=== PATIENT | male | born 1940 | race Caucasian/White ===

== ENCOUNTER → 2020-10-12 10:34 | Outpatient (CLI) | payer MEDICARE, OTHER, SELFPAY ==
--- NOTE | ~2020-10-12 | XR_ITS ---
EXAMINATION: XR lumbar spine 2-3V EXAM DATE: 10/12/2020 11:04 INDICATION: Dorsalgia. Acute low back pain. TECHNIQUE: Lumber spine frontal, lateral, lateral L5-S1 projections for interpretation. There is no prior study for comparison. FINDINGS: There is mild to moderate disc disease at L3-4 and moderate at L5-S1. Mild disc disease at L2-3. There is mild upper lumbar, moderate lower lumbar facet arthropathy. The vertebral bodies are aligned in the AP dimension. Vertebral body heights are maintained. No spondylolysis. Mild aortic art erial sclerosis. Sacrum, sacroiliac joints, sacral arcuate lines are intact. Paraspinal soft tissue i s unremarkable. It is difficult to appreciate any significant interval change compared to 2014. IMPRESSION: Moderate lower lumbar spondylosis. Reviewed, dictated and finalized at location A.
== END ==
PROVIDERS: PCP Family Medicine; Visit Provider Family Medicine
DX: M54.9 Dorsalgia, unspecified (principal); M47.816 Spondylosis without myelopathy or radiculopathy, lumbar region
CPT/HCPCS: 72100

== ENCOUNTER 2020-11-27 12:20 | Outpatient (CLI) | payer MEDICARE, OTHER, SELFPAY ==
--- NOTE | 2020-11-27 12:46 | ECHO_ITS ---
Patient Info Name: Marquise Reyes Age: 80 years : 1940 Gender: Male Ht: 72 in Wt: 201 lbs BSA: 2.17 m2 HR: 78 bpm BP: 157 / 85 mmHg Heart Rhythm: Sinus Rhythm Exam Date: 11/27/2020 12:58 PM Exam Location: [facility] Patient Status: Outpatient Admit Date: 11/27/2020 Staff Ordering Physician: Amrik Painter DO Counselor At Law: Mikaela Nelson RDCS Attending Provider: Amrik Painter DO Exam Type: CA echo doppler color flow Study Info Indications R06.00 - Dyspnea, unspecified Complete two-dimensional, color flow and Doppler transthoracic echocardiogram is performed. Summary 1. Complete two-dimensional, color flow and Doppler transthoracic echocardiogram is performed. 2. Left ventricular chamber dimension is normal. 3. Left ventricular systolic function is normal, estimated at 55-60%. 4. There is mildly increased left ventricular wall thickness. 5. The left ventricular diastolic function is grade I diastolic dysfunction. 6. E/e' 9 is minimally elevated. 7. Left atrial chamber dimension is mildly enlarged. 8. There is mild mitral valve regurgitation. 9. There is mild tricuspid valve regurgitation. 10. No pulmonary hypertension, estimated pulmonary arterial systolic pressure is 32 mmHg. Left Ventricle E/e' 9 is minimally elevated. Left ventricular chamber dimension is normal. Left ventricular systolic function is normal, estimated at 55-60%. There is mildly increased left ventricular wall thickness. The left ventricular diastolic function is grade I diastolic dysfunction. Right Ventricle Right ventricular chamber dimension is normal. Right ventricular systolic function is normal. Left Atria Left atrial chamber dimension is mildly enlarged. Right Atria Right atrial chamber dimension is normal. Aortic Valve The aortic valve is trileaflet. There is no aortic valve stenosis. There is no aortic valve regurgitation. Pulmonic Valve There is no pulmonic regurgitation. Mitral Valve There is no mitral valve stenosis. There is mild mitral valve regurgitation. Tricuspid Valve There is mild tricuspid valve regurgitation. No pulmonary hypertension, estimated pulmonary arterial systolic pressure is 32 mmHg. Pericardium/Pleural There is no pericardial effusion. Inferior Vena Cava Normal inferior vena cava with >50% collapse upon inspiration consistent with normal right atrial pressure, 5 mmHg. Aorta The aortic root size at the sinus of Valsalva is normal. Left Ventricular Outflow Tract Name Value Normal LVOT 2D LVOT Diameter 2.1 cm LVOT Doppler LVOT Peak Gradient 3 mmHg LVOT Mean Gradient 1 mmHg LVOT VTI 21 cm LVOT VTI/AV VTI Ratio 0.7 LVOT Stroke Volume 73 ml LVOT CO 5.1 l/min LVOT CI 2.3 l/min/m2 Pulmonic Valve Name Value Normal
== END 2020-11-27 12:21 | disposition home or self-care (01) ==
LOC: ANHCARD 12:24
PROVIDERS: PCP Family Medicine; Visit Provider Internal Medicine Cardiovascular Disease
DX: R06.00 Dyspnea, unspecified (principal); I36.1 Nonrheumatic tricuspid (valve) insufficiency; I34.0 Nonrheumatic mitral (valve) insufficiency
CPT/HCPCS: 93306

== ENCOUNTER → 2020-12-09 10:26 | Outpatient (CLI) | payer MEDICARE, OTHER, SELFPAY ==
--- NOTE | ~2020-12-09 | MR_ITS ---
EXAMINATION: MR lumbar spine wo con EXAM DATE: 12/09/2020 11:46 INDICATION: Lumbar radiculopathy lbp down duyen legs x5mos, prev l-sp surg x20yrs, no trauma . TECHNIQUE: Multi-sequential, multiplanar MR images of the lumbar spine were obtained without contrast . Sagittal T1, T2, T2 fat saturation images. Axial T2 weighted images. Correlation is made to lumba r x-ray 10/12/2020. FINDINGS: There are scattered focal signal abnormalities consistent with hemangiomata, otherwise with out focal suspicious marrow signal abnormalities. There is moderate loss of the L3-4 and L5-S1 disc h eight, mild to moderate at L2-3. There is 2 mm retrolisthesis L2 on L3. The vertebral bodies are othe rwise aligned. The conus medullaris terminates at the L1/2 level and has normal signal intensity and morphology. Paraspinal soft tissue is unremarkable. Large incompletely imaged left renal cyst. Level by level evaluation: T12-L1: Disc does not extend beyond the endplate margin. Facet arthropathy: None. Neural foraminal stenosis: No stenosis. Central canal stenosis: No stenosis. L1-L2: There is a mild diffuse disc bulge. Facet arthropathy: Large right synovial cyst filling the neural foramina. Neural foraminal stenosis: Moderate to severe right. Central canal stenosis: Right lateral recess stenosis. L2-L3: There is a mild to moderate diffuse disc bulge. Facet arthropathy: Moderate . Ligamentum flavum enlargement. Neural foraminal stenosis: Moderate left, mild to moderate right. Central canal stenosis: Mild to moderate. L3-L4: There is a moderate diffuse disc bulge. Facet arthropathy: Moderate . Ligamentum flavum enlargement. Neural foraminal stenosis: Moderate right, mild to moderate left. Central canal stenosis: Moderate. L4-L5: There is a moderate diffuse disc bulge. Facet arthropathy: Moderate to severe . Ligamentum flavum enlargement. Neural foraminal stenosis: Moderate bilateral. Central canal stenosis: Severe. L5-S1: There is a mild to moderate diffuse disc bulge. Facet arthropathy: Mild to moderate. Neural foraminal stenosis: Mild bilateral. Central canal stenosis: Mild. IMPRESSION: 1. L4-5 severe central canal stenosis. 2. L1-2 moderate to severe right neural foraminal stenosis. Reviewed, dictated and finalized at location A.
== END ==
PROVIDERS: PCP Family Medicine; Visit Provider Nurse Practitioner Adult Health
DX: M54.16 Radiculopathy, lumbar region (principal); M48.061 Spinal stenosis, lumbar region without neurogenic claudication
CPT/HCPCS: 72148

== ENCOUNTER 2021-03-26 07:39 | Outpatient (CLI) | payer MEDICARE, OTHER, SELFPAY ==
--- NOTE | 2021-04-07 19:35 | WPDHOMESLEEP ---
Sleep Study - Home Unattended Date of Study: 03/26/21 Ordering Provider: Amrik Painter DO Interpreting Provider: Pamela Cortez MD Home Sleep Study Type: Apnea Link Air Height: 1.83 m Weight: 91.172 kg Body Mass Index: 27.2 Neck Circumference (inches): 19 [place]: 6 Reason for Sleep Study Hypersomnia Sleep History Marquise Reyes is an 80 year old man with difficulty falling asleep and he has excessive daytime sleepiness. He does not awaken from sleep feeling short of breath or awaken at night with heartburn, belching or coughing. He occasionally snores and occasionally it is loud enough that others complain about it. He occasionally has trouble sleeping with a cold. He does not gasp for breath at night or have breathing problems at night reported to him by others. He occasionally sweats excessively at night. He does not notice his heart pounding or beating irregularly at night. He does not fall asleep during the day, does not fall asleep involuntarily or while driving. He does not have loss of muscle tone with strong emotion. He does not have daytime difficulties due to excessive sleepiness. He does not feel paralyzed on waking or falling asleep. He does not have vivid dreamlike scenes upon awakening or falling asleep. He does not feel afraid to go to sleep. He occasionally has nightmares. He occasionally remembers his dreams. He does not have racing thoughts, feelings of sadness, depression, or anxiety. He denies having muscular tension or noticing parts of his body jerking. He does not kick at night. He occasionally has crawling and aching feelings in his legs. He occasionally has leg pain at night. He does not have morning jaw pain. He occasionally grinds his teeth during sleep. He occasionally is bothered by pain during the day. He never is awakened by pain at night. Occasionally wakes up feeling stiff in the morning with sore achy muscles. He does not wake up with pain in the neck and spine. He has fatigue, insomnia headaches and nightmares. Normal bedtime is 7:00 p.m. taking 30 minutes to fall asleep waking 3-4 times during the night to go to the bathroom. He stays awake for 30 minutes on average with these awakenings. He wakes in the morning at 5:00 a.m.. He estimates getting 6 hours of sleep at night. His weekend schedule is the same. He takes naps in the afternoon or evening. A short nap is refreshing. Most of the time he feels refreshed in the morning. He feels better in the morning compared to other times of day. Habits: Never smoked tobacco. Caffeine 2-3 cups a day. No alcohol or recreational drugs. [facility] Past Medical History Medical History Chronic low back pain Chronic lymphocytic leukemia in remission Dyslipidemia Environmental allergies Essential (primary) hypertension GERD without esophagitis History of subdural hematoma Lumbar spondylosis Premature atrial complexes Surgical History Surgical History History of basal cell carcinoma excision 2019 - left nose History of lumbosacral spine surgery 1960s History of neck surgery 2000 Lump of breast, left benign-removed in the late s Tumor Right side of neck - removed 2008 Family History Family History Mother Patient's mother is , Onset Age: 92 Family history of lung cancer Father Family history of type 2 diabetes mellitus Diabetes mellitus, Onset Age: 79 Family history of lung cancer Other Family history of lymphoma Social History Social History Smoking status: Never smoker Second hand tobacco smoke exposure: No Alcohol intake: former Alcohol use details: 1 glass of wine occasionally Substance use: never Substance use type: does not use Additional living arrangements comments:
[2021-04-07 21:23] VITALS: BMI 27.2
== END 2021-03-27 13:09 | disposition home or self-care (01) ==
LOC: ANHCSM 07:42
PROVIDERS: PCP Family Medicine; Visit Provider Internal Medicine Cardiovascular Disease
DX: G47.33 Obstructive sleep apnea (adult) (pediatric) (principal)
CPT/HCPCS: 95806

== ENCOUNTER 2021-04-19 07:57 | Outpatient (CLI) | payer MEDICARE, OTHER, SELFPAY ==
--- NOTE | 2021-05-02 15:46 | WPDSLEEPSTUD ---
Sleep Study Date of Study: 04/19/21 <Adele Perdomo DO - Last Filed: 05/02/21 16:30> Ordering Provider: Amrik Painter DO <Adele Perdomo DO - Last Filed: 05/02/21 16:30> Interpreting Physician: Adele Perdomo DO <Adele Perdomo DO - Last Filed: 05/02/21 16:30> Sleep Study Type: CPAP Titration <Adele Perdomo DO - Last Filed: 05/02/21 16:30> Height: 1.83 m <Adele Perdomo DO - Last Filed: 05/02/21 16:30> Weight: 92.986 kg <Adele Perdomo DO - Last Filed: 05/02/21 16:30> Body Mass Index: 27.8 <Adele Perdomo DO - Last Filed: 05/02/21 16:30> Neck Circumference (inches): 17 <Adele Perdomo DO - Last Filed: 05/02/21 16:30> [place]: 3 <Adele Perdomo DO - Last Filed: 05/02/21 16:30> Reason for Sleep Study The patient had a home sleep test on 03/26/21 that showed an AHI of 7 with desaturations down to 52%. He spent 44 minutes with an oxygen saturation less than 88%. It was recommended that he have an in lab study. <Adele Perdomo DO - Last Filed: 05/02/21 16:30> Sleep History Marquise Reyes is an 80 year old man with difficulty falling asleep and he has excessive daytime sleepiness. He does not awaken from sleep feeling short of breath or awaken at night with heartburn, belching or coughing. He occasionally snores and occasionally it is loud enough that others complain about it. He occasionally has trouble sleeping with a cold. He does not gasp for breath at night or have breathing problems at night reported to him by others. He occasionally sweats excessively at night. He does not notice his heart pounding or beating irregularly at night. He does not fall asleep during the day, does not fall asleep involuntarily or while driving. He does not have loss of muscle tone with strong emotion. He does not have daytime difficulties due to excessive sleepiness. He does not feel paralyzed on waking or falling asleep. He does not have vivid dreamlike scenes upon awakening or falling asleep. He does not feel afraid to go to sleep. He occasionally has nightmares. He occasionally remembers his dreams. He does not have racing thoughts, feelings of sadness, depression, or anxiety. He denies having muscular tension or noticing parts of his body jerking. He does not kick at night. He occasionally has crawling and aching feelings in his legs. He occasionally has leg pain at night. He does not have morning jaw pain. He occasionally grinds his teeth during sleep. He occasionally is bothered by pain during the day. He never is awakened by pain at night. Occasionally wakes up feeling stiff in the morning with sore achy muscles. He does not wake up with pain in the neck and spine. He has fatigue, insomnia headaches and nightmares. Normal bedtime is 7:00 p.m. taking 30 minutes to fall asleep waking 3-4 times during the night to go to the bathroom. He stays awake for 30 minutes on average with these awakenings. He wakes in the morning at 5:00 a.m.. He estimates getting 6 hours of sleep at night. His weekend schedule is the same. He takes naps in the afternoon or evening. A short nap is refreshing. Most of the time he feels refreshed in the morning. He feels better in the morning compared to other times of day. Habits: Never smoked tobacco. Caffeine 2-3 cups a day. No alcohol or recreational drugs. <Adele Perdomo DO - Last Filed: 05/02/21 16:30> [facility] Past Medical History Medical History: Medical History Chronic low back pain Chronic lymphocytic leukemia in remission Dyslipidemia Environmental allergies Essential (primary) hypertension GERD without esophagitis History of subdural hematoma Lumbar spondylosis Premature atrial complexes <Adele Perdomo DO - Last Filed: 05/02/21 16:30> Surgical History Surgical History: Surgical H
[2021-05-02 15:48] VITALS: BMI 27.8
== END 2021-04-20 06:06 | disposition home or self-care (01) ==
LOC: ANHCSM 07:58
PROVIDERS: PCP Family Medicine; Visit Provider Internal Medicine Cardiovascular Disease
DX: G47.33 Obstructive sleep apnea (adult) (pediatric) (principal)
CPT/HCPCS: 95811

== ENCOUNTER 2021-04-27 08:47 | Outpatient (CLI) | payer MEDICARE, OTHER, SELFPAY ==
--- NOTE | ~2021-04-27 | NM_ITS ---
EXAMINATION: NM bone scan whole body DATE: 04/27/2021 11:54 INDICATION: Prostate cancer TECHNIQUE: 24.24 mCi Tc-99m HDP was administered intravenously. Delayed whole-body scintigrams were obtained. COMPARISON: Lumbar spine MR dated 12/09/2020 FINDINGS: Typical pattern of likely degenerative joint centered uptake at the medial compartment of the left kn ee at the radial aspect of the bilateral carpi, at the acromioclavicular joints, right greater than l eft at the sternoclavicular joints left greater than right. Additional mild uptake at the left L4-L5 facet joint with severe corresponding facet osteoarthritis on prior MRI. 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 Addition al mild likely degenerative facet or costovertebral arthritis related uptake in the midthoracic spine . No other suspicious foci of abnormal bone uptake to suggest metastatic disease. IMPRESSION: 1. No evident metastatic disease. Reviewed, dictated and finalized at location A.
== END 2021-04-27 08:48 | disposition home or self-care (01) ==
LOC: ANHIMG 08:51
PROVIDERS: PCP Family Medicine; Visit Provider Urology
DX: C61 Malignant neoplasm of prostate (principal); M47.816 Spondylosis without myelopathy or radiculopathy, lumbar region
CPT/HCPCS: 78306; A9561

== ENCOUNTER 2021-05-28 08:10 | Outpatient (CLI) | payer MEDICARE, OTHER, SELFPAY ==
--- NOTE | ~2021-05-28 | MR_ITS ---
EXAMINATION: MR pelvis wo/w con DATE: 05/28/2021 10:27 INDICATION: Malignant neoplasm of the prostate. TECHNIQUE: Magnetic resonance imaging (MRI) of the pelvis was performed without and with 18 mL Multih ance intravenous contrast. [place] sequences of the pelvis included axial and coronal T2-weighted S S FSE, axial, sagittal and coronal 2D FIESTA, axial 2D FIESTA FS, axial SSFSE-IR GABRIELLE, axial dual-echo T1-weighted FSPGR, axial and coronal T1 weighted LAVA, 3D axial T2 Cube, axial diffusion-weighted SE with apparent diffusion coefficient (ADC) maps. Postcontrast sequences included a time course axial T1-weighted LAVA and sagittal and coronal T1-weighted LAVA. COMPARISON: None. FINDINGS: Enlarged heterogeneous prostate measuring 7.5 x 6.6 x 7.2 cm. Small region of increased fluid signal with ill-defined margins measuring approximately 4 cm craniocaudal and left and right and 7 mm in max imal thickness positioned between the posterior margin of the prostate in the anterior wall of the re ctum likely representing injected hydrogel spacer. Bladder is normal. 7.2 cm exophytic cyst arising f rom the lower pole of the left kidney. Small fat-containing left inguinal hernia. Visualized portion of the bowels including the appendix are unremarkable. No pathologically enlarged pelvic or lower abd ominal lymphadenopathy. Moderate lumbar spondylosis. There is marrow edema and enhancement centered a t the left L4-L5 facet joint where there is severe osteoarthritis evident on the prior lumbar spine M RI) with corresponding increased activity on prior bone scan at this location which is likely degener ative in etiology. There is also mild increased fluid signal and enhancement the soft tissues between the fourth and fifth spinous processes likely related to vascular disease which is better appreciate d on the prior lumbar spine MRI. No T1 hypointense marrow replacing processes or other enhancing bone lesions suspicious for metastatic disease. IMPRESSION: 1. Prostatomegaly consistent with given history of malignant neoplasm of the prostate. No evident met astatic disease. Reviewed, dictated and finalized at location A. REPAIR TECHNICIAN IMPRESSION: 1. Prostatomegaly consistent with given history of malignant neoplasm of the pr ostate. No evident metastatic disease.
[2021-05-28 09:33] LABS: Estimated Glomerular Filt Rate > 60
== END 2021-05-28 08:11 | disposition home or self-care (01) ==
LOC: ANHIMG 08:16
PROVIDERS: PCP Family Medicine; Visit Provider Radiology Radiation Oncology
DX: C61 Malignant neoplasm of prostate (principal); N40.0 Benign prostatic hyperplasia without lower urinary tract symptoms
CPT/HCPCS: 72197; A9577

== ENCOUNTER 2021-12-11 00:27 | Day surgery (SDC) | payer MEDICARE, OTHER, SELFPAY ==
[2021-12-05 15:26] VITALS: BMI 29.8
--- NOTE | 2021-12-05 15:49 | PC.NURSE ---
Report to the Outpatient Waiting Room, entrance under the green pavilion located off [facility], at time __9:00AM on date ___12/11/21____. OR Time: ___11:00AM . - You and your visitor will be asked a series of questions to screen for COVID 19 for your protection. - Only one visitor is allowed at this time. - The patient visitor is requested to leave or wait in car when not with patient. - A mask is required within the hospital. Patients may have clear liquids (water, carbonated beverages, clear teas, apple juice) until 3 hours prior to surgery with a maximum of 20 ounces. - No food from midnight until time of surgery - Infants may have breast milk until 4 hours before surgery, formula 6 hours prior to surgery. - Children will be allowed to drink immediately following surgery. If applicable, please bring a bottle or sippy cup to assist with drinking. Juice, water, soda, and popsicles are readily available. For infants on formula, please bring formula the day of surgery. Pacifiers are allowed. Take the following medications with a SIP of water the morning of surgery: ___METOPROLOL Medications to discontinue per physician ___HOLD IBUPROFEN 7 DAYS PRE-OP Date to take last dose___12/04/21 Please no make-up, nail citizen of [place], hairspray, perfume, deodorant, or body powder the day of surgery. No jewelry (including any body piercings) or valuables the day of surgery, leave them at home. Please take a shower or bath the night before, or the morning of, surgery with an antibacterial soap. Wear comfortable, loose fitting clothing. Children are encouraged to wear pajamas. - Jewelry must be removed prior to entering the operating room. Rings and piercings that are not removed may be cut off. - The hospital will not accept responsibility for valuables. - Please leave all valuables, including medications, at home the day of surgery. If you are going home after surgery, a licensed mobile lounge driver or operator must drive you home. - NO public transportation without another adult. - We recommend that an adult stay with you for 24 hours following discharge. - We also recommend that you do not drive, make important decision, drink alcoholic beverages, or take any drugs that were not prescribed by your health care provider for at least 24 hours after your discharge time. For Pediatric surgeries, we recommend two adults accompany the child home (only one inside the building at this time). Follow any additional instructions given to you from your surgeon. If you or anyone in your household have experienced Covid symptoms in the past week, please notify your surgeon or the nurse liaison at the phone number below for possible testing. Telephone instructions given to __PATIENT & WIFE and asked if any additional questions and then verbalized understanding. Patient advised to call surgeon office or pre surgery nurse liaison [phone] if any additional questions.
--- NOTE | 2021-12-10 13:45 | WPDANESEPPF ---
Anes - Initial Pre Proc Eval Procedure: Operation Date: 12/11/21 11:00 Proposed Procedures p Cystoscopy, Retrograde Urethrogram, Urethral Dilation - Cullen Venegas MD Date/Time: 12/10/21 13:45 Surgeon: Cullen Venegas MD Pre Op Diagnosis: urethral stricture, neurogenic bladder Patient Data Age: 81 Gender: M Height: 1.8 m Weight: 97 kg Allergies Allergy/AdvReac Type Severity Reaction Status Date / Time No Known Allergies Allergy Verified 12/05/21 15:19 Home Medications Medication Instructions Recorded Confirmed Type fexofenadine 180 mg tablet 180 mg PO DAILY 05/27/19 12/05/21 History (Corrina Allergy) ibuprofen 200 mg capsule (Advil 200 mg PO Q6H PRN Pain 11/02/20 12/05/21 History Liqui-Gel) fluticasone propionate 50 1 spray intranasal DAILY 11/21/20 12/05/21 History mcg/actuation nasal spray,suspension omeprazole 40 mg capsule,delayed 40 mg PO DAILY #30 caps 06/15/21 12/05/21 Rx release metoprolol succinate 25 mg 25 mg PO QAM 12/05/21 12/05/21 History tablet,extended release 24 hr (Toprol XL) Patient hx anesthesia problems: none Family hx anesthesia problems: none Results Review: All pre-operative results and documents have been reviewed as part of the pre-operative evaluation. [facility] Past Medical History Medical History Chronic low back pain CLL (chronic lymphocytic leukemia) Dyslipidemia Environmental allergies Essential (primary) hypertension GERD without esophagitis History of subdural hematoma Lumbar spondylosis Premature atrial complexes Prostate cancer Vitamin D deficiency Surgical History Surgical History History of basal cell carcinoma excision 2019 - left nose History of lumbosacral spine surgery 1960s History of neck surgery 2000 Lump of breast, left benign-removed in the late s Tumor Right side of neck - removed 2008 Family History Family History Mother Patient's mother is , Onset Age: 92 Family history of lung cancer Father Family history of type 2 diabetes mellitus Diabetes mellitus, Onset Age: 79 Family history of lung cancer Other Family history of lymphoma Social History Social History Smoking status: Never smoker Second hand tobacco smoke exposure: No Alcohol intake: current Drinks per week: 2 Alcohol use details: 1 glass of wine occasionally Substance use: never Substance use type: does not use Living arrangements: with family Additional living arrangements comments: [facility]- Gender identity (if verbalized by the patient): Male Spiritual care concerns: No Anes - Eval Final PreProcedure Day of Procedure 12/10/21 13:45 Patient weight: overweight Heart: regular rate and rhythm Lungs: clear to auscultation and normal air movement Airway: Mallampati scale class II Neurological: alert and oriented Last oral intake: >/= 8 hours ASA classification: III Emergent: no Anesthetic plan: proceed Anesthesia type and monitoring: general LMA Results Review: All pre-operative results and documents have been reviewed as part of the pre-operative evaluation. Informed Consent: The patient's anesthetic plan and its attendant risks and benefits were discussed with the patient/family/POA. Questions were solicited and answers provided to the satisfaction of the patient/family/POA.
[2021-12-11] VITALS (8 sets, daily range): BP systolic 101–179; BP diastolic 52–82; PULSE 58–88; RESP 10–16; TEMP 36.3; O2SAT 99–100
--- NOTE | ~2021-12-11 | XR_ITS ---
XR fluoroscopy no charge 12/11/2021 13:17 Indication: Urethral dilation procedure TECHNIQUE: Fluoroscopy used during ureteral dilation procedure performed by [Cullen wing MD] on 12/11/2021. Fluoroscopy time is 33 seconds. with 2 fluoroscopic images images captured. ] FINDINGS: Correlate with procedure note. IMPRESSION: Fluoroscopy used during ureteral dilation procedure. Reviewed, dictated and finalized at location B.
--- NOTE | 2021-12-11 08:38 | WPDHPUPDATE1 ---
History and Physical Update Update Date/Time: 12/11/21 08:38 History and Physical has been reviewed, including an updated exam of the patient. There are NO changes in the patient's condition. Risks, benefits, and alternatives have been discussed and questions answered. Patient agrees to proceed with procedure. Proceed with cysto, retrograde urethrogram, urethral dilation
[2021-12-11] MEDS: LACTATED RINGERS 1,000 ML 30 ML IV CONT (11:30)
[2021-12-11] MEDS: ceFAZolin 2 GM/D5W 50 ML 2 GM/50 ML BAG IVPB (12:35)
[2021-12-11] MEDS: LIDOCAINE HCL 2% GEL UROJET 10 ML PKG MUCOUS MEM (13:03)
--- NOTE | 2021-12-11 13:12 | P.OP_ITS ---
Procedure Note - Detailed Date of Procedure 12/11/21 Pre-op Diagnosis urethral stricture, neurogenic bladder Post-op Diagnosis Same Procedure Performed Cystoscopy with urethral dilation and complex Shah catheter placement Surgeon Cullen Venegas MD Anesthesia General Findings Bulbar urethral stricture with some lateral lobe hypertrophy and elevated median bar Description of Procedure Patient is taken to the operative suite correctly identified. Once anesthesia was obtained was placed in the dorsal lithotomy position and prepped and draped usual sterile fashion. A Macedonian scope was inserted into the urethra. He has a bulbar stricture which would not allow passage of the scope. A guidewire was passed through this stricture but could not navigate the elevated median bar of the prostate. I thus used a rigid ureteral scope to traverse this area and placed a wire into the bladder. We then used Amplantz dilators and dilated up to 22 Macedonian. Cystoscopy was then performed again. No tumors were noted. Eighteen [place]onian [place] tip catheter was then passed over the wire. 15 cc were placed in the balloon. Patient is taken recovery stable condition. He may have a little prostatic oozing. Will leave the catheter in until next Friday which point he will have a voiding trial. Estimated Blood Loss 0 Drains Yes Packing No Pathology None sent Complications No immediate complications Condition Stable Disposition PACU
== END 2021-12-11 15:23 | disposition home or self-care (01) ==
PROVIDERS: PCP Family Medicine; Visit Provider Urology
PROC: (CPT 52352; principal; 2021-12-11 11:00)
DX: N35.912 Unspecified bulbous urethral stricture, male (principal); N31.9 Neuromuscular dysfunction of bladder, unspecified; E78.5 Hyperlipidemia, unspecified; I10 Essential (primary) hypertension; C91.10 Chronic lymphocytic leukemia of B-cell type not having achieved remission; K21.9 Gastro-esophageal reflux disease without esophagitis; Z85.46 Personal history of malignant neoplasm of prostate
CPT/HCPCS: 52281; A9270; C1726; C1769; J0690; J2704; J3010; J7120

== ENCOUNTER 2022-01-14 08:31 | Outpatient (CLI) | payer MEDICARE, OTHER, SELFPAY ==
--- NOTE | ~2022-01-14 | NM_ITS ---
EXAMINATION: NM ranjith stress w perfusion DATE: 01/14/2022 10:38 INDICATION: Dyspnea TECHNIQUE: Rest images were obtained following intravenous administration of 9 mCi Tc99m tetrofosmin (Myoview). The patient was infused intravenously with Lexiscan (Regadenoson). Then, 29.1 mCi Tc99m te trofosmin (Myoview) was administered intravenously, and stress images were obtained in supine positio n. Repeat post stress imaging was obtained in the prone position. Data was reconstructed into short a xis and horizontal and vertical long axis SPECT images. Gated SPECT images were also obtained. COMPARISON: None. FINDINGS: There is no definite reversible or fixed perfusion abnormality to suggest ischemia or infar ction. There is normal left ventricular chamber size, wall motion and ejection fraction. Left ventr icular ejection fraction measures 70%. IMPRESSION: 1. Normal myocardial perfusion at rest and during stress. 2. Left ventricular ejection fraction measuring 70%. Reviewed, dictated and finalized at location B.
--- NOTE | 2022-01-14 08:41 | EST_ITS ---
Patient Info Name: Marquise Reyes Age: 81 years : 1940 Gender: Male Ht: 72 in Wt: 210 lbs BSA: 2.22 m2 HR: 82 bpm BP: 168 / 89 mmHg Exam Date: 01/14/2022 9:33 AM Exam Location: [facility] Stress Patient Status: Outpatient Admit Date: 01/14/2022 Staff Ordering Physician: Amrik Painter DO Attending Provider: Amrik Painter DO Exercise Technologist: Elena Silvestre CT Exercise Physician: Amrik Painter DO Exam Type: CA stress ranjith w NM Study Info Indications R06.09 - Other forms of dyspnea A regadenoson stress test was performed. Summary 1. 1. Negative lexiscan stress test for ischemic ST changes by ECG criteria. 2. 2. Baseline hypertension. 3. 3. Nuclear scan to follow and will be reported separately. Please correlate with it. 4. 4. Patient informed of the above results. Protocol: Lexiscan Stress ECG Details Stage: REST Duration (min): 1 min : 58 sec HR (bpm): 78 SBP (mmHg): 168 DBP (mmHg): 89 Stage: REST Duration (min): 6 min : 22 sec HR (bpm): 86 SBP (mmHg): 168 DBP (mmHg): 89 Stage: STAGE 1 Duration (min): 1 min : 0 sec HR (bpm): 94 SBP (mmHg): 159 DBP (mmHg): 86 Stage: RECOVERY Duration (min): 1 min : 0 sec HR (bpm): 102 SBP (mmHg): 159 DBP (mmHg): 86 Stage: RECOVERY Duration (min): 2 min : 0 sec HR (bpm): 97 SBP (mmHg): 159 DBP (mmHg): 86 Stage: RECOVERY Duration (min): 3 min : 0 sec HR (bpm): 103 SBP (mmHg): 142 DBP (mmHg): 81 Stage: RECOVERY Duration (min): 3 min : 16 sec HR (bpm): 103 SBP (mmHg): 142 DBP (mmHg): 81 Rest HR: 86 bpm Peak HR: 107 bpm Rest Sys BP: 168 mmHg Peak Sys BP: 159 mmHg Max Pred HR: 137 bpm % Max Pred HR: 78 % Target HR: 116 bpm Max RPP: 17,013 bpm*mmHg Termination Reason: Completed protocol Cardiac Symptoms: Shortness of breath Total Time: 1 min : 0 sec Rest Zapata BP: 89 mmHg Peak Zapata BP: 86 mmHg Total Dose: 0.4 mg Resting ECG Sinus rhythm, RBBB, LAFB, cannot r/o septal infarct, age indeterminate. Stress ECG No ST changes. Arrhythmias None. Report Signatures
== END 2022-01-14 08:32 | disposition home or self-care (01) ==
PROVIDERS: PCP Family Medicine; Visit Provider Internal Medicine Cardiovascular Disease
DX: R06.00 Dyspnea, unspecified (principal)
CPT/HCPCS: 78452; 93017; A9502; J2785

== ENCOUNTER → 2022-02-13 15:31 | Outpatient (CLI) | payer MEDICARE, OTHER, SELFPAY ==
--- NOTE | ~2022-02-13 | XR_ITS ---
XR chest 2V 02/13/2022 16:08 Indication: Shortness of breath Procedure: 2 view chest Comparison: 07/28/2018 Findings: Portacatheter tip near the cavoatrial junction. There is chronic left basilar atelectasis/s carring. No focal air space disease, pulmonary edema, pleural effusion or suspected pneumothorax. Impression: 1: No acute cardiopulmonary disease. Reviewed, dictated and finalized at location A. Impression: 1: No acute cardiopulmonary disease.
== END ==
PROVIDERS: PCP Family Medicine; Visit Provider Internal Medicine Critical Care Medicine
DX: R06.02 Shortness of breath (principal)
CPT/HCPCS: 71046

== ENCOUNTER 2022-02-19 09:32 | Outpatient (CLI) | payer MEDICARE, OTHER, SELFPAY ==
--- NOTE | 2022-02-20 15:19 | WPDPFTINT ---
PFT Procedure Performed PFT Procedure Performed Spirometry with Pre/Post Bronchodilator Plethysmography (Lung Vol) Diffusing Cap (DLCO) Flow Vol Loop PFT Interpretation Lung volumes were measured with the body plethysmography method. Lung volumes are unremarkable. Spirometry showed diminished expiratory flow rates and a diminished FEV1 to FVC ratio of 61%, indicative of obstructive airway disease. Following administration of a bronchodilator there was no significant increase in the expiratory flow rates. Lung diffusion capacity is mildly reduced at 68% predicted. The flow volume loop is consistent with obstructive airway disease. Impression: Mild obstructive airway disease with no response to bronchodilators on this testing. Mild reduction in lung diffusion capacity.
--- NOTE | 2022-02-20 15:21 | WPDSIXMINUTE ---
Six Minute Walk Procedure Procedure Performed Pulmonary Stress Test (6 min walk) Six Minute Walk Six Minute Walk: This 6 minute walk test was carried out with the patient breathing ambient air. The pre walk oxyhemoglobin saturation was 97%. The patient walked over 304 m with no stops during testing. During the walk the oxyhemoglobin saturation remained greater than 95%. Impression: No evidence of oxyhemoglobin desaturation on this testing.
== END 2022-02-19 09:33 | disposition home or self-care (01) ==
LOC: ANHPFT 09:35
PROVIDERS: PCP Family Medicine; Visit Provider Internal Medicine Critical Care Medicine
DX: R06.02 Shortness of breath (principal); R94.2 Abnormal results of pulmonary function studies
CPT/HCPCS: 94060; 94618; 94726; 94729

== ENCOUNTER → 2022-05-03 15:44 | Outpatient (CLI) | payer MEDICARE, OTHER, SELFPAY ==
--- NOTE | ~2022-05-03 | DEXA_ITS ---
Bone Density Report Name: JOSS JORGE Age: 81 Sex: Male Ethnicity: White Date of : 1940 Indication: screening for osteoporosis; height loss; cancer; Referring Provider: ARCELIA CASTELAN Study: Bone densitometry was performed. Exam Date: May 03, 2022 Accession number: [id number] Bone Density: Region BMD T-score Z-score Classification AP Spine (L1, L2, L4) 0.936 -1.4 -0.1 Osteopenia Femoral Neck (Left) 0.777 -1.1 0.5 Osteopenia Total Hip (Left) 0.919 -0.8 0.4 Normal Femoral Neck (Right) 0.803 -0.9 0.7 Normal Total Hip (Right) 0.868 -1.1 0.1 Osteopenia Total Hip Mean 0.894 -1.0 0.3 Normal World Health Organization criteria for BMD impression classify patients as: Normal (T-score at or above -1.0), Osteopenia (T-score between -1.0 and -2.5), or Osteoporosis (T-score at or below -2.5). 10-year Fracture Risk(1): Major Osteoporotic Fracture 6.3% Hip Fracture 2.1% Reported Risk Factors: [place] (), Neck BMD=0.777, BMI=30.8 (1) FRAX(R) Version 3.08. Fracture probability calculated for an untreated patient. Fracture probability may be lower if the patient has received treatment. Clinical Information Provided by Patient: Has the following medical conditions: Cancer, PROSTATE CA WITH RADIATION - 2020, CHRONIC LYMPHOCYTIC LEUKEMIA -2007 Patient maximum height was 73.0 No regular weight bearing exercise Impression: The patient has low bone mass, based on the Total Spine T-score. The patient has an estimated ten-year risk of hip fracture of 2.1% and an estimated ten-year risk of major fracture of 6.3%, based on the WHO FRAX algorithm. Discussion: BONE DENSITY IS LOW AT ONE OR MORE SKELETAL SITES. This patient's lowest T-score is low at one or more skeletal sites. It meets the World Health Organization's (WHO) criteria for ?low bone mass? (T-score between -1.0 and -2.5). The patient's 10-year risk of fracture as calculated by FRAX is less than the threshold where pharmacological therapy is recommended by the National Osteoporosis Foundation (NOF). However, all treatment decisions require clinical judgment and consideration of individual patient factors, including patient preferences, comorbidities, previous drug use, risk factors not captured in the FRAX model (e.g., frailty, falls, vitamin D deficiency, increased bone turnover, interval significant decline in bone density) and possible under or overestimation of fracture risk by FRAX. The patient should follow a healthful lifestyle (good nutrition with adequate calcium and vitamin D, and appropriate weight-bearing exercise). Follow-Up: Consider repeating this study in 2 to 3 years to reassess this patient's status, or sooner if there is some new clinical indication. Reported by: ARCELIA on 05/03/2022 4:37:00 PM.
== END ==
PROVIDERS: PCP Family Medicine; Visit Provider Nurse Practitioner Adult Health
DX: M85.88 Other specified disorders of bone density and structure, other site (principal)
CPT/HCPCS: 77080

== ENCOUNTER → 2022-10-01 10:22 | Outpatient (CLI) | payer MEDICARE, OTHER, SELFPAY ==
--- NOTE | ~2022-10-01 | XR_ITS ---
XR chest 2V DATE: 10/01/2022 10:34 INDICATION: Shortness of breath. History of prostate cancer, leukemia TECHNIQUE: 2 views COMPARISON: 02/13/2022 2 view chest FINDINGS: Left subclavian Port-A-Cath catheter tip overlying right atrium. Heart size is within eitan l range. Aortic arch calcification. There is mild infiltrate, atelectasis and/or fibrotic change at the lung bases and left lower lobe re trocardiac area, stable since 02/13/2022. The lungs otherwise appear clear. No pleural effusion or pulmonary vascular congestion or pneumothora x. Diffuse osteopenia. IMPRESSION: Left lower lobe and bibasilar infiltrate, atelectasis and/or fibrotic change, stable sinc e 02/13/2022 Reviewed, dictated and finalized at location L. IMPRESSION: Left lower lobe and bibasilar infiltrate, atelectasis and/or fibrot ic change, stable since 02/13/2022
== END ==
PROVIDERS: PCP Family Medicine; Visit Provider Internal Medicine Critical Care Medicine
DX: R06.02 Shortness of breath (principal); C61 Malignant neoplasm of prostate; C95.90 Leukemia, unspecified not having achieved remission; R91.8 Other nonspecific abnormal finding of lung field
CPT/HCPCS: 71046

== ENCOUNTER 2022-10-10 11:12 | Outpatient (CLI) | payer MEDICARE, OTHER, SELFPAY ==
[2022-10-10 18:39] LABS: Basophils Percent Auto 0.4 % (0.2-1.2); Eosinophils Absolute Auto 0.1 K/mm3 (0-0.3); Eosinophils Percent Auto 2.2 % (0-4.4); Hematocrit 42.7 % (42.0-52.0); Hemoglobin 13.5 g/dL (14.0-18.0); Immature Granulocyte Absolute 0.01 K/mm3 (0.00-0.031); Immature Granulocyte Percent A 0.2 % (0-0.5); Lymphocytes Absolute Auto 0.71 K/mm3 (0.9-3.2); Mean Corpuscular HGB Conc 31.6 g/dl (32-36); Mean Corpuscular Hemoglobin 27.7 pg (26-34); Mean Corpuscular Volume 87.5 fl (80-100); Mean Platelet Volume 9.5 fl (7.4-10.4); Monocytes Absolute Auto 0.4 K/mm3 (0.1-0.6); Monocytes Percent Auto 7.8 % (2.6-8.5); Neutrophils Absolute Auto 4.2 K/mm3 (1.3-6.7); Neutrophils Percent Auto 76.4 % (45.5-73.1); Platelet Count Result 180 k/mm3 (150-375); Red Blood Count 4.88 M/mm3 (4.6-6.20); Red Cell Distribution Width 15.6 % (11.5-14.5); White Blood Count 5.5 K/mm3 (4.5-10.0)
[2022-10-10 18:59] LABS: Alanine Aminotransferase 22 U/L (6-50); Albumin Level 4.4 g/dL (3.5-5.1); Alkaline Phosphatase 78 U/L (38-126); Anion Gap 6 mmol/L (8-16); Aspartate Amino Transferase 28 U/L (17-59); Bilirubin,Total 0.8 mg/dL (0.2-1.3); Blood Urea Nitrogen 21 mg/dL (9-20); Carbon Dioxide 31 mmol/L (22-30); Chloride 102 mmol/L (98-107); Cholesterol 205 mg/dL (0-200); Estimated Glomerular Filt Rate > 60; Glucose 133 mg/dL (65-110); HDL Direct 37 mg/dL; Potassium 5.1 mmol/L (3.4-5.0); Sodium 139 mmol/L (137-145); Triglycerides 148 mg/dL (<150)
[2022-10-10 19:12] LABS: LDL Cholesterol Direct 118 mg/dL
[2022-10-10 20:48] LABS: Hemoglobin A1C 5.6 % (<5.7)
== END 2022-10-10 11:13 | disposition home or self-care (01) ==
LOC: ANHGOSHLAB 11:14
PROVIDERS: PCP Family Medicine; Visit Provider Nurse Practitioner Family
DX: I10 Essential (primary) hypertension (principal); E78.5 Hyperlipidemia, unspecified; E03.9 Hypothyroidism, unspecified; E11.9 Type 2 diabetes mellitus without complications
CPT/HCPCS: 36415; 80053; 80061; 83036; 84443; 85025

== ENCOUNTER → 2022-11-04 11:33 | Outpatient (CLI) | payer MEDICARE, OTHER, SELFPAY ==
--- NOTE | ~2022-11-04 | XR_ITS ---
EXAM: XR sinus min 3V DATE: 11/04/2022 11:51 HISTORY: DIZZINESS . COMPARISON: CT brain 07/28/2018. FINDINGS: Mild osteopenia. No fracture or dislocation. No lytic or blastic lesion. Symmetric orbits. Aerated spaces are clear. Dental restorations. Degenerative changes in the cervical spine. No abnorm al intracranial calcifications No erosion or periosteal change. Soft tissues within normal limits. IMPRESSION: Unremarkable sinus radiograph findings. Aerated spaces are clear. Reviewed, dictated and finalized at location K.
== END ==
PROVIDERS: PCP Family Medicine; Visit Provider Family Medicine
DX: R42 Dizziness and giddiness (principal)
CPT/HCPCS: 70220

== ENCOUNTER 2022-11-05 08:22 | Outpatient (RCR) | payer MEDICARE, OTHER, SELFPAY ==
--- NOTE | 2022-11-05 11:57 | PTOPEVAL1 ---
Assessment and note entered by Rivka Meyer, PT Evaluation Information Assessment Status Evaluation Diagnosis dizziness Onset October 2022 Subjective Information returned from trip to [place], had a virus, head congestion, nasal congestion--feel better if lie down; having more headaches, take tylenol and lie down; is getting a little better with breathing; have script for meclazine, have only taken one time; take meds for allergies--flonase, aranza, nasal spray; hearing is OK, but have some issues in his L ear when doing his nasal flush have a history of falls--decrease R leg with walking- problems picking up R foot since radiation for prostate; fell once about 2 weeks ago in back yard; S/S: heavy in the head, congestion in forehead, equilibrium off, walking off balance; dizziness is coming and going--less than it was; increase s/s: walking unsteady; decrease s/s: lie down flat on back or sides- goes away; dr told him he has vertigo and crystals in ear, saw something in L ear- sinus and vertigo; had xrays of head- not received results yet; pt reported he is frustrated and wants to be more active--since radiation, has not gotten his strength back, not walking and moving as much; not doing exercises like he used to do; Reported Pain Level Pain Score 6: Self Report Additional Pain Score Comments head congestion- full of mucous; Assessment PT Clinical Summary Cheng has the diagnosis of dizziness. He reports dizziness is less, commented more on unsteady, wobbly when walk, fear of falling. He has multiple risk factors for dizziness: neck issues with poor neck position and limited ROM, s/ p neck surgery- cancer removal and skin flap, headaches, sinus and allergy issues, recent viral infection after returning from [place], sleep apnea, HTN with meds- follow with drier feeder, monthly cancer infusion for lymphoma. With the testing: HR is low in sitting and standing positions: 42 and 46; did not have any increase in issues
--- NOTE | 2022-11-08 16:08 | PCPTNOTE ---
pt called and canceled appointments, stated he feels like it his sinus' causing the dizziness. will keep chart open, in case he would call for any further concerns.
--- NOTE | 2022-11-14 16:01 | PTOPDC ---
Assessment and note entered by Rivka Meyer, PT Evaluation Information Assessment PT Clinical Summary Cheng had the PT evaluation, then called and stated he wanted to be discharged from therapy. He left a message that he feels like the dizziness is due to his sinus issues. With the evaluation, his HR was 42 and 46; He said he was going to see his rough rice grader at the end of the month. The goals were not achieved. Discharge PT per pt request. Plan of Care PT Services Indicated No
== END 2022-11-15 08:59 | disposition home or self-care (01) ==
LOC: ANHPT 08:22
PROVIDERS: PCP Family Medicine; Visit Provider Family Medicine
DX: R42 Dizziness and giddiness (principal)
CPT/HCPCS: 97162; 97530

== ENCOUNTER 2023-05-14 12:32 | Outpatient (CLI) | payer MEDICARE, OTHER, SELFPAY ==
--- NOTE | 2023-05-17 06:17 | WPDSIXMINUTE ---
Six Minute Walk Procedure Procedure Performed Pulmonary Stress Test (6 min walk) Six Minute Walk Six Minute Walk: This is a 6 minute walk test. The test was performed and interpreted in accordance with the 2014 ERS/ATS task force guidelines. Findings: The patient's resting room air oxygen saturation measured by pulse oximetry was 96% and heart rate was 74 bpm. Patient ambulated for 305 meters and oxygen saturation remained 94 to 95%. Heart rate at the end of the study was 104 bpm. The patient did not qualify for supplemental oxygen at rest or with ambulation. There are no prior studies for comparison.
--- NOTE | 2023-05-17 06:18 | WPDPFTINT ---
PFT Procedure Performed PFT Procedure Performed Spirometry with Pre/Post Bronchodilator Plethysmography (Lung Vol) Diffusing Cap (DLCO) Flow Vol Loop PFT Interpretation This is a pulmonary function test with pre and post-bronchodilator spirometry, plethysmography and diffusing capacity. The test was performed and results interpreted in accordance with the 2019 and 2005 ATS/ERS Task Force guidelines respectively using the Global Lung Function Initiative-2012 reference equations. Patient demonstrated good effort and cooperation. Reproducibility criteria were met. The quality of the pre bronchodilator spirometry maneuver was Grade A and post bronchodilator spirometry maneuver was Grade A. Findings: Spirometry: The contour the inspiratory and expiratory flow tracing are normal. The pre bronchodilator FVC is 3.39 L, 84% predicted. The pre bronchodilator FEV1 is 2.31 L, 78% predicted. The pre bronchodilator FEV1: FVC ratio is 68%. The post bronchodilator FVC is 3.52 L, representing a 4% increase. The post bronchodilator FEV1 is 2.59 L, representing a 12% increase. The post bronchodilator FEV1: FVC ratio 73%. Plethysmography: The total lung capacity is 6.88 L, 92% predicted. The functional residual capacity is 4.08 L, 99% predicted. The residual volume is 3.41 L, 119% predicted. Diffusing capacity: The diffusing capacity unadjusted for hemoglobin and carboxyhemoglobin is 17.1, 72% predicted. The diffusing capacity adjusted for alveolar volume is 2.97, 88% predicted. In comparison to previous pulmonary function testing on 02/19/2022 the post bronchodilator FVC is unchanged from 3.53 L to 3.52 L. The post bronchodilator FEV1 is unchanged from 2.49 L to 2.59 L. The total lung capacity is unchanged from 7.53 L to 6.88 L. The functional residual capacity is decreased from 4.90 L to 4.08 L. The residual volume is unchanged from 3.79 L to 3.41 L. The diffusing capacity unadjusted for hemoglobin and carboxyhemoglobin is unchanged from 16.4 to 17.1. The diffusing capacity adjusted for alveolar volume is unchanged from 3.12to 2.97. Impression: The spirometry is normal without evidence of an obstructive abnormality. There is significant improvement after inhaling a single dose of albuterol. The lung volumes are normal. The diffusing capacity is normal. In comparison to previous pulmonary function testing on 02/19/2022 there was a greater than anticipated time dependent decrease in the functional residual capacity with no significant change in the FVC, FEV1, total lung capacity, residual volume or diffusing capacity. Clinical correlation is recommended.
== END 2023-05-14 12:33 | disposition home or self-care (01) ==
LOC: ANHPFT 12:33
PROVIDERS: PCP Family Medicine; Visit Provider Internal Medicine Critical Care Medicine
DX: R06.00 Dyspnea, unspecified (principal); R06.02 Shortness of breath
CPT/HCPCS: 94060; 94618; 94726; 94729

== ENCOUNTER → 2024-02-10 09:07 | Outpatient (REF) | payer MEDICARE, OTHER, SELFPAY | LOC: ANHLAB 09:07 | PROVIDERS: PCP Family Medicine; Visit Provider Plastic Surgery | DX: C44.92 Squamous cell carcinoma of skin, unspecified (principal); L90.5 Scar conditions and fibrosis of skin | CPT/HCPCS: 88305 ==

== ENCOUNTER 2024-03-26 11:25 | Outpatient (CLI) | payer MEDICARE, OTHER, SELFPAY ==
[2024-03-26 12:32] LABS: Influenza A QL RT-PCR Negative (Negative); Influenza B QL RT-PCR Negative (Negative); SARS-CoV-2 RNA PCR Negative (Negative)
== END 2024-03-26 11:26 | disposition home or self-care (01) ==
LOC: ANHLAB 11:28
PROVIDERS: PCP Family Medicine; Visit Provider Internal Medicine Cardiovascular Disease
DX: R53.1 Weakness (principal); I51.9 Heart disease, unspecified; Z20.822 Contact with and (suspected) exposure to COVID-19
CPT/HCPCS: 87636

== ENCOUNTER 2024-04-05 11:16 | Inpatient (IN) | payer MEDICARE, OTHER, SELFPAY ==
[2024-04-05] VITALS (30 sets, daily range): BP systolic 154–208; BP diastolic 48–119; PULSE 39–58; RESP 17–27; TEMP 36.3–36.7; O2SAT 94–100; BMI 31.7
--- NOTE | 2024-04-05 | ECHO_ITS ---
Patient Info Name: Marquise Reyes Age: 83 years : 1940 Gender: Male Ht: 72 in Wt: 210 lbs BSA: 2.22 m2 HR: 43 bpm BP: 178 / 58 mmHg Heart Rhythm: Sinus Rhythm Technical Quality: Fair Exam Date: 04/05/2024 3:43 PM Exam Location: Echo Lab Patient Status: Inpatient Admit Date: 04/05/2024 Staff Ordering Physician: Amrik Painter DO Take Away Man: Jacquie Martínez RDCS Attending Provider: Artem Moreno MD Referring Physician: Inocencio ANGEL; Exam Type: CA echo dop color flow w con Study Info Indications - sob Complete two-dimensional, color flow and Doppler transthoracic echocardiogram is performed with contrast to opacify the left ventricle and to improve the deliniation of the left ventricle endocardial borders. Summary 1. Definity contrast administered improved wall motion interpretation. 2. Left ventricular chamber dimension is normal. 3. Left ventricular systolic function is normal, estimated at 60-65%. 4. The left ventricular diastolic function is grade I diastolic dysfunction. 5. E/e' 12 is mildly elevated. 6. There is mild tricuspid valve regurgitation. 7. Mild pulmonary hypertension, estimated pulmonary arterial systolic pressure is 49 mmHg. Left Ventricle E/e' 12 is mildly elevated. Definity contrast administered improved wall motion interpretation. Left ventricular chamber dimension is normal. Left ventricular systolic function is normal, estimated at 60-65%. The left ventricular diastolic function is grade I diastolic dysfunction. Right Ventricle Right ventricular systolic function is normal and with normal TAPSE 3.1 cm. Right ventricular chamber dimension is normal. Left Atria Left atrial chamber dimension is normal. Right Atria Right atrial chamber dimension is normal. Aortic Valve The aortic valve is trileaflet. There is no aortic valve stenosis. There is no aortic valve regurgitation. Pulmonic Valve There is no pulmonic regurgitation. Mitral Valve There is no mitral valve stenosis. There is no mitral valve regurgitation. Tricuspid Valve There is mild tricuspid valve regurgitation. Mild pulmonary hypertension, estimated pulmonary arterial systolic pressure is 49 mmHg. Pericardium/Pleural There is no pericardial effusion. Inferior Vena Cava Normal inferior vena cava with >50% collapse upon inspiration consistent with normal right atrial pressure, 5 mmHg. Aorta The aortic root size at the sinus of Valsalva is normal. Left Ventricular Outflow Tract Name Value Normal LVOT 2D LVOT Diameter 2.24 cm LVOT Doppler LVOT Peak Gradient 4 mmHg LVOT Mean Gradient 2 mmHg LVOT VTI 21.32 cm LVOT VTI/AV VTI Ratio 0.51 LVOT Stroke Volume 84.34 ml LVOT CO 3.38 l/min LVOT CI 1.52 L/min/m2 Mitral Valve Name Value Normal MV Doppler MV Decel [place] 486.72 cm/s2 MV PHT 0 s MV Area (PHT) 4.05 cm2 4.00-5.00 MV Diastolic Function MV E Peak Velocity 91.27 cm/s MV A Peak Velocity 105.49 cm/s MV E/A 0.87 MV Decel Time 0 s MV Annular TDI MV E/e' (Septal) 12.39 <=8.00 MV E/e' (Lateral) 11.63 <=8.00 MV E/e' (Average) 12.01 Tricuspid Valve Name Value Normal TV Regurgitation Doppler TR Peak Velocity 332.58 cm/s TR Peak Gradient 44 mmHg Estimated PAP/RSVP RA Pressure 5 mmHg <=5 PA Systolic Pressure 49 mmHg <36 RV Systolic Pressure 49 mmHg <36 Aortic Valve Name Value Normal AV Doppler AV Peak Velocity 161.34 cm/s AV Peak Gradient 10 mmHg AV Mean Gradient 6 mmHg AV VTI 41.84 cm AV Area (Cont Eq VTI) 2.02 cm2 >=3.00 AV Area (Cont Eq Walker) 2.42 cm2 AV Regurgitation 2D LVOT Area 3.96 cm2 Ventricles Name Value Normal LV Dimensions 2D/MM IVS Diastolic Thickness (2D) 0.86 cm 0.60-1.00 LVID Diastole (2D) 5.61 cm 4.20-5.80 LVIW Diastolic Thickness (2D) 0.93 cm 0.60-1.00 LVID Systole (2D) 3.54 cm 2.50-4.00 LVOT Diameter 2.24 cm LV Mass (2D Cubed) 190.91 g 88.00-224.00 LV Mass Index (2D Cubed) 0.01 g/cm2 0.00-0.01 Relative Wall Thickness (2D) 0.33 LV Fractional Shortening/Ejection Fraction 2D/MM LV Fractional Shortening (2D) 37 % 25-43 LV EF (2D Teicholz) 66 % 52-72 LV Diastolic Volume (4C MOD) 123.90 ml LV EF (4C MOD) 42 % LV Diastolic Volume (2C MOD) 103.85 ml LV EF (2C MOD) 65 % LV Diastolic Volume (BP MOD) 117.49 ml 62.00-150.00 LV Diastolic Volume Index (BP MOD) 0.05 l/m2 0.03-0.07 LV Systolic Volume (BP MOD) 56.02 ml 21.00-61.00 LV Systolic Volume Index (BP MOD) 0.03 l/m2 0.01-0.03 LV EF (BP MOD) 52 % 52-72 LV Diastolic Length (4C) 9.15 cm LV Systolic Length (4C) 7.44 cm LV Stroke Volume (4C MOD) 51.89 ml Atria Name Value Normal LA Dimensions LA Volume (4C A-L) 54.58 ml LA Volume (BP A-L) 51.48 ml RA Dimensions RA Area (4C) 13.97 cm2 <=18.00 Report Signatures
--- NOTE | ~2024-04-05 | XR_ITS ---
Clinical Indication: Status post pacemaker placement PA and lateral views of the chest: Comparison: 04/07/2024 Findings: Stable left-sided Mediport. There is mild bibasilar haziness, compatible developing bibasil ar pulmonary edema. No pneumothorax.. Cardiomediastinal silhouette is stable, with pacemaker in plac e. Leads are unchanged. Bones and soft tissues are unremarkable. Impression: Probable developing bibasilar pulmonary edema. Correlate clinically for infection. Stable pacemaker device. No pneumothorax. Reviewed, dictated and finalized at location . Impression: Probable developing bibasilar pulmonary edema. Correlate clinically for infecti on. Stable pacemaker device. No pneumothorax.
--- NOTE | ~2024-04-05 | XR_ITS ---
XR chest 1V portable Ordering provider: Carmelo Dudley MD History: 83 years Male with . pacemaker insertion . Comparison: April 05, 2024 FINDINGS: MEDIASTINUM: The cardiac silhouette is not enlarged. Left Port-A-Cath with the tip overlying superior vena cava. Right bipolar pacemaker. LUNGS: No effusions or pneumothorax. Opacification in both lower lobes more on the right side which m ay indicate atelectasis versus pneumonia. Underlying fibrotic changes are not excluded. OTHER: No free air under the diaphragm. IMPRESSION: Bibasilar pneumonia. Reviewed, dictated and finalized at location A. IMPRESSION: Bibasilar pneumonia.
--- NOTE | ~2024-04-05 | XR_ITS ---
EXAMINATION: XR chest 1V portable DATE: 04/05/2024 12:15 INDICATION: Shortness of breath. TECHNIQUE: A single frontal view of the chest was obtained. COMPARISON: Chest 2 views 10/01/2022 FINDINGS: There are airspace opacities in the mid and lower lung zones. There is a small left pleural effusion. No pneumothorax. The heart is normal. There is a left subclavian port with tip at superior cavoatrial junction. IMPRESSION: 1. Airspace opacities in the mid and lower lung zones, consistent with atelectasis versus pneumonia. 2. Small left pleural effusion. Reviewed, dictated and finalized at location A. IMPRESSION: 1. Airspace opacities in the mid and lower lung zones, consistent with atelecta sis versus pneumonia. 2. Small left pleural effusion.
--- NOTE | 2024-04-05 11:27 | ECG_ITS ---
Test Date: 2024-04-05 11:52:34 Measurements Intervals [place] Rate: 41 P: 0 DE: 0 QRS: -65 QRSD: 150 T: -71 QT: 567 QTc: 470 Interpretive Statements SINUS RHYTHM WITH HIGH GRADE HEART BLOCK JUNCTIONAL ESCAPE RHYTHM RIGHT BUNDLE BRANCH BLOCK LEFT ANTERIOR FASCICULAR BLOCK T WAVE ABNORMALITY IN ATEROLATERAL/INF LEADS- CONSIDER ISCHEMIA BASELINE ARTIFACT- II, III, AVF, V3 ABNORMAL ECG No previous ECG available for comparison Electronically Signed On 04-05-2024 13:39:35 CDT by Amrik Painter D.O.
[2024-04-05 11:50] LABS: Basophils Percent Auto 0.2 % (0.2-1.2); Eosinophils Absolute Auto 0.1 K/mm3 (0-0.3); Eosinophils Percent Auto 1.3 % (0-4.4); Hemoglobin 11.1 g/dL (14.0-18.0); Immature Granulocyte Absolute 0.04 K/mm3 (0.00-0.031); Immature Granulocyte Percent A 0.8 % (0-0.5); Lymphocytes Absolute Auto 0.45 K/mm3 (0.9-3.2); Lymphocytes Percent Auto 8.5 % (18.3-44.2); Mean Corpuscular HGB Conc 31.7 g/dl (32-36); Mean Corpuscular Hemoglobin 27.9 pg (26-34); Mean Corpuscular Volume 87.9 fl (80-100); Mean Platelet Volume 10.4 fl (7.4-10.4); Monocytes Absolute Auto 0.3 K/mm3 (0.1-0.6); Monocytes Percent Auto 6.1 % (2.6-8.5); Neutrophils Absolute Auto 4.4 K/mm3 (1.3-6.7); Neutrophils Percent Auto 83.1 % (45.5-73.1); Platelet Count Result 134 k/mm3 (150-375); Red Blood Count 3.98 M/mm3 (4.6-6.20); Red Cell Distribution Width 16.8 % (11.5-14.5); White Blood Count 5.3 K/mm3 (4.5-10.0)
[2024-04-05 12:01] LABS: Alanine Aminotransferase 26 U/L (6-50); Albumin Level 3.8 g/dL (3.5-5.1); Alkaline Phosphatase 59 U/L (38-126); Anion Gap 7 mmol/L (4-12); Aspartate Amino Transferase 25 U/L (17-59); Bilirubin,Total 0.8 mg/dL (0.2-1.3); Blood Urea Nitrogen 29 mg/dL (9-20); Calcium 8.4 mg/dL (8.4-10.2); Carbon Dioxide 21 mmol/L (22-30); Chloride 114 mmol/L (98-107); Estimated CRCL calculation 48 ml/min; Estimated Glomerular Filt Rate > 60; Glucose 143 mg/dL (65-110); INR 1.1; Potassium 3.7 mmol/L (3.4-5.0); Prothrombin Time 14.7 Seconds (11.1-14.7); Sodium 142 mmol/L (137-145)
[2024-04-05 12:14] LABS: NT Pro B Type Natriuretic Pept 14500 pg/mL (19.9-100); Troponin I 0.035 ng/mL (0.000-0.034)
--- NOTE | 2024-04-05 12:25 | ED_ITS ---
HPI - General Adult General Chief complaint: Shortness of Breath/Dyspnea Stated complaint: sob Time Seen by Provider: 04/05/24 11:59 History of Present Illness HPI narrative: 83-year-old male presenting to the emergency department for evaluation for worsening shortness of breath. Patient states he has had increased shortness of breath over the course of the last month but states that is worsened acutely over the last 3-4 days. Patient is currently following up with cardiology ([facility] ) for a known heart block. Patient states over the last few days he has had increased wheeze and lower extremity edema. Patient describes exertional shortness of breath but does appear dyspneic even at rest in the bed. Patient denies any associated chest pain with this. Related Data Home Medications Medication Instructions Recorded Confirmed fexofenadine 180 mg tablet 180 mg PO DAILY 05/27/19 04/05/24 (Corrina Allergy) alendronate 70 mg tablet 70 mg PO WEEKLY 05/22/23 04/05/24 tamsulosin 0.4 mg capsule 0.4 mg PO QHS 05/22/23 04/05/24 leuprolide acetate (6 month) 45 mg 45 mg subcut [id number] 12/29/23 04/05/24 (6 month) subcutaneous syringe ([employer]) fluticasone propionate 50 2 spray intranasal DAILY 04/05/24 04/05/24 mcg/actuation nasal spray,suspension sacubitril 24 mg-valsartan 26 mg 1 tablet PO BID 04/05/24 04/05/24 tablet (Entresto) Allergies Allergy/AdvReac Type Severity Reaction Status Date / Time No Known Allergies Allergy Verified 04/05/24 11:40 Review of Systems Review of Systems: All systems reviewed & are unremarkable except as noted in HPI and below [facility] Past Medical History Medical History (Updated 04/05/24 @ 22:43 by Mike Echols MD) Central stenosis of spinal canal Chronic low back pain Chronic lymphocytic leukemia In remission. Cognitive impairment Dyslipidemia Environmental allergies Essential (primary) hypertension GERD without esophagitis Heart failure with reduced ejection fraction EF 40 to 45% in May 2023. History of subdural hematoma (2018) Insomnia Lumbar spondylosis Obstructive sleep apnea Prostate cancer Vitamin D deficiency Surgical History Surgical History (Updated 04/05/24 @ 16:08 by Leah Solo PA-C) History of basal cell carcinoma excision (2019) left nose History of benign breast biopsy left History of lumbosacral spine surgery 1960s History of neck surgery (2000) Tumor Right side of neck - removed 2009 Family History Family History Mother Patient's mother is , Onset Age: 92 Family history of lung cancer Father Family history of type 2 diabetes mellitus Diabetes mellitus, Onset Age: 79 Family history of lung cancer Other Family history of lymphoma Social History Social History Social History: Surrogate medical decision maker: Ted Reyes, spouse. Code status: Full code. Smoking status: Never smoker Second hand tobacco smoke exposure: No Alcohol intake: never Substance use: never Substance use type: does not use Do You Feel Safe in your Home?: Yes Lack of Transportation: No Lack of Food: Never True Current Housing: I Have Housing Concerned About Future Housing: No Difficulty Paying Gas/Electric Bills: No Difficulty Paying for Meds: No Currently Unemployed: No Education: High School Diploma/GED Difficulty w/ Childcare or Family Care: No Living arrangements: with family Additional living arrangements comments: Lives with spouse in [place]. Spiritual care concerns: No (pt is mandaen) Exam Narrative: APPEARANCE: Uncomfortable appearing HEAD: normocephalic, atraumatic. EYES: PERRLA/EOMI, conjunctivae clear. NOSE: Normal no drainage EARS:TMS clear with good light reflex. THROAT: Pharynx clear, no exudate. NECK: Supple. No adenopathy, no masses. RESPIRATORY: Wheeze bilaterally. CARDIOVASCULAR: Regular rate and rhythm without murmurs rubs or gallops. ABDOMINAL: Soft, nontender, nondistended, normal bowel sounds MUSCULOSKELETAL: Moves all extremities. Pitting edema bilaterally NEURO: Alert. Cranial nerves II through XII intact. Grossly intact SKIN: Warm, dry. Normal Color Course Course Emergency Course: Patient was admitted to the hospitalist with cardiology consult Vital Signs Vital signs: Vital Signs Temperature 97.4 F L 04/05/24 11:18 Pulse Rate 42 L 04/05/24 11:18 Respiratory Rate 22 H 04/05/24 11:18 Blood Pressure 154/59 H 04/05/24 11:18 Pulse Oximetry 95 04/05/24 11:18 Oxygen Delivery Room Air 04/05/24 11:18 Temperature 98.1 F 04/05/24 20:58 Pulse Rate 43 L 04/05/24 22:09 Respiratory Rate 27 H 04/05/24 22:09 Blood Pressure 208/62 H 04/05/24 20:58 Pulse Oximetry 94 04/05/24 22:09 Oxygen Delivery Autopap 04/05/24 22:09 Fraction of Inspired Oxygen 21 04/05/24 21:55 Medical Decision Making MDM Narrative Medical decision making narrative: 83-year-old male present to the emergency department for evaluation for shortn ess of breath. EKG does show a heart block with heart rate in the 40s. Patient's blood pressure is stable and patient is alert and orientated. On exam patient does have lower extremity edema but also has significant wheeze all quadrants. Patient is afebrile with no leukocytosis and a stable hemoglobin 11.1. Patient's INR is 1.1. This patient has no acute abnormalities on his CMP and does have a creatinine of 1.1, patient's BNP is elevated to 14,500 and does have an elevated troponin at 0.035. Chest x-ray does show pneumonia verses atelectasis. Patient was treated with a single dose of Lasix, blood cultures were ordered and patient was started on IV antibiotics antibiotics for concern for pneumonia in the emergency department. Cardiology was consulted and Dr. Painter well see the patient in the hospital. Inocencio anticipates that there may be pacemaker placement in the patients future. Patient and family are comfortable plan for admission. Patient was stable at time of admission. Differential Diagnosis Differential Diagnosis: Pneumonia, CHF, COVID, pneumothorax, pulmonary edema, ACS, heart block Vital Signs Vital Signs: Vital Signs Temperature 97.4 F L 04/05/24 11:18 Pulse Rate 42 L 04/05/24 11:18 Respiratory Rate 22 H 04/05/24 11:18 Blood Pressure 154/59 H 04/05/24 11:18 Pulse Oximetry 95 04/05/24 11:18 Oxygen Delivery Room Air 04/05/24 11:18 Temperature 98.1 F 04/05/24 20:58 Pulse Rate 43 L 04/05/24 22:09 Respiratory Rate 27 H 04/05/24 22:09 Blood Pressure 208/62 H 04/05/24 20:58 Pulse Oximetry 94 04/05/24 22:09 Oxygen Delivery Autopap 04/05/24 22:09 Fraction of Inspired Oxygen 21 04/05/24 21:55 Lab Data Lab results reviewed: Yes I reviewed the patient's lab results. 04/05/24 11:41 04/05/24 11:41 Labs: Lab Results 04/05/24 Range/Units 11:41 WBC 5.3 (4.5-10.0) K/mm3 RBC 3.98 L (4.6-6.20) M/mm3 Hgb 11.1 L (14.0-18.0) g/dL Hct 35.0 L (42.0-52.0) % MCV 87.9 (80-100) fl MCH 27.9 (26-34) pg MCHC 31.7 L (32-36) g/dl RDW 16.8 H (11.5-14.5) % Plt Count 134 L (150-375) k/mm3 MPV 10.4 (7.4-10.4) fl Immature Gran % (Auto) 0.8 H (0-0.5) % Neut % (Auto) 83.1 H (45.5-73.1) % Lymph % (Auto) 8.5 L (18.3-44.2) % Mccracken % (Auto) 6.1 (2.6-8.5) % Eos % (Auto) 1.3 (0-4.4) % Baso % (Auto) 0.2 (0.2-1.2) % Lymph # (Auto) 0.45 L (0.9-3.2) K/mm3 Mccracken # (Auto) 0.3 (0.1-0.6) K/mm3 Eos # (Auto) 0.1 (0-0.3) K/mm3 Baso # (Auto) 0.0 (0.0-0.1) K/mm3 Abs Immat Gran (auto) 0.04 H (0.00-0.031) K/mm3 Absolute Neuts (auto) 4.4 (1.3-6.7) K/mm3 Absolute Nucleated RBC 0.000 (0.0-0.012) K/mm3 Nucleated RBC % 0.0 (0.0-0.2) % PT 14.7 (11.1-14.7) Seconds INR 1.1 APTT 28.0 (22.3-36.8) Seconds Sodium 142 (137-145) mmol/L Potassium 3.7 (3.4-5.0) mmol/L Chloride 114 H (98-107) mmol/L Carbon Dioxide 21 L (22-30) mmol/L Anion Gap 7 (4-12) mmol/L BUN 29 H (9-20) mg/dL Creatinine 1.10 (0.7-1.3) mg/dL Estim Creat Clear Calc 48 ml/min Estimated GFR > 60 (59 - ) Glucose 143 H (65-110) mg/dL Calcium 8.4 (8.4-10.2) mg/dL Total Bilirubin 0.8 (0.2-1.3) mg/dL AST 25 (17-59) U/L ALT 26 (6-50) U/L Alkaline Phosphatase 59 (38-126) U/L Troponin I 0.035 H* (0.000-0.034) ng/mL NT-Pro-B Natriuret Pep 90999 H (19.9-100) pg/mL Total Protein 7.0 (6.3-8.2) g/dL Albumin 3.8 (3.5-5.1) g/dL Imaging Data Radiologist's impression: Impressions Chest X-Ray 04/05/24 12:16 IMPRESSION: 1. Airspace opacities in the mid and lower lung zones, consistent with atelectasis versus pneumonia. 2. Small left pleural effusion. Critical Care Time Critical Care Time Critical Care Time: Yes Total Critical Care Time: 35 Discharge Plan Discharge Clinical Impression: Pneumonia, Elevated troponin, Heart block, CHF (congestive heart failure) Patient Disposition: Still a Patient Condition: Serious
[2024-04-05] MEDS: ALBUTEROL SULFATE NEB 2.5 MG/3 ML INH INHALATION ×2 (12:34→21:50)
[2024-04-05] MEDS: FUROSEMIDE INJ 40 MG/4 ML VIAL IV PUSH ×2 (12:50→17:28)
[2024-04-05] MEDS: AZITHROMYCIN 500 MG/NS 250 ML 500 MG/250 ML BAG 250 MG IVPB (13:43)
--- NOTE | 2024-04-05 14:00 | P.HP_ITS ---
H&P: HPI History of Present Illness Date/Time: 04/05/24 14:00 Chief Complaint: Shortness of breath. Narrative: This is an 83-year-old male with history of subdural hematoma following a fall in 2019, cognitive impairment, chronic lymphocytic leukemia receiving monthly infusions, prostate cancer, obstructive sleep apnea on CPAP, hypertension, dyslipidemia, paroxysmal supraventricular tachycardia, heart failure with reduced ejection fraction, and heart block for which he is currently on an event monitor which is being monitored very closely by Dr. Painter who presented to the emergency department via private vehicle for evaluation of shortness of breath. He has been short of breath for over a month but it has gotten worse over the past 3 days. He has been wheezing and reports increasing lower extremity edema. Overall he is just feeling and tired. He denies syncope, near syncope, fever, chills, sweats, sore throat, chest pain, pleuritic pain, palpitations, productive cough, nausea, vomiting, and calf pain. In the ED: Pulse has been in the low 40s to mid 50s since arrival. Blood pressures have been stable in fact elevated into the 170s and 180s systolic. Respiratory rate has been in the low 20s with an SpO2 in the mid to upper 90s. Labs were significant for a hemoglobin of 11.1, platelet 134, BUN 29, troponin 0.035, proBNP 59731, glucose 143. EKG read per metallurgical laboratory assistant shows a sinus rhythm with high-grade heart block with junctional escape rhythm T-wave abnormalities in the anterolateral/inferior leads. Dr. Painter was consulted by the ED physician and he recommends admitting the patient to IMU for close monitoring. The patient was given furosemide 40 mg IV x1 and a dose of azithromycin and ceftriaxone for possible pneumonia. Review of Systems Review of Systems: 12 systems were reviewed and are negativ e except for as per HPI. [facility] Past Medical History Medical History (Updated 04/05/24 @ 16:13 by Leah Solo PA-C) Central stenosis of spinal canal Chronic low back pain Chronic lymphocytic leukemia In remission. Cognitive impairment Dyslipidemia Environmental allergies Essential (primary) hypertension GERD without esophagitis Heart failure with reduced ejection fraction EF 40 to 45% in May 2023. History of subdural hematoma (2018) Insomnia Lumbar spondylosis Obstructive sleep apnea Prostate cancer Vitamin D deficiency Surgical History Surgical History (Updated 04/05/24 @ 16:08 by Leah Solo PA-C) History of basal cell carcinoma excision (2019) left nose History of benign breast biopsy left History of lumbosacral spine surgery 1960s History of neck surgery (2000) Tumor Right side of neck - removed 2009 Family History Family History Mother Patient's mother is , Onset Age: 92 Family history of lung cancer Father Family history of type 2 diabetes mellitus Diabetes mellitus, Onset Age: 79 Family history of lung cancer Other Family history of lymphoma Social History Social History Social History: Surrogate medical decision maker: Ted Reyes, spouse. Code status: Full code. Smoking status: Never smoker Second hand tobacco smoke exposure: No Alcohol intake: never Substance use: never Substance use type: does not use Do You Feel Safe in your Home?: Yes Lack of Transportation: No Lack of Food: Never True Current Housing: I Have Housing Concerned About Future Housing: No Difficulty Paying Gas/Electric Bills: No Difficulty Paying for Meds: No Currently Unemployed: No Education: High School Diploma/GED Difficulty w/ Childcare or Family Care: No Living arrangements: with family Additional living arrangements comments: Lives with spouse in [place]. Spiritual care concerns: No (pt is adventism) Meds Home Medications and Allergies Home Medications Medication Instructions Recorded Confirmed Type fexofenadine 180 mg tablet 180 mg PO DAILY 05/27/19 04/05/24 History (Corrina Allergy) alendronate 70 mg tablet 70 mg PO WEEKLY 05/22/23 04/05/24 History tamsulosin 0.4 mg capsule 0.4 mg PO QHS 05/22/23 04/05/24 History omeprazole 40 mg capsule,delayed 40 mg PO DAILY #90 caps 11/03/23 04/05/24 Rx release azelastine 137 mcg (0.1 %) nasal 1 spray intranasal Q12H #90 mL 11/26/23 04/05/24 Rx spray dicyclomine 20 mg tablet 20 mg PO BID #60 tabs 12/29/23 04/05/24 Rx leuprolide acetate (6 month) 45 mg 45 mg subcut [id number] 12/29/23 04/05/24 History (6 month) subcutaneous syringe (Eligard) hydralazine 25 mg tablet 25 mg PO BID #60 tabs 03/31/24 04/05/24 Rx fluticasone propionate 50 2 spray intranasal DAILY 04/05/24 04/05/24 History mcg/actuation nasal spray,suspension sacubitril 24 mg-valsartan 26 mg 1 tablet PO BID 04/05/24 04/05/24 History tablet (Entresto) Allergies Allergy/AdvReac Type Severity Reaction Status Date / Time No Known Allergies Allergy Verified 04/05/24 11:40 Vital Signs Vital Signs - 24 hr 04/05/24 11:18 04/05/24 11:38 04/05/24 12:34 Temperature 97.4 F L Pulse Rate 42 L 41 L Respiratory Rate 22 H 22 H Blood Pressure 154/59 H Pulse Oximetry 95 95 Oxygen Delivery Room Air Room Air 04/05/24 12:41 04/05/24 12:53 04/05/24 11:46 Temperature Pulse Rate 56 L 41 L 41 L Respiratory Rate 20 21 H 24 H Blood Pressure 168/60 H Pulse Oximetry 96 Oxygen Delivery 04/05/24 13:16 04/05/24 13:17 04/05/24 13:31 Temperature Pulse Rate 42 L 42 L 42 L Respiratory Rate 25 H 24 H 18 Blood Pressure 187/65 H 182/58 H Pulse Oximetry 98 98 94 Oxygen Delivery 04/05/24 13:32 04/05/24 13:45 04/05/24 13:46 Temperature Pulse Rate 41 L 58 L 41 L Respiratory Rate 24 H 23 H 21 H Blood Pressure 178/58 H Pulse Oximetry 95 95 96 Oxygen Delivery Exam Narrative: General: Well-developed elderly gentleman sitting up in bed in no acute distress. Weight: 106.2 kg. BMI: 31.8. HEENT: PERRL, EOMI. Sclera anicteric. Oral mucosa moist. Neck: Supple. Mild jugular venous distension. Respiratory: Mild conversational dyspnea, speaking in 5 to 6 word sentences. Lung sounds are diminished with crackles at the bases. Cardiovascular: Bradycardic. Gastrointestinal: Abdomen is soft, nontender, and nondistended with positive bowel sounds. Skin: Warm and dry. Extremities: No cyanosis or clubbing. 1+ lower extremity edema. No palpable knots or cords. Neurological: Alert. Cranial nerves 2-12 are grossly intact. No gross focal deficits to casual conversation. Psychiatric: Pleasant and cooperative with normal mood and affect. H&P: Results Labs Labs: Short CBC 04/05/24 Range/Units 11:41 WBC 5.3 (4.5-10.0) K/mm3 Hgb 11.1 L (14.0-18.0) g/dL Hct 35.0 L (42.0-52.0) % Plt Count 134 L (150-375) k/mm3 BMP 04/05/24 11:41 Sodium 142 Potassium 3.7 Chloride 114 H Carbon Dioxide 21 L BUN 29 H Creatinine 1.10 Glucose 143 H Calcium 8.4 Cardiac Enzymes 04/05/24 Range/Units 11:41 Troponin I 0.035 H* (0.000-0.034) ng/mL Liver Function 04/05/24 Range/Units 11:41 Total Bilirubin 0.8 (0.2-1.3) mg/dL AST 25 (17-59) U/L ALT 26 (6-50) U/L Alkaline Phosphatase 59 (38-126) U/L Albumin 3.8 (3.5-5.1) g/dL Imaging Chest X-Ray 04/05/24 12:16 IMPRESSION: 1. Airspace opacities in the mid and lower lung zones, consistent with atelectasis versus pneumonia. 2. Small left pleural effusion. Assessment and Plan Assessment and plan (1) Heart block: Code(s): I45.9 - Conduction disorder, unspecified Status: Acute (2) Acute on chronic systolic heart failure: Code(s): I50.23 - Acute on chronic systolic (congestive) heart failure Status: Acute (3) Elevated troponin: Code(s): R79.89 - Other specified abnormal findings of blood chemistry Status: Acute (4) Essential (primary) hypertension: Code(s): I10 - Essential (primary) hypertension Status: Acute Plan The patient presented to the emergency department for evaluation of shortness of breath as detailed in HPI. Labs, imaging, EKG, and all reports were personally reviewed. He looks a bit volume overloaded on chest x-ray with an elevated proBNP and increasing lower extremity edema. Decompensation may very well be related to heart block. Continue IV diuresis with furosemide 40 mg IV b.i.d. with close monitoring of volume status, renal function, and electrolytes. Troponins are slightly elevated and though he is not having any chest pain we will continue to trend those to peak. Dr. Painter consulted. Blood pressures have been running high but should improve with diuresis. Pneumonia seems less likely thus will hold on antibiotics. His home medications will be reviewed and resumed as appropriate. Findings and treatment plan were discussed with the patient. Questions were solicited and answered to satisfaction. The patient's medical m anagement will be taken over by the hospitalist team in a.m. Quality VTE Prophylaxis VTE prophylaxis: mechanical ordered If No VTE Prophylaxis Answer both mechanical and pharmacologic: Reason no pharmacologic proph: medical contraindication (may need procedure) The patient has been admitted under observation status. Hospitalist MIPS Advance Care Plan I have confirmed that the patient's Advanced Care Plan is present, code status is documented, or surrogate decision maker is listed in patient medical record.: Yes Medication Reconciliation I have utilized all available resources to obtain, update and review the patients current medications (includes all prescriptions, OTC, herbals, cannabis, and nutritional supplements).: Yes
[2024-04-05] MEDS: PERFLUTREN LIPID MICROSPHERES 1.5 ML VIAL DILUTED TO 10 ML TOTAL VOLUME IV PUSH (15:55)
--- NOTE | 2024-04-05 15:57 | PM.CNCAR ---
Assessment and Plan Assessment and plan (1) Complete heart block: Code(s): I44.2 - Atrioventricular block, complete Status: Acute Assessment and Plan: Will need PPM placement. Will consult HCG for it. (2) Systolic dysfunction: Code(s): I51.9 - Heart disease, unspecified Status: Acute Assessment and Plan: Probably cause of acute on chronic heart failure. On Entresto. Off Metoprolol due to CHB. Diurese with Lasix 40 mg IV BID. (3) Essential (primary) hypertension: Code(s): I10 - Essential (primary) hypertension Status: Acute Assessment and Plan: Stable. History of Present Illness History of Present Illness Consult date/time: 04/05/24 15:57 Reason For Visit: Pneumonia/Dyspnea/Heart Block/CHF Narrative: 83 yr old man who is my regular cardiology patient and a patient of Dr. Sheriff presents to ER for sob. He has a history of complete heart block, subdural hematoma after a fall in 2019, CLL in remission, dyslipidemia, LIAM on CPAP (followed by Dr. Cortez), PSVT. and daughter at bedside. States that for last 3 days he got more sob and wheezing so he decided to come in to ER. It was noted he was in complete heart block with junctional escape rhythm at 40's bpm range a week ago when he came to the office. Reports fatigue and intermittent dizziness. No passing out. He was doing OK and wanted to see if by stopping Metoprolol the heart block would resolve. He is wearing event monitor and HR is the same, still in heart block. He started having some edema of legs and bloated sensation in abdomen. Denies chest pain. Cardiovascular Procedures Echo/MUGA:: 06/05/23 [place] Echo: EF 40-45%, trace AI, mild TR. 11/27/20 Echo: EF 55-60%, mild LVH, grade I diastolic dysfunction (E/e' 9), mild LAE, mild MR/TR. Electrophysiology:: 03/26/24 EKG: Sinus rhythm with complete heart block, HR at 39 bpm, RBBB, LAFB. 05/27/22 EKG: Sinus rhythm with supraventricular trigeminy at 91 bpm, RBBB, LAFB. 11/16/21 EKG: Sinus rhythm, RBBB. 10/16/21 EKG: Sinus rhythm with frequent supraventricular couplets. 11/02/20 29 days event monitor: Sinus rhythm, HR range 50-182 bpm; average HR 75 bpm; 2% PAC, 1 SVT at 182 bpm lasting 7 beats on 12/05/20 at 11:14; 1% PVC. 10/16/20 EKG: Sinus rhythm, frequent PAC's, RBBB. 10/04/20 EKG: Sinus rhythm, RBBB. Stress Tests:: 01/14/22 Lexiscan myoview: Normal. 02/20/22 PFT: Mild obstruction. 03/26/21 Sleep study: Mild LIAM with desaturation to 52%. Start BiPAP. 12/09/20 MRI lumbars: L4-5 severe central canal stenosis; L1-2 mod-severe right neural foraminal stenosis. Review of Systems Review of Systems: All systems reviewed & are unremarkable except as noted in HPI and below Constitutional: Constitutional: Reports as per HPI, Denies chills, Reports fatigue and Denies fever(s) Cardiovascular: Cardiovascular: Reports as per HPI, Denies chest pain and Denies irregular heart rhythm Respiratory: Respiratory: Reports as per HPI, Reports dyspnea and Reports wheezing Gastrointestinal: Gastrointestinal: Reports as per HPI and Denies abdominal pain Genitourinary: Genitourinary: Reports as per HPI and Denies dysuria Musculoskeletal: Musculoskeletal: Reports as per HPI Neurologic: Reports as per HPI, Reports dizziness and Denies syncope [facility] Past Medical History Medical History Chronic low back pain CLL (chronic lymphocytic leukemia) Dyslipidemia Environmental allergies Essential (primary) hypertension GERD without esophagitis History of subdural hematoma Insomnia Lumbar spondylosis Premature atrial complexes Prostate cancer Vitamin D deficiency Surgical History Surgical History History of basal cell carcinoma excision 2019 - left nose History of lumbosacral spine surgery 1960s History of neck surgery 2000 Lump of breast, left benign-removed in the late s Tumor Right side of neck - removed 2008 Family History Family History Mother Patient's mother is , Onset Age: 92 Family history of lung cancer Father Family history of type 2 diabetes mellitus Diabetes mellitus, Onset Age: 79 Family history of lung cancer Other Family history of lymphoma Social History Social History (Updated 04/05/24 @ 14:01 by Leah Solo PA-C) Social History: Surrogate medical decision maker: Ted Reyes, spouse. Code status: Full code. Smoking status: Never smoker Second hand tobacco smoke exposure: No Alcohol intake: former Substance use: never Substance use type: does not use Do You Feel Safe in your Home?: Yes Lack of Transportation: No Lack of Food: Never True Current Housing: I Have Housing Concerned About Future Housing: No Difficulty Paying Gas/Electric Bills: No Difficulty Paying for Meds: No Currently Unemployed: No Education: Bachelor's Degree Difficulty w/ Childcare or Family Care: No Living arrangements: with family Additional living arrangements comments: Lives with spouse in [place]. Spiritual care concerns: No Meds Home Medications and Allergies Home Medications Medication Instructions Recorded Confirmed Type fexofenadine 180 mg tablet 180 mg PO DAILY 05/27/19 03/26/24 History ([facility]rina Allergy) alendronate 70 mg tablet 70 mg PO WEEKLY 05/22/23 03/26/24 History tamsulosin 0.4 mg capsule 0.4 mg PO QHS 05/22/23 03/26/24 History fluticasone propionate 50 See Rx Instructions .Route 08/05/23 03/26/24 Rx mcg/actuation nasal .COMPLEX #16 mL spray,suspension omeprazole 40 mg capsule,delayed 40 mg PO DAILY #90 caps 11/03/23 03/26/24 Rx release azelastine 137 mcg (0.1 %) nasal 1 spray intranasal Q12H #90 mL 11/26/23 03/26/24 Rx spray dicyclomine 20 mg tablet 20 mg PO BID #60 tabs 12/29/23 03/26/24 Rx leuprolide acetate (6 month) 45 mg 45 mg subcut [id number] 12/29/23 03/26/24 History (6 month) subcutaneous syringe (Eligard) sacubitril 24 mg-valsartan 26 mg See Rx Instructions .Route 01/12/24 03/26/24 Rx tablet (Entresto) .COMPLEX #60 tabs hydralazine 25 mg tablet 25 mg PO BID #60 tabs 03/31/24 Rx Allergies Allergy/AdvReac Type Severity Reaction Status Date / Time No Known Allergies Allergy Verified 04/05/24 11:40 Vital Signs Vital Signs - 24 hr 04/05/24 11:18 04/05/24 11:38 04/05/24 12:34 Temperature 97.4 F L Pulse Rate 42 L 41 L Respiratory Rate 22 H 22 H Blood Pressure 154/59 H Pulse Oximetry 95 95 Oxygen Delivery Room Air Room Air 04/05/24 12:41 04/05/24 12:53 04/05/24 11:46 Temperature Pulse Rate 56 L 41 L 41 L Respiratory Rate 20 21 H 24 H Blood Pressure 168/60 H Pulse Oximetry 96 Oxygen Delivery 04/05/24 13:16 04/05/24 13:17 04/05/24 13:31 Temperature Pulse Rate 42 L 42 L 42 L Respiratory Rate 25 H 24 H 18 Blood Pressure 187/65 H 182/58 H Pulse Oximetry 98 98 94 Oxygen Delivery 04/05/24 13:32 04/05/24 13:45 04/05/24 13:46 Temperature Pulse Rate 41 L 58 L 41 L Respiratory Rate 24 H 23 H 21 H Blood Pressure 178/58 H Pulse Oximetry 95 95 96 Oxygen Delivery Exam Const: General: cooperative, healthy appearing and comfortable Resp: Auscultation: crackles, no rales, no rhonchi and wheezes Cardio: Rate: bradycardic Rhythm: regular rhythm Heart sounds: no murmurs Peripheral pulses: dorsalis pedis present GI: GI Palp: No abdominal tenderness and Yes Soft to palpation Neuro: General: oriented to person, oriented to place and oriented to time Extrem: Right lower extremity: edema Left lower extremity: edema Other: Mild edema of both legs Results Labs and Meds 04/05/24 11:41 04/05/24 11:41 Lab results: Cardiac Enzymes 04/05/24 Range/Units 11:41 AST 25 (17-59) U/L Troponin I 0.035 H* (0.000-0.034) ng/mL Coagulation 04/05/24 Range/Units 11:41 PT 14.7 (11.1-14.7) Seconds APTT 28.0 (22.3-36.8) Seconds CBC 04/05/24 Range/Units 11:41 WBC 5.3 (4.5-10.0) K/mm3 RBC 3.98 L (4.6-6.20) M/mm3 Hgb 11.1 L (14.0-18.0) g/dL Hct 35.0 L (42.0-52.0) % Plt Count 134 L (150-375) k/mm3 Lymph # (Auto) 0.45 L (0.9-3.2) K/mm3 [place] # (Auto) 0.3 (0.1-0.6) K/mm3 Eos # (Auto) 0.1 (0-0.3) K/mm3 Baso # (Auto) 0.0 (0.0-0.1) K/mm3 Comprehensive Metabolic Panel 04/05/24 Range/Units 11:41 Sodium 142 (137-145) mmol/L Potassium 3.7 (3.4-5.0) mmol/L Chloride 114 H (98-107) mmol/L Carbon Dioxide 21 L (22-30) mmol/L BUN 29 H (9-20) mg/dL Creatinine 1.10 (0.7-1.3) mg/dL Glucose 143 H (65-110) mg/dL Calcium 8.4 (8.4-10.2) mg/dL AST 25 (17-59) U/L ALT 26 (6-50) U/L Alkaline Phosphatase 59 (38-126) U/L Total Protein 7.0 (6.3-8.2) g/dL Albumin 3.8 (3.5-5.1) g/dL Intake and Output 04/04/24 04/05/24 04/05/24 23:59 07:59 15:59 Intake Total 300 Balance 300 Intake: IV 300 Azithromycin 500 mg/Ns 250 ml 250 500 mg In 250 ml @ 250 mls/hr IVPB ONCE STA Rx#:[id number] cefTRIAXone 1 GM/NS 50 ML 1 gm 50 In 50 ml @ 100 mls/hr IVPB ONCE STA Rx#:[id number] Patient Weight 04/05/24 23:59 Weight 94.5 kg
--- NOTE | 2024-04-05 16:16 | ECG_ITS ---
Test Date: 2024-04-05 16:52:57 Measurements Intervals [place] Rate: 41 P: 0 LA: 0 QRS: -68 QRSD: 155 T: -61 QT: 588 QTc: 486 Interpretive Statements SINUS RHYTHM WITH HIGH GRADE AV BLOCK JUNCTIONAL ESCAPE RHYTHM RIGHT BUNDLE BRANCH BLOCK LEFT ANTERIOR FASCICULAR BLOCK BASELINE ARTIFACT- I, II, III, AVR, AVL, AVF, V1-V4 T WAVE ABNORMALITY IN INF/LAT LEADS- CONSIDER ISCHEMIA ABNORMAL ECG Compared to ECG 04/05/2024 11:52:34 NO SIGNIFICANT CHANGE Electronically Signed On 04-05-2024 17:44:46 CDT by Amrik Painter D.O.
--- NOTE | 2024-04-05 16:56 | ECG_ITS ---
Test Date: 2024-04-05 19:22:07 Measurements Intervals [place] Rate: 45 P: 52 TX: 178 QRS: -60 QRSD: 146 T: -57 QT: 553 QTc: 482 Interpretive Statements SINUS RHYTHM WITH SECOND DEGREE AV BLOCK TYPE I OR II (2:1 AV BLOCK) RIGHT BUNDLE BRANCH BLOCK LEFT ANTERIOR FASCICULAR BLOCK MODERATE T-WAVE ABNORMALITY, CONSIDER ANTEROLAT/INF ISCHEMIA BASELINE ARTIFACT- I, II, III, AVR, AVL, AVF, V4 ABNORMAL ECG Compared to ECG 04/05/2024 16:52:57 COMPLETE HEART BLOCK NO LONGER PRESENT Junctional rhythm no longer present Electronically Signed On 04-05-2024 20:10:40 CDT by Amrik Painter D.O.
[2024-04-05 17:07] LABS: Troponin I 0.036 ng/mL (0.000-0.034)
[2024-04-05 17:19] LABS: SARS-CoV-2 RNA PCR Negative (Negative)
--- NOTE | 2024-04-05 18:57 | PC.NURSE ---
attempted to call report at this time with no answer
[2024-04-05 19:59] LABS: Troponin I 0.039 ng/mL (0.000-0.034)
[2024-04-05] MEDS: SACUBITRIL/VALSARTAN 49-51 MG TABLET 1 TABLET PO (21:18)
[2024-04-05] MEDS: hydrALAZINE HCL 25 MG TABLET 50 MG PO (21:18)
[2024-04-05] MEDS: TAMSULOSIN HCL 0.4 MG CAPSULE PO (23:31)
[2024-04-06] VITALS (26 sets, daily range): BP systolic 142–178; BP diastolic 41–70; PULSE 42–75; RESP 20–24; TEMP 36.5–36.9; O2SAT 95–100
[2024-04-06] MEDS: ALBUTEROL SULFATE NEB 2.5 MG/3 ML INH INHALATION ×4 (02:06→20:08)
[2024-04-06 05:13] LABS: Eosinophils Absolute Auto 0.1 K/mm3 (0-0.3); Eosinophils Percent Auto 2.8 % (0-4.4); Hematocrit 34.3 % (42.0-52.0); Hemoglobin 10.7 g/dL (14.0-18.0); Immature Granulocyte Absolute 0.02 K/mm3 (0.00-0.031); Immature Granulocyte Percent A 0.4 % (0-0.5); Lymphocytes Absolute Auto 0.53 K/mm3 (0.9-3.2); Lymphocytes Percent Auto 11.6 % (18.3-44.2); Mean Corpuscular HGB Conc 31.2 g/dl (32-36); Mean Corpuscular Hemoglobin 27.7 pg (26-34); Mean Corpuscular Volume 88.9 fl (80-100); Mean Platelet Volume 9.8 fl (7.4-10.4); Monocytes Absolute Auto 0.3 K/mm3 (0.1-0.6); Monocytes Percent Auto 7.4 % (2.6-8.5); Neutrophils Absolute Auto 3.6 K/mm3 (1.3-6.7); Neutrophils Percent Auto 77.8 % (45.5-73.1); Platelet Count Result 115 k/mm3 (150-375); Red Blood Count 3.86 M/mm3 (4.6-6.20); Red Cell Distribution Width 16.9 % (11.5-14.5); White Blood Count 4.6 K/mm3 (4.5-10.0)
[2024-04-06 05:27] LABS: Anion Gap 7 mmol/L (4-12); Blood Urea Nitrogen 27 mg/dL (9-20); Carbon Dioxide 25 mmol/L (22-30); Chloride 111 mmol/L (98-107); Estimated CRCL calculation 51 ml/min; Estimated Glomerular Filt Rate 58; Glucose 116 mg/dL (65-110); Magnesium 2.4 mg/dL (1.6-2.3); Potassium 3.3 mmol/L (3.4-5.0); Sodium 143 mmol/L (137-145)
[2024-04-06 05:41] LABS: Troponin I 0.056 ng/mL (0.000-0.034)
[2024-04-06] MEDS: hydrALAZINE HCL 25 MG TABLET 50 MG PO ×3 (06:13→21:50)
--- NOTE | 2024-04-06 08:06 | IVDEFINITY ---
Prior to administration of IV Definity the patient was educated on the risks and benefits of the imaging enhancing agent including potential adverse side effects. The patient verbalized understanding. Allergies were verified. No exclusion criteria were identified and at least one of the following inclusion criteria were met: 1) physician request, 2) patient technically difficult to image (per the [place] [employer] guidelines of two or more segments not discernable within the apical view), or 3) questionable left ventricular function. ?
--- NOTE | 2024-04-06 08:07 | PM.PNCARD ---
Progress Note: A&P Assessment and Plan (1) Complete heart block: Code(s): I44.2 - Atrioventricular block, complete Status: Acute Assessment and Plan: Will need PPM placement. Continue monitor on telemetry. Consulted [facility] for it. Plan for tomorrow as per [facility]. (2) Systolic dysfunction: Code(s): I51.9 - Heart disease, unspecified Status: Acute Assessment and Plan: Probably cause of acute on chronic heart failure. On Entresto. Off Metoprolol due to CHB. Diurese with Lasix 40 mg IV BID. Start Spironolactone 25 mg daily. (3) Essential (primary) hypertension: Code(s): I10 - Essential (primary) hypertension Status: Acute Assessment and Plan: Improving. Subjective Date/time seen: 04/06/24 08:07 Interval history: Breathing is improving. Denies chest pain or sob or dizziness. Exam Const: General: cooperative, healthy appearing and comfortable Orientation/consciousness: oriented to person, oriented to place and oriented to time Resp: Auscultation: crackles, no rales, no rhonchi and wheezes Cardio: Rate: bradycardic Rhythm: regular rhythm Heart sounds: no murmurs Peripheral pulses: dorsalis pedis present Neuro: General: oriented to person, oriented to place and oriented to time Extrem: Right lower extremity: edema Left lower extremity: edema Other: Trace edema of both legs Objective Data Vital Signs Vital Signs: Vital Signs - 24 hr 04/05/24 11:18 04/05/24 11:38 04/05/24 12:34 Temperature 97.4 F L Pulse Rate 42 L 41 L Respiratory Rate 22 H 22 H Blood Pressure 154/59 H Pulse Oximetry 95 95 Oxygen Delivery Room Air Room Air Fraction of Inspired Oxygen 04/05/24 12:41 04/05/24 12:53 04/05/24 11:46 Temperature Pulse Rate 56 L 41 L 41 L Respiratory Rate 20 21 H 24 H Blood Pressure 168/60 H Pulse Oximetry 96 Oxygen Delivery Fraction of Inspired Oxygen 04/05/24 13:16 04/05/24 13:17 04/05/24 13:31 Temperature Pulse Rate 42 L 42 L 42 L Respiratory Rate 25 H 24 H 18 Blood Pressure 187/65 H 182/58 H Pulse Oximetry 98 98 94 Oxygen Delivery Fraction of Inspired Oxygen 04/05/24 13:32 04/05/24 13:45 04/05/24 13:46 Temperature Pulse Rate 41 L 58 L 41 L Respiratory Rate 24 H 23 H 21 H Blood Pressure 178/58 H Pulse Oximetry 95 95 96 Oxygen Delivery Fraction of Inspired Oxygen 04/05/24 14:01 04/05/24 14:16 04/05/24 15:16 Temperature Pulse Rate 41 L 41 L 39 L Respiratory Rate 25 H 24 H 19 Blood Pressure 172/57 H 177/58 H 185/53 H Pulse Oximetry 99 97 100 Oxygen Delivery Fraction of Inspired Oxygen 04/05/24 15:31 04/05/24 16:01 04/05/24 16:16 Temperature Pulse Rate 39 L 41 L 41 L Respiratory Rate 18 20 17 Blood Pressure 184/52 H 184/48 H 188/64 H Pulse Oximetry 99 97 94 Oxygen Delivery Fraction of Inspired Oxygen 04/05/24 16:47 04/05/24 17:01 04/05/24 17:31 Temperature Pulse Rate 51 L 45 L 41 L Respiratory Rate 23 H 20 18 Blood Pressure 181/65 H 184/119 H 180/61 H Pulse Oximetry 97 95 98 Oxygen Delivery Fraction of Inspired Oxygen 04/05/24 17:46 04/05/24 18:01 04/05/24 20:58 Temperature 98.1 F Pulse Rate 44 L 44 L 43 L Respiratory Rate 21 H 21 H 21 H Blood Pressure 181/56 H 191/53 H 208/62 H Pulse Oximetry 97 96 95 Oxygen Delivery Fraction of Inspired Oxygen 04/05/24 21:50 04/05/24 21:55 04/05/24 21:59 Temperature Pulse Rate 45 L 45 L 42 L Respiratory Rate 20 20 Blood Pressure Pulse Oximetry 94 Oxygen Delivery Room Air Fraction of Inspired Oxygen 21 04/05/24 22:09 04/05/24 20:00 04/05/24 20:00 Temperature Pulse Rate 43 L 43 L 43 L Respiratory Rate 27 H 20 Blood Pressure Pulse Oximetry 94 94 Oxygen Delivery Autopap Room Air Fraction of Inspired Oxygen 04/05/24 22:00 04/06/24 00:31 04/06/24 00:00 Temperature 97.8 F Pulse Rate 42 L 48 L 42 L Respiratory Rate 21 H Blood Pressure 178/70 H Pulse Oximetry 96 Oxygen Delivery Fraction of Inspired Oxygen 04/06/24 00:00 04/06/24 02:06 04/06/24 02:12 Temperature Pulse Rate 42 L 43 L 42 L Respiratory Rate 21 H 20 20 Blood Pressure Pulse Oximetry 96 Oxygen Delivery Autopap Fraction of Inspired Oxygen 21 04/06/24 02:00 04/06/24 03:19 04/06/24 03:19 Temperature Pulse Rate 44 L 42 L 42 L Respiratory Rate 20 Blood Pressure Pulse Oximetry 96 Oxygen Delivery Room Air Fraction of Inspired Oxygen 21 04/06/24 03:27 04/06/24 05:55 04/06/24 07:55 Temperature 97.8 F 98.1 F Pulse Rate 48 L 42 L 45 L Respiratory Rate 21 H 20 Blood Pressure 145/65 H 148/41 H Pulse Oximetry 95 100 Oxygen Delivery Fraction of Inspired Oxygen Intake/Output Intake/Output: Intake & Output 04/03/24 04/04/24 04/05/24 04/06/24 23:59 23:59 23:59 23:59 Intake Total 300 550 Output Total 1000 1300 Balance -700 -750 Meds/Results Medications: Active Medications Generic Name Dose Route Start Last Admin Trade Name Freq PRN Reason Stop Dose Admin Acetaminophen 650 mg 04/05/24 16:16 Acetaminophen 325 Mg Tablet PO Q6H PRN Mild Pain (1-3) or Fever Albuterol 2.5 mg 04/05/24 14:00 04/06/24 07:22 Albuterol Sulfate Neb 2.5 Mg/3 Ml Inh INHALATION 2.5 mg Q6HRT [facility] Administration Azelastine HCl 1 spray 04/06/24 09:00 Azelastine Hcl Nasal 0.1% 137 Mcg/Spr 30 Ml Btl NASAL Q12HR [facility] Fluticasone Propionate 2 spray 04/06/24 09:00 Fluticasone Propionate 0.05% Na Spr 16 Gm Btl (*Bkc) NASAL DAILY [facility] Furosemide 40 mg 04/05/24 17:00 04/05/24 17:28 Furosemide Inj 40 Mg/4 Ml Vial IV PUSH 40 mg BID [facility] Administration Hydralazine HCl 50 mg 04/05/24 20:25 04/06/24 06:13 Hydralazine Hcl 25 Mg Tablet PO 50 mg Q8HR [facility] Administration Loratadine 10 mg 04/06/24 09:00 Loratadine 10 Mg Tablet PO QAM [facility] Sacubitril/Valsartan 1 tablet 04/05/24 21:00 04/05/24 21:18 Sacubitril/Valsartan 49-51 Mg Tablet PO 1 tablet Q12HR [facility] Administration Spironolactone 25 mg 04/06/24 09:00 Spironolactone 25 Mg Tablet PO QAM [facility] Tamsulosin HCl 0.4 mg 04/05/24 22:30 04/05/24 23:31 Tamsulosin Hcl 0.4 Mg Capsule PO 0.4 mg QHS [facility] Administration Radiology Results: ITS Impressions Chest X-Ray 04/05/24 12:16 IMPRESSION: 1. Airspace opacities in the mid and lower lung zones, consistent with atelectasis versus pneumonia. 2. Small left pleural effusion. Labs Labs: Laboratory Results - last 24 hr 04/05/24 04/05/24 04/05/24 11:41 16:24 19:24 WBC 5.3 RBC 3.98 L Hgb 11.1 L Hct 35.0 L MCV 87.9 MCH 27.9 MCHC 31.7 L RDW 16.8 H Plt Count 134 L MPV 10.4 Immature Gran % (Auto) 0.8 H Neut % (Auto) 83.1 H Lymph % (Auto) 8.5 L [place] % (Auto) 6.1 Eos % (Auto) 1.3 Baso % (Auto) 0.2 Lymph # (Auto) 0.45 L [place] # (Auto) 0.3 Eos # (Auto) 0.1 Baso # (Auto) 0.0 Abs Immat Gran (auto) 0.04 H Absolute Neuts (auto) 4.4 Absolute Nucleated RBC 0.000 Nucleated RBC % 0.0 PT 14.7 INR 1.1 APTT 28.0 Sodium 142 Potassium 3.7 Chloride 114 H Carbon Dioxide 21 L Anion Gap 7 BUN 29 H Creatinine 1.10 Estim Creat Clear Calc 48 Estimated GFR > 60 Glucose 143 H Calcium 8.4 Magnesium Total Bilirubin 0.8 AST 25 ALT 26 Alkaline Phosphatase 59 Troponin I 0.035 H* 0.036 H* 0.039 H* NT-Pro-B Natriuret Pep 47698 H Total Protein 7.0 Albumin 3.8 SARS-CoV-2 RNA (RT-PCR) Negative 04/06/24 04:50 WBC 4.6 RBC 3.86 L Hgb 10.7 L Hct 34.3 L MCV 88.9 MCH 27.7 MCHC 31.2 L RDW 16.9 H Plt Count 115 L MPV 9.8 Immature Gran % (Auto) 0.4 Neut % (Auto) 77.8 H Lymph % (Auto) 11.6 L [place] % (Auto) 7.4 Eos % (Auto) 2.8 Baso % (Auto) 0.0 L Lymph # (Auto) 0.53 L [place] # (Auto) 0.3 Eos # (Auto) 0.1 Baso # (Auto) 0.0 Abs Immat Gran (auto) 0.02 Absolute Neuts (auto) 3.6 Absolute Nucleated RBC 0.000 Nucleated RBC % 0.0 PT INR APTT Sodium 143 Potassium 3.3 L Chloride 111 H Carbon Dioxide 25 Anion Gap 7 BUN 27 H Creatinine 1.20 Estim Creat Clear Calc 51 Estimated GFR 58 L Glucose 116 H Calcium 8.0 L Magnesium 2.4 H Total Bilirubin AST ALT Alkaline Phosphatase Troponin I 0.056 H* NT-Pro-B Natriuret Pep Total Protein Albumin SARS-CoV-2 RNA (RT-PCR)
[2024-04-06] MEDS: AZELASTINE HCL NASAL 0.1% 137 MCG/SPR 30 ML BTL 1 SPRAY NASAL ×2 (08:13→21:50)
[2024-04-06] MEDS: SACUBITRIL/VALSARTAN 49-51 MG TABLET 1 TABLET PO ×2 (08:13→21:50)
[2024-04-06] MEDS: FUROSEMIDE INJ 40 MG/4 ML VIAL IV PUSH ×2 (08:13→16:32)
[2024-04-06] MEDS: SPIRONOLACTONE 25 MG TABLET PO (08:13)
[2024-04-06] MEDS: FLUTICASONE PROPIONATE 0.05% NA SPR 16 GM BTL (*BKC) 2 SPRAY NASAL (08:14)
[2024-04-06] MEDS: LORATADINE 10 MG TABLET PO (08:14)
--- NOTE | 2024-04-06 10:47 | P.PNIM_ITS ---
Progress Note: A&P Assessment and Plan (1) Heart block: Code(s): I45.9 - Conduction disorder, unspecified Status: Acute Assessment and Plan: - card consulted - tele monitoring - pacemaker insertion tomorrow scheduled (2) Acute on chronic systolic heart failure: Code(s): I50.23 - Acute on chronic systolic (congestive) heart failure Status: Acute Assessment and Plan: The patient presented to the emergency department for evaluation of shortness of breath as detailed in HPI. He looks a bit volume overloaded on chest x-ray with an elevated proBNP and increasing lower extremity edema. Decompensation may very well be related to heart block. Continue IV diuresis with furosemide 40 mg IV b.i.d. with close monitoring of volume status, renal function, and electrolytes. Troponins are slightly elevated and though he is not having any chest pain we will continue to trend those to peak. Dr. Painter consulted. Blood pressures have been running high but should improve with diuresis (3) Elevated troponin: Code(s): R79.89 - Other specified abnormal findings of blood chemistry Status: Acute Assessment and Plan: see above (4) Essential (primary) hypertension: Code(s): I10 - Essential (primary) hypertension Status: Acute Assessment and Plan: see above Time Spent With Patient Time with patient: Greater than 35 minutes Subjective Date/time seen: 04/06/24 10:47 Interval history: Shortness of breath. Narrative retrieved from H/P: This is an 83-year-old male with history of subdural hematoma following a fall in 2019, cognitive impairment, chronic lymphocytic leukemia receiving monthly infusions, prostate cancer, obstructive sleep apnea on CPAP, hypertension, dyslipidemia, paroxysmal supraventricular tachycardia, heart failure with reduced ejection fraction, and heart block for which he is currently on an event monitor which is being monitored very closely by Dr. Painter who presented to the emergency department via private vehicle for evaluation of shortness of breath. He has been short of breath for over a month but it has gotten worse over the past 3 days. He has been wheezing and reports increasing lower extremity edema. Overall he is just feeling and tired. He denies syncope, near syncope, fever, chills, sweats, sore throat, chest pain, pleuritic pain, palpitations, productive cough, nausea, vomiting, and calf pain. In the ED: Pulse has been in the low 40s to mid 50s since arrival. Blood pressures have been stable in fact elevated into the 170s and 180s systolic. Respiratory rate has been in the low 20s with an SpO2 in the mid to upper 90s. Labs were significant for a hemoglobin of 11.1, platelet 134, BUN 29, troponin 0.035, proBNP 02051, glucose 143. EKG read per blasting worker shows a sinus rhythm with high-grade heart block with junctional escape rhythm T-wave abnormalities in the anterolateral/inferior leads. Dr. Painter was consulted by the ED physician and he recommends admitting the patient to IMU for close monitoring. The patient was given furosemide 40 mg IV x1 and a dose of azithromycin and ceftriaxone for possible pneumonia. 04/06- pt is seen and examined. He is very pleasant, reports leg swelling improved. He is doing better today. c/o leg pain0 chronic for which he takes occasional ibuprofen with relief. Pacemaker tomorrow- npo at midnight Review of Systems Review of Systems: 12 systems were reviewed and are negativ e except for as per HPI. Exam Narrative: General: Well-developed elderly gentleman sitting up in bed in no acute distress. Weight: 106.2 kg. BMI: 31.8. HEENT: PERRL, EOMI. Sclera anicteric. Oral mucosa moist. Neck: Supple. Mild jugular venous distension. Respiratory: Mild conversational dyspnea, speaking in 5 to 6 word sentences. Lung sounds are diminished with crackles at the bases. Cardiovascular: Bradycardic. Gastrointestinal: Abdomen is soft, nontender, and nondistended with positive bowel sounds. Skin: Warm and dry. Extremities: No cyanosis or clubbing. 1+ lower extremity edema. No palpable knots or cords. Neurological: Alert. Cranial nerves 2-12 are grossly intact. No gross focal deficits to casual conversation. Psychiatric: Pleasant and cooperative with normal mood and affect. Objective Data Vital Signs Vital Signs: Vital Signs - 24 hr 04/05/24 11:18 04/05/24 11:38 04/05/24 12:34 Temperature 97.4 F L Pulse Rate 42 L 41 L Respiratory Rate 22 H 22 H Blood Pressure 154/59 H Pulse Oximetry 95 95 Oxygen Delivery Room Air Room Air Fraction of Inspired Oxygen 04/05/24 12:41 04/05/24 12:53 04/05/24 11:46 Temperature Pulse Rate 56 L 41 L 41 L Respiratory Rate 20 21 H 24 H Blood Pressure 168/60 H Pulse Oximetry 96 Oxygen Delivery Fraction of Inspired Oxygen 04/05/24 13:16 04/05/24 13:17 04/05/24 13:31 Temperature Pulse Rate 42 L 42 L 42 L Respiratory Rate 25 H 24 H 18 Blood Pressure 187/65 H 182/58 H Pulse Oximetry 98 98 94 Oxygen Delivery Fraction of Inspired Oxygen 04/05/24 13:32 04/05/24 13:45 04/05/24 13:46 Temperature Pulse Rate 41 L 58 L 41 L Respiratory Rate 24 H 23 H 21 H Blood Pressure 178/58 H Pulse Oximetry 95 95 96 Oxygen Delivery Fraction of Inspired Oxygen 04/05/24 14:01 04/05/24 14:16 04/05/24 15:16 Temperature Pulse Rate 41 L 41 L 39 L Respiratory Rate 25 H 24 H 19 Blood Pressure 172/57 H 177/58 H 185/53 H Pulse Oximetry 99 97 100 Oxygen Delivery Fraction of Inspired Oxygen 04/05/24 15:31 04/05/24 16:01 04/05/24 16:16 Temperature Pulse Rate 39 L 41 L 41 L Respiratory Rate 18 20 17 Blood Pressure 184/52 H 184/48 H 188/64 H Pulse Oximetry 99 97 94 Oxygen Delivery Fraction of Inspired Oxygen 04/05/24 16:47 04/05/24 17:01 04/05/24 17:31 Temperature Pulse Rate 51 L 45 L 41 L Respiratory Rate 23 H 20 18 Blood Pressure 181/65 H 184/119 H 180/61 H Pulse Oximetry 97 95 98 Oxygen Delivery Fraction of Inspired Oxygen 04/05/24 17:46 04/05/24 18:01 04/05/24 20:58 Temperature 98.1 F Pulse Rate 44 L 44 L 43 L Respiratory Rate 21 H 21 H 21 H Blood Pressure 181/56 H 191/53 H 208/62 H Pulse Oximetry 97 96 95 Oxygen Delivery Fraction of Inspired Oxygen 04/05/24 21:50 04/05/24 21:55 04/05/24 21:59 Temperature Pulse Rate 45 L 45 L 42 L Respiratory Rate 20 20 Blood Pressure Pulse Oximetry 94 Oxygen Delivery Room Air Fraction of Inspired Oxygen 21 04/05/24 22:09 04/05/24 20:00 04/05/24 20:00 Temperature Pulse Rate 43 L 43 L 43 L Respiratory Rate 27 H 20 Blood Pressure Pulse Oximetry 94 94 Oxygen Delivery Autopap Room Air Fraction of Inspired Oxygen 21 04/05/24 22:00 04/06/24 00:31 04/06/24 00:00 Temperature 97.8 F Pulse Rate 42 L 48 L 42 L Respiratory Rate 21 H Blood Pressure 178/70 H Pulse Oximetry 96 Oxygen Delivery Fraction of Inspired Oxygen 04/06/24 00:00 04/06/24 02:06 04/06/24 02:12 Temperature Pulse Rate 42 L 43 L 42 L Respiratory Rate 21 H 20 20 Blood Pressure Pulse Oximetry 96 Oxygen Delivery Autopap Fraction of Inspired Oxygen 21 04/06/24 02:00 04/06/24 03:19 04/06/24 03:19 Temperature Pulse Rate 44 L 42 L 42 L Respiratory Rate 20 Blood Pressure Pulse Oximetry 96 Oxygen Delivery Room Air Fraction of Inspired Oxygen 21 04/06/24 03:27 04/06/24 05:55 04/06/24 07:55 Temperature 97.8 F 98.1 F Pulse Rate 48 L 42 L 45 L Respiratory Rate 21 H 20 Blood Pressure 145/65 H 148/41 H Pulse Oximetry 95 100 Oxygen Delivery Fraction of Inspired Oxygen 04/06/24 07:22 04/06/24 07:22 04/06/24 07:31 Temperature Pulse Rate 47 L 48 L Respiratory Rate 20 20 Blood Pressure Pulse Oximetry 96 Oxygen Delivery Room Air Fraction of Inspired Oxygen 21 04/06/24 08:00 04/06/24 08:00 Temperature Pulse Rate 47 L 47 L Respiratory Rate 20 Blood Pressure Pulse Oximetry 100 Oxygen Delivery Room Air Fraction of Inspired Oxygen 21 Intake/Output Intake/Output: Intake & Output 04/03/24 04/04/24 04/05/24 04/06/24 23:59 23:59 23:59 23:59 Intake Total 300 550 Output Total 1000 1300 Balance -700 -750 Meds/Results Medications: Active Medications Generic Name Dose Route Start Last Admin Trade Name Freq PRN Reason Stop Dose Admin Acetaminophen 650 mg 04/05/24 16:16 Acetaminophen 325 Mg Tablet PO Q6H PRN Fever Albuterol 2.5 mg 04/05/24 14:00 04/06/24 07:22 Albuterol Sulfate Neb 2.5 Mg/3 Ml Inh INHALATION 2.5 mg Q6HRT [facility] Administration Azelastine HCl 1 spray 04/06/24 09:00 04/06/24 08:13 Azelastine Hcl Nasal 0.1% 137 Mcg/Spr 30 Ml Btl NASAL 1 spray Q12HR [facility] Administration Fluticasone Propionate 2 spray 04/06/24 09:00 04/06/24 08:14 Fluticasone Propionate 0.05% Na Spr 16 Gm Btl (*Bkc) NASAL 2 spray DAILY [facility] Administration Furosemide 40 mg 04/05/24 17:00 04/06/24 08:13 Furosemide Inj 40 Mg/4 Ml Vial IV PUSH 40 mg BID [facility] Administration Hydralazine HCl 50 mg 04/05/24 20:25 04/06/24 06:13 Hydralazine Hcl 25 Mg Tablet PO 50 mg Q8HR [facility] Administration Ibuprofen 400 mg 04/06/24 10:44 Ibuprofen 400 Mg Tablet PO Q6H PRN Pain Rated 1-3 Loratadine 10 mg 04/06/24 09:00 04/06/24 08:14 Loratadine 10 Mg Tablet PO 10 mg QAM [facility] Administration Sacubitril/Valsartan 1 tablet 04/05/24 21:00 04/06/24 08:13 Sacubitril/Valsartan 49-51 Mg Tablet PO 1 tablet Q12HR [facility] Administration Spironolactone 25 mg 04/06/24 09:00 04/06/24 08:13 Spironolactone 25 Mg Tablet PO 25 mg QAM [facility] Administration Tamsulosin HCl 0.4 mg 04/05/24 22:30 04/05/24 23:31 Tamsulosin Hcl 0.4 Mg Capsule PO 0.4 mg QHS [facility] Administration Radiology Results: ITS Impressions Chest X-Ray 04/05/24 12:16 IMPRESSION: 1. Airspace opacities in the mid and lower lung zones, consistent with atelectasis versus pneumonia. 2. Small left pleural effusion. Labs Labs: Laboratory Results - last 24 hr 04/05/24 04/05/24 04/05/24 11:41 16:24 19:24 WBC 5.3 RBC 3.98 L Hgb 11.1 L Hct 35.0 L MCV 87.9 MCH 27.9 MCHC 31.7 L RDW 16.8 H Plt Count 134 L MPV 10.4 Immature Gran % (Auto) 0.8 H Neut % (Auto) 83.1 H Lymph % (Auto) 8.5 L [place] % (Auto) 6.1 Eos % (Auto) 1.3 Baso % (Auto) 0.2 Lymph # (Auto) 0.45 L [place] # (Auto) 0.3 Eos # (Auto) 0.1 Baso # (Auto) 0.0 Abs Immat Gran (auto) 0.04 H Absolute Neuts (auto) 4.4 Absolute Nucleated RBC 0.000 Nucleated RBC % 0.0 PT 14.7 INR 1.1 APTT 28.0 Sodium 142 Potassium 3.7 Chloride 114 H Carbon Dioxide 21 L Anion Gap 7 BUN 29 H Creatinine 1.10 Estim Creat Clear Calc 48 Estimated GFR > 60 Glucose 143 H Calcium 8.4 Magnesium Total Bilirubin 0.8 AST 25 ALT 26 Alkaline Phosphatase 59 Troponin I 0.035 H* 0.036 H* 0.039 H* NT-Pro-B Natriuret Pep 12987 H Total Protein 7.0 Albumin 3.8 SARS-CoV-2 RNA (RT-PCR) Negative 04/06/24 04:50 WBC 4.6 RBC 3.86 L Hgb 10.7 L Hct 34.3 L MCV 88.9 MCH 27.7 MCHC 31.2 L RDW 16.9 H Plt Count 115 L MPV 9.8 Immature Gran % (Auto) 0.4 Neut % (Auto) 77.8 H Lymph % (Auto) 11.6 L [place] % (Auto) 7.4 Eos % (Auto) 2.8 Baso % (Auto) 0.0 L Lymph # (Auto) 0.53 L [place] # (Auto) 0.3 Eos # (Auto) 0.1 Baso # (Auto) 0.0 Abs Immat Gran (auto) 0.02 Absolute Neuts (auto) 3.6 Absolute Nucleated RBC 0.000 Nucleated RBC % 0.0 PT INR APTT Sodium 143 Potassium 3.3 L Chloride 111 H Carbon Dioxide 25 Anion Gap 7 BUN 27 H Creatinine 1.20 Estim Creat Clear Calc 51 Estimated GFR 58 L Glucose 116 H Calcium 8.0 L Magnesium 2.4 H Total Bilirubin AST ALT Alkaline Phosphatase Troponin I 0.056 H* NT-Pro-B Natriuret Pep Total Protein Albumin SARS-CoV-2 RNA (RT-PCR) Quality VTE Prophylaxis VTE prophylaxis: mechanical ordered
[2024-04-06] MEDS: IBUPROFEN 400 MG TABLET PO (11:22)
--- NOTE | 2024-04-06 12:28 | P.SEDATION_ITS ---
Moderate Sedation Note-Pt Data Patient Data Diagnosis: Symptomatic bradycardia with high-grade AV block including complete heart block Present Complaint: no complaints this morning, principal complaint is exertional dyspnea Procedure to be performed/Plan: implantation of permanent pacemaker Allergies Allergy/AdvReac Type Severity Reaction Status Date / Time No Known Allergies Allergy Verified 04/05/24 11:40 Home Medications Medication Instructions Recorded Confirmed Type fexofenadine 180 mg tablet 180 mg PO DAILY 05/27/19 04/05/24 History (Corrina Allergy) alendronate 70 mg tablet 70 mg PO WEEKLY 05/22/23 04/05/24 History tamsulosin 0.4 mg capsule 0.4 mg PO QHS 05/22/23 04/05/24 History omeprazole 40 mg capsule,delayed 40 mg PO DAILY #90 caps 11/03/23 04/05/24 Rx release azelastine 137 mcg (0.1 %) nasal 1 spray intranasal Q12H #90 mL 11/26/23 04/05/24 Rx spray dicyclomine 20 mg tablet 20 mg PO BID #60 tabs 12/29/23 04/05/24 Rx leuprolide acetate (6 month) 45 mg 45 mg subcut [id number] 12/29/23 04/05/24 History (6 month) subcutaneous syringe (Eligard) hydralazine 25 mg tablet 25 mg PO BID #60 tabs 03/31/24 04/05/24 Rx fluticasone propionate 50 2 spray intranasal DAILY 04/05/24 04/05/24 History mcg/actuation nasal spray,suspension sacubitril 24 mg-valsartan 26 mg 1 tablet PO BID 04/05/24 04/05/24 History tablet (Entresto) Current Medications: Active Medications Acetaminophen (Acetaminophen 325 Mg Tablet) 650 mg PO Q6H PRN PRN Reason: Fever Albuterol (Albuterol Sulfate Neb 2.5 Mg/3 Ml Inh) 2.5 mg INHALATION Q6HRT [facility] Last Admin: 04/06/24 07:22 Dose: 2.5 mg Azelastine HCl (Azelastine Hcl Nasal 0.1% 137 Mcg/Spr 30 Ml Btl) 1 spray NASAL Q12HR [facility] Last Admin: 04/06/24 08:13 Dose: 1 spray Fluticasone Propionate (Fluticasone Propionate 0.05% Na Spr 16 Gm Btl (*Bkc)) 2 spray NASAL DAILY [facility] Last Admin: 04/06/24 08:14 Dose: 2 spray Furosemide (Furosemide Inj 40 Mg/4 Ml Vial) 40 mg IV PUSH BID [facility] Last Admin: 04/06/24 08:13 Dose: 40 mg Hydralazine HCl (Hydralazine Hcl 25 Mg Tablet) 50 mg PO Q8HR [facility] Last Admin: 04/06/24 06:13 Dose: 50 mg Ibuprofen (Ibuprofen 400 Mg Tablet) 400 mg PO Q6H PRN PRN Reason: Pain Rated 1-3 Last Admin: 04/06/24 11:22 Dose: 400 mg Loratadine (Loratadine 10 Mg Tablet) 10 mg PO QAM [facility] Last Admin: 04/06/24 08:14 Dose: 10 mg Sacubitril/Valsartan (Sacubitril/Valsartan 49-51 Mg Tablet) 1 tablet PO Q12HR [facility] Last Admin: 04/06/24 08:13 Dose: 1 tablet Spironolactone (Spironolactone 25 Mg Tablet) 25 mg PO QAM [facility] Last Admin: 04/06/24 08:13 Dose: 25 mg Tamsulosin HCl (Tamsulosin Hcl 0.4 Mg Capsule) 0.4 mg PO QHS [facility] Last Admin: 04/05/24 23:31 Dose: 0.4 mg Sedation/Anesthesia: No previous sedation/anesthesia problems (including family history). [facility] Past Medical History Medical History (Updated 04/05/24 @ 22:43 by Mike Echols MD) Central stenosis of spinal canal Chronic low back pain Chronic lymphocytic leukemia In remission. Cognitive impairment Dyslipidemia Environmental allergies Essential (primary) hypertension GERD without esophagitis Heart failure with reduced ejection fraction EF 40 to 45% in May 2023. History of subdural hematoma (2018) Insomnia Lumbar spondylosis Obstructive sleep apnea Prostate cancer Vitamin D deficiency Surgical History Surgical History (Updated 04/05/24 @ 16:08 by Leah Solo PA-C) History of basal cell carcinoma excision (2019) left nose History of benign breast biopsy left History of lumbosacral spine surgery 1960s History of neck surgery (2000) Tumor Right side of neck - removed 2008 Family History Family History Mother Patient's mother is , Onset Age: 92 Family history of lung cancer Father Family history of type 2 diabetes mellitus Diabetes mellitus, Onset Age: 79 Family history of lung cancer Other Family history of lymphoma Social History Social History Social History: Surrogate medical decision maker: Ted Reyes, spouse. Code status: Full code. Smoking status: Never smoker Second hand tobacco smoke exposure: No Alcohol intake: never Substance use: never Substance use type: does not use Do You Feel Safe in your Home?: Yes Lack of Transportation: No Lack of Food: Never True Current Housing: I Have Housing Concerned About Future Housing: No Difficulty Paying Gas/Electric Bills: No Difficulty Paying for Meds: No Currently Unemployed: No Education: High School Diploma/GED Difficulty w/ Childcare or Family Care: No Living arrangements: with family Additional living arrangements comments: Lives with spouse in [place]. Spiritual care concerns: No (pt is mosque) Mod Sed Physical Exam Physical Exam Pre Procedural Exam: Normal: Appearance, Neck, Throat, Airway, Lungs, Heart Size, Neuro Exam and Extremities and Variation: Heart Rate ( bradycardic, heart rate 50) and Heart Rhythm Hours since solid foods: 12 Hours since liquid intake: 12 Mallampati Classification: class II Internal Medicine - PN: Obj Da Vital Signs Vital Signs: Vital Signs - 24 hr 04/05/24 12:34 04/05/24 12:41 04/05/24 12:53 Temperature Pulse Rate 41 L 56 L 41 L Respiratory Rate 22 H 20 21 H Blood Pressure 168/60 H Pulse Oximetry 96 Oxygen Delivery Fraction of Inspired Oxygen 04/05/24 13:16 04/05/24 13:17 04/05/24 13:31 Temperature Pulse Rate 42 L 42 L 42 L Respiratory Rate 25 H 24 H 18 Blood Pressure 187/65 H 182/58 H Pulse Oximetry 98 98 94 Oxygen Delivery Fraction of Inspired Oxygen 04/05/24 13:32 04/05/24 13:45 04/05/24 13:46 Temperature Pulse Rate 41 L 58 L 41 L Respiratory Rate 24 H 23 H 21 H Blood Pressure 178/58 H Pulse Oximetry 95 95 96 Oxygen Delivery Fraction of Inspired Oxygen 04/05/24 14:01 04/05/24 14:16 04/05/24 15:16 Temperature Pulse Rate 41 L 41 L 39 L Respiratory Rate 25 H 24 H 19 Blood Pressure 172/57 H 177/58 H 185/53 H Pulse Oximetry 99 97 100 Oxygen Delivery Fraction of Inspired Oxygen 04/05/24 15:31 04/05/24 16:01 04/05/24 16:16 Temperature Pulse Rate 39 L 41 L 41 L Respiratory Rate 18 20 17 Blood Pressure 184/52 H 184/48 H 188/64 H Pulse Oximetry 99 97 94 Oxygen Delivery Fraction of Inspired Oxygen 04/05/24 16:47 04/05/24 17:01 04/05/24 17:31 Temperature Pulse Rate 51 L 45 L 41 L Respiratory Rate 23 H 20 18 Blood Pressure 181/65 H 184/119 H 180/61 H Pulse Oximetry 97 95 98 Oxygen Delivery Fraction of Inspired Oxygen 04/05/24 17:46 04/05/24 18:01 04/05/24 20:58 Temperature 36.7 C Pulse Rate 44 L 44 L 43 L Respiratory Rate 21 H 21 H 21 H Blood Pressure 181/56 H 191/53 H 208/62 H Pulse Oximetry 97 96 95 Oxygen Delivery Fraction of Inspired Oxygen 04/05/24 21:50 04/05/24 21:55 04/05/24 21:59 Temperature Pulse Rate 45 L 45 L 42 L Respiratory Rate 20 20 Blood Pressure Pulse Oximetry 94 Oxygen Delivery Room Air Fraction of Inspired Oxygen 21 04/05/24 22:09 04/05/24 20:00 04/05/24 20:00 Temperature Pulse Rate 43 L 43 L 43 L Respiratory Rate 27 H 20 Blood Pressure Pulse Oximetry 94 94 Oxygen Delivery Autopap Room Air Fraction of Inspired Oxygen 21 04/05/24 22:00 04/06/24 00:31 04/06/24 00:00 Temperature 36.6 C Pulse Rate 42 L 48 L 42 L Respiratory Rate 21 H Blood Pressure 178/70 H Pulse Oximetry 96 Oxygen Delivery Fraction of Inspired Oxygen 04/06/24 00:00 04/06/24 02:06 04/06/24 02:12 Temperature Pulse Rate 42 L 43 L 42 L Respiratory Rate 21 H 20 20 Blood Pressure Pulse Oximetry 96 Oxygen Delivery Autopap Fraction of Inspired Oxygen 21 04/06/24 02:00 04/06/24 03:19 04/06/24 03:19 Temperature Pulse Rate 44 L 42 L 42 L Respiratory Rate 20 Blood Pressure Pulse Oximetry 96 Oxygen Delivery Room Air Fraction of Inspired Oxygen 21 04/06/24 03:27 04/06/24 05:55 04/06/24 07:55 Temperature 36.6 C 36.7 C Pulse Rate 48 L 42 L 45 L Respiratory Rate 21 H 20 Blood Pressure 145/65 H 148/41 H Pulse Oximetry 95 100 Oxygen Delivery Fraction of Inspired Oxygen 04/06/24 07:22 04/06/24 07:22 04/06/24 07:31 Temperature Pulse Rate 47 L 48 L Respiratory Rate 20 20 Blood Pressure Pulse Oximetry 96 Oxygen Delivery Room Air Fraction of Inspired Oxygen 21 04/06/24 08:00 04/06/24 08:00 04/06/24 11:38 Temperature 36.5 C Pulse Rate 47 L 47 L 50 L Respiratory Rate 20 20 Blood Pressure 143/46 H Pulse Oximetry 100 97 Oxygen Delivery Room Air Fraction of Inspired Oxygen 21 Intake/Output Intake/Output: Intake & Output 04/03/24 04/04/24 04/05/24 04/06/24 23:59 23:59 23:59 23:59 Intake Total 300 550 Output Total 1000 1300 Balance -700 -750 Meds/Results Medications: Active Medications Generic Name Dose Route Start Last Admin Trade Name Freq PRN Reason Stop Dose Admin Acetaminophen 650 mg 04/05/24 16:16 Acetaminophen 325 Mg Tablet PO Q6H PRN Fever Albuterol 2.5 mg 04/05/24 14:00 04/06/24 07:22 Albuterol Sulfate Neb 2.5 Mg/3 Ml Inh INHALATION 2.5 mg Q6HRT [facility] Administration Azelastine HCl 1 spray 04/06/24 09:00 04/06/24 08:13 Azelastine Hcl Nasal 0.1% 137 Mcg/Spr 30 Ml Btl NASAL 1 spray Q12HR [facility] Administration Fluticasone Propionate 2 spray 04/06/24 09:00 04/06/24 08:14 Fluticasone Propionate 0.05% Na Spr 16 Gm Btl (*Bkc) NASAL 2 spray DAILY [facility] Administration Furosemide 40 mg 04/05/24 17:00 04/06/24 08:13 Furosemide Inj 40 Mg/4 Ml Vial IV PUSH 40 mg BID [facility] Administration Hydralazine HCl 50 mg 04/05/24 20:25 04/06/24 06:13 Hydralazine Hcl 25 Mg Tablet PO 50 mg Q8HR [facility] Administration Ibuprofen 400 mg 04/06/24 10:44 04/06/24 11:22 Ibuprofen 400 Mg Tablet PO 400 mg Q6H PRN Administration Pain Rated 1-3 Loratadine 10 mg 04/06/24 09:00 04/06/24 08:14 Loratadine 10 Mg Tablet PO 10 mg QAM [facility] Administration Sacubitril/Valsartan 1 tablet 04/05/24 21:00 04/06/24 08:13 Sacubitril/Valsartan 49-51 Mg Tablet PO 1 tablet Q12HR [facility] Administration Spironolactone 25 mg 04/06/24 09:00 04/06/24 08:13 Spironolactone 25 Mg Tablet PO 25 mg QAM [facility] Administration Tamsulosin HCl 0.4 mg 04/05/24 22:30 04/05/24 23:31 Tamsulosin Hcl 0.4 Mg Capsule PO 0.4 mg QHS [facility] Administration Radiology Results: ITS Impressions Chest X-Ray 04/05/24 12:16 IMPRESSION: 1. Airspace opacities in the mid and lower lung zones, consistent with atelectasis versus pneumonia. 2. Small left pleural effusion. Labs 04/06/24 04:50 04/06/24 04:50 Labs: Laboratory Results - last 24 hr 04/05/24 04/05/24 04/06/24 16:24 19:24 04:50 WBC 4.6 RBC 3.86 L Hgb 10.7 L Hct 34.3 L MCV 88.9 MCH 27.7 MCHC 31.2 L RDW 16.9 H Plt Count 115 L MPV 9.8 Immature Gran % (Auto) 0.4 Neut % (Auto) 77.8 H Lymph % (Auto) 11.6 L [place] % (Auto) 7.4 Eos % (Auto) 2.8 Baso % (Auto) 0.0 L Lymph # (Auto) 0.53 L [place] # (Auto) 0.3 Eos # (Auto) 0.1 Baso # (Auto) 0.0 Abs Immat Gran (auto) 0.02 Absolute Neuts (auto) 3.6 Absolute Nucleated RBC 0.000 Nucleated RBC % 0.0 Sodium 143 Potassium 3.3 L Chloride 111 H Carbon Dioxide 25 Anion Gap 7 BUN 27 H Creatinine 1.20 Estim Creat Clear Calc 51 Estimated GFR 58 L Glucose 116 H Calcium 8.0 L Magnesium 2.4 H Troponin I 0.036 H* 0.039 H* 0.056 H* SARS-CoV-2 RNA (RT-PCR) Negative ASA Classification/Sedation ASA Classification/Sedation ASA Class: III Emergent: No Risks: Risks, benefits and alternatives explained and patient/family accepted plan for sedation. Patient re-evaluated immediately prior to sedation.
[2024-04-06] MEDS: TAMSULOSIN HCL 0.4 MG CAPSULE PO (21:50)
[2024-04-07] VITALS (30 sets, daily range): BP systolic 115–163; BP diastolic 38–68; PULSE 44–91; RESP 13–24; TEMP 36.4–36.7; O2SAT 93–98
[2024-04-07] MEDS: ALBUTEROL SULFATE NEB 2.5 MG/3 ML INH INHALATION ×4 (01:53→21:09)
[2024-04-07] MEDS: hydrALAZINE HCL 25 MG TABLET 50 MG PO (06:29)
--- NOTE | 2024-04-07 06:59 | PM.IMPN ---
Progress Note: A&P Assessment and Plan (1) Heart block: Code(s): I45.9 - Conduction disorder, unspecified Status: Acute Assessment and Plan: EKG on 04/05: sinus rhythm with high grade AV block HR remains stable 40-50s, now 60-80 s/p pacemaker - tele monitoring - cardiology consulted pacemaker inserted on 04/[address] Dudley (2) Acute on chronic systolic heart failure: Code(s): I50.23 - Acute on chronic systolic (congestive) heart failure Status: Acute Assessment and Plan: The patient presented to the emergency department for evaluation of shortness of breath and appears a bit volume overloaded on chest x-ray with an elevated proBNP and increasing lower extremity edema. Decompensation may very well be related to heart block. - Echo on 04/05: 60-65% with grade I diastolic dysfunction - Chest XR 04/05: 1. Airspace opacities in the mid and lower lung zones, consistent with atelectasis versus pneumonia. 2. Small left pleural effusion. - Entresto q12 - Hydralazine 50 mg q8 - Spironolactone 25 mg daily - Not on metoprolol given complete heart block - IV diuresis with furosemide 40 mg IV b.i.d. - monitor volume status, renal function, and electrolytes. (3) Elevated troponin: Code(s): R79.89 - Other specified abnormal findings of blood chemistry Status: Acute Assessment and Plan: Troponins are slightly elevated though he is not having any chest pain. Likely etiology being heart failure exacerbation and complete heart block - Trop 0.035 > 0.036 > 0.039 > 0.056 > 0.043 - Continue to trend those to peak. - Cardiology following (4) Essential (primary) hypertension: Code(s): I10 - Essential (primary) hypertension Status: Acute Assessment and Plan: Elevated blood pressures on admission. Volume overload likely contributing factor. - IV lasix 40 mg BID - Entresto q12 - Hydralazine 50 mg q8 - Spironolactone 25 mg daily - improving Time Spent With Patient Time with patient: 25 - 35 minutes Subjective Date/time seen: 04/07/24 06:59 Interval history: 83-year-old male with history of subdural hematoma following a fall in 2019, cognitive impairment, chronic lymphocytic leukemia receiving monthly infusions, prostate cancer, obstructive sleep apnea on CPAP, hypertension, dyslipidemia, paroxysmal supraventricular tachycardia, heart failure with reduced ejection fraction, and heart block for which he is currently on an event monitor which is being monitored very closely by Dr. Painter who presented to the emergency department via private vehicle for evaluation of shortness of breath. Patient is pleasant lying in bed with at bedside. He had just returned from his procedure and states he feels a bit groggy. He does note that he is not as short of breath and is able to speak in full sentences at time of assessment. He denies chest pain, palpitations, abdominal pain. Review of Systems Review of Systems: All systems reviewed & are unremarkable except as noted in HPI and below Exam Narrative: AF HR 88 RR 20 Spo2 96 BP 116/64 General: male in no acute respiratory distress who is nontoxic appearing, lying semi recumbent in bed. HEENT: Normocephalic. Atraumatic. Extraocular movement intact. Sclera clear and anicteric. No facial asymmetry. Chest: Lungs are diminished to auscultation bilaterally. No wheezes. Speaking full sentences. CV: Heart was regular rate and rhythm. S1/S2. No murmurs, gallops, or rubs. Abd: Abdomen was soft. Nontender. Nondistended. Positive bowel sounds. No organomegaly or masses. Ext: No clubbing, cyanosis, or edema. 2+ DP pulses bilaterally. Neuro: Patient is alert. Cranial nerves 2-12 are intact. Speech is clear. Skin: pacemaker in place with clean, dry and intact dressing. Objective Data Vital Signs Vital Signs: Vital Signs - 24 hr 04/06/24 07:55 04/06/24 07:22 04/06/24 07:22 Temperature 98.1 F Pulse Rate 45 L 47 L Respiratory Rate 20 20 Blood Pressure 148/41 H Pulse Oximetry 100 96 Oxygen Delivery Room Air Fraction of Inspired Oxygen 21 04/06/24 07:31 04/06/24 08:00 04/06/24 08:00 Temperature Pulse Rate 48 L 47 L 47 L Respiratory Rate 20 20 Blood Pressure Pulse Oximetry 100 Oxygen Delivery Room Air Fraction of Inspired Oxygen 21 04/06/24 11:38 04/06/24 12:00 04/06/24 12:00 Temperature 97.7 F Pulse Rate 50 L 53 L 53 L Respiratory Rate 20 20 Blood Pressure 143/46 H Pulse Oximetry 97 97 Oxygen Delivery Room Air Fraction of Inspired Oxygen 21 04/06/24 13:49 04/06/24 14:01 04/06/24 16:00 Temperature 97.8 F Pulse Rate 49 L 50 L 64 Respiratory Rate 20 20 24 H Blood Pressure 142/41 H Pulse Oximetry 96 Oxygen Delivery Fraction of Inspired Oxygen 04/06/24 14:00 04/06/24 16:00 04/06/24 16:00 Temperature Pulse Rate 46 L 57 L 57 L Respiratory Rate 24 H Blood Pressure Pulse Oximetry 96 Oxygen Delivery Room Air Fraction of Inspired Oxygen 21 04/06/24 18:00 04/06/24 18:35 04/06/24 20:10 Temperature Pulse Rate 75 50 L 50 L Respiratory Rate 20 Blood Pressure Pulse Oximetry Oxygen Delivery Fraction of Inspired Oxygen 04/06/24 20:11 04/06/24 20:11 04/06/24 20:16 Temperature 98.4 F Pulse Rate 50 L 51 L 49 L Respiratory Rate 24 H 20 Blood Pressure 154/50 H Pulse Oximetry 96 96 Oxygen Delivery Room Air Fraction of Inspired Oxygen 21 04/06/24 20:00 04/06/24 20:00 04/06/24 22:00 Temperature Pulse Rate 51 L 51 L 44 L Respiratory Rate 20 Blood Pressure Pulse Oximetry 96 Oxygen Delivery Room Air Fraction of Inspired Oxygen 21 04/06/24 23:27 04/07/24 00:00 04/07/24 00:00 Temperature 98.5 F Pulse Rate 49 L 49 L 49 L Respiratory Rate 24 H 24 H Blood Pressure 145/54 H Pulse Oximetry 98 98 Oxygen Delivery CPAP Fraction of Inspired Oxygen 21 04/07/24 01:54 04/07/24 02:01 04/07/24 02:00 Temperature Pulse Rate 54 L 48 L Respiratory Rate 19 19 Blood Pressure Pulse Oximetry Oxygen Delivery Fraction of Inspired Oxygen 04/07/24 03:33 04/07/24 04:00 04/07/24 04:00 Temperature 97.6 F Pulse Rate 60 44 L 44 L Respiratory Rate 24 H 24 H Blood Pressure 126/38 L Pulse Oximetry 97 97 Oxygen Delivery Room Air Fraction of Inspired Oxygen 21 04/07/24 06:00 Temperature Pulse Rate 54 L Respiratory Rate Blood Pressure Pulse Oximetry Oxygen Delivery Fraction of Inspired Oxygen Intake/Output Intake/Output: Intake & Output 04/04/24 04/05/24 04/06/2424 23:59 23:59 23:59 23:59 Intake Total 300 1380 Output Total 1000 1948 401 Balance 700 -8771 -348 Meds/Results Medications: Active Medications Generic Name Dose Route Start Last Admin Trade Name Freq PRN Reason Stop Dose Admin Acetaminophen 650 mg 04/05/24 16:16 Acetaminophen 325 Mg Tablet PO Q6H PRN Fever Albuterol 2.5 mg 04/05/24 14:00 04/07/24 01:53 Albuterol Sulfate Neb 2.5 Mg/3 Ml Inh INHALATION 2.5 mg Q6HRT FREDERICK Administration Azelastine HCl 1 spray 04/06/24 09:00 04/06/24 21:50 Azelastine Hcl Nasal 0.1% 137 Mcg/Spr 30 Ml Btl NASAL 1 spray Q12HR FREDERICK Administration Fluticasone Propionate 2 spray 04/06/24 09:00 04/06/24 08:14 Fluticasone Propionate 0.05% Na Spr 16 Gm Btl (*Bkc) NASAL 2 spray DAILY FREDERICK Administration Furosemide 40 mg 04/05/24 17:00 04/06/24 16:32 Furosemide Inj 40 Mg/4 Ml Vial IV PUSH 40 mg BID FREDERICK Administration Hydralazine HCl 50 mg 04/05/24 20:25 04/07/24 06:29 Hydralazine Hcl 25 Mg Tablet PO 50 mg Q8HR FREDERICK Administration Ibuprofen 400 mg 04/06/24 10:44 04/06/24 11:22 Ibuprofen 400 Mg Tablet PO 400 mg Q6H PRN Administration Pain Rated 1-3 Loratadine 10 mg 04/06/24 09:00 04/06/24 08:14 Loratadine 10 Mg Tablet PO 10 mg QAM FREDERICK Administration Sacubitril/Valsartan 1 tablet 04/05/24 21:00 04/06/24 21:50 Sacubitril/Valsartan 49-51 Mg Tablet PO 1 tablet Q12HR FREDERICK Administration Spironolactone 25 mg 04/06/24 09:00 04/06/24 08:13 Spironolactone 25 Mg Tablet PO 25 mg QAM FREDERICK Administration Tamsulosin HCl 0.4 mg 04/05/24 22:30 04/06/24 21:50 Tamsulosin Hcl 0.4 Mg Capsule PO 0.4 mg QHS FREDERICK Administration Radiology Results: ITS Impressions Chest X-Ray 04/05/24 12:16 IMPRESSION: 1. Airspace opacities in the mid and lower lung zones, consistent with atelectasis versus pneumonia. 2. Small left pleural effusion. Quality VTE Prophylaxis VTE prophylaxis: mechanical ordered
--- NOTE | 2024-04-07 07:42 | ECG_ITS ---
Test Date: 2024-04-07 08:14:15 Measurements Intervals [place] Rate: 49 P: 0 [place]: 0 QRS: -66 QRSD: 145 T: -71 QT: 615 QTc: 557 Interpretive Statements PROBABLE SINUS RHYTHM WITH COMPLETE HEART BLOCK JUNCTIONAL BRADYCARDIA RIGHT BUNDLE BRANCH BLOCK [120+ ms QRS DURATION, UPRIGHT V1, 40+ ms S IN I/aVL/V4/V5/V6] LEFT ANTERIOR FASCICULAR BLOCK [QRS AXIS <= -45, QR IN I, RS IN II] MODERATE T-WAVE ABNORMALITY, CONSIDER LATERAL ISCHEMIA [-0.1+ mV T WAVE IN I/aVL/V5/V6] MODERATE T-WAVE ABNORMALITY, CONSIDER INFERIOR ISCHEMIA [-0.1+ mV T WAVE IN II/aVF] ABNORMAL ECG Electronically Signed On 04-07-2024 13:59:47 CDT by Mateusz Braswell M.D.
[2024-04-07 07:46] LABS: Hematocrit 36.5 % (42.0-52.0); Hemoglobin 11.9 g/dL (14.0-18.0); Immature Platelet Fraction Pct 2.5 % (0.9-11.2); Mean Corpuscular HGB Conc 32.6 g/dl (32-36); Mean Corpuscular Hemoglobin 28.5 pg (26-34); Mean Corpuscular Volume 87.5 fl (80-100); Platelet Count Result 128 k/mm3 (150-375); Red Blood Count 4.17 M/mm3 (4.6-6.20); Red Cell Distribution Width 16.8 % (11.5-14.5); White Blood Count 5.2 K/mm3 (4.5-10.0)
[2024-04-07 07:47] LABS: Basophils Percent Auto 0.2 % (0.2-1.2); Eosinophils Absolute Auto 0.2 K/mm3 (0-0.3); Eosinophils Percent Auto 3.9 % (0-4.4); Immature Granulocyte Absolute 0.01 K/mm3 (0.00-0.031); Immature Granulocyte Percent A 0.2 % (0-0.5); Lymphocytes Absolute Auto 0.46 K/mm3 (0.9-3.2); Lymphocytes Percent Auto 8.9 % (18.3-44.2); Mean Platelet Volume 9.5 fl (7.4-10.4); Monocytes Absolute Auto 0.4 K/mm3 (0.1-0.6); Monocytes Percent Auto 8.1 % (2.6-8.5); Neutrophils Absolute Auto 4.1 K/mm3 (1.3-6.7); Neutrophils Percent Auto 78.7 % (45.5-73.1)
[2024-04-07 07:57] LABS: Alanine Aminotransferase 24 U/L (6-50); Albumin Level 3.6 g/dL (3.5-5.1); Alkaline Phosphatase 57 U/L (38-126); Anion Gap 9 mmol/L (4-12); Aspartate Amino Transferase 23 U/L (17-59); Blood Urea Nitrogen 31 mg/dL (9-20); Calcium 7.9 mg/dL (8.4-10.2); Carbon Dioxide 25 mmol/L (22-30); Chloride 108 mmol/L (98-107); Estimated CRCL calculation 44 ml/min; Estimated Glomerular Filt Rate 48; Glucose 122 mg/dL (65-110); Potassium 3.4 mmol/L (3.4-5.0); Sodium 142 mmol/L (137-145)
--- NOTE | 2024-04-07 08:09 | P.PNCA_ITS ---
Progress Note: A&P Assessment and Plan (1) Complete heart block: Code(s): I44.2 - Atrioventricular block, complete Status: Acute Assessment and Plan: Will need PPM placement. Continue monitor on telemetry. Going for PPM with Dr. Dudley today. He will f/u with Dr. Dudley in 1 week after discharge for a wound check then f/u with me in 1 month afterwards. (2) Systolic dysfunction: Code(s): I51.9 - Heart disease, unspecified Status: Acute Assessment and Plan: Probably cause of acute on chronic heart failure. On Entresto. Off Metoprolol due to CHB. Diurese with Lasix 40 mg IV BID. Start Spironolactone 25 mg daily. Monitor fluid status after PPM placement. (3) Essential (primary) hypertension: Code(s): I10 - Essential (primary) hypertension Status: Acute Assessment and Plan: Stable. Subjective Date/time seen: 04/07/24 08:09 Interval history: Denies chest pain or sob or dizziness. Exam Const: General: cooperative, healthy appearing and comfortable Orientation/consciousness: oriented to person, oriented to place and oriented to time Resp: Auscultation: crackles, no rales, no rhonchi and wheezes Cardio: Rate: bradycardic Rhythm: regular rhythm Heart sounds: no murmurs Peripheral pulses: dorsalis pedis present Neuro: General: oriented to person, oriented to place and oriented to time Extrem: Right lower extremity: edema Left lower extremity: edema Other: Trace edema of both legs Objective Data Vital Signs Vital Signs: Vital Signs - 24 hr 04/06/24 11:38 04/06/24 12:00 04/06/24 12:00 Temperature 97.7 F Pulse Rate 50 L 53 L 53 L Respiratory Rate 20 20 Blood Pressure 143/46 H Pulse Oximetry 97 97 Oxygen Delivery Room Air Fraction of Inspired Oxygen 21 04/06/24 13:49 04/06/24 14:01 04/06/24 16:00 Temperature 97.8 F Pulse Rate 49 L 50 L 64 Respiratory Rate 20 20 24 H Blood Pressure 142/41 H Pulse Oximetry 96 Oxygen Delivery Fraction of Inspired Oxygen 04/06/24 14:00 04/06/24 16:00 04/06/24 16:00 Temperature Pulse Rate 46 L 57 L 57 L Respiratory Rate 24 H Blood Pressure Pulse Oximetry 96 Oxygen Delivery Room Air Fraction of Inspired Oxygen 21 04/06/24 18:00 04/06/24 18:35 04/06/24 20:10 Temperature Pulse Rate 75 50 L 50 L Respiratory Rate 20 Blood Pressure Pulse Oximetry Oxygen Delivery Fraction of Inspired Oxygen 04/06/24 20:11 04/06/24 20:11 04/06/24 20:16 Temperature 98.4 F Pulse Rate 50 L 51 L 49 L Respiratory Rate 24 H 20 Blood Pressure 154/50 H Pulse Oximetry 96 96 Oxygen Delivery Room Air Fraction of Inspired Oxygen 21 04/06/24 20:00 04/06/24 20:00 04/06/24 22:00 Temperature Pulse Rate 51 L 51 L 44 L Respiratory Rate 20 Blood Pressure Pulse Oximetry 96 Oxygen Delivery Room Air Fraction of Inspired Oxygen 21 04/06/24 23:27 04/07/24 00:00 04/07/24 00:00 Temperature 98.5 F Pulse Rate 49 L 49 L 49 L Respiratory Rate 24 H 24 H Blood Pressure 145/54 H Pulse Oximetry 98 98 Oxygen Delivery CPAP Fraction of Inspired Oxygen 21 04/07/24 01:54 04/07/24 02:01 04/07/24 02:00 Temperature Pulse Rate 54 L 48 L Respiratory Rate 19 19 Blood Pressure Pulse Oximetry Oxygen Delivery Fraction of Inspired Oxygen 04/07/24 03:33 04/07/24 04:00 04/07/24 04:00 Temperature 97.6 F Pulse Rate 60 44 L 44 L Respiratory Rate 24 H 24 H Blood Pressure 126/38 L Pulse Oximetry 97 97 Oxygen Delivery Room Air Fraction of Inspired Oxygen 21 04/07/24 06:00 04/07/24 07:26 04/07/24 07:26 Temperature Pulse Rate 54 L 49 L Respiratory Rate 20 Blood Pressure Pulse Oximetry 94 Oxygen Delivery Room Air Fraction of Inspired Oxygen 04/07/24 07:37 Temperature Pulse Rate 56 L Respiratory Rate 20 Blood Pressure Pulse Oximetry Oxygen Delivery Fraction of Inspired Oxygen Intake/Output Intake/Output: Intake & Output 04/04/24 04/05/24 04/06/24 04/07/24 23:59 23:59 23:59 23:59 Intake Total 300 1380 Output Total 1000 2700 609 Qoubkhg -322 -1320 -401 Meds/Results Medications: Active Medications Generic Name Dose Route Start Last Admin Trade Name Freq PRN Reason Stop Dose Admin Acetaminophen 650 mg 04/05/24 16:16 Acetaminophen 325 Mg Tablet PO Q6H PRN Fever Albuterol 2.5 mg 04/05/24 14:00 04/07/24 07:26 Albuterol Sulfate Neb 2.5 Mg/3 Ml Inh INHALATION 2.5 mg Q6HRT FREDERICK Administration Azelastine HCl 1 spray 04/06/24 09:00 04/06/24 21:50 Azelastine Hcl Nasal 0.1% 137 Mcg/Spr 30 Ml Btl NASAL 1 spray Q12HR FREDERICK Administration Fluticasone Propionate 2 spray 04/06/24 09:00 04/06/24 08:14 Fluticasone Propionate 0.05% Na Spr 16 Gm Btl (*Bkc) NASAL 2 spray DAILY FREDERICK Administration Furosemide 40 mg 04/05/24 17:00 04/06/24 16:32 Furosemide Inj 40 Mg/4 Ml Vial IV PUSH 40 mg BID FREDERICK Administration Hydralazine HCl 50 mg 04/05/24 20:25 04/07/24 06:29 Hydralazine Hcl 25 Mg Tablet PO 50 mg Q8HR FREDERICK Administration Ibuprofen 400 mg 04/06/24 10:44 04/06/24 11:22 Ibuprofen 400 Mg Tablet PO 400 mg Q6H PRN Administration Pain Rated 1-3 Loratadine 10 mg 04/06/24 09:00 04/06/24 08:14 Loratadine 10 Mg Tablet PO 10 mg QAM FREDERICK Administration Sacubitril/Valsartan 1 tablet 04/05/24 21:00 04/06/24 21:50 Sacubitril/Valsartan 49-51 Mg Tablet PO 1 tablet Q12HR FREDERICK Administration Spironolactone 25 mg 04/06/24 09:00 04/06/24 08:13 Spironolactone 25 Mg Tablet PO 25 mg QAM FREDERICK Administration Tamsulosin HCl 0.4 mg 04/05/24 22:30 04/06/24 21:50 Tamsulosin Hcl 0.4 Mg Capsule PO 0.4 mg QHS FREDERICK Administration Radiology Results: ITS Impressions Chest X-Ray 04/05/24 12:16 IMPRESSION: 1. Airspace opacities in the mid and lower lung zones, consistent with atelectasis versus pneumonia. 2. Small left pleural effusion. Labs Labs: Laboratory Results - last 24 hr 04/07/24 07:37 WBC 5.2 RBC 4.17 L Hgb 11.9 L Hct 36.5 L MCV 87.5 MCH 28.5 MCHC 32.6 RDW 16.8 H Plt Count 128 L MPV 9.5 Immature Gran % (Auto) 0.2 Neut % (Auto) 78.7 H Lymph % (Auto) 8.9 L [place] % (Auto) 8.1 Eos % (Auto) 3.9 Baso % (Auto) 0.2 Lymph # (Auto) 0.46 L [place] # (Auto) 0.4 Eos # (Auto) 0.2 Baso # (Auto) 0.0 Abs Immat Gran (auto) 0.01 Absolute Neuts (auto) 4.1 Absolute Nucleated RBC 0.000 Nucleated RBC % 0.0 % Immature Plt Fraction 2.5 Sodium 142 Potassium 3.4 Chloride 108 H Carbon Dioxide 25 Anion Gap 9 BUN 31 H Creatinine 1.40 H Estim Creat Clear Calc 44 Estimated GFR 48 L Glucose 122 H Calcium 7.9 L Total Bilirubin 1.0 AST 23 ALT 24 Alkaline Phosphatase 57 Total Protein 6.0 L Albumin 3.6
[2024-04-07 08:11] LABS: Troponin I 0.043 ng/mL (0.000-0.034)
[2024-04-07 08:15] LABS: Basophils Percent Auto 0.2 % (0.2-1.2); Eosinophils Absolute Auto 0.2 K/mm3 (0-0.3); Eosinophils Percent Auto 3.2 % (0-4.4); Hematocrit 35.2 % (42.0-52.0); Hemoglobin 11.6 g/dL (14.0-18.0); Immature Granulocyte Absolute 0.01 K/mm3 (0.00-0.031); Immature Granulocyte Percent A 0.2 % (0-0.5); Lymphocytes Absolute Auto 0.59 K/mm3 (0.9-3.2); Lymphocytes Percent Auto 11.7 % (18.3-44.2); Mean Corpuscular Hemoglobin 28.8 pg (26-34); Mean Corpuscular Volume 87.3 fl (80-100); Mean Platelet Volume 10.3 fl (7.4-10.4); Monocytes Absolute Auto 0.4 K/mm3 (0.1-0.6); Monocytes Percent Auto 8.7 % (2.6-8.5); Neutrophils Absolute Auto 3.8 K/mm3 (1.3-6.7); Platelet Count Result 121 k/mm3 (150-375); Red Blood Count 4.03 M/mm3 (4.6-6.20); Red Cell Distribution Width 16.8 % (11.5-14.5)
[2024-04-07 08:23] LABS: INR 1.2
[2024-04-07 08:26] LABS: Anion Gap 7 mmol/L (4-12); Blood Urea Nitrogen 31 mg/dL (9-20); Calcium 7.8 mg/dL (8.4-10.2); Carbon Dioxide 24 mmol/L (22-30); Chloride 109 mmol/L (98-107); Estimated CRCL calculation 47 ml/min; Estimated Glomerular Filt Rate 52; Glucose 125 mg/dL (65-110); Potassium 3.3 mmol/L (3.4-5.0); Sodium 140 mmol/L (137-145)
--- NOTE | 2024-04-07 10:07 | ECG_ITS ---
Test Date: 2024-04-07 10:26:04 Measurements Intervals [place] Rate: 66 P: 104 [place]: 235 QRS: -72 QRSD: 178 T: -28 QT: 567 QTc: 595 Interpretive Statements ELECTRONIC VENTRICULAR PACEMAKER ATYPICAL ECG Electronically Signed On 04-07-2024 14:05:50 CDT by Mateusz Braswell M.D.
--- NOTE | 2024-04-07 10:08 | P.PCNCC_ITS ---
Cardiac Cath Procedure Note Date of procedure:: 04/07/24 Performing physician:: Carmelo Dudley MD Indication:: symptomatic bradycardia with acquired complete heart block Brief clinical history:: this is an 83-year-old man admitted to the hospital with shortness of breath and evidence of CHF. He was found to have bradycardia with acquired complete heart block. He has right bundle branch block and left axis deviation. Because of the third-degree heart block pacemaker implantation was recommended Procedure Procedure performed:: implantation of permanent dual-chamber pacemaker Sedation/Medication given:: Versed 2 mg Access site:: right subclavian Estimated blood loss:: minimal Procedure note:: patient was brought to the cardiac catheterization lab in the postabsorptive state replaced in the dentures lab technician table in the supine position with the right anterior chest wall was prepped and draped in the usual fashion. Following this 20 cc of anesthesia was infiltrated beneath the clavicle for local anesthesia. Incision was then made about an inch below the clavicle from the midclavicular line to the deltopectoral groove. Following this sharp and blunt dissection was used to separate the subcutaneous tissue down to the level of the prepectoral fascia. Electrocautery was used to provide cutaneous hemostasis. After this a blunt dissection was used to create a pacemaker pocket inferior to the incision. The attention was then turned to venous access. Using the pacemaker SafeSheath introducers 2 separate punctures were made of the right subclavian vein and the J wires were advanced under fluoroscopic visualization to the level of the right atrium. The pacemaker leads detailed below were then used through the Safe Sheath introducers 2 at advanced into the venous circulation and placed into the right atrium. The sheaths were then peeled away. Attention was then turned to position the ventricular lead. A 3 cc syringe was used to formulate a J-tip curve on the stylet and this was used to steer the lead to the right ventricle out to the pulmonary artery position. A straight set was placed the lesion was withdrawn and placed in the right ventricular apex. The fixation screw was deployed and adequate pacing and sensing performed this was then demonstrated. A 10 volt stimulation showed no evidence of extracardiac stimulation failed after this attention was turned to positioning the atrial lead. The stylet was removed and a preformed atrial J stylet was placed into the lead was maneuvered into the right atrial appendage position. The fixation screw was then deployed and the lead was tested again using the analyzer with good pacing and sensing performance being demonstrated. Following this the leads were secured to the base of the pocket using the suture sleeves and 2-0 silk ties. Retained sponge was removed from the pocket and the a pacemaker device was connected to the leads using the torque wrench. The entire assembly was then placed into the newly created pocket which was then closed in layers using 3-0 Vicryl in interrupted fashion for the subcutaneous tissue and 4-0 Vicryl in a running subcuticular fashion for the skin. The wound was dressed with an Aquacel dressing the patient was taken to the holding area in good condition with the right arm being placed in an immobilizer. Postop antibiotics chest x-ray and ECG were ordered. The procedure was well tolerated and there were no apparent complications. Findings:: Patient received a Medtronic dual-chamber pacemaker model W1DRO1 serial number [id number]. device is programmed in DDDR mode lower rate limit 60 upper rate limit 130 av delay 180/1 milliseconds. The atrial lead is a Medtronic screw-in bipolar lead model 5076-45 serial number [id number]. P waves are sensed at 0.5 mV threshold is 1.375 volts at 0.4 milliseconds impedance 766 Ohms. The ventricular lead is a Medtronic screw-in bipolar lead model 5076-52 serial number [id number]. R-waves are sensed at 5.6 mV threshold is 1.0 volts at 0.4 milliseconds impedance 788. Conclusion:: Successful uncomplicated implantation permanent Medtronic dual-chamber pacing system for treatment of acquired complete heart block with symptomatic bradycardia in this 83-year-old gentleman. Carmelo Dudley MD [facility]
[2024-04-07] MEDS: IBUPROFEN 400 MG TABLET PO ×2 (11:36→20:33)
[2024-04-07] MEDS: FLUTICASONE PROPIONATE 0.05% NA SPR 16 GM BTL (*BKC) 2 SPRAY NASAL (11:47)
[2024-04-07] MEDS: AZELASTINE HCL NASAL 0.1% 137 MCG/SPR 30 ML BTL 1 SPRAY NASAL ×2 (11:47→20:37)
[2024-04-07] MEDS: SACUBITRIL/VALSARTAN 49-51 MG TABLET 1 TABLET PO ×2 (11:48→20:34)
[2024-04-07] MEDS: SPIRONOLACTONE 25 MG TABLET PO (11:48)
[2024-04-07] MEDS: LORATADINE 10 MG TABLET PO (11:48)
[2024-04-07] MEDS: POTASSIUM CHLORIDE 20 MEQ ER TABLET 40 MEQ PO (11:50)
[2024-04-07] MEDS: SODIUM CHLORIDE 0.9% IV 1,000 ML 50 ML IV CONT (11:50)
[2024-04-07] MEDS: hydrALAZINE HCL 25 MG TABLET PO ×2 (14:00→20:33)
[2024-04-07] MEDS: FUROSEMIDE 40 MG TABLET PO (16:53)
[2024-04-07] MEDS: ceFAZolin 1 GM/NS 50 ML 1 GM/50 ML BAG IVPB ×2 (16:53→23:30)
[2024-04-07] MEDS: TAMSULOSIN HCL 0.4 MG CAPSULE PO (20:33)
[2024-04-07] MEDS: METOPROLOL TARTRATE 25 MG TABLET PO (20:34)
[2024-04-08] VITALS (17 sets, daily range): BP systolic 94–107; BP diastolic 47–63; PULSE 75–101; RESP 18–24; TEMP 36.1–37.4; O2SAT 93–95
[2024-04-08] MEDS: ALBUTEROL SULFATE NEB 2.5 MG/3 ML INH INHALATION ×3 (02:23→13:35)
[2024-04-08] MEDS: IBUPROFEN 400 MG TABLET PO ×2 (03:02→09:51)
[2024-04-08 05:41] LABS: Basophils Percent Auto 0.1 % (0.2-1.2); Eosinophils Percent Auto 0.3 % (0-4.4); Hematocrit 35.4 % (42.0-52.0); Hemoglobin 11.3 g/dL (14.0-18.0); Immature Granulocyte Absolute 0.03 K/mm3 (0.00-0.031); Immature Granulocyte Percent A 0.4 % (0-0.5); Lymphocytes Absolute Auto 0.29 K/mm3 (0.9-3.2); Lymphocytes Percent Auto 3.6 % (18.3-44.2); Mean Corpuscular HGB Conc 31.9 g/dl (32-36); Mean Corpuscular Volume 87.8 fl (80-100); Mean Platelet Volume 10.4 fl (7.4-10.4); Monocytes Absolute Auto 0.6 K/mm3 (0.1-0.6); Monocytes Percent Auto 7.4 % (2.6-8.5); Neutrophils Percent Auto 88.2 % (45.5-73.1); Platelet Count Result 111 k/mm3 (150-375); Red Blood Count 4.03 M/mm3 (4.6-6.20); Red Cell Distribution Width 16.8 % (11.5-14.5)
[2024-04-08 05:47] LABS: Alanine Aminotransferase 26 U/L (6-50); Albumin Level 3.1 g/dL (3.5-5.1); Alkaline Phosphatase 56 U/L (38-126); Anion Gap 7 mmol/L (4-12); Aspartate Amino Transferase 28 U/L (17-59); Bilirubin,Total 1.2 mg/dL (0.2-1.3); Blood Urea Nitrogen 31 mg/dL (9-20); Calcium 7.7 mg/dL (8.4-10.2); Carbon Dioxide 25 mmol/L (22-30); Chloride 106 mmol/L (98-107); Estimated CRCL calculation 42 ml/min; Estimated Glomerular Filt Rate 44; Glucose 141 mg/dL (65-110); Potassium 3.7 mmol/L (3.4-5.0); Sodium 138 mmol/L (137-145)
--- NOTE | 2024-04-08 07:47 | PM.PNCARD ---
Progress Note: A&P Assessment and Plan (1) Complete heart block: Code(s): I44.2 - Atrioventricular block, complete Status: Acute Assessment and Plan: S/P [employer] dual chamber pacemaker implant by Dr. Dudley 04/07/24. He will f/u with Dr. Dudley in 1 week for a wound check then f/u with me in 1 month afterwards. (2) Essential (primary) hypertension: Code(s): I10 - Essential (primary) hypertension Status: Acute Assessment and Plan: Stable. (3) CHF (congestive heart failure): Code(s): I50.9 - Heart failure, unspecified Status: Acute Assessment and Plan: Probably from acute on chronic diastolic heart failure exacerbated by heart block. On Entresto. Appears euvolemic now. Stop Lasix and Spironolactone. Resumed Metoprolol last night but has some expiratory wheezes this morning. Decrease dose 12.5 mg BID. Subjective Date/time seen: 04/08/24 07:47 Interval history: Denies chest pain or sob or dizziness. Has wheezing. Exam Const: General: cooperative, healthy appearing and comfortable Orientation/consciousness: oriented to person, oriented to place and oriented to time Resp: Auscultation: no crackles, no rales, no rhonchi and wheezes expiratory wheezes Cardio: Rate: regular rate Rhythm: regular rhythm Heart sounds: no murmurs Peripheral pulses: dorsalis pedis present Neuro: General: oriented to person, oriented to place and oriented to time Extrem: Right lower extremity: edema Left lower extremity: edema Other: Trace edema of both legs Objective Data Vital Signs Vital Signs: Vital Signs - 24 hr 04/07/24 10:30 04/07/24 10:45 04/07/24 11:00 Temperature Pulse Rate 64 70 65 Respiratory Rate 13 13 14 Blood Pressure 138/56 L 134/52 L 134/56 L Pulse Oximetry 96 97 97 Oxygen Delivery Room Air Room Air Room Air Fraction of Inspired Oxygen 04/07/24 11:15 04/07/24 11:52 04/07/24 08:00 Temperature 97.7 F Pulse Rate 65 88 88 Respiratory Rate 19 20 20 Blood Pressure 140/63 116/64 Pulse Oximetry 97 96 96 Oxygen Delivery Room Air Room Air Fraction of Inspired Oxygen 21 04/07/24 12:00 04/07/24 12:00 04/07/24 14:28 Temperature Pulse Rate 66 88 84 Respiratory Rate 20 16 Blood Pressure Pulse Oximetry 96 Oxygen Delivery Room Air Fraction of Inspired Oxygen 21 04/07/24 14:38 04/07/24 16:08 04/07/24 14:00 Temperature Pulse Rate 90 76 80 Respiratory Rate 16 20 Blood Pressure 115/51 L Pulse Oximetry 93 Oxygen Delivery Fraction of Inspired Oxygen 04/07/24 16:00 04/07/24 16:00 04/07/24 18:00 Temperature Pulse Rate 82 91 Respiratory Rate Blood Pressure Pulse Oximetry Oxygen Delivery Room Air Fraction of Inspired Oxygen 04/07/24 20:20 04/07/24 20:34 04/07/24 21:09 Temperature 98.0 F Pulse Rate 88 74 90 Respiratory Rate 20 20 Blood Pressure 163/68 H Pulse Oximetry 98 Oxygen Delivery Fraction of Inspired Oxygen 04/07/24 21:10 04/07/24 21:18 04/07/24 20:00 Temperature Pulse Rate 84 80 Respiratory Rate 20 Blood Pressure Pulse Oximetry 94 Oxygen Delivery Room Air Fraction of Inspired Oxygen 04/07/24 20:00 04/07/24 21:54 04/07/24 23:48 Temperature Pulse Rate 80 86 76 Respiratory Rate 20 Blood Pressure Pulse Oximetry 94 Oxygen Delivery Room Air Fraction of Inspired Oxygen 21 04/07/24 23:48 04/08/24 00:10 04/08/24 02:24 Temperature 98.4 F Pulse Rate 78 75 84 Respiratory Rate 20 20 20 Blood Pressure 107/49 L Pulse Oximetry 94 93 Oxygen Delivery Room Air Fraction of Inspired Oxygen 21 04/08/24 02:30 04/08/24 02:00 04/08/24 03:47 Temperature Pulse Rate 84 82 86 Respiratory Rate 20 Blood Pressure Pulse Oximetry Oxygen Delivery Fraction of Inspired Oxygen 04/08/24 03:47 04/08/24 05:43 04/08/24 06:00 Temperature 99.3 F Pulse Rate 86 83 86 Respiratory Rate 20 20 Blood Pressure 94/47 L Pulse Oximetry 93 93 Oxygen Delivery Room Air Fraction of Inspired Oxygen 21 04/08/24 07:05 04/08/24 07:05 04/08/24 07:15 Temperature Pulse Rate 87 87 88 Respiratory Rate 18 18 18 Blood Pressure Pulse Oximetry 95 Oxygen Delivery Room Air Fraction of Inspired Oxygen Intake/Output Intake/Output: Intake & Output 04/05/24 04/06/24 04/07/24 04/08/24 23:59 23:59 23:59 23:59 Intake Total 300 1380 170 300 Output Total 1000 8590 401 1100 Balance -113 -6293 -382 -800 Meds/Results Medications: Active Medications Generic Name Dose Route Start Last Admin Trade Name Freq PRN Reason Stop Dose Admin Acetaminophen 650 mg 04/05/24 16:16 Acetaminophen 325 Mg Tablet PO Q6H PRN Fever Albuterol 2.5 mg 04/05/24 14:00 04/08/24 07:05 Albuterol Sulfate Neb 2.5 Mg/3 Ml Inh INHALATION 2.5 mg Q6HRT FREDERICK Administration Azelastine HCl 1 spray 04/06/24 09:00 04/07/24 20:37 Azelastine Hcl Nasal 0.1% 137 Mcg/Spr 30 Ml Btl NASAL 1 spray Q12HR FREDERICK Administration Fluticasone Propionate 2 spray 04/06/24 09:00 04/07/24 11:47 Fluticasone Propionate 0.05% Na Spr 16 Gm Btl (*Bkc) NASAL 2 spray DAILY FREDERICK Administration Ibuprofen 400 mg 04/06/24 10:44 04/08/24 03:02 Ibuprofen 400 Mg Tablet PO 400 mg Q6H PRN Administration Pain Rated 1-3 Loratadine 10 mg 04/06/24 09:00 04/07/24 11:48 Loratadine 10 Mg Tablet PO 10 mg QAM FREDERICK Administration Metoprolol Tartrate 12.5 mg 04/08/24 09:00 Metoprolol Tartrate 12.5 Mg Tablet PO Q12HR FREDERICK Sacubitril/Valsartan 1 tablet 04/05/24 21:00 04/07/24 20:34 Sacubitril/Valsartan 49-51 Mg Tablet PO 1 tablet Q12HR FREDERICK Administration Tamsulosin HCl 0.4 mg 04/05/24 22:30 04/07/24 20:33 Tamsulosin Hcl 0.4 Mg Capsule PO 0.4 mg QHS FREDERICK Administration Radiology Results: ITS Impressions Chest X-Ray 04/07/24 10:39 IMPRESSION: Bibasilar pneumonia. Labs Labs: Laboratory Results - last 24 hr 04/07/24 04/07/24 04/08/24 07:37 08:05 04:33 WBC 5.2 5.0 8.0 RBC 4.17 L 4.03 L 4.03 L Hgb 11.9 L 11.6 L 11.3 L Hct 36.5 L 35.2 L 35.4 L MCV 87.5 87.3 87.8 MCH 28.5 28.8 28.0 MCHC 32.6 33.0 31.9 L RDW 16.8 H 16.8 H 16.8 H Plt Count 128 L 121 L 111 L MPV 9.5 10.3 10.4 Immature Gran % (Auto) 0.2 0.2 0.4 Neut % (Auto) 78.7 H 76.0 H 88.2 H Lymph % (Auto) 8.9 L 11.7 L 3.6 L [place] % (Auto) 8.1 8.7 H 7.4 Eos % (Auto) 3.9 3.2 0.3 Baso % (Auto) 0.2 0.2 0.1 L Lymph # (Auto) 0.46 L 0.59 L 0.29 L [place] # (Auto) 0.4 0.4 0.6 Eos # (Auto) 0.2 0.2 0.0 Baso # (Auto) 0.0 0.0 0.0 Abs Immat Gran (auto) 0.01 0.01 0.03 Absolute Neuts (auto) 4.1 3.8 7.0 H Absolute Nucleated RBC 0.000 0.000 0.000 Nucleated RBC % 0.0 0.0 0.0 % Immature Plt Fraction 2.5 PT 15.0 H INR 1.2 Sodium 142 140 138 Potassium 3.4 3.3 L 3.7 Chloride 108 H 109 H 106 Carbon Dioxide 25 24 25 Anion Gap 9 7 7 BUN 31 H 31 H 31 H Creatinine 1.40 H 1.30 1.50 H Estim Creat Clear Calc 44 47 42 Estimated GFR 48 L 52 L 44 L Glucose 122 H 125 H 141 H Calcium 7.9 L 7.8 L 7.7 L Total Bilirubin 1.0 1.2 AST 23 28 ALT 24 26 Alkaline Phosphatase 57 56 Troponin I 0.043 H* Total Protein 6.0 L 6.0 L Albumin 3.6 3.1 L
[2024-04-08] MEDS: SACUBITRIL/VALSARTAN 49-51 MG TABLET 1 TABLET PO (08:38)
[2024-04-08] MEDS: LORATADINE 10 MG TABLET PO (08:38)
[2024-04-08] MEDS: METOPROLOL TARTRATE 12.5 MG TABLET PO (08:39)
[2024-04-08] MEDS: AZELASTINE HCL NASAL 0.1% 137 MCG/SPR 30 ML BTL 1 SPRAY NASAL (08:45)
[2024-04-08] MEDS: FLUTICASONE PROPIONATE 0.05% NA SPR 16 GM BTL (*BKC) 2 SPRAY NASAL (08:45)
--- NOTE | 2024-04-08 08:55 | P.PNIM_ITS ---
Progress Note: A&P Assessment and Plan (1) Heart block: Code(s): I45.9 - Conduction disorder, unspecified Status: Acute Assessment and Plan: EKG on 04/05: sinus rhythm with high grade AV block HR remains stable 40-50s, now 60-80 s/p pacemaker - tele monitoring - cardiology consulted pacemaker inserted on 04/[address] Dudley (2) Acute on chronic systolic heart failure: Code(s): I50.23 - Acute on chronic systolic (congestive) heart failure Status: Acute Assessment and Plan: The patient presented to the emergency department for evaluation of shortness of breath and appears a bit volume overloaded on chest x-ray with an elevated proBNP and increasing lower extremity edema. Decompensation may very well be related to heart block. - Echo on 04/05: 60-65% with grade I diastolic dysfunction - Chest XR 04/05: 1. Airspace opacities in the mid and lower lung zones, consistent with atelectasis versus pneumonia. 2. Small left pleural effusion. - Entresto q12 - Hydralazine 50 mg q8 - Spironolactone 25 mg daily - Restarted metoprolol on 04/07, dose decreased to 12.5 mg BID - IV diuresis with furosemide 40 mg IV b.i.d. - monitor volume status, renal function, and electrolytes. (3) Elevated troponin: Code(s): R79.89 - Other specified abnormal findings of blood chemistry Status: Acute Assessment and Plan: Troponins are slightly elevated though he is not having any chest pain. Likely etiology being heart failure exacerbation and complete heart block - Trop 0.035 > 0.036 > 0.039 > 0.056 > 0.043 - Continue to trend those to peak. - Cardiology following (4) Essential (primary) hypertension: Code(s): I10 - Essential (primary) hypertension Status: Acute Assessment and Plan: Elevated blood pressures on admission. Volume overload likely contributing factor. - IV lasix 40 mg BID - Entresto q12 - Hydralazine 50 mg q8 - Spironolactone 25 mg daily - improving Subjective Date/time seen: 04/08/24 08:55 Interval history: 83-year-old male with history of subdural hematoma following a fall in 2019, cognitive impairment, chronic lymphocytic leukemia receiving monthly infusions, prostate cancer, obstructive sleep apnea on CPAP, hypertension, dyslipidemia, paroxysmal supraventricular tachycardia, heart failure with reduced ejection fraction, and heart block for which he is currently on an event monitor which is being monitored very closely by Dr. Painter [facility] of shortness of breath. Review of Systems Review of Systems: All systems reviewed & are unremarkable except as noted in HPI and below Exam Narrative: AF HR 88 RR 22 BP 93 BP 98/50 General: male in no acute respiratory distress who is nontoxic appearing, lying semi recumbent in bed. HEENT: Normocephalic. Atraumatic. Extraocular movement intact. Sclera clear and anicteric. No facial asymmetry. Chest: Lungs are clear to auscultation bilaterally. No wheezes. Speaking full sentences. CV: Heart was regular rate and rhythm. S1/S2. No murmurs, gallops, or rubs. Abd: Abdomen was soft. Nontender. Nondistended. Positive bowel sounds. Ext: No clubbing, cyanosis, or edema. 2+ DP pulses bilaterally. Neuro: Patient is alert. Cranial nerves 2-12 are intact. Speech is clear. Skin: pacemaker in place with clean, dry and intact dressing. Objective Data Vital Signs Vital Signs: Vital Signs - 24 hr 04/07/24 10:30 04/07/24 10:45 04/07/24 11:00 Temperature Pulse Rate 64 70 65 Respiratory Rate 13 13 14 Blood Pressure 138/56 L 134/52 L 134/56 L Pulse Oximetry 96 97 97 Oxygen Delivery Room Air Room Air Room Air Fraction of Inspired Oxygen 04/07/24 11:15 04/07/24 11:52 04/07/24 12:00 Temperature 97.7 F Pulse Rate 65 88 66 Respiratory Rate 19 20 Blood Pressure 140/63 116/64 Pulse Oximetry 97 96 Oxygen Delivery Room Air Fraction of Inspired Oxygen 04/07/24 12:00 04/07/24 14:28 04/07/24 14:38 Temperature Pulse Rate 88 84 90 Respiratory Rate 20 16 16 Blood Pressure Pulse Oximetry 96 Oxygen Delivery Room Air Fraction of Inspired Oxygen 21 04/07/24 16:08 04/07/24 14:00 04/07/24 16:00 Temperature Pulse Rate 76 80 82 Respiratory Rate 20 Blood Pressure 115/51 L Pulse Oximetry 93 Oxygen Delivery Fraction of Inspired Oxygen 04/07/24 16:00 04/07/24 18:00 04/07/24 20:20 Temperature 98.0 F Pulse Rate 91 88 Respiratory Rate 20 Blood Pressure 163/68 H Pulse Oximetry 98 Oxygen Delivery Room Air Fraction of Inspired Oxygen 04/07/24 20:34 04/07/24 21:09 04/07/24 21:10 Temperature Pulse Rate 74 90 Respiratory Rate 20 Blood Pressure Pulse Oximetry 94 Oxygen Delivery Room Air Fraction of Inspired Oxygen 04/07/24 21:18 04/07/24 20:00 04/07/24 20:00 Temperature Pulse Rate 84 80 80 Respiratory Rate 20 20 Blood Pressure Pulse Oximetry 94 Oxygen Delivery Room Air Fraction of Inspired Oxygen 21 04/07/24 21:54 04/07/24 23:48 04/07/24 23:48 Temperature Pulse Rate 86 76 78 Respiratory Rate 20 Blood Pressure Pulse Oximetry 94 Oxygen Delivery Room Air Fraction of Inspired Oxygen 21 04/08/24 00:10 04/08/24 02:24 04/08/24 02:30 Temperature 98.4 F Pulse Rate 75 84 84 Respiratory Rate 20 20 20 Blood Pressure 107/49 L Pulse Oximetry 93 Oxygen Delivery Fraction of Inspired Oxygen 04/08/24 02:00 04/08/24 03:47 04/08/24 03:47 Temperature Pulse Rate 82 86 86 Respiratory Rate 20 Blood Pressure Pulse Oximetry 93 Oxygen Delivery Room Air Fraction of Inspired Oxygen 21 04/08/24 05:43 04/08/24 06:00 04/08/24 07:05 Temperature 99.3 F Pulse Rate 83 86 87 Respiratory Rate 20 18 Blood Pressure 94/47 L Pulse Oximetry 93 95 Oxygen Delivery Room Air Fraction of Inspired Oxygen 04/08/24 07:05 04/08/24 07:15 04/08/24 08:39 Temperature Pulse Rate 87 88 91 Respiratory Rate 18 18 Blood Pressure Pulse Oximetry Oxygen Delivery Fraction of Inspired Oxygen Intake/Output Intake/Output: Intake & Output 04/05/24 04/06/24 04/07/24 04/08/24 23:59 23:59 23:59 23:59 Intake Total 300 1380 170 300 Output Total 1000 2700 401 1100 Balance -700 -1320 -231 -800 Meds/Results Medications: Active Medications Generic Name Dose Route Start Last Admin Trade Name Freq PRN Reason Stop Dose Admin Acetaminophen 650 mg 04/05/24 16:16 Acetaminophen 325 Mg Tablet PO Q6H PRN Fever Albuterol 2.5 mg 04/05/24 14:00 04/08/24 07:05 Albuterol Sulfate Neb 2.5 Mg/3 Ml Inh INHALATION 2.5 mg Q6HRT FREDERICK Administration Azelastine HCl 1 spray 04/06/24 09:00 04/08/24 08:45 Azelastine Hcl Nasal 0.1% 137 Mcg/Spr 30 Ml Btl NASAL 1 spray Q12HR FREDERICK Administration Fluticasone Propionate 2 spray 04/06/24 09:00 04/08/24 08:45 Fluticasone Propionate 0.05% Na Spr 16 Gm Btl (*Bkc) NASAL 2 spray DAILY FREDERICK Administration Ibuprofen 400 mg 04/06/24 10:44 04/08/24 03:02 Ibuprofen 400 Mg Tablet PO 400 mg Q6H PRN Administration Pain Rated 1-3 Loratadine 10 mg 04/06/24 09:00 04/08/24 08:38 Loratadine 10 Mg Tablet PO 10 mg QAM FREDERICK Administration Metoprolol Tartrate 12.5 mg 04/08/24 09:00 04/08/24 08:39 Metoprolol Tartrate 12.5 Mg Tablet PO 12.5 mg Q12HR FREDERICK Administration Sacubitril/Valsartan 1 tablet 04/05/24 21:00 04/08/24 08:38 Sacubitril/Valsartan 49-51 Mg Tablet PO 1 tablet Q12HR FREDERICK Administration Tamsulosin HCl 0.4 mg 04/05/24 22:30 04/07/24 20:33 Tamsulosin Hcl 0.4 Mg Capsule PO 0.4 mg QHS FREDERICK Administration Radiology Results: ITS Impressions Chest X-Ray 04/07/24 10:39 IMPRESSION: Bibasilar pneumonia. Labs Labs: Laboratory Results - last 24 hr 04/08/24 04:33 WBC 8.0 RBC 4.03 L Hgb 11.3 L Hct 35.4 L MCV 87.8 MCH 28.0 MCHC 31.9 L RDW 16.8 H Plt Count 111 L MPV 10.4 Immature Gran % (Auto) 0.4 Neut % (Auto) 88.2 H Lymph % (Auto) 3.6 L [place] % (Auto) 7.4 Eos % (Auto) 0.3 Baso % (Auto) 0.1 L Lymph # (Auto) 0.29 L [place] # (Auto) 0.6 Eos # (Auto) 0.0 Baso # (Auto) 0.0 Abs Immat Gran (auto) 0.03 Absolute Neuts (auto) 7.0 H Absolute Nucleated RBC 0.000 Nucleated RBC % 0.0 Sodium 138 Potassium 3.7 Chloride 106 Carbon Dioxide 25 Anion Gap 7 BUN 31 H Creatinine 1.50 H Estim Creat Clear Calc 42 Estimated GFR 44 L Glucose 141 H Calcium 7.7 L Total Bilirubin 1.2 AST 28 ALT 26 Alkaline Phosphatase 56 Total Protein 6.0 L Albumin 3.1 L Quality VTE Prophylaxis VTE prophylaxis: mechanical ordered
--- NOTE | 2024-04-08 09:12 | WPDCDIQUERY2 ---
CDI Query Clarification Request Pneumonia has been documented by ER provider but is not an active treatment/assessment and plan for this admission. Please clarify if pneumonia has been ruled in or ruled out. Clinical findings: CXR impression on 04/07: bibasilar pneumonia Treatment: IV antibiotics in ED. <Maribeth Huff RN - Last Filed: 04/08/24 09:21> Clarified Diagnosis Clarified Diagnosis: Patient has volume overload from CHF exacerbation secondary to complete heart block. On Chest XR 04/08 it shows bibasilar pulmonary edema. Patients symptoms improved with diuresis. <Paula Ibrahim PA-C - Last Filed: 04/08/24 12:13>
[2024-04-08] MEDS: ACETAMINOPHEN 325 MG TABLET 650 MG PO (14:57)
--- NOTE | 2024-04-08 16:27 | P.DS_ITS ---
DS: Admitting Diagnosis Discharge Date 04/08/2024 Admitting Diagnosis heart block acute on chronic systolic heart failure elevated troponin essential hypertension DS: Discharge Diagnosis Discharge Diagnosis (1) Heart block: Code(s): I45.9 - Conduction disorder, unspecified Status: Acute (2) Acute on chronic systolic heart failure: Code(s): I50.23 - Acute on chronic systolic (congestive) heart failure Status: Acute (3) Elevated troponin: Code(s): R79.89 - Other specified abnormal findings of blood chemistry Status: Acute (4) Essential (primary) hypertension: Code(s): I10 - Essential (primary) hypertension Status: Acute DS: Summary Hospital Course Reason for hospitalization: heart block acute on chronic systolic heart failure elevated troponin essential hypertension Hospital Course: 83-year-old male with history of subdural hematoma following a fall in 2019, cognitive impairment, chronic lymphocytic leukemia receiving monthly infusions, prostate cancer, obstructive sleep apnea on CPAP, hypertension, dyslipidemia, paroxysmal supraventricular tachycardia, heart failure with reduced ejection fraction, and heart block for which he is currently on an event monitor which is being monitored very closely by Dr. Painter who presented to the emergency department via private vehicle for evaluation of shortness of breath. On admission patient remained severely bradycardic. A chest XR was obtained in the ED which showed airspace opacities in the mid and lower lungs consistent with atelectasis vs pneumonia with a small left pleural effusion. He was started on IV antibiotics for concern of pneumonia however this was likely volume overload from his heart failure worsening due to the heart block. An EKG was obtained and showed a high grade heart block. Patient also had an elevated BNP. Antibiotics were discontinued and patient was started on IV diuresis. Patients shortness of breath resolved with diuresis. Troponins were slightly elevated though he was not having any chest pain, likely etiology being heart failure exacerbation and complete heart block. These trended down during admission. Cardiology was consulted. Dr. Painter with cardiology evaluated patient, due to his heart block patients metoprolol was put on hold. Patient needed a PPM so Dr. Dudley was consulted. Patient had a PPM placed on 04/[address] Dudley. Following the procedure patient had his metoprolol resumed at a lower dose of 12.5 BID and was to stop the lasix and spironolactone per cardiology. Patient was evaluated by PT/OT who recommended home health. Home health set up by care coordination. Prior to discharge patient denied chest pain, shortness of breath, palpitations, dizziness/lightheadedness, nausea/vomiting and abdominal pain. Patient discharged home with home health in stable condition. He is to follow up with his PCP in 1 week, Dr. Dudley as scheduled, and Dr. Painter in 3 weeks. Status at Discharge Functional status at discharge: uses cane/walker Time Spent with Patient Time attestation: Total time spent providing and/or coordinating discharge services: Time spent: Greater than 30 minutes Exam Narrative: AF HR 88 RR 22 BP 93 BP 98/50 General: male in no acute respiratory distress who is nontoxic appearing, lying semi recumbent in bed. HEENT: Normocephalic. Atraumatic. Extraocular movement intact. Sclera clear and anicteric. No facial asymmetry. Chest: Lungs are clear to auscultation bilaterally. No wheezes. Speaking full sentences. CV: Heart was regular rate and rhythm. S1/S2. No murmurs, gallops, or rubs. Abd: Abdomen was soft. Nontender. Nondistended. Positive bowel sounds. Ext: No clubbing, cyanosis, or edema. 2+ DP pulses bilaterally. Neuro: Patient is alert. Cranial nerves 2-12 are intact. Speech is clear. Skin: pacemaker in place with clean, dry and intact dressing. DS: Data Data Completed and Pending Completed studies during hospitalization: Chest XR Chest XR Chest XR Labs on day of discharge: Labs from last 24 hours 04/08/24 04:33 WBC 8.0 RBC 4.03 L Hgb 11.3 L Hct 35.4 L MCV 87.8 MCH 28.0 MCHC 31.9 L RDW 16.8 H Plt Count 111 L MPV 10.4 Immature Gran % (Auto) 0.4 Neut % (Auto) 88.2 H Lymph % (Auto) 3.6 L [place] % (Auto) 7.4 Eos % (Auto) 0.3 Baso % (Auto) 0.1 L Lymph # (Auto) 0.29 L [place] # (Auto) 0.6 Eos # (Auto) 0.0 Baso # (Auto) 0.0 Abs Immat Gran (auto) 0.03 Absolute Neuts (auto) 7.0 H Absolute Nucleated RBC 0.000 Nucleated RBC % 0.0 Sodium 138 Potassium 3.7 Chloride 106 Carbon Dioxide 25 Anion Gap 7 BUN 31 H Creatinine 1.50 H Estim Creat Clear Calc 42 Estimated GFR 44 L Glucose 141 H Calcium 7.7 L Total Bilirubin 1.2 AST 28 ALT 26 Alkaline Phosphatase 56 Total Protein 6.0 L Albumin 3.1 L Preliminary micro results at discharge 04/05/24 13:00 Blood Culture - Preliminary Blood 04/05/24 13:00 Blood Culture - Preliminary Blood Discharge Plan Discharge Attending physician on discharge: Gerry Payton Consulting providers: Amrik Painter Discharging Clinician: Paula Ibrahim Anticipated Discharge Date/Time: 04/08/24 14:40 Patient Disposition: Home Health Service Activity: other - see discharge instructions Diet: as tolerated and heart healthy Wound Care Instructions: other - see discharge instructions Discharge Instructions: Per Care Coordination. Patient to have [facility] for RN/PT/OT eval and treat [phone]. RN please fax discharge instructions to [phone] You have a wound check appointment in Dr. Dudley's office at [facility]. on 04/14/2024 at 1 pm. [facility] [address] [place], [place] [id number] DISCHARGE INSTRUCTIONS - POST PACEMAKER Activity 1. No driving until you are seen in the office for your incision check. 2. No lifting, pushing or pulling more than 5 pounds with affected arm for 1 MONTH 3. No lifting affected arm above shoulder height for 1 MONTH 4. Wear immobilizer/sling only if you are unable to remember the above activity restrictions. Recommend that it be worn at night. 5. You may shower AFTER you are seen for incision check on 04/14/24 but no tub baths, swimming pool or hot tub for 1MONTH Wound Care 1. Do not attempt to remove the Aquacel dressing. Leave dressing undisturbed until incision check at the office visit. Keep dressing dry. 2. When you are able to shower AFTER you are seen for your incision check in the office do not rub or scrub the incision. Pat dry after shower. NO lotions, powders, creams or ointments are to be applied to the incision 3. A small amount of tenderness, puffiness and bruising around the site is normal. Call if any significant pain, drainage, swelling, or redness around the site *For any other questions please call the office at [phone]. Office hours are 8AM 4:30PM Friday through Friday. CHF Discharge disposition: Patient admitted to the hospital for complete heart block requiring pacemaker insertion. See instructions above in regards to pacemaker and follow up with Dr. Dudley. Take medications as prescribed, even if feeling better Resume metoprolol, dose lowered to 12.5 twice a day Stop lasix, spironolactone, and hydralazine Follow up with Dr. Painter in 3-4 weeks Monitor blood pressures Take caution while standing, rising, or moving Change positions slowly taking a break between each position change If you standing feel dizzy sat back down and take a break Continue to work with home health therapy Patient had a slight increase in his creatinine likely secondary to mild dehydration following his procedure Obtain a CMP in 3 days to reassess kidney function Monitor urine output and stay adequately hydrated Follow up with primary care provider Encouraged to continue with yearly vaccinations Return to the emergency department if he developed sudden shortness of breath, chest pain, nausea, vomiting, upset stomach or intractable diarrhea Return to the emergency department if you develop fever greater than 101.5 Follow-up with the primary care physician within 1 weeks Thank you for [facility] for your healthcare needs Patient Instructions: Heart Failure (GEN), High Troponin Levels (GEN) Patient Language: New Zealander Stand Alone Forms: General Discharge Information Follow-up/Referrals: Carmelo Dudley MD [Physician] - Keep Reg. Scheduled Appt. Amrik Painter DO [Physician] - 3 Weeks Edda Sheriff MD [Primary Care Provider] - 1 Week Discharge Medications: New metoprolol succinate 25 mg tablet extended release 24 hr 12.5 mg PO Q12H Qty: 60 0RF Continued fexofenadine [Corrina Allergy] 180 mg tablet 180 mg PO DAILY alendronate 70 mg tablet 70 mg PO WEEKLY Rx Instructions: friday tamsulosin 0.4 mg capsule 0.4 mg PO QHS Eligard (6 month) 45 mg syringe 45 mg subcut [id number] dicyclomine 20 mg tablet 20 mg PO BID Qty: 60 1RF fluticasone propionate 50 mcg/actuation spray,suspension 2 spray intranasal DAILY Rx Instructions: ADMINISTER 2 SPRAYS INTO EACH NOSTRIL DAILY. Entresto 24-26 mg tablet 1 tablet PO BID Rx Instructions: TAKE 1 TABLET BY MOUTH TWICE A DAY omeprazole 40 mg capsule,delayed release(DR/EC) 40 mg PO DAILY Qty: 90 1RF azelastine 137 mcg (0.1 %) aerosol,spray 1 spray intranasal Q12H Qty: 90 0RF Rx Instructions: administer into each nostril Discontinued hydralazine 25 mg tablet 25 mg PO BID Qty: 60 5RF Other Ambulatory Orders: Comprehensive Metabolic Panel (Routine) Timeframe: 3 Days Location: Determined by Patient Ordered By: Paula Ibrahim Date of admission: 04/06/24 09:21 Primary Care Provider: Edda hSeriff Admitting Provider: Artem Moreno Attending physician on admission: Paula Ibrahim Condition: Stable Hospitalist MIPS Heart Failure (Exclusion) Patient has history of Heart Transplant or Left Ventricular Assistive Device?: No IF YES, STOP HERE Heart Failure (Qualifier) Patient has current or prior documentation of LVEF less than or equal to 40%, or mod/servere depressed LVSF?: No IF NO, STOP HERE
== END 2024-04-08 17:08 | disposition home or self-care (01) | DRG 242 ==
LOC: ANHED 12:16 → ANHIMU 14:20
PROVIDERS: Emergency Medicine; Internal Medicine Cardiovascular Disease; Physician Assistant; Specialist; Admitting Provider General Practice; Emergency Provider Emergency Medicine; PCP Family Medicine; Visit Provider Student in an Organized Health Care Education/Training Program
PROC: 0JH606Z Insertion of Pacemaker, Dual Chamber into Chest Subcutaneous Tissue and Fascia, Open Approach (ICD-10-PCS; CPT 33208; principal; 2024-04-07 08:30)
DX: I44.2 Atrioventricular block, complete (principal); I50.23 Acute on chronic systolic (congestive) heart failure; J18.9 Pneumonia, unspecified organism; C91.91 Lymphoid leukemia, unspecified, in remission; R00.1 Bradycardia, unspecified; I11.0 Hypertensive heart disease with heart failure; K21.9 Gastro-esophageal reflux disease without esophagitis; G47.33 Obstructive sleep apnea (adult) (pediatric); M47.816 Spondylosis without myelopathy or radiculopathy, lumbar region; E78.5 Hyperlipidemia, unspecified; M48.00 Spinal stenosis, site unspecified; Z20.822 Contact with and (suspected) exposure to COVID-19; Z85.46 Personal history of malignant neoplasm of prostate; Z85.828 Personal history of other malignant neoplasm of skin
CPT/HCPCS: 33208; 36415; 71045; 71046; 80048; 80053; 83735; 83880; 84484; 85025; 85055; 85610; 85730; 87040; 87635; 93005; 94640; 96365; 96367; 96375; 97161; 97165; 99285; A9270; C1779; C1785; C8929; G0378; J0456; J0690; J0696; J1940; J2003; J2250; J3010; J7030; J7040; Q9957

== ENCOUNTER 2024-04-13 12:42 | Outpatient (CLI) | payer MEDICARE, OTHER, SELFPAY ==
[2024-04-13 13:04] LABS: Basophils Percent Auto 0.4 % (0.2-1.2); Eosinophils Absolute Auto 0.1 K/mm3 (0-0.3); Hematocrit 35.8 % (42.0-52.0); Hemoglobin 11.5 g/dL (14.0-18.0); Lymphocytes Absolute Auto 0.25 K/mm3 (0.9-3.2); Lymphocytes Percent Auto 10.5 % (18.3-44.2); Mean Corpuscular HGB Conc 32.1 g/dl (32-36); Mean Corpuscular Hemoglobin 28.6 pg (26-34); Mean Corpuscular Volume 89.1 fl (80-100); Mean Platelet Volume 9.9 fl (7.4-10.4); Monocytes Absolute Auto 0.3 K/mm3 (0.1-0.6); Monocytes Percent Auto 11.7 % (2.6-8.5); Neutrophils Absolute Auto 1.7 K/mm3 (1.3-6.7); Neutrophils Percent Auto 72.4 % (45.5-73.1); Platelet Count Result 115 k/mm3 (150-375); Red Blood Count 4.02 M/mm3 (4.6-6.20); White Blood Count 2.4 K/mm3 (4.5-10.0)
[2024-04-13 13:16] LABS: Alanine Aminotransferase 26 U/L (6-50); Albumin Level 3.4 g/dL (3.5-5.1); Alkaline Phosphatase 61 U/L (38-126); Anion Gap 6 mmol/L (4-12); Aspartate Amino Transferase 29 U/L (17-59); Bilirubin,Total 0.4 mg/dL (0.2-1.3); Blood Urea Nitrogen 29 mg/dL (9-20); Calcium 7.9 mg/dL (8.4-10.2); Carbon Dioxide 26 mmol/L (22-30); Chloride 106 mmol/L (98-107); Estimated Glomerular Filt Rate > 60; Glucose 125 mg/dL (65-110); Sodium 138 mmol/L (137-145)
== END 2024-04-13 12:43 | disposition home or self-care (01) ==
PROVIDERS: PCP Family Medicine; Referring Provider Student in an Organized Health Care Education/Training Program; Visit Provider Internal Medicine Critical Care Medicine
DX: N17.9 Acute kidney failure, unspecified (principal); R06.02 Shortness of breath
CPT/HCPCS: 36415; 80053; 85025

== ENCOUNTER 2024-05-03 10:52 | Outpatient (CLI) | payer MEDICARE, OTHER, SELFPAY ==
[2024-05-03 11:48] LABS: Anion Gap 6 mmol/L (4-12); Blood Urea Nitrogen 28 mg/dL (9-20); Calcium 8.3 mg/dL (8.4-10.2); Carbon Dioxide 29 mmol/L (22-30); Chloride 105 mmol/L (98-107); Estimated Glomerular Filt Rate > 60; Glucose 119 mg/dL (65-110); Magnesium 2.5 mg/dL (1.6-2.3); Potassium 4.7 mmol/L (3.4-5.0); Sodium 140 mmol/L (137-145)
== END 2024-05-03 10:53 | disposition home or self-care (01) ==
LOC: ANHLAB 10:55
PROVIDERS: PCP Family Medicine; Visit Provider Internal Medicine Cardiovascular Disease
DX: I50.9 Heart failure, unspecified (principal)
CPT/HCPCS: 36415; 80048; 83735

== ENCOUNTER 2024-09-02 07:47 | Emergency (ER) | payer MEDICARE, OTHER, SELFPAY ==
[2024-09-02 07:52] VITALS: BP 149/80; PULSE 108; RESP 16; TEMP 36.3; O2SAT 98
[2024-09-02 09:02] LABS: Basophils Percent Auto 0.2 % (0.2-1.2); Eosinophils Absolute Auto 0.1 K/mm3 (0-0.3); Eosinophils Percent Auto 1.1 % (0-4.4); Hematocrit 36.6 % (42.0-52.0); Immature Granulocyte Absolute 0.01 K/mm3 (0.00-0.031); Immature Granulocyte Percent A 0.2 % (0-0.5); Lymphocytes Percent Auto 9.3 % (18.3-44.2); Mean Corpuscular HGB Conc 32.8 g/dl (32-36); Mean Corpuscular Hemoglobin 27.9 pg (26-34); Mean Corpuscular Volume 85.1 fl (80-100); Mean Platelet Volume 9.4 fl (7.4-10.4); Monocytes Absolute Auto 0.5 K/mm3 (0.1-0.6); Monocytes Percent Auto 8.8 % (2.6-8.5); Neutrophils Absolute Auto 4.3 K/mm3 (1.3-6.7); Neutrophils Percent Auto 80.4 % (45.5-73.1); Platelet Count Result 130 k/mm3 (150-375); White Blood Count 5.4 K/mm3 (4.5-10.0)
[2024-09-02 09:12] LABS: Lactic Acid Reflex 0.8 mmol/L (0.7-2.0)
[2024-09-02 09:13] LABS: Alanine Aminotransferase 17 U/L (6-50); Albumin Level 3.9 g/dL (3.5-5.1); Alkaline Phosphatase 69 U/L (38-126); Anion Gap 14 mmol/L (4-12); Aspartate Amino Transferase 21 U/L (17-59); Bilirubin,Total 0.7 mg/dL (0.2-1.3); Blood Urea Nitrogen 34 mg/dL (9-20); Carbon Dioxide 21 mmol/L (22-30); Chloride 106 mmol/L (98-107); Estimated CRCL calculation 42 ml/min; Estimated Glomerular Filt Rate 47; Glucose 121 mg/dL (65-110); Potassium 4.5 mmol/L (3.4-5.0); Sodium 141 mmol/L (137-145)
--- NOTE | 2024-09-02 09:21 | ED.GENADULT ---
HPI - General Adult General Chief complaint: Urogenital-Male Stated complaint: I think I have a urinary tract infection Time Seen by Provider: 09/02/24 08:06 History of Present Illness HPI narrative: This is a 83-year-old male with a history of prostate cancer treated with radiation presenting for pain on urination patient developed dysuria yesterday. No fevers chills flank pain or suprapubic pain. However overnight he stopped being able to pass urine is now developing some suprapubic fullness. No other symptoms. Related Data Home Medications ?Medication ?Instructions ?Recorded ?Confirmed ?Last Taken ?Type fexofenadine 180 mg tablet 180 mg PO DAILY 05/27/19 06/01/24 Unknown History (Corrina Allergy) alendronate 70 mg tablet 70 mg PO WEEKLY 05/22/23 06/01/24 03/31/24 History tamsulosin 0.4 mg capsule 0.4 mg PO QHS 05/22/23 06/01/24 Unknown History sacubitril 24 mg-valsartan 26 mg 1 tablet PO BID 04/05/24 06/01/24 Unknown History tablet (Entresto) Allergies Allergy/AdvReac Type Severity Reaction Status Date / Time No Known Allergies Allergy Verified 09/02/24 07:48 PMF Past Medical History Medical History Heart failure with reduced ejection fraction EF 40 to 45% in May 2023. Chronic lymphocytic leukemia In remission. Central stenosis of spinal canal Insomnia Cognitive impairment Vitamin D deficiency Prostate cancer Obstructive sleep apnea Essential (primary) hypertension Chronic low back pain Lumbar spondylosis Dyslipidemia Environmental allergies GERD without esophagitis History of subdural hematoma (2018) Surgical History Surgical History History of benign breast biopsy left History of lumbosacral spine surgery 1960s History of basal cell carcinoma excision (2019) left nose History of neck surgery (2000) Tumor Right side of neck - removed 2008 Family History Family History Mother Patient's mother is , Onset Age: 92 Family history of lung cancer Father Family history of type 2 diabetes mellitus Diabetes mellitus, Onset Age: 79 Family history of lung cancer Other Family history of lymphoma Social History Social History Social History: Surrogate medical decision maker: Ted Reyes, spouse. Code status: Full code. Smoking status: Never smoker Second hand tobacco smoke exposure: No Alcohol intake: never Substance use: never Substance use type: does not use Do You Feel Safe in your Home?: Yes Lack of Transportation: No Lack of Food: Never True Current Housing: I Have Housing Concerned About Future Housing: No Difficulty Paying Gas/Electric Bills: No Difficulty Paying for Meds: No Currently Unemployed: No Education: High School Diploma/GED Difficulty w/ Childcare or Family Care: No Living arrangements: with family Additional living arrangements comments: Lives with spouse in [place]. 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 Head: atraumatic. EYES: EOMI, NOSE: Atraumatic NECK: Trachea midline RESPIRATORY: No increased rate of breathing CARDIOVASCULAR: RRR, ABDOMINAL: Suprapubic fullness without significant tenderness. No CVA tenderness MUSCULOSKELETAl: No obvious deformities NEURO: Alert. Moving 4/4 extremities SKIN:: Warm, dry. Normal color PSYCHIATRIC: Normal affect Course Vital Signs Vital signs: Vital Signs Temperature 97.3 F L 09/02/24 07:52 Pulse Rate 108 H 09/02/24 07:52 Respiratory Rate 16 09/02/24 07:52 Blood Pressure 149/80 H 09/02/24 07:52 Pulse Oximetry 98 09/02/24 07:52 Oxygen Delivery Room Air 09/02/24 07:52 Temperature 97.3 F L 09/02/24 07:52 Pulse Rate 108 H 09/02/24 07:52 Respiratory Rate 16 09/02/24 07:52 Blood Pressure 149/80 H 09/02/24 07:52 Pulse Oximetry 98 09/02/24 07:52 Oxygen Delivery Room Air 09/02/24 07:52 Medical Decision Making MDM Narrative Medical decision making narrative: -Course: 83-year-old male presenting with dysuria/urinary retention. Bladder scan showed >[address] showed an enlarged prostate w/ mild hydro. Multiple attempts by nursing staff to place Shah which were unsuccessful. Urology was consulted. Urology was able to thread a wire and dilate the patient's urethra place a Shah. UA indicative of infection. cultures sent. Patient given a dose of ceftriaxone and started on cefdinir. Patient will follow-up with urology. -DDX includes but is not limited to:UTI, Urinary retention, Prostatitis Vital Signs Vital Signs: Vital Signs Temperature 97.3 F L 09/02/24 07:52 Pulse Rate 108 H 09/02/24 07:52 Respiratory Rate 16 09/02/24 07:52 Blood Pressure 149/80 H 09/02/24 07:52 Pulse Oximetry 98 09/02/24 07:52 Oxygen Delivery Room Air 09/02/24 07:52 Temperature 97.3 F L 09/02/24 07:52 Pulse Rate 108 H 09/02/24 07:52 Respiratory Rate 16 09/02/24 07:52 Blood Pressure 149/80 H 09/02/24 07:52 Pulse Oximetry 98 09/02/24 07:52 Oxygen Delivery Room Air 09/02/24 07:52 Lab Data 09/02/24 08:55 09/02/24 08:55 Labs: Lab Results 09/02/24 09/02/24 Range/Units 08:55 10:02 WBC 5.4 (4.5-10.0) K/mm3 RBC 4.30 L (4.6-6.20) M/mm3 Hgb 12.0 L (14.0-18.0) g/dL Hct 36.6 L (42.0-52.0) % MCV 85.1 (80-100) fl MCH 27.9 (26-34) pg MCHC 32.8 (32-36) g/dl RDW 16.0 H (11.5-14.5) % Plt Count 130 L (150-375) k/mm3 MPV 9.4 (7.4-10.4) fl Immature Gran % (Auto) 0.2 (0-0.5) % Neut % (Auto) 80.4 H (45.5-73.1) % Lymph % (Auto) 9.3 L (18.3-44.2) % [place] % (Auto) 8.8 H (2.6-8.5) % Eos % (Auto) 1.1 (0-4.4) % Baso % (Auto) 0.2 (0.2-1.2) % Lymph # (Auto) 0.50 L (0.9-3.2) K/mm3 [place] # (Auto) 0.5 (0.1-0.6) K/mm3 Eos # (Auto) 0.1 (0-0.3) K/mm3 Baso # (Auto) 0.0 (0.0-0.1) K/mm3 Abs Immat Gran (auto) 0.01 (0.00-0.031) K/mm3 Absolute Neuts (auto) 4.3 (1.3-6.7) K/mm3 Absolute Nucleated RBC 0.000 (0.0-0.012) K/mm3 Nucleated RBC % 0.0 (0.0-0.2) % Sodium 141 (137-145) mmol/L Potassium 4.5 (3.4-5.0) mmol/L Chloride 106 (98-107) mmol/L Carbon Dioxide 21 L (22-30) mmol/L Anion Gap 14 H (4-12) mmol/L BUN 34 H (9-20) mg/dL Creatinine 1.42 H (0.7-1.3) mg/dL Estim Creat Clear Calc 42 ml/min Estimated GFR 47 L (59 - ) Glucose 121 H (65-110) mg/dL Lactic Acid 0.8 (0.7-2.0) mmol/L Calcium 9.0 (8.4-10.2) mg/dL Total Bilirubin 0.7 (0.2-1.3) mg/dL AST 21 (17-59) U/L ALT 17 (6-50) U/L Alkaline Phosphatase 69 (38-126) U/L Total Protein 8.0 (6.3-8.2) g/dL Albumin 3.9 (3.5-5.1) g/dL Urine Color Yellow (Yellow) Urine Appearance Turbid H (Clear) Urine pH 8.0 (5.0-9.0) Ur Specific [place] 1.015 (1.001-1.035) Urine Protein 1+ H (Negative) mg/dL Urine Glucose (UA) Negative (Negative) mg/dL Urine Ketones Negative (Negative) mg/dL Ur Blood (Man) 3+ H (Negative) Urine Nitrate Negative (Negative) Urine Bilirubin Negative (Negative) Urine Urobilinogen 1.0 (<2.0) mg/dL Add Ur Microanalysis Reviewed Leukocyte Esterase Rfl 3+ H (Negative) RADHA/UL Urine RBC >100 H (0-2) /hpf Urine WBC >100 H (0-3) /hpf Ur Squamous Epith Cells None seen (Few) /hpf Urine Bacteria 4+ H /hpf Urine Casts >20 Discharge Plan Discharge Clinical Impression: Acute urinary retention, Dysuria Patient Disposition: Home, Self-Care Condition: Stable Instructions: Antibiotic Form, Urinary Retention in Men (ED), Dysuria (ED) Additional Instructions: Please complete the antibiotics as instructed. Please follow-up with Dr. Leach for further management. Return if you develop fevers, or if your condition is getting worse. Patient Language: Setswana Prescriptions: New cefdinir 300 mg capsule 300 mg PO Q12H Qty: 20 0RF No Action fexofenadine [Corrina Allergy] 180 mg tablet 180 mg PO DAILY alendronate 70 mg tablet 70 mg PO WEEKLY Rx Instructions: friday tamsulosin 0.4 mg capsule 0.4 mg PO QHS Entresto 24-26 mg tablet 1 tablet PO BID Rx Instructions: TAKE 1 TABLET BY MOUTH TWICE A DAY azelastine 137 mcg (0.1 %) aerosol,spray 1 spray intranasal Q12H Qty: 90 0RF Rx Instructions: administer into each nostril furosemide 40 mg tablet 40 mg PO QAM Qty: 30 5RF fluticasone propionate 50 mcg/actuation spray,suspension See Rx Instructions .ROUTE .COMPLEX Qty: 48 1RF Dose Instruction: SPRAY 2 SPRAYS INTO EACH NOSTRIL EVERY DAY Rx Instructions: SPRAY 2 SPRAYS INTO EACH NOSTRIL EVERY DAY dicyclomine 20 mg tablet 20 mg PO BID Qty: 180 1RF omeprazole 40 mg capsule,delayed release(DR/EC) 40 mg PO DAILY Qty: 90 0RF Rx Instructions: last refill until seen. metoprolol succinate 25 mg tablet extended release 24 hr 12.5 mg PO Q12H Qty: 45 2RF Follow-up/Referrals: Edda Sheriff MD [Primary Care Provider] -
[2024-09-02 10:29] LABS: Add Urine Microscopic? YES; Appearance Urine Turbid (Clear); Bacteria Urine 4+ /hpf; Bilirubin Urine Negative (Negative); Blood Urine 3+ (Negative); Color Urine Yellow (Yellow); Glucose Urine UA Negative (Negative); Ketones Urine Negative (Negative); Leukocyte Esterase Ur 3+ LEU/UL (Negative); Need Manual Microscopic Reviewed; Nitrate Urine Negative (Negative); Non Pathogenic Casts >20; Protein Urine 1+ mg/dL (Negative); RBC Urine >100 /hpf (0-2); Specific Grav Ur 1.015 (1.001-1.035); Squamous Epithelial Cell Urine None Seen /hpf (Few); WBC Urine >100 /hpf (0-3)
--- NOTE | 2024-09-02 11:35 | WPDURCON ---
Assessment and Plan Assessment and plan (1) Bulbous urethral stricture: Code(s): N35.912 - Unspecified bulbous urethral stricture, male Status: Acute Assessment and Plan: At the bedside I dilated a bulbous urethral stricture from 12 F to 20 F and placed a 18 F Shah catheter to drainage. He can be discharged on empiric antibiotics pending urine culture result. He should follow-up next week for catheter removal Urology Consult Note HPI Date Seen: 09/02/24 Primary Care Provider: Zachariah Sheriff MD Consult Narrative Narrative: Marquise Reyes is a 83 year old male well known to Dr. GEMMA CLINE is. He has a history of hormone sensitive prostate cancer on long-term androgen deprivation. He has had pelvic radiation in the past and has a history of recurrent stricture disease. He presented the emergency department with dysuria. A CT scan showed bladder distention and mild bilateral hydronephrosis. The ER staff was unable to place a urethral catheter. Review of Systems Review of Systems: All systems reviewed & are unremarkable except as noted in HPI and below PMFSH Past Medical History Medical History Heart failure with reduced ejection fraction EF 40 to 45% in May 2023. Chronic lymphocytic leukemia In remission. Central stenosis of spinal canal Insomnia Cognitive impairment Vitamin D deficiency Prostate cancer Obstructive sleep apnea Essential (primary) hypertension Chronic low back pain Lumbar spondylosis Dyslipidemia Environmental allergies GERD without esophagitis History of subdural hematoma (2018) Surgical History Surgical History History of benign breast biopsy left History of lumbosacral spine surgery 1960s History of basal cell carcinoma excision (2019) left nose History of neck surgery (2000) Tumor Right side of neck - removed 2008 Family History Family History Mother Patient's mother is , Onset Age: 92 Family history of lung cancer Father Family history of type 2 diabetes mellitus Diabetes mellitus, Onset Age: 79 Family history of lung cancer Other Family history of lymphoma Social History Social History Social History: Surrogate medical decision maker: Ted Reyes, spouse. Code status: Full code. Smoking status: Never smoker Second hand tobacco smoke exposure: No Alcohol intake: never Substance use: never Substance use type: does not use Do You Feel Safe in your Home?: Yes Lack of Transportation: No Lack of Food: Never True Current Housing: I Have Housing Concerned About Future Housing: No Difficulty Paying Gas/Electric Bills: No Difficulty Paying for Meds: No Currently Unemployed: No Education: High School Diploma/GED Difficulty w/ Childcare or Family Care: No Living arrangements: with family Additional living arrangements comments: Lives with spouse in [place]. 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 Home Medications and Allergies Home Medications ?Medication ?Instructions ?Recorded ?Confirmed ?Type fexofenadine 180 mg tablet 180 mg PO DAILY 05/27/19 06/01/24 History (Corrina Allergy) alendronate 70 mg tablet 70 mg PO WEEKLY 05/22/23 06/01/24 History tamsulosin 0.4 mg capsule 0.4 mg PO QHS 05/22/23 06/01/24 History azelastine 137 mcg (0.1 %) nasal 1 spray intranasal Q12H #90 mL 11/26/23 06/01/24 Rx spray sacubitril 24 mg-valsartan 26 mg 1 tablet PO BID 04/05/24 06/01/24 History tablet (Entresto) furosemide 40 mg tablet 40 mg PO QAM #30 tabs 04/21/24 06/01/24 Rx fluticasone propionate 50 See Rx Instructions .Route 04/22/24 06/01/24 Rx mcg/actuation nasal .COMPLEX #48 mL spray,suspension dicyclomine 20 mg tablet 20 mg PO BID #180 tabs 07/06/24 Rx omeprazole 40 mg capsule,delayed 40 mg PO DAILY #90 caps 07/28/24 Rx release metoprolol succinate 25 mg 12.5 mg (1/2 x 25 mg) PO Q12H #45 08/30/24 Rx tablet,extended release 24 hr tabs cefdinir 300 mg capsule 300 mg PO Q12H #20 caps 09/02/24 Rx Allergies Allergy/AdvReac Type Severity Reaction Status Date / Time No Known Allergies Allergy Verified 09/02/24 07:48 Vital Signs Vital Signs - 24 hr 09/02/24 07:52 Temperature 97.3 F L Pulse Rate 108 H Respiratory Rate 16 Blood Pressure 149/80 H Pulse Oximetry 98 Oxygen Delivery Room Air Exam Const: General: no acute distress Resp: Effort & Inspection: normal respiratory effort GI: Inspection: non-distended GI Palp: No abdominal tenderness and No Guarding due to palpation present (GI) Auscultation: normal bowel sounds Results Labs 09/02/24 08:55 09/02/24 08:55 Labs: Short CBC 09/02/24 Range/Units 08:55 WBC 5.4 (4.5-10.0) K/mm3 Hgb 12.0 L (14.0-18.0) g/dL Hct 36.6 L (42.0-52.0) % Plt Count 130 L (150-375) k/mm3 BMP 09/02/24 08:55 Sodium 141 Potassium 4.5 Chloride 106 Carbon Dioxide 21 L BUN 34 H Creatinine 1.42 H Glucose 121 H Calcium 9.0 Liver Function 09/02/24 Range/Units 08:55 Total Bilirubin 0.7 (0.2-1.3) mg/dL AST 21 (17-59) U/L ALT 17 (6-50) U/L Alkaline Phosphatase 69 (38-126) U/L Albumin 3.9 (3.5-5.1) g/dL Urine 09/02/24 Range/Units 10:02 Urine Color Yellow (Yellow) Urine Appearance Turbid H (Clear) Urine pH 8.0 (5.0-9.0) Ur Specific [place] 1.015 (1.001-1.035) Urine Protein 1+ H (Negative) mg/dL Urine Glucose (UA) Negative (Negative) mg/dL
[2024-09-02 11:37] VITALS: BP 120/74; PULSE 82; RESP 20; O2SAT 100
== END 2024-09-02 11:46 | disposition home or self-care (01) ==
PROVIDERS: Emergency Provider Emergency Medicine; PCP Family Medicine
DX: N35.912 Unspecified bulbous urethral stricture, male (principal); R30.0 Dysuria; R33.9 Retention of urine, unspecified; I50.9 Heart failure, unspecified; I11.0 Hypertensive heart disease with heart failure; C91.11 Chronic lymphocytic leukemia of B-cell type in remission; E55.9 Vitamin D deficiency, unspecified; E78.5 Hyperlipidemia, unspecified; G47.33 Obstructive sleep apnea (adult) (pediatric); G31.84 Mild cognitive impairment of uncertain or unknown etiology; K21.9 Gastro-esophageal reflux disease without esophagitis; Z85.46 Personal history of malignant neoplasm of prostate; Z85.828 Personal history of other malignant neoplasm of skin; Z92.3 Personal history of irradiation; I45.2 Bifascicular block; I49.3 Ventricular premature depolarization; N40.1 Benign prostatic hyperplasia with lower urinary tract symptoms; N13.8 Other obstructive and reflux uropathy; N13.30 Unspecified hydronephrosis; K80.20 Calculus of gallbladder without cholecystitis without obstruction; K44.9 Diaphragmatic hernia without obstruction or gangrene; S32.021A Stable burst fracture of second lumbar vertebra, initial encounter for closed fracture; X58.XXXA Exposure to other specified factors, initial encounter
CPT/HCPCS: 36415; 51702; 51703; 74176; 80053; 81001; 83605; 85025; 87086; 87186; 93005; 96365; 99284; J0696

== ENCOUNTER 2024-10-11 12:15 | Emergency (ER) | payer MEDICARE, OTHER, SELFPAY ==
--- NOTE | ~2024-10-11 | XR_ITS ---
2 VIEWS SOFT TISSUES NECK Ordering provider: Justa Natarajan PA-C History: . SWALLOWED PLASTIC TOOTHPICK . Comparison: None. FINDINGS: SOFT TISSUES: No prevertebral soft tissue swelling. The epiglottis is normal. The pharynx and trach ea appear patent. VERTEBRAL BODIES: Normal height and alignment. No acute osseous findings. Degenerative changes of the spine. DISK SPACES: Bilateral carotid calcification.. No definite radiopaque foreign bodies seen. IMPRESSION: No definite radiopaque foreign bodies seen. Reviewed, dictated and finalized at location A.
[2024-10-11 12:23] VITALS: BP 166/76; PULSE 99; RESP 14; TEMP 36.6; O2SAT 99
--- OUTSIDE RECORDS SUMMARY | 2024-10-11 13:56 | XMS_ITS | Encounter Summary ---
Author Organization [facility] Address [address] [place] [address] Care Team Providers Care Agricultural Equipment Salesperson Name Role Phone Pramod Gomez MD Primary Care Provider [phone] Encounter Details Date Type Department Care Team (Late st Contact Info) Description 02/18/2020 Lab Requisition [facility] Derm[facility] Lab [address] [place] [address] Chito Gore MD [address] [place] [address] Social History Tobacco Use Types Packs/Day Years Used Date Smoking Tobacco: Never Smokeless Tobacco: Never Alcohol Use Standard Drinks/Week Comments Yes 0.8 (1 standard drink = 0.6 oz p ure alcohol) Sex and Gender Information Value Date Recorded Sex Assigned at Not on file Gender Identity Not on file Sexual Orientation Not on file documented as of this encounter Plan of Treatment Not on file documented as of this encounter Procedures Procedure Name Priority Date/Time Associated Diagnosis Comments DERMATOPATHOLOGY Routine 02/16/2020 12:0 0 AM CDT documented in this encounter Results * DERMATOPATHOLOGY (02/16/2020 12:00 AM CDT) Case Report Dermatopathology Report Case: [id number] Authorizing Provider: Chito Gore MD Collected: 02/16/2020 12:00 AM Ordering Location: [facility] Derm[facility] Lab Received: 02/18/2020 02:29 PM Pathologist: Wanda Landeros MD Specimens: A) - Skin, left ala B) - Skin, left post neck 0 3:42 PM T DERMATOPATHOLOGY LABORATORY Final Diagnosis Specimen A. SKIN, left ala: BASAL CELL CARCINOMA, INFILTRATIVE PATTERN (C44.311) Specimen B. SKIN, left post neck: ACTINIC KERATOSIS, ACANTHOLYTIC TYPE (L57.0) 0 3:42 PM T DERMATOPATHOLOGY LABORATORY Clinical History A-B: R/O BCC 0 3:42 PM CDT DERMATOPATHOLOGY LABORATORY Gross Description Specimen A: Received is one formalin filled container labeled with the patient's name and designated left ala. The specimen consists of a shave biopsy measuring 9x7x1 mm. Jar 0. Specimen B: Received is one formalin filled container labeled with the patient's name and designated left post neck. The specimen consists of a shave biopsy measuring 12x9x2 mm. Jar 0. 0 3:42 PM CDT DERMATOPATHOLOGY LABORATORY Microscopic Description Specimen A. SKIN, left ala: Within the dermis there are nodular aggregates of basaloid cells associated with fibromyxoid stroma and epithelial-stromal clefts. At the advancing margin of the neoplasm, there are smaller angulated nests that infiltrate the dermis. Specimen B. SKIN, left post neck: There is focal parakeratosis. The lower half of the epidermis shows disorderly maturation of keratinocytes with nuclear pleomorphism. Focally there is a suprabasilar cleft with acantholytic cells. 0 3:42 PM CDT DERMATOPATHOLOGY LABORATORY Disclaimer An external and internal positive and negative controls are appropriate for the histochemical, immunohistochemical and immunofluorescence stain(s) in this case (if any), except where stated explicitly. The performance characteristics of the stain(s) cited in this report were developed and its performance characteristic determined by the Dermatopathology Laboratory at [facility], directed by Dr. Diego Davison. These tests need not be, and therefore are not, approved by the [place] Food and Drug Administration. The tests are used for clinical purposes. Billing Codes Specimen Charges Stain Charges [id number] 1 1 0 3:42 PM CDT DERMATOPATHOLOGY LABORATORY Embedded Images 0 3:42 PM CDT DERMATOPATHOLOGY LABORATORY Pathology/Cytology TISSUE SPECIMEN FROM SKIN / Unknown 02/16/2020 02/18/2020 2:29 PM CDT Miscellaneous samples (specimen) TISSUE SPECIMEN FROM SKIN / Unknown 02/16/2020 02/18/2020 2:29 PM CDT Chito Gore MD LAB - PATHOLOGY/CYTO LOGY ORDERABLES DERMATOPATHOLOGY LABORATORY [facility] - Department of D[facility]/[address] [phone] documented in this encounter Visit Diagnoses Not on filedocumented in this encounter Care Teams Agricultural Equipment Salesperson Relationship Specialty Start Date End Date Pramod Gomez MD [address] [place] [address] PCP - General 10/16/10 documented as of this encounter
--- OUTSIDE RECORDS SUMMARY | 2024-10-11 13:56 | XMS_ITS | Clinical Summary ---
Author Organization [facility] Address [address] [place] [address] Care Team Providers Care Blueprint Machine Operator Name Role Phone Zachariah Sheriff MD Primary Care Provider Cullen Venegas MD Unavailable [phone] Milan Reed MD Unavailable [phone] Amrik Painter DO Unavailable [phone] Allergies No known active allergies Medications fexofenadine (ELAINE) 180 mg tablet Take 1 tablet (180 mg total) by mouth daily Active fluticasone propionate (FLONASE) 50 mcg/actuation nasal spray Administer 1 spray into each nostril daily Active omeprazole (PriLOSEC) 10 mg capsule Take 1 capsule (10 mg total) by mouth daily Active metoprolol XL (TOPROL-XL) 25 mg extended release tablet Take 1 tablet (25 mg total) by mouth daily 1 Active HYDROcodone-acet aminophen (NORCO) 5-325 mg per tablet 1 Active cyanocobalamin (Vitamin B-12) 1,000 mcg tabletIndication s:Prevention of Vitamin B12 Deficiency Take 1 tablet (1,000 mcg total) by mouth daily 30 tablet 11 3 Active alendronate (FOSAMAX) 70 mg tablet 3 Active Entresto 24-26 mg tabletIndication s:Chronic lymphocytic leukemia (HCC),Hypogammag lobulinemia Take 1 tablet by mouth 2 (two) times a day 4 Active furosemide (LASIX) 20 mg tablet Take 1 tablet (20 mg total) by mouth 2 (two) times a day Active Active Problems Problem Noted Date Diagnosed Date Need for immunization against influenza 05/20/20 24 Cardiac pacemaker in situ 04/07/2024 Overview (04/14/2024): Medtronic Marielos Dual Pacemaker. Dx: CHB DOI 04/07/2024 - Luis Enrique. [facility]. Card-Dr Painter. 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 04/20/2015 Weight loss 06/06/2014 Encounters Date Type Department Care Team Description 09/22/2024 9:00 AM CDT Infusion [facility] at [address] [address] Chronic lymphoid leukemia, without mention of having achieved remission(204.10) (HCC) (Primary Dx); Chronic lymphocytic leukemia (HCC); Hypogammaglobulinemia; Common variable agammaglobulinemia 09/22/2024 8:45 AM CDT Ancillary Procedure [facility] Cardiology [address] [place] [id number] Cardiac pacemaker in situ (Primary Dx); Right bundle branch block; CHB (complete heart block) (HCC) 09/22/2024 8:15 AM CDT Clinical Support [facility] at [address] [address] Chronic lymphocytic leukemia (HCC); Hypogammaglobulinemia 08/19/2024 8:45 AM POWDER MIXER Infusion [facility] at [address] [address] Chronic lymphoid leukemia, without mention of having achieved remission(204.10) (HCC) (Primary Dx); Chronic lymphocytic leukemia (HCC); Hypogammaglobulinemia; Common variable agammaglobulinemia 08/19/2024 7:30 AM POWDER MIXER Clinical Support [facility] at [address] [address] Chronic lymphocytic leukemia (HCC); Hypogammaglobulinemia 07/22/2024 8:45 AM POWDER MIXER Infusion [facility] at [address] [place] [id number] Chronic lymphoid leukemia, without mention of having achieved remission(204.10) (HCC) (Primary Dx); Chronic lymphocytic leukemia (HCC); Hypogammaglobulinemia; Common variable agammaglobulinemia 07/22/2024 8:15 AM POWDER MIXER Clinical Support [facility] at [address] [address] Chronic lymphocytic leukemia (HCC); Hypogammaglobulinemia from Last 3 Months Immunizations Immunization Administration Dates Next Due Influenza, Quadrivalent, Jeannette l Culture-based MDCK, Preservative Free, Antibiotic Free, Intramuscular 04/17/2022 Influenza, Quadrivalent, Hig h Dose, Preservative Free, Intrr 02/19/2020 Influenza, Trivalent, High D ose, Split, Preservative Free, Intramuscular 05/20/2024,03/16/2019,04/07/2018 Influenza, Unspecified 04/18/2021,2017,04/24/2017,04/29,03/02/2015,06/06/2014,06/07/2013 Moderna SARS-CoV-2 Monovalen t Vaccination (12+ YRS) 05/02/2021,09/25/2020,08/17/2020 Pneumococcal Conjugate PCV 13 05/05/2019 Pneumococcal Conjugate, Unspecified 04/29/2016 Surgical History Surgery Date Site/Laterality Comments COLONOSCOPY NECK SURGERY Medical History Medical History Date Comments Leukemia (HCC) Cancer, leukemia Hx Other Medical Lump removed fr om neck Chronic lymphocytic leukemia (HCC) Sleep apnea Family History Medical History Relation Name Comments Diabetes Father Lung cancer Father Lung cancer Mother Heart disease Mother's Sister Relation Name Status Comments Father (Age 79) 77 when di agnosed Mother (Age 92) 91 when di agnosed Mother's Sister Social History Tobacco Use Types Packs/Day Years Used Date Smoking Tobacco: Never Smokeless Tobacco: Never Alcohol Use Standard Drinks/Week Comments Not Currently 0 (1 standard drink = 0.6 oz pur e alcohol) AUDIT-C Answer Date Recorded Q1: How often do you have a drink containing alc ohol? Never 05/20/2024 Average Number of Drinks Not on file 024 Frequency of Binge Drinking Not on file 05/07 Sex and Gender Information Value Date Recorded Sex Assigned at Not on file Legal Sex Male 7:53 PM POWDER MIXER Gender Identity Not on file Sexual Orientation Not on file Obstetrics History Last Filed Vital Signs Vital Sign Reading Time Taken Comments Blood Pressure 130/73 09/22/2024 11:08 AM CDT Pulse 70 09/22/2024 11:08 AM CDT Temperature 36.7 C (98 F) 09/22/2024 11:08 AM CDT Respiratory Rate 18 09/22/2024 11:0 8 AM CDT Oxygen Saturation 96% 09/22/2024 11: 08 AM CDT Inhaled Oxygen Concentration - - Weight 102.4 kg (225 lb 12.8 oz) 09/22/2024 8:38 AM CDT w/shoes Height 179.2 cm (5' 10.55 ) 09/22/2024 8:38 AM C DT Body Mass Index 31.89 09/22/2024 8:38 AM CDT Plan of Treatment Health Maintenance Due Date Last Done Comments Depression Screening 1938 Fall Risk Assessment 1938 DTaP/Tdap/Td Vaccine (1 - Tdap) 1949 Hepatitis B Screening 1956 Zoster Vaccine (1 of 2) 1957 Well Visit 65+ 10/08/2003 Pneumococcal vaccine 65+ (2 of 2 - PPSV23) 06/30/2019 05/05/2019, 04/29/2016 Covid-19 Vaccine (4 - 2023-2 5 season) 2024 05/02/2021, 09/25/2020, 08/17/2020 Influenza Vaccine Completed 05/20/2024, , 04/18/2021, Additional history exists Medical Devices Implanted Type Area Medical Records Custodian Device Identifier Shelf Expiration Date Model / Serial / Lot Pac Chest Procedures Procedure Name Priority Date/Time Associated Diagnosis Comments DEVICE CHECK - REMOTE Routine 09/22/2024 1:07 PM CDT Right bundle branch block DIFFERENTIAL AUTO Routine 09/22/2024 8:2 7 AM CDT Chronic lymphocytic leukemia (HCC) Hypogammaglobulinem ia CBC WITH AUTO DIFFERENTIAL Routine 09/22/2024 8:27 AM CDT Chronic lymphocytic leukemia (HCC) Hypogammaglobulinem ia DIFFERENTIAL AUTO Routine 08/19/2024 7:4 9 AM POWDER MIXER Chronic lymphocytic leukemia (HCC) Hypogammaglobulinem ia CBC WITH AUTO DIFFERENTIAL Routine 08/19/2024 7:49 AM POWDER MIXER Chronic lymphocytic leukemia (HCC) Hypogammaglobulinem ia DIFFERENTIAL AUTO Routine 07/22/2024 8: 05 AM POWDER MIXER Chronic lymphocytic leukemia (HCC) Hypogammaglobulinem ia CBC WITH AUTO DIFFERENTIAL Routine 07/22/2024 8:05 AM POWDER MIXER Chronic lymphocytic leukemia (HCC) Hypogammaglobulinem ia from Last 3 Months Results * DEVICE CHECK - REMOTE (09/22/2024 1:07 PM CDT) Anatomical Region Laterality Modality Other Narrative 09/28/2024 11:12 AM CDT Medtronic Marielos dual pacemaker. Dx: CHB [facility] <> DDD Pacemaker Remote. Transmission attached. Battery status: 3.20 V, 13.8 years remaining battery life to DARIUSZ. Stable lead impedances, pacing and sensing thresholds. Presenting rhythm: /VS AP-10.0%, SALON LEADER-2.1% 15 AT/AF episodes noted, longest episode was 6 minutes and 21 seconds in duration, available IEGM demonstrates atrial tachycardia. AF [place] < 0.1%. 62 Ventricular high rate episodes detected, IEGM demonstrates SVT. The longest episode was 5 minutes and 18 seconds Medications: Toprol-XL 25 mg, Entresto 24-26 mg See scanned report. Office pacemaker follow up: 9 months [facility] remote f/u 12/29/24. Chito Ruiz RN us Carmelo Dudley MD CV CARDIAC SERVICES PROC EDURES Final Result * (ABNORMAL) Differential, auto (09/22/2024 8:27 AM CDT) Neutrophil abs 3.5 1.5 - 6.5 K/cumm Comment:Testing performed by : [address] [address] Imm gran abs 0.0 0.0 - 0.1 K/cumm [facility] Comment:Testing performed by : [address] [address] Lymphocyte abs 0.7(L) 0.8 - 3.3 K/cumm [facility] Comment:Testing performed by : [address] [address] Monocyte abs 0.3 0.2 - 0.8 K/cumm [facility] Comment:Testing performed by : [address] [address] Eosinophil abs 0.1 0.0 - 0.5 K/cumm [facility] Comment:Testing performed by : [address] [address] Basophil abs 0.0 0.0 - 0.1 K/cumm [facility] Comment:Testing performed by : [address] [address] Neutrophil pct 75.2 % [facility] Comment: Interpretive Data Percent cell count reference ranges are not reported, since discordance with absolute values may lead to misinterpretation of CBC data. Current Interpretive Data was last revised on 2017. Testing performed by: [address] [address] Imm gran pct 0.2 % [facility] Comment: Interpretive Data Percent cell count reference ranges are not reported, since discordance with absolute values may lead to misinterpretation of CBC data. Current Interpretive Data was last revised on 2017. Testing performed by: [address] [address] Lymphocyte pct 14.9 % [facility] Comment: Interpretive Data Percent cell count reference ranges are not reported, since discordance with absolute values may lead to misinterpretation of CBC data. Current Interpretive Data was last revised on 2017. Testing performed by: [address] [address] Monocyte pct 7.2 % [facility] Comment: Interpretive Data Percent cell count reference ranges are not reported, since discordance with absolute values may lead to misinterpretation of CBC data. Current Interpretive Data was last revised on 2017. Testing performed by: [address] [address] Eosinophil pct 2.3 % [facility] Comment: Interpretive Data Percent cell count reference ranges are not reported, since discordance with absolute values may lead to misinterpretation of CBC data. Current Interpretive Data was last revised on 2017. Testing performed by: [address] [address] Basophil pct 0.2 % [facility] Comment: Interpretive Data Percent cell count reference ranges are not reported, since discordance with absolute values may lead to misinterpretation of CBC data. Current Interpretive Data was last revised on 2017. Testing performed by: [address] [address] Blood 09/22/2024 8:27 AM CDT 09/22/2024 8:33 AM CDT us Milan Reed MD LAB BLOOD ORDERABLES Final R esult [facility] [address] [facility] Department [place] [address] * (ABNORMAL) CBC with auto differential (09/22/2024 8:27 AM CDT) WBC 4.7 3.8 - 9.9 K/cumm Comment:Testing performed by : [address] [address] Hgb 12.0(L) 13.0 - 17.5 g/dL [facility] Comment:Testing performed by : [address] [address] Hct 37.3(L) 38.9 - 50.3 % [facility] Comment:Testing performed by : [address] [address] Plt 134(L) 150 - 400 K/cumm [facility] Comment:Testing performed by : [address] [address] MPV 8.8(L) 9.1 - 12.3 fL [facility] Comment:Testing performed by : [address], [address] RBC 4.41 4.30 - 5.80 M/cumm [facility] Comment:Testing performed by : [address], [address] MCV 84.6 81.3 - 96.4 fL [facility] Comment:Testing performed by : [address] [address] MCH 27.2 27.1 - 33.3 pg [facility] Comment:Testing performed by : [address] [address] MCHC 32.2(L) 32.3 - 35.7 g/dL [facility] Comment:Testing performed by : [address] [address] RDW CV 15.6(H) 11.1 - 14.9 % [facility] Comment:Testing performed by : [address], [address] RDW SD 47.4 35.7 - 48.1 fL [facility] Comment:Testing performed by : [address], [address] NRBC abs 0.00 0.00 - 0.01 K/cumm [facility] Comment:Testing performed by : [address] [address] Blood 09/22/2024 8:27 AM CDT 09/22/2024 8:33 AM CDT us Milan Reed MD LAB BLOOD ORDERABLES Final R esult [facility] [address] [facility] Department [place] [address] * Differential, auto (08/19/2024 7:49 AM POWDER MIXER) Neutrophil abs 2.8 1.5 - 6.5 K/cumm Comment:Testing performed by : [address] [address] Imm gran abs 0.0 0.0 - 0.1 K/cumm [facility] Comment:Testing performed by : [address] [address] Lymphocyte abs 0.8 0.8 - 3.3 K/cumm [facility] Comment:Testing performed by : [address] [address] Monocyte abs 0.3 0.2 - 0.8 K/cumm [facility] Comment:Testing performed by : [address] [address] Eosinophil abs 0.1 0.0 - 0.5 K/cumm [facility] Comment:Testing performed by : [address] [address] Basophil abs 0.0 0.0 - 0.1 K/cumm [facility] Comment:Testing performed by : [address] [address] Neutrophil pct 70.1 % [facility] Comment: Interpretive Data Percent cell count reference ranges are not reported, since discordance with absolute values may lead to misinterpretation of CBC data. Current Interpretive Data was last revised on 2017. Testing performed by: [address] [address] Imm gran pct 0.3 % [facility] Comment: Interpretive Data Percent cell count reference ranges are not reported, since discordance with absolute values may lead to misinterpretation of CBC data. Current Interpretive Data was last revised on 2017. Testing performed by: [address] [place]., [address] Lymphocyte pct 19.0 % [facility] Comment: Interpretive Data Percent cell count reference ranges are not reported, since discordance with absolute values may lead to misinterpretation of CBC data. Current Interpretive Data was last revised on 2017. Testing performed by: [address] [address] Monocyte pct 7.3 % [facility] Comment: Interpretive Data Percent cell count reference ranges are not reported, since discordance with absolute values may lead to misinterpretation of CBC data. Current Interpretive Data was last revised on 2017. Testing performed by: [address] [address] Eosinophil pct 3.0 % [facility] Comment: Interpretive Data Percent cell count reference ranges are not reported, since discordance with absolute values may lead to misinterpretation of CBC data. Current Interpretive Data was last revised on 2017. Testing performed by: [address] [address] Basophil pct 0.3 % [facility] Comment: Interpretive Data Percent cell count reference ranges are not reported, since discordance with absolute values may lead to misinterpretation of CBC data. Current Interpretive Data was last revised on 2017. Testing performed by: [address] [address] Blood 08/19/2024 7:49 AM POWDER MIXER 08/19/2024 7:51 AM POWDER MIXER us Milan Reed MD LAB BLOOD ORDERABLES Final R esult [facility] [address] [facility] Department [place] [address] * (ABNORMAL) CBC with auto differential (08/19/2024 7:49 AM POWDER MIXER) WBC 4.0 3.8 - 9.9 K/cumm Comment:Testing performed by : [address] [address] Hgb 12.0(L) 13.0 - 17.5 g/dL [facility] Comment:Testing performed by : [address], [address] Hct 37.0(L) 38.9 - 50.3 % [facility] Comment:Testing performed by : [address] [address] Plt 137(L) 150 - 400 K/cumm [facility] Comment:Testing performed by : [address] [address] MPV 9.2 9.1 - 12.3 fL [facility] Comment:Testing performed by : [address], [address] RBC 4.43 4.30 - 5.80 M/cumm [facility] Comment:Testing performed by : [address], [address] MCV 83.5 81.3 - 96.4 fL [facility] Comment:Testing performed by : [address] [address] MCH 27.1 27.1 - 33.3 pg [facility] Comment:Testing performed by : [address] [address] MCHC 32.4 32.3 - 35.7 g/dL [facility] Comment:Testing performed by : [address] [address] RDW CV 16.4(H) 11.1 - 14.9 % [facility] Comment:Testing performed by : [address], [address] RDW SD 49.7(H) 35.7 - 48.1 fL [facility] Comment:Testing performed by : [address], [address] NRBC abs 0.00 0.00 - 0.01 K/cumm [facility] Comment:Testing performed by : [address], [address] Blood 08/19/2024 7:49 AM POWDER MIXER 08/19/2024 7:51 AM POWDER MIXER us Milan Javed Reed MD LAB BLOOD ORDERABLES Final R esult [facility] [address] [facility] Department [place] [address] * Differential, auto (07/22/2024 8:05 AM POWDER MIXER) Neutrophil abs 3.6 1.5 - 6.5 K/cumm Comment:Testing performed by : [address] [address] Imm gran abs 0.0 0.0 - 0.1 K/cumm [facility] Comment:Testing performed by : [address] [address] Lymphocyte abs 0.8 0.8 - 3.3 K/cumm [facility] Comment:Testing performed by : [address] [address] Monocyte abs 0.3 0.2 - 0.8 K/cumm [facility] Comment:Testing performed by : [address] [address] Eosinophil abs 0.1 0.0 - 0.5 K/cumm [facility] Comment:Testing performed by : [address] [address] Basophil abs 0.0 0.0 - 0.1 K/cumm [facility] Comment:Testing performed by : [address] [address] Neutrophil pct 74.0 % [facility] Comment: Interpretive Data Percent cell count reference ranges are not reported, since discordance with absolute values may lead to misinterpretation of CBC data. Current Interpretive Data was last revised on 2017. Testing performed by: [address] [address] Imm gran pct 0.2 % [facility] Comment: Interpretive Data Percent cell count reference ranges are not reported, since discordance with absolute values may lead to misinterpretation of CBC data. Current Interpretive Data was last revised on 2017. Testing performed by: [address] [address] Lymphocyte pct 16.0 % [facility] Comment: Interpretive Data Percent cell count reference ranges are not reported, since discordance with absolute values may lead to misinterpretation of CBC data. Current Interpretive Data was last revised on 2017. Testing performed by: [address] [address] Monocyte pct 6.7 % [facility] Comment: Interpretive Data Percent cell count reference ranges are not reported, since discordance with absolute values may lead to misinterpretation of CBC data. Current Interpretive Data was last revised on 2017. Testing performed by: [address] [address] Eosinophil pct 2.7 % [facility] Comment: Interpretive Data Percent cell count reference ranges are not reported, since discordance with absolute values may lead to misinterpretation of CBC data. Current Interpretive Data was last revised on 2017. Testing performed by: [address] [address] Basophil pct 0.4 % [facility] Comment: Interpretive Data Percent cell count reference ranges are not reported, since discordance with absolute values may lead to misinterpretation of CBC data. Current Interpretive Data was last revised on 2017. Testing performed by: [address] [address] Blood 07/22/2024 8:05 AM POWDER MIXER 07/22/2024 8:08 AM POWDER MIXER us Milan Reed MD LAB BLOOD ORDERABLES Final R esult [facility] [address] [facility] Department [place] [address] * (ABNORMAL) CBC with auto differential (07/22/2024 8:05 AM POWDER MIXER) WBC 4.8 3.8 - 9.9 K/cumm Comment:Testing performed by : [address] [address] Hgb 12.1(L) 13.0 - 17.5 g/dL [facility] Comment:Testing performed by : [address] [place]., [address] Hct 37.1(L) 38.9 - 50.3 % [facility] Comment:Testing performed by : [address] [address] Plt 155 150 - 400 K/cumm [facility] Comment:Testing performed by : [address] [address] MPV 8.9(L) 9.1 - 12.3 fL [facility] Comment:Testing performed by : [address], [address] RBC 4.53 4.30 - 5.80 M/cumm [facility] Comment:Testing performed by : [address], [address] MCV 81.9 81.3 - 96.4 fL [facility] Comment:Testing performed by : [address] [address] MCH 26.7(L) 27.1 - 33.3 pg [facility] Comment:Testing performed by : [address] [address] MCHC 32.6 32.3 - 35.7 g/dL [facility] Comment:Testing performed by : [address], [address] RDW CV 17.0(H) 11.1 - 14.9 % [facility] Comment:Testing performed by : [address], [address] RDW SD 49.8(H) 35.7 - 48.1 fL [facility] Comment:Testing performed by : [address] [address] NRBC abs 0.00 0.00 - 0.01 K/cumm [facility] Comment:Testing performed by : [address], [address] Blood 07/22/2024 8:05 AM POWDER MIXER 07/22/2024 8:08 AM POWDER MIXER us Milan Reed MD LAB BLOOD ORDERABLES Final R esult [facility] [address] [facility] Department [place] [address] from Last 3 Months Insurance MEDICARE [employer] [place] MEDICARE MEDICARE [facility] Advance Directives For more information, please contact: [phone] * Full Code (Latest Code Status on File) Date Activated Date Inactivated Comments 07/29/2018 1:43 PM 07/30/2018 8:05 PM Care Teams Blueprint Machine Operator Relationship Specialty Start Date End Date Zachariah Sheriff MD PCP - General Family Practice 11/03/18 Cullen Venegas MD [address] [place] [address] Consulting Physician Urology 05/09/21 Milan Reed MD [address] [place] [address] Consulting Physician Internal Medicine 03/20/23 Amrik Painter DO [address] [facility] [facility] [address] BEDS AT [facility] [address] [facility] [address] [place] [address] Referring Physician Cardiology 06/12/23
--- OUTSIDE RECORDS SUMMARY | 2024-10-11 13:56 | XMS_ITS | Encounter Summary ---
Author Organization [facility] Address [address] [place] [address] Care Team Providers Care Continuous Improvement Consultant Name Role Phone Pramod Gomez MD Primary Care Provider [phone] Encounter Details Date Type Department Care Team (Late st Contact Info) Description 10/22/2023 Lab Requisition [facility] - DermPath Lab [address] [facility] [place] [id number] Chito Gore MD [address] [place] [address] Social History Tobacco Use Types [...] Priority Date/Time Associated Diagnosis Comments DERMATOPATHOLOGY Routine 10/21/2023 12:0 0 AM CDT documented in this encounter Results * DERMATOPATHOLOGY (10/21/2023 12:00 AM CDT) Case Report Dermatopathology Report Case: [id number] Authorizing Provider: Chito Gore MD Collected: 10/21/2023 12:00 AM Ordering Location: [facility] - Received: 10/23/2023 06:47 AM DermPath Lab Pathologist: Justa Whatley MD Specimens: A) - Skin, dorsal left radial hand B) - Skin, dorsal left hand proximal to thumb 1:41 PM [facility] DERMATOPATHOLOGY LABORATORY Final Diagnosis Specimen A. 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 SKIN, dorsal left hand proximal to thumb: SOLAR LENTIGO (L81.4) ACTINIC KERATOSIS, FOCAL (L57.0) 1:41 PM T DERMATOPATHOLOGY LABORATORY Clinical History A: R/O SCC B: R/O SCC 1:41 PM CDT DERMATOPATHOLOGY LABORATORY Gross Description Specimen A: Received is one formalin filled container labeled with the patient's name and designated dorsal left radial hand. The specimen consists of a shave biopsy measuring 30e97y6 mm. Jar 0. Specimen B: Received is one formalin filled container labeled with the patient's name and designated dorsal left hand proximal to thumb. The specimen consists of a shave biopsy measuring 9x8x1 mm. Jar 0. 1:41 PM [facility] DERMATOPATHOLOGY LABORATORY Microscopic Description Specimen A. SKIN, dorsal left radial hand: Sections show an endo exophytic crateriform lesion with a keratotic plug, formed by confluent follicle-like structures with relatively large keratinocytes and neutrophilic abscesses. Specimen B. SKIN, dorsal left hand proximal to thumb: There is orthokeratosis. There is a slight increase in epidermal thickness with lentiginous buds of hyperpigmented keratinocytes. The number of melanocytes is only mildly increased. In the dermis, there is basophilic degeneration of elastic fibers. Focally, there is parakeratosis. The lower half of the epidermis shows disorderly maturation of keratinocytes with nuclear pleomorphism. 1:41 PM [facility] DERMATOPATHOLOGY LABORATORY Disclaimer An external and internal positive and negative controls are appropriate for the histochemical, immunohistochemical and immunofluorescence stain(s) in this case (if any), except where stated explicitly. The performance characteristics of the stain(s) cited in this report were developed and its performance characteristic determined by the Dermatopathology Laboratory at [facility], directed by Dr. Diego Davison. These tests need not be, and therefore are not, approved by the [place] Food and Drug Administration. The tests are used for clinical purposes. Billing Codes Specimen Charges Stain Charges 59560 49195 1 1 4 1:41 PM CDT DERMATOPATHOLOGY LABORATORY Embedded Images 4 1:41 PM CDT DERMATOPATHOLOGY LABORATORY Pathology/Cytology TISSUE SPECIMEN FROM SKIN / Unknown 10/21/2023 10/23/2023 6:47 AM CDT Miscellaneous samples (specimen) TISSUE SPECIMEN FROM SKIN / Unknown 10/21/2023 10/23/2023 6:47 AM CDT Chito Gore MD LAB - PATHOLOGY/CYTO LOGY ORDERABLES DERMATOPATHOLOGY LABORATORY [facility] - Department of Dermatology [facility] Medicine [address] [place] [address], [address] [phone] documented in this encounter Visit Diagnoses Not on filedocumented in this encounter Care Teams Continuous Improvement Consultant Relationship Specialty Start Date End Date Pramod Gomez MD [address] [place] [address] PCP - General 10/16/10 documented as of this encounter
--- OUTSIDE RECORDS SUMMARY | 2024-10-11 13:56 | XMS_ITS | Clinical Summary ---
Author Organization [facility] Address [address] [place] [address] Care Team Providers Care Calender Let Off Operator Name Role Phone Pramod Gomez MD Primary Care Provider [phone] Source Comments [facility],non-owned Affiliates and Associated Physician Practices is amultiple site organization consisting of ambulatory clinics and hospital sitesin [place], [place], [place] and [place]. This disclosure is being madepursuant to the Care Everywhere program and may not contain all information available regarding this patient. 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 04/20/2015 Family History Medical History Relation Name Comments Cancer - Skin, Non Melanoma Brother Relation Name Status Comments Brother Social History Tobacco Use Types Packs/Day Years Used Date Smoking Tobacco: Never Smokeless Tobacco: Never Alcohol Use Standard Drinks/Week Comments Yes 0.8 (1 standard drink = 0.6 oz p ure alcohol) Sex and Gender Information Value Date Recorded Sex Assigned at Not on file Gender Identity Not on file Sexual Orientation Not on file Plan of Treatment Health Maintenance Due Date Last Done Comments MEDICARE AWV 12 MONTHS 1938 DTAP/TDAP/TD VACCINES (1 - Tdap) 1957 PNEUMOCOCCAL VACCINE 50+ (1 of 1 - PCV) 1988 ZOSTER VACCINE (1 of 2) 1988 Respiratory Syncytial Virus (RSV) Vaccine Pt: or over 60 yrs (1 - 1-dose 75+ series) 2013 COVID-19 VACCINE ( - 2023-2 5 season) 2024 DEPRESSION SCREENING 07/07/2024 INFLUENZA VACCINE (Season Ended) 2025 HEPATITIS B VACCINE Aged Out No longe r eligible based on patient's age to complete this topic HIB VACCINE Aged Out No longer eligi ble based on patient's age to complete this topic HPV VACCINE Aged Out No longer eligi ble based on patient's age to complete this topic MENINGOCOCCAL (Group B) VACC INE SHARED DECISION-MAKING Aged Out No longer eligibl e based on patient's age to complete this topic MENINGOCOCCAL GROUPS A/C/Y/W VACCINE Aged Out No longer eligible b ased on patient's age to complete this topic Care Teams Calender Let Off Operator Relationship Specialty Start Date End Date Pramod Gomez MD [address] [place] [address] PCP - General 10/16/10
--- OUTSIDE RECORDS SUMMARY | 2024-10-11 13:56 | XMS_ITS ---
Author Organization [facility] Address [address] [place] [address] Care Team Providers Care Industrial Locomotive Operator Name Role Phone Zachariah Sheriff MD Primary Care Provider Cullen Venegas MD Unavailable [phone] Milan Reed MD Unavailable [phone] Amrik Painter DO Unavailable Active Problems Problem Noted Date Diagnosed Date Need for immunization against influenza 05/20/20 24 Cardiac pacemaker in situ 04/07/2024 Overview (04/14/2024): [employer] Marielos Dual Pacemaker. Dx: CHB DOI 04/07/2024 - [facility]. Card-Dr Painter. 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 Other Current Plans 2024 - 2025 Influenza Vaccine ([facility])* Plan Start Date: 05/20/2024 Plan Provider:Milan Reed MD Linked Problems Need for immunization agains t influenza Treatment Medications No medications scheduled. IMMUNE GLOBULIN (GAMUNEX-C/GAMMAKED)( 3 CYCLES BEFORE EPIC)* Plan Start Date: 01/08/2018 Plan Provider:Milan Reed MD Linked Problems Common variable agammaglobul inemia Treatment Medications No medications scheduled. Past Treatment and Therapy Plans No past plan information found. Lifetime Dose Tracking * Chemical Lifetime Dose Automatic Entry Manual Entr y DLP 1,593 mGycm 1,593 mGycm 0 mGycm
--- OUTSIDE RECORDS SUMMARY | 2024-10-11 13:56 | XMS_ITS | Encounter Summary ---
Author Organization [facility] Address [address] [place] [address] Care Team Providers Care Professor Of Voice Name Role Phone Pramod Gomez MD Primary Care Provider [phone] Encounter Details Date Type Department Care Team (Late st Contact Info) Description 01/21/2019 Lab Requisition [facility] Care DermPath Lab [address] [facility] [place] [phone] Chito Gore MD [address] [place] [address] Social History Tobacco Use Types [...] Priority Date/Time Associated Diagnosis Comments DERMATOPATHOLOGY Routine 01/20/2019 12:0 0 AM CDT documented in this encounter Results * DERMATOPATHOLOGY (01/20/2019 12:00 AM CDT) Case Report Dermatopathology Report Case: [id number] Authorizing Provider: Chito Gore MD Collected: 01/20/2019 12:00 AM Pathologist: John Davison MD Received: 01/21/2019 11:39 AM Specimen: Skin, left forearm 3:46 PM T DERMATOPATHOLOGY LABORATORY Final Diagnosis Specimen A. SKIN, left forearm: HYPERPLASTIC (HYPERTROPHIC) ACTINIC KERATOSIS; NOT PRESENT AT MARGIN (L57.0) BENIGN VERRUCOUS KERATOSIS, INFLAMED; NOT PRESENT AT MARGIN (L82.1) DERMAL FIBROSIS (L90.5) 3:46 PM T DERMATOPATHOLOGY LABORATORY Clinical History R/O SCC, HAK, ISK. Check margins. 3:46 PM CDT DERMATOPATHOLOGY LABORATORY Gross Description Specimen A: Received is one formalin filled container labeled with the patients name and designated left forearm. The specimen consists of a shave removal measuring [id number]. The margin is inked green. Jar 0. 3:46 PM T DERMATOPATHOLOGY LABORATORY Microscopic Description Specimen A. SKIN, left forearm: There is hyperkeratosis alternating with parakeratosis. There is epidermal hyperplasia with disorderly maturation of keratinocytes with nuclear pleomorphism confined to the lower half of the epidermis. This lesion is not present at the sampled margin of the specimen. Sections also show and adjecent lesion with hyperkeratosis, papillomatosis, hypergranulosis, and acanthosis. Inflammatory cells are present within the dermis. These histological findings can be seen in a verruca vulgaris or a seborrheic keratosis. This lesion is not present at the sampled margin of the specimen. There is focal dermal fibrosis at the base of the specimen. 3:46 PM T DERMATOPATHOLOGY LABORATORY Disclaimer An external and internal positive and negative controls are appropriate for the histochemical, immunohistochemical and immunofluorescence stain(s) in this case (if any), except where stated explicitly. The performance characteristics of the stain(s) cited in this report were developed and its performance characteristic determined by the Dermatopathology Laboratory at [facility], directed by Dr. Diego Davison. These tests need not be, and therefore are not, approved by the [place] Food and Drug Administration. The tests are used for clinical purposes. Billing Codes Specimen Charges Stain Charges 99767 1 07/19/201 9 3:46 PM CDT DERMATOPATHOLOGY LABORATORY Embedded Images 9 3:46 PM CDT DERMATOPATHOLOGY LABORATORY Pathology/Cytolog y TISSUE SPECIMEN FROM SKIN / Unknown 01/20/2019 01/21/2019 11:39 AM CDT Chito Gore MD LAB - PATHOLOGY/CYTO LOGY ORDERABLES DERMATOPATHOLOGY LABORATORY [facility] - Department of Dermatology [address] [place] [address] 5th Floor Lab [address] [phone] documented in this encounter Visit Diagnoses Not on filedocumented in this encounter Care Teams Professor Of Voice Relationship Specialty Start Date End Date Pramod Gomez MD [address] [place] [phone] PCP - General 10/16/10 documented as of this encounter
--- OUTSIDE RECORDS SUMMARY | 2024-10-11 13:56 | XMS_ITS | Referral Summary ---
Author Organization [facility] Address [address] [place] [address] Care Team Providers Care Data Communications Software Consultant Name Role Phone Zachariah Sheriff MD Primary Care Provider Cullen Venegas MD Unavailable [phone] Milan Reed MD Unavailable Amrik Painter DO Unavailable [phone] Encounters Date Type Department Care Team Description 09/22/2024 8:45 AM CDT Ancillary Procedure [facility] Cardiology [address] [phone] Cardiac pacemaker in situ (Primary Dx); Right bundle branch block; CHB (complete heart block) (HCC) 09/22/2024 8:15 AM CDT Clinical Support [address] [id number] Chronic lymphocytic leukemia (HCC); Hypogammaglobulinemia 09/22/2024 9:00 AM CDT Infusion [facility] at [address] [place] [address] Chronic lymphoid leukemia, without mention of having achieved remission(204.10) (HCC) (Primary Dx); Chronic lymphocytic leukemia (HCC); Hypogammaglobulinemia; Common variable agammaglobulinemia 08/19/2024 7:30 AM CLINICAL FIELD SPECIALIST Clinical Support [facility] at [address] [address] Chronic lymphocytic leukemia (HCC); Hypogammaglobulinemia 08/19/2024 8:45 AM CLINICAL FIELD SPECIALIST Infusion [facility] at [address] [address] Chronic lymphoid leukemia, without mention of having achieved remission(204.10) (HCC) (Primary Dx); Chronic lymphocytic leukemia (HCC); Hypogammaglobulinemia; Common variable agammaglobulinemia 07/22/2024 8:15 AM CLINICAL FIELD SPECIALIST Clinical Support [facility] at [address] [address] Chronic lymphocytic leukemia (HCC); Hypogammaglobulinemia 07/22/2024 8:45 AM CLINICAL FIELD SPECIALIST Infusion [facility] at [address] [phone] Chronic lymphoid leukemia, without mention of having achieved remission(204.10) (HCC) (Primary Dx); Chronic lymphocytic leukemia (HCC); Hypogammaglobulinemia; Common variable agammaglobulinemia from Last 3 Months Allergies No known active allergies Medications fexofenadine [...] Date Need for immunization against influenza 05/20/20 Cardiac pacemaker in situ 04/07/2024 Overview (04/14/2024): Medtronic Marielos Dual Pacemaker. Dx: CHB DOI 04/07/2024 - Luis Enrique. [facility] remote. Card-Dr Painter. 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 Rash 06/17/2016 Other diseases of nasal cavity and sinuses 06/11 Postnasal drip 06/11/2016 Headache 01/29/2016 Unspecified malignant neopla sm of skin of other parts of face 04/20/2015 Weight loss 06/06/2014 Immunizations Immunization Administration Dates Next Due Influenza, Quadrivalent, Jeannette l Culture-based MDCK, Preservative Free, Antibiotic Free, Intramuscular 04/17/2022 Influenza, Quadrivalent, Hig h Dose, Preservative Free, Intrr 02/19/2020 Influenza, Trivalent, High D ose, Split, Preservative Free, Intramuscular 05/20/2024,03/16/2019,04/07/2018 Influenza, Unspecified 04/18/2021,2017,04/24/2017,04/29,03/02/2015,06/06/2014,06/07/2013 Moderna SARS-CoV-2 Monovalen t Vaccination (12+ YRS) 05/02/2021,09/25/2020,08/17/2020 Pneumococcal Conjugate PCV 13 05/05/2019 Pneumococcal Conjugate, Unspecified 04/29/2016 Social History Tobacco Use Types Packs/Day Years [...] on file Legal Sex Male 7:53 PM CLINICAL FIELD SPECIALIST Gender Identity Not on file Sexual Orientation Not on file Last Filed Vital Signs Vital Sign Reading [...] 09/22/2024 8:38 AM CDT Plan of Treatment Not on file Medical Devices Implanted Type Area Employee Placement Specialist Device Identifier Shelf Expiration Date Model / [...] DIFFERENTIAL AUTO Routine 08/19/2024 7:4 9 AM CLINICAL FIELD SPECIALIST Chronic lymphocytic leukemia (HCC) Hypogammaglobulinem ia CBC WITH AUTO DIFFERENTIAL Routine 08/19/2024 7:49 AM CLINICAL FIELD SPECIALIST Chronic lymphocytic leukemia (HCC) Hypogammaglobulinem ia DIFFERENTIAL AUTO Routine 07/22/2024 8:0 5 AM CLINICAL FIELD SPECIALIST Chronic lymphocytic leukemia (HCC) Hypogammaglobulinem ia CBC WITH AUTO DIFFERENTIAL Routine 07/22/2024 8:05 AM CLINICAL FIELD SPECIALIST Chronic lymphocytic leukemia (HCC) Hypogammaglobulinem ia from Last 3 Months Results * DEVICE CHECK - REMOTE (09/22/2024 1:07 PM CDT) Anatomical Region Laterality Modality Other Narrative 09/28/2024 11:12 AM CDT Medtronic Colerain dual pacemaker. Dx: CHB DOI 04/07/2024 - Luis Enrique Routine AAI <> DDD Pacemaker Remote. Transmission attached. Battery status: 3.20 V, 13.8 years remaining battery life to DARIUSZ. Stable lead impedances, pacing and sensing thresholds. Presenting rhythm: /VS AP-10.0%, COIL TIER-2.1% 15 AT/AF episodes noted, longest episode was 6 minutes and 21 seconds in duration, available IEGM demonstrates atrial tachycardia. AF [place] < 0.1%. 62 Ventricular high rate episodes detected, IEGM demonstrates SVT. The longest episode was 5 minutes and 18 seconds Medications: Toprol-XL 25 mg, Entresto 24-26 mg See scanned report. Office pacemaker follow up: 9 months [employer] remote f/u 12/29/24. Chito Ruiz, RN Carmelo Dudley MD CV CARDIAC SERVICES PROC EDURES Final Result * (ABNORMAL) Differential, auto (09/22/2024 8:27 AM CDT) Neutrophil abs 3.5 1.5 - 6.5 K/cumm Comment:Testing performed by : [address] [address] Imm gran abs 0.0 0.0 - 0.1 K/cumm [facility] Comment:Testing performed by : [address] [address] Lymphocyte abs 0.7(L) 0.8 - 3.3 K/cumm [facility] Comment:Testing performed by : [address] [address] Monocyte abs 0.3 0.2 - 0.8 K/cumm [facility] Comment:Testing performed by : [address] [address] Eosinophil abs 0.1 0.0 - 0.5 K/cumm [facility] Comment:Testing performed by : [address] [address] Basophil abs 0.0 0.0 - 0.1 K/cumm [facility] Comment:Testing performed by : [address] [address] Neutrophil pct 75.2 % [facility] Comment: Interpretive Data Percent cell count reference ranges are not reported, since discordance with absolute values may lead to misinterpretation of CBC data. Current Interpretive Data was last revised on 2017. Testing performed by: [address] [address] Imm gran pct 0.2 % [facility] Comment: Interpretive Data Percent cell count reference ranges are not reported, since discordance with absolute values may lead to misinterpretation of CBC data. Current Interpretive Data was last revised on 2017. Testing performed by: [address] [address] Lymphocyte pct 14.9 % [facility] Comment: Interpretive Data Percent cell count reference ranges are not reported, since discordance with absolute values may lead to misinterpretation of CBC data. Current Interpretive Data was last revised on 2017. Testing performed by: [address] [address] Monocyte pct 7.2 % [facility] Comment: Interpretive Data Percent cell count reference ranges are not reported, since discordance with absolute values may lead to misinterpretation of CBC data. Current Interpretive Data was last revised on 2017. Testing performed by: [address] [address] Eosinophil pct 2.3 % [facility] Comment: Interpretive Data Percent cell count reference ranges are not reported, since discordance with absolute values may lead to misinterpretation of CBC data. Current Interpretive Data was last revised on 2017. Testing performed by: [address] [address] Basophil pct 0.2 % [facility] Comment: Interpretive Data Percent cell count reference ranges are not reported, since discordance with absolute values may lead to misinterpretation of CBC data. Current Interpretive Data was last revised on 2017. Testing performed by: [address] [address] Blood 09/22/2024 8:27 AM CDT 09/22/2024 8:33 AM CDT us Milan Reed MD LAB BLOOD ORDERABLES Final R esult [facility] [address] [facility] Department [place] [address] * (ABNORMAL) CBC with auto differential (09/22/2024 8:27 AM CDT) WBC 4.7 3.8 - 9.9 K/cumm Comment:Testing performed by : [address] [address] Hgb 12.0(L) 13.0 - 17.5 g/dL [facility] Comment:Testing performed by : [address] [address] Hct 37.3(L) 38.9 - 50.3 % [facility] Comment:Testing performed by : [address] [address] Plt 134(L) 150 - 400 K/cumm [facility] Comment:Testing performed by : [address] [address] MPV 8.8(L) 9.1 - 12.3 fL [facility] Comment:Testing performed by : [address] [address] RBC 4.41 4.30 - 5.80 M/cumm [facility] Comment:Testing performed by : [address] [address] MCV 84.6 81.3 - 96.4 fL [facility] Comment:Testing performed by : [address] [address] MCH 27.2 27.1 - 33.3 pg [facility] SADLER Comment:Testing performed by : [address] [address] MCHC 32.2(L) 32.3 - 35.7 g/dL [facility] SADLER Comment:Testing performed by : [address] [address] RDW CV 15.6(H) 11.1 - 14.9 % [facility] SADLER Comment:Testing performed by : [address] [address] RDW SD 47.4 35.7 - 48.1 fL [facility] SADLER Comment:Testing performed by : [address] [address] NRBC abs 0.00 0.00 - 0.01 K/cumm [facility] SADLER Comment:Testing performed by : [address] [address] Blood 09/22/2024 8:27 AM CDT 09/22/2024 8:33 AM CDT us Milan Reed MD LAB BLOOD ORDERABLES Final R esult [facility] [address] [facility] Department [place] [address] * Differential, auto (08/19/2024 7:49 AM CLINICAL FIELD SPECIALIST) Pathologist [facility] Neutrophil abs 2.8 1.5 - 6.5 K/cumm Comment:Testing performed by : [address] [address] Imm gran abs 0.0 0.0 - 0.1 K/cumm [facility] Comment:Testing performed by : [address] [address] Lymphocyte abs 0.8 0.8 - 3.3 K/cumm [facility] SADLER Comment:Testing performed by : [address] [address] Monocyte abs 0.3 0.2 - 0.8 K/cumm [facility] SADLER Comment:Testing performed by : [address] [place] [address] Eosinophil abs 0.1 0.0 - 0.5 K/cumm [facility] Comment:Testing performed by : [address] [address] Basophil abs 0.0 0.0 - 0.1 K/cumm [facility] Comment:Testing performed by : [address] [address] Neutrophil pct 70.1 % [facility] Comment: Interpretive Data Percent cell count reference ranges are not reported, since discordance with absolute values may lead to misinterpretation of CBC data. Current Interpretive Data was last revised on 2017. Testing performed by: [address] [address] Imm gran pct 0.3 % [facility] Comment: Interpretive Data Percent cell count reference ranges are not reported, since discordance with absolute values may lead to misinterpretation of CBC data. Current Interpretive Data was last revised on 2017. Testing performed by: [address] [address] Lymphocyte pct 19.0 % [facility] Comment: Interpretive Data Percent cell count reference ranges are not reported, since discordance with absolute values may lead to misinterpretation of CBC data. Current Interpretive Data was last revised on 2017. Testing performed by: [address] [address] Monocyte pct 7.3 % [facility] Comment: Interpretive Data Percent cell count reference ranges are not reported, since discordance with absolute values may lead to misinterpretation of CBC data. Current Interpretive Data was last revised on 2017. Testing performed by: [address] [address] Eosinophil pct 3.0 % [facility] Comment: Interpretive Data Percent cell count reference ranges are not reported, since discordance with absolute values may lead to misinterpretation of CBC data. Current Interpretive Data was last revised on 2017. Testing performed by: [address] [address] Basophil pct 0.3 % [facility] Comment: Interpretive Data Percent cell count reference ranges are not reported, since discordance with absolute values may lead to misinterpretation of CBC data. Current Interpretive Data was last revised on 2017. Testing performed by: [address] [address] Blood 08/19/2024 7:49 AM CLINICAL FIELD SPECIALIST 08/19/2024 7:51 AM CLINICAL FIELD SPECIALIST us Milan Reed MD LAB BLOOD ORDERABLES Final R esult [facility] [address] [facility] Department [place] [address] * (ABNORMAL) CBC with auto differential (08/19/2024 7:49 AM CLINICAL FIELD SPECIALIST) WBC 4.0 3.8 - 9.9 K/cumm Comment:Testing performed by : [address] [address] Hgb 12.0(L) 13.0 - 17.5 g/dL [facility] Comment:Testing performed by : [address] [address] Hct 37.0(L) 38.9 - 50.3 % [facility] Comment:Testing performed by : [address] [address] Plt 137(L) 150 - 400 K/cumm [facility] Comment:Testing performed by : [address] [address] MPV 9.2 9.1 - 12.3 fL [facility] Comment:Testing performed by : [address] [address] RBC 4.43 4.30 - 5.80 M/cumm [facility] Comment:Testing performed by : [address] [address] MCV 83.5 81.3 - 96.4 fL [facility] Comment:Testing performed by : [address] [address] MCH 27.1 27.1 - 33.3 pg [facility] Comment:Testing performed by : [address] [address] MCHC 32.4 32.3 - 35.7 g/dL [facility] Comment:Testing performed by : [address] [address] RDW CV 16.4(H) 11.1 - 14.9 % [facility] SADLER Comment:Testing performed by : [address] [address] RDW SD 49.7(H) 35.7 - 48.1 fL [facility] Comment:Testing performed by : [address] [address] NRBC abs 0.00 0.00 - 0.01 K/cumm [facility] Comment:Testing performed by : [address] [address] Blood 08/19/2024 7:49 AM CLINICAL FIELD SPECIALIST 08/19/2024 7:51 AM CLINICAL FIELD SPECIALIST us Milan Reed MD LAB BLOOD ORDERABLES Final R esult [facility] [address] [facility] Department of Laboratories [place], [place] [id number] * Differential, auto (07/22/2024 8:05 AM CLINICAL FIELD SPECIALIST) Pathologist [facility] Neutrophil abs 3.6 1.5 - 6.5 K/cumm Comment:Testing performed by : [address] [address] Imm gran abs 0.0 0.0 - 0.1 K/cumm [facility] Comment:Testing performed by : [address] [address] Lymphocyte abs 0.8 0.8 - 3.3 K/cumm [facility] Comment:Testing performed by : [address] [address] Monocyte abs 0.3 0.2 - 0.8 K/cumm [facility] Comment:Testing performed by : [address] [address] Eosinophil abs 0.1 0.0 - 0.5 K/cumm [facility] Comment:Testing performed by : [address] [address] Basophil abs 0.0 0.0 - 0.1 K/cumm [facility] Comment:Testing performed by : [address] [address] Neutrophil pct 74.0 % [facility] Comment: Interpretive Data Percent cell count reference ranges are not reported, since discordance with absolute values may lead to misinterpretation of CBC data. Current Interpretive Data was last revised on 2017. Testing performed by: [address] [address] Imm gran pct 0.2 % [facility] Comment: Interpretive Data Percent cell count reference ranges are not reported, since discordance with absolute values may lead to misinterpretation of CBC data. Current Interpretive Data was last revised on 2017. Testing performed by: [address] [address] Lymphocyte pct 16.0 % [facility] Comment: Interpretive Data Percent cell count reference ranges are not reported, since discordance with absolute values may lead to misinterpretation of CBC data. Current Interpretive Data was last revised on 2017. Testing performed by: [address] [address] Monocyte pct 6.7 % [facility] Comment: Interpretive Data Percent cell count reference ranges are not reported, since discordance with absolute values may lead to misinterpretation of CBC data. Current Interpretive Data was last revised on 2017. Testing performed by: [address] [address] Eosinophil pct 2.7 % [facility] Comment: Interpretive Data Percent cell count reference ranges are not reported, since discordance with absolute values may lead to misinterpretation of CBC data. Current Interpretive Data was last revised on 2017. Testing performed by: [address] [address] Basophil pct 0.4 % [facility] Comment: Interpretive Data Percent cell count reference ranges are not reported, since discordance with absolute values may lead to misinterpretation of CBC data. Current Interpretive Data was last revised on 2017. Testing performed by: [address] [address] Blood 07/22/2024 8:05 AM CLINICAL FIELD SPECIALIST 07/22/2024 8:08 AM CLINICAL FIELD SPECIALIST us Milan Reed MD LAB BLOOD ORDERABLES Final R esult [facility] [address] [facility] Department [place] [address] * (ABNORMAL) CBC with auto differential (07/22/2024 8:05 AM CLINICAL FIELD SPECIALIST) WBC 4.8 3.8 - 9.9 K/cumm Comment:Testing performed by : [address] [address] Hgb 12.1(L) 13.0 - 17.5 g/dL [facility] Comment:Testing performed by : [address] [address] Hct 37.1(L) 38.9 - 50.3 % [facility] Comment:Testing performed by : [address] [address] Plt 155 150 - 400 K/cumm [facility] Comment:Testing performed by : [address] [address] MPV 8.9(L) 9.1 - 12.3 fL [facility] Comment:Testing performed by : [address] [address] RBC 4.53 4.30 - 5.80 M/cumm [facility] Comment:Testing performed by : [address] [address] MCV 81.9 81.3 - 96.4 fL [facility] Comment:Testing performed by : [address] [address] MCH 26.7(L) 27.1 - 33.3 pg [facility] SADLER Comment:Testing performed by : [address] [address] MCHC 32.6 32.3 - 35.7 g/dL [facility] SADLER Comment:Testing performed by : [address] [address] RDW CV 17.0(H) 11.1 - 14.9 % [facility] SADLER Comment:Testing performed by : [address] [address] RDW SD 49.8(H) 35.7 - 48.1 fL [facility] SADLER Comment:Testing performed by : [facility], [address] [place] [address]., [address] NRBC abs 0.00 0.00 - 0.01 K/cumm [facility] SADLER Comment:Testing performed by : [address] [address] Blood 07/22/2024 8:05 AM CLINICAL FIELD SPECIALIST 07/22/2024 8:08 AM CLINICAL FIELD SPECIALIST Milan Reed MD LAB BLOOD ORDERABLES Final R esult [facility] [address] [facility] Department [place] [address] from Last 3 Months Insurance MEDICARE [facility] MEDICARE MEDICARE [facility] Advance Directives For more information, please contact: [phone] * Full Code (Latest Code Status on File) Date Activated Date Inactivated Comments 07/29/2018 1:43 PM 07/30/2018 8:05 PM Care Teams Data Communications Software Consultant Relationship Specialty Start Date End Date Zachariah Sheriff MD PCP - General Family Practice 11/03/18 Cullen Venegas MD [address] [place] [address] Consulting Physician Urology 05/09/21 Milan Reed MD [address] [place] [address] Consulting Physician Internal Medicine 03/20/23 Amrik Painter DO [address] [place], [place] [id number] Referring Physician Cardiology 06/12/23
--- OUTSIDE RECORDS SUMMARY | 2024-10-11 13:56 | XMS_ITS | Encounter Summary ---
Author Organization [facility] Address [address] [place] [address] Care Team Providers Care Sheet Rock Sander Name Role Phone Pramod Gomez MD Primary Care Provider [phone] Encounter Details Date Type Department Care Team (Late st Contact Info) Description 10/23/2022 Lab Requisition [facility] D[facility] [address] [facility] [place] [address] Chito Gore MD [address] [place] [address] Social History Tobacco Use Types [...] Priority Date/Time Associated Diagnosis Comments DERMATOPATHOLOGY Routine 10/22/2022 12:0 0 AM CDT documented in this encounter Results * DERMATOPATHOLOGY (10/22/2022 12:00 AM CDT) Case Report Dermatopathology Report Case: [id number] Authorizing Provider: Chito Gore MD Collected: 10/22/2022 12:00 AM Ordering Location: [facility] Lab Received: 10/23/2022 02:07 PM Pathologist: John Davison MD Specimen: Skin, right lower lateral back 3 6:29 PM CDT DERMATOPATHOLOGY LABORATORY Final Diagnosis Specimen A. SKIN, right lower lateral back: SEBORRHEIC KERATOSIS, IRRITATED (L82.0) 3 6:29 PM CDT DERMATOPATHOLOGY LABORATORY Clinical History R/O SK, ISK, Other 3 6:29 PM CDT DERMATOPATHOLOGY LABORATORY Gross Description Specimen A: Received is one formalin filled container labeled with the patient's name and designated right lower lateral back. The specimen consists of a shave biopsy measuring [id number] mm. Jar 0. 3 6:29 PM CDT DERMATOPATHOLOGY LABORATORY Microscopic Description Specimen A. SKIN, right lower lateral back: There is acanthosis consisting of fairly uniform squamous cells with eosinophilic cytoplasm and squamous eddies. 3 6:29 PM CDT DERMATOPATHOLOGY LABORATORY Disclaimer An external and internal positive and negative controls are appropriate for the histochemical, immunohistochemical and immunofluorescence stain(s) in this case (if any), except where stated explicitly. The performance characteristics of the stain(s) cited in this report were developed and its performance characteristic determined by the Dermatopathology Laboratory at [facility], directed by Dr. Diego Davison. These tests need not be, and therefore are not, approved by the [place] Food and Drug Administration. The tests are used for clinical purposes. Billing Codes Specimen Charges Stain Charges 18396 1 3 6:29 PM CDT DERMATOPATHOLOGY LABORATORY Embedded Images 3 6:29 PM CDT DERMATOPATHOLOGY LABORATORY Pathology/Cytolog y TISSUE SPECIMEN FROM SKIN / Unknown 10/22/2022 10/23/2022 2:07 PM CDT Chito Gore MD LAB - PATHOLOGY/CYTO LOGY ORDERABLES DERMATOPATHOLOGY LABORATORY [facility] - Department of Dermatology [address] [phone] documented in this encounter Visit Diagnoses Not on filedocumented in this encounter Care Teams Sheet Rock Sander Relationship Specialty Start Date End Date Pramod Gomez MD [address] [place] [phone] PCP - General 10/16/10 documented as of this encounter
--- OUTSIDE RECORDS SUMMARY | 2024-10-11 13:56 | XMS_ITS | Encounter Summary ---
Author Organization [facility] Address [address] [address] Care Team Providers Care Electrical Power Station Technician Name Role Phone Pramod Gomez MD Primary Care Provider [phone] Encounter Details Date Type Department Care Team (Late st Contact Info) Description 12/18/2023 Lab Requisition [facility] - DermPath Lab [address], [place] [phone] Chito Gore MD [address] [place] [address] Social History Tobacco Use Types [...] Priority Date/Time Associated Diagnosis Comments DERMATOPATHOLOGY Routine 12/16/2023 12:0 0 AM CDT documented in this encounter Results * DERMATOPATHOLOGY (12/16/2023 12:00 AM CDT) Case Report Dermatopathology Report Case: [id number] Authorizing Provider: Chito Gore MD Collected: 12/16/2023 12:00 AM Ordering Location: [facility] - Received: 12/18/2023 08:19 AM DermPath Lab Pathologist: Justa Whatley MD Specimen: Skin, left side of neck below earlobe 12:09 PM CDT DERMATOPATHOLOGY LABORATORY Final Diagnosis Specimen A. 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 The specimen consists of a shave biopsy measuring 8x7x1 mm. Jar 0. 12:09 PM CDT DERMATOPATHOLOGY LABORATORY Microscopic Description Specimen A. SKIN, left side of neck below earlobe: Sections show skin with irregularly shaped nests of keratinocytes with evidence of cornification. In some nests, there is loss of cohesion between the neoplastic cells, as well as individual dyskeratotic cells that lack intercellular bridges. 12:09 PM CDT DERMATOPATHOLOGY LABORATORY Disclaimer An external and internal positive and negative controls are appropriate for the histochemical, immunohistochemical and immunofluorescence stain(s) in this case (if any), except where stated explicitly. The performance characteristics of the stain(s) cited in this report were developed and its performance characteristic determined by the Dermatopathology Laboratory at [facility], directed by Dr. Diego Davison. These tests need not be, and therefore are not, approved by the [place] Food and Drug Administration. The tests are used for clinical purposes. Billing Codes Specimen Charges Stain Charges 00505 1 12:09 PM CDT DERMATOPATHOLOGY LABORATORY Embedded Images 12:09 PM CDT DERMATOPATHOLOGY LABORATORY Pathology/Cytolog y TISSUE SPECIMEN FROM SKIN / Unknown 12/16/2023 12/18/2023 8:19 AM CDT Chito Gore MD LAB - PATHOLOGY/CYTO LOGY ORDERABLES DERMATOPATHOLOGY LABORATORY [facility] - Department of Dermatology [facility] [address] [place] [address], [address] [phone] documented in this encounter Visit Diagnoses Not on filedocumented in this encounter Care Teams Electrical Power Station Technician Relationship Specialty Start Date End Date Pramod Gomez MD [address] [place] [address] PCP - General 10/16/10 documented as of this encounter
--- OUTSIDE RECORDS SUMMARY | 2024-10-11 13:56 | XMS_ITS | Clinical Summary ---
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 Gender Identity Not on file Sexual Orientation Not on file Plan of Treatment Health Maintenance Due Date Last Done Comments DTaP, Tdap and Td Vaccines ( 1 - Tdap) 1957 Zoster Vaccines (1 of 2) 1988 Annual Medicare Wellness Visit 10/08/2003 RSV Immunization or 60+ Years (1 - 1-dose 75+ series) 2013 Pneumococcal Vaccine: 65+ Ye ars (2 of 2 - PPSV23 or PCV20) 05/05/2020 05/05/2019 COVID-19 Vaccine (2 - 2023-2 5 season) 2024 08/17/2020 Meningococcal B Vaccine Aged Out No l onger eligible based on patient's age to complete this topic Meningococcal Vaccine Aged Out No silvestre alexandra eligible based on patient's age to complete this topic RSV Immunizations Under 20 Months Aged Out No longer eligible based on patient's age to complete this topic Insurance MEDICARE [facility] Care Teams Vessel Crew Member Relationship Specialty Start Date End Date Zachariah Sheriff MD [address] [place] [address] PCP - General FAMILY PRACTICE 09/15/20
--- OUTSIDE RECORDS SUMMARY | 2024-10-11 13:56 | XMS_ITS | Encounter Summary ---
Author Organization [facility] Address [address] [place] [address] Care Team Providers Care Bone Density Technician Name Role Phone Pramod Gomez MD Primary Care Provider [phone] Encounter Details Date Type Department Care Team (Late st Contact Info) Description 10/11/2021 Lab Requisition [facility] DermPath Lab [address] [place] [address] Chito Gore MD [address] [place] [address] Social History Tobacco Use Types [...] Priority Date/Time Associated Diagnosis Comments DERMATOPATHOLOGY Routine 10/10/2021 12:0 0 AM CDT documented in this encounter Results * DERMATOPATHOLOGY (10/10/2021 12:00 AM CDT) Case Report Dermatopathology Report Case: [id number] Authorizing Provider: Chito Gore MD Collected: 10/10/2021 12:00 AM Ordering Location: [facility] DermPath Lab Received: 10/11/2021 01:43 PM Pathologist: India Whatley MD Specimen: Skin, left ear lobe 1:14 PM CDT DERMATOPATHOLOGY LABORATORY Final Diagnosis Specimen A. SKIN, left ear lobe: SQUAMOUS CELL CARCINOMA, ACANTHOLYTIC TYPE, WITH FOCALLY INFILTRATIVE FEATURES (C44.229) (see microscopic description) 1:14 PM CDT DERMATOPATHOLOGY LABORATORY Clinical History R/O BCC 1:14 PM CDT DERMATOPATHOLOGY LABORATORY Gross Description Specimen A: Received is one formalin filled container labeled with the patient's name and designated left ear lobe. The specimen consists of a shave biopsy measuring [id number]. Jar 0. 1:14 PM CDT DERMATOPATHOLOGY LABORATORY Microscopic Description Specimen A. SKIN, left ear lobe: Sections show skin with irregularly shaped nests of keratinocytes with evidence of cornification. In some nests, there is loss of cohesion between the neoplastic cells, as well as individual dyskeratotic cells that lack intercellular bridges. Focal infiltrative features are present. 1:14 PM CDT DERMATOPATHOLOGY LABORATORY Disclaimer An external and internal positive and negative controls are appropriate for the histochemical, immunohistochemical and immunofluorescence stain(s) in this case (if any), except where stated explicitly. The performance characteristics of the stain(s) cited in this report were developed and its performance characteristic determined by the Dermatopathology Laboratory at [facility], directed by Dr. Diego Davison. These tests need not be, and therefore are not, approved by the [place] Food and Drug Administration. The tests are used for clinical purposes. Billing Codes Specimen Charges Stain Charges 41788 1 1:14 PM CDT DERMATOPATHOLOGY LABORATORY Embedded Images 1:14 PM CDT DERMATOPATHOLOGY LABORATORY Pathology/Cytolog y TISSUE SPECIMEN FROM SKIN / Unknown 10/10/2021 10/11/2021 1:43 PM CDT Chito Gore MD LAB - PATHOLOGY/CYTO LOGY ORDERABLES DERMATOPATHOLOGY LABORATORY [facility] - Department of Dermatology [facility] Specialized Medicine [address] [facility]rd Floor [address] [phone] documented in this encounter Visit Diagnoses Not on filedocumented in this encounter Care Teams Bone Density Technician Relationship Specialty Start Date End Date Pramod Gomez MD [address] [place] [address] PCP - General 10/16/10 documented as of this encounter
--- OUTSIDE RECORDS SUMMARY | 2024-10-11 13:56 | XMS_ITS | Continuity of Care Document ---
Author Organization [facility] Address [address] [place] [address] Phone Care Team Providers Care Equipment Maintenance Superintendent Name Role Phone Dung Paulino MD Unavailable Unavailable Advance Directives Directive Yes / No Effective Date File Name No Information Encounters Encounter Description Practice Location Reason(s) For Visit Diagnoses Date Provider Providers Copied on Encounter formerly [facility], [address], [place], [place], [id number], [place] tel:[phone] [facility] No Information Sep-2 7-200 6 Lora Razo. [address] [facility] [address], [place], [place], [id number], [place]. tel:[phone] Family History Family Member Type Diagnosis Age At Onset No Information Payers Payer name Insurance type Covered green party ID Authoriza tion(s) No Information Social [...]
--- NOTE | 2024-10-11 14:00 | ED.SKABFB ---
HPI - Skin/Abscess/Foreign Bdy General Chief complaint: Skin/Abscess/Foreign Body <Justa Natarajan PA-C - Last Filed: 10/11/24 18:58> Stated complaint: Inhaled a toothpick <Justa Natarajan PA-C - Last Filed: 10/11/24 18:58> Time Seen by Provider: 10/11/24 14:00 <Justa Natarajan PA-C - Last Filed: 10/11/24 18:58> Focused HPI: This is a 84 year old male that presents to the ER for possible foreign body. Reports it is a plastic pick to clean your teeth. This happened yesterday. Reports he inhaled and felt like it has been caught in his throat since. He has been able to eat and drink. Reports he feels like it is caught in his throat. GENERAL: Well-appearing, well-nourished, and in no acute distress. HEAD: Normocephalic, atraumatic. CHEST: Clear to auscultation. ?No respiratory distress. HEART: Regular rate and rhythm.? NEURO: ?Alert and oriented x3. Patient screened in triage and initial orders placed.? ?Additional care and disposition to be based upon?diagnostic testing and treatment. <Justa Natarajan PA-C - Last Filed: 10/11/24 18:58> History of Present Illness HPI narrative: Agree with HPI <Anders Subramanian MD - Last Filed: 10/11/24 16:00> Related Data Home medications: Home Medications ?Medication ?Instructions ?Recorded ?Confirmed ?Last Taken ?Type fexofenadine 180 mg tablet 180 mg PO DAILY 05/27/19 06/01/24 Unknown History (Corrina Allergy) alendronate 70 mg tablet 70 mg PO WEEKLY 05/22/23 06/01/24 03/31/24 History tamsulosin 0.4 mg capsule 0.4 mg PO QHS 05/22/23 06/01/24 Unknown History <Justa Natarajan PA-C - Last Filed: 10/11/24 18:58> Allergies/Adverse reactions: Allergies Allergy/AdvReac Type Severity Reaction Status Date / Time No Known Allergies Allergy Verified 10/11/24 12:16 <Justa Natarajan PA-C - Last Filed: 10/11/24 18:58> Review of Systems Constitutional: Constitutional: Reports no additional constitutional complaints <Anders Subramanian MD - Last Filed: 10/11/24 16:00> ENT: Reports system reviewed and no additional complaints, except as documented <Anders Subramanian MD - Last Filed: 10/11/24 16:00> Cardiovascular: Cardiovascular: Reports no additional cardiovascular complaints <Anders Subramanian MD - Last Filed: 10/11/24 16:00> Respiratory: Respiratory: Reports no additional respiratory complaints <Anders Subramanian MD - Last Filed: 10/11/24 16:00> Gastrointestinal: Gastrointestinal: Reports no additional gastrointestinal complaints <Anders Subramanian MD - Last Filed: 10/11/24 16:00> [facility] Past Medical History Medical History: Medical History Heart failure with reduced ejection fraction EF 40 to 45% in May 2023. Chronic lymphocytic leukemia In remission. Central stenosis of spinal canal Insomnia Cognitive impairment Vitamin D deficiency Prostate cancer Obstructive sleep apnea Essential (primary) hypertension Chronic low back pain Lumbar spondylosis Dyslipidemia Environmental allergies GERD without esophagitis History of subdural hematoma (2018) <Justa Natarajan PA-C - Last Filed: 10/11/24 18:58> Surgical History Surgical History: Surgical History History of benign breast biopsy left History of lumbosacral spine surgery 1960s History of basal cell carcinoma excision (2019) left nose History of neck surgery (2000) Tumor Right side of neck - removed 2008 <Justa Natarajan PA-C - Last Filed: 10/11/24 18:58> Family History Family History: Family History Mother Patient's mother is , Onset Age: 92 Family history of lung cancer Father Family history of type 2 diabetes mellitus Diabetes mellitus, Onset Age: 79 Family history of lung cancer Other Family history of lymphoma <SHIRLENE Waite Last Filed: 10/11/24 18:58> Social History Social History: Social History Social History: Surrogate medical decision maker: Ted Reyes, spouse. Code status: Full code. Smoking status: Never smoker Second hand tobacco smoke exposure: No Alcohol intake: never Substance use: never Substance use type: does not use Do You Feel Safe in your Home?: Yes Lack of Transportation: No Lack of Food: Never True Current Housing: I Have Housing Concerned About Future Housing: No Difficulty Paying Gas/Electric Bills: No Difficulty Paying for Meds: No Currently Unemployed: No Education: High School Diploma/GED Difficulty w/ Childcare or Family Care: No Living arrangements: with family Additional living arrangements comments: Lives with spouse in [place]. Spiritual care concerns: No (pt is amish) <Justa Natarajan PA-C - Last Filed: 10/11/24 18:58> Exam Narrative: GENERAL: Well-appearing, well-nourished, and in no acute distress. HEAD: Normocephalic, atraumatic. ENT: Mucous membranes moist. Normal. Posterior oropharynx. NECK: Supple. CHEST: Clear to auscultation. No respiratory distress. HEART: Regular rate and rhythm. Normal peripheral pulses. ABDOMEN: Soft, nontender, nondistended, normal active bowel sounds. EXTREMITIES: Normal range of motion. No edema. NEURO: Alert and oriented x3. PSYCH: Normal mood and affect. <Anders Subramanian MD - Last Filed: 10/11/24 16:00> Course Course Emergency Course: Patient resting comfortably. Tolerating oral secretions. No difficulty breathing. No abdominal pain. No chest pain. It is felt the patient scratch the back his throat when he swallowed the toothpick. Patient given return precautions. <Anders Subramanian MD - Last Filed: 10/11/24 16:00> Vital Signs Vital signs: Vital Signs Temperature 97.9 F 10/11/24 12:23 Pulse Rate 99 10/11/24 12:23 Respiratory Rate 14 10/11/24 12:23 Blood Pressure 166/76 H 10/11/24 12:23 Pulse Oximetry 99 10/11/24 12:23 Oxygen Delivery Room Air 10/11/24 12:23 Temperature 97.9 F 10/11/24 12:23 Pulse Rate 74 10/11/24 15:45 Respiratory Rate 18 10/11/24 15:45 Blood Pressure 153/84 H 10/11/24 15:45 Pulse Oximetry 97 10/11/24 15:45 Oxygen Delivery Room Air 10/11/24 15:45 <Justa Natarajan PA-C - Last Filed: 10/11/24 18:58> Vital Signs Temperature 97.9 F 10/11/24 12:23 Pulse Rate 99 10/11/24 12:23 Respiratory Rate 14 10/11/24 12:23 Blood Pressure 166/76 H 10/11/24 12:23 Pulse Oximetry 99 10/11/24 12:23 Oxygen Delivery Room Air 10/11/24 12:23 Temperature 97.9 F 10/11/24 12:23 Pulse Rate 74 10/11/24 15:45 Respiratory Rate 18 10/11/24 15:45 Blood Pressure 153/84 H 10/11/24 15:45 Pulse Oximetry 97 10/11/24 15:45 Oxygen Delivery Room Air 10/11/24 15:45 <Anders Subramanian MD - Last Filed: 10/11/24 16:00> MDM - Skin/Abscess/Foreign Bdy Imaging Data Radiologist's impression: ITS Impressions Soft Tissue Neck X-Ray 10/11/24 14:25 IMPRESSION: No definite radiopaque foreign bodies seen. <Anders Subramanian MD - Last Filed: 10/11/24 16:00> Critical Care Time Critical Care Time Critical Care Time: No <Justa Natarajan PA-C - Last Filed: 10/11/24 18:58> Discharge Plan Discharge Clinical Impression: Sore throat <Justa Natarajan PA-C - Last Filed: 10/11/24 18:58> Patient Disposition: Home <Justa Natarajan PA-C - Last Filed: 10/11/24 18:58> Condition: Stable <Justa Natarajan PA-C - Last Filed: 10/11/24 18:58> Instructions: Foreign Body Ingestion (ED) <Justa Natarajan PA-C - Last Filed: 10/11/24 18:58> Additional Instructions: Return to the ER if you have fever over 101F, you cannot keep down food/water, you develop chest pain, you develop abdominal pain, or you have additional concerns. <Justa Natarajan PA-C - Last Filed: 10/11/24 18:58> Patient Language: Guyanese <Justa Natarajan PA-C - Last Filed: 10/11/24 18:58> Prescriptions: No Action fexofenadine [Corrina Allergy] 180 mg tablet 180 mg PO DAILY alendronate 70 mg tablet 70 mg PO WEEKLY Rx Instructions: friday tamsulosin 0.4 mg capsule 0.4 mg PO QHS cefdinir 300 mg capsule 300 mg PO Q12H Qty: 20 0RF azelastine 137 mcg (0.1 %) aerosol,spray 1 spray intranasal Q12H Qty: 90 0RF Rx Instructions: administer into each nostril fluticasone propionate 50 mcg/actuation spray,suspension See Rx Instructions .ROUTE .COMPLEX Qty: 48 1RF Dose Instruction: SPRAY 2 SPRAYS INTO EACH NOSTRIL EVERY DAY Rx Instructions: SPRAY 2 SPRAYS INTO EACH NOSTRIL EVERY DAY dicyclomine 20 mg tablet 20 mg PO BID Qty: 180 1RF omeprazole 40 mg capsule,delayed release(DR/EC) 40 mg PO DAILY Qty: 90 0RF Rx Instructions: last refill until seen. metoprolol succinate 25 mg tablet extended release 24 hr 12.5 mg PO Q12H Qty: 45 2RF Entresto 24-26 mg tablet See Rx Instructions .ROUTE .COMPLEX Qty: 60 5RF Dose Instruction: TAKE 1 TABLET BY MOUTH TWICE A DAY Rx Instructions: TAKE 1 TABLET BY MOUTH TWICE A DAY furosemide 40 mg tablet See Rx Instructions .ROUTE .COMPLEX Qty: 90 2RF Dose Instruction: TAKE 1 TABLET BY MOUTH EVERY MORNING Rx Instructions: TAKE 1 TABLET BY MOUTH EVERY MORNING <Justa Natarajan PA-C - Last Filed: 10/11/24 18:58> Follow-up/Referrals: Edda Sheriff MD [Primary Care Provider] - 1 Week <Justa Natarajan PA-C - Last Filed: 10/11/24 18:58>
[2024-10-11 15:45] VITALS: BP 153/84; PULSE 74; RESP 18; O2SAT 97
--- OUTSIDE RECORDS SUMMARY | 2024-10-11 17:27 | XMS_ITS | Clinical Summary ---
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
--- OUTSIDE RECORDS SUMMARY | 2024-10-11 17:27 | XMS_ITS | Continuity of Care Document ---
Author Organization [facility] Address [address] [place] [address] Phone Care Team Providers Care Databases Software Consultant Name Role Phone Dung Paulino MD Unavailable Unavailable Advance Directives Directive Yes / No Effective Date File Name No Information Encounters Encounter Description Practice Location Reason(s) For Visit Diagnoses Date Provider Providers Copied on Encounter [facility], [address], [place], [place], [id number], [place] tel:[phone] [facility] No Information Sep-2 7-200 6 [address]azo. [address] [facility] [address], [place], [place], [id number], [place]. tel:[phone] Family History Family Member Type Diagnosis Age [...]
--- OUTSIDE RECORDS SUMMARY | 2024-10-11 17:27 | XMS_ITS | Encounter Summary ---
Author Organization [facility] Address [address] [facility] [place] [address] Care Team Providers Care Manager Business Systems Name Role Phone Pramod Gomez MD Primary Care Provider [phone] Encounter Details Date Type Department Care Team (Late st Contact Info) Description 02/18/2020 Lab Requisition [facility] DermPath Lab [address] [facility] [place] [address] Chito Gore MD [address] [place] [address] Social History Tobacco Use Types [...] AM CDT) Case Report Dermatopathology Report Case: [id number] Authorizing Provider: Chito Gore MD Collected: 02/16/2020 12:00 AM Ordering Location: [facility] DermPath Lab Received: 02/18/2020 02:29 PM Pathologist: [...] characteristic determined by the Dermatopathology Laboratory at [facility], directed by Dr. Diego Davison. These tests need not be, and therefore are not, approved by the [place] Food and Drug Administration. The tests are used for clinical purposes. Billing Codes Specimen Charges Stain Charges 50162 07100 1 1 0 3:42 PM CDT DERMATOPATHOLOGY LABORATORY Embedded Images 0 3:42 PM CDT DERMATOPATHOLOGY LABORATORY Pathology/Cytology TISSUE SPECIMEN FROM SKIN / Unknown 02/16/2020 02/18/2020 2:29 PM CDT Miscellaneous samples (specimen) TISSUE SPECIMEN FROM SKIN / Unknown 02/16/2020 02/18/2020 2:29 PM CDT Chito Gore MD LAB - PATHOLOGY/CYTO LOGY ORDERABLES DERMATOPATHOLOGY LABORATORY [facility] - Department of Dermatology [facility]/[address] [phone] documented in this encounter Visit Diagnoses Not on filedocumented in this encounter Care Teams Manager Business Systems Relationship Specialty Start Date End Date Pramod Gomez MD [address] [place] [address] PCP - General 10/16/10 documented as of this encounter
--- OUTSIDE RECORDS SUMMARY | 2024-10-11 17:27 | XMS_ITS | Clinical Summary ---
Author Organization [facility] Address [address] [place] [address] Care Team Providers Care Sales Office Coordinator Name Role Phone Zachariah Sheriff MD Primary Care Provider Cullen Venegas MD Unavailable [phone] Milan Reed MD Unavailable [phone] Amrik Painter DO Unavailable [phone] Allergies No known active allergies Medications fexofenadine [...] CHB DOI 04/07/2024 - Luis Enrique. [facility]. Card-Dr Painter. 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 04/20/2015 Weight loss 06/06/2014 Encounters Date Type Department Care Team Description 09/22/2024 9:00 AM CDT Infusion [facility] at [address] [address] Chronic lymphoid leukemia, without mention of having achieved remission(204.10) (HCC) (Primary Dx); Chronic lymphocytic leukemia (HCC); Hypogammaglobulinemia; Common variable agammaglobulinemia 09/22/2024 8:45 AM CDT Ancillary Procedure [facility] Cardiology [address] [place] [phone] Cardiac pacemaker in situ (Primary Dx); Right bundle branch block; CHB (complete heart block) (HCC) 09/22/2024 8:15 AM CDT Clinical Support [facility] at [address] [address] Chronic lymphocytic leukemia (HCC); Hypogammaglobulinemia 08/19/2024 8:45 AM 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[employer] Infusion [facility] at [address] [address] Chronic lymphoid leukemia, without mention of having achieved remission(204.10) (HCC) (Primary Dx); Chronic lymphocytic leukemia (HCC); Hypogammaglobulinemia; Common variable agammaglobulinemia 08/19/2024 7:30 AM 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 Clinical Support [facility] at [address] [address] Chronic lymphocytic leukemia (HCC); Hypogammaglobulinemia 07/22/2024 8:45 AM 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[employer] Infusion [facility] at [address] [place] [phone] Chronic lymphoid leukemia, without mention of having achieved remission(204.10) (HCC) (Primary Dx); Chronic lymphocytic leukemia (HCC); Hypogammaglobulinemia; Common variable agammaglobulinemia 07/22/2024 8:15 AM 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 Clinical Support [facility] at [address] [address] Chronic lymphocytic leukemia (HCC); Hypogammaglobulinemia from Last [...] on file Legal Sex Male 7:53 PM 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 Gender Identity Not on file Sexual Orientation [...] history exists Medical Devices Implanted Type Area Product Safety Test Engineer Device Identifier Shelf Expiration Date Model / [...] DIFFERENTIAL AUTO Routine 08/19/2024 7:4 9 AM 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 Chronic lymphocytic leukemia (HCC) Hypogammaglobulinem ia CBC WITH AUTO DIFFERENTIAL Routine 08/19/2024 7:49 AM 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 Chronic lymphocytic leukemia (HCC) Hypogammaglobulinem ia DIFFERENTIAL AUTO Routine 07/22/2024 8: 05 AM 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 Chronic lymphocytic leukemia (HCC) Hypogammaglobulinem ia CBC WITH AUTO DIFFERENTIAL Routine 07/22/2024 8:05 AM 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 Chronic lymphocytic leukemia (HCC) Hypogammaglobulinem ia from Last 3 Months Results * DEVICE CHECK - REMOTE (09/22/2024 1:07 PM CDT) Anatomical Region Laterality Modality Other Narrative 09/28/2024 11:12 AM CDT Medtronic Marielos dual pacemaker. Dx: CHB [facility] AAI <> DDD Pacemaker Remote. Transmission attached. Battery status: 3.20 V, 13.8 years remaining battery life to DARIUSZ. Stable lead impedances, pacing and sensing thresholds. Presenting rhythm: /VS AP-10.0%, CAR PICK UP DRIVER-2.1% 15 AT/AF episodes noted, longest episode was 6 minutes and 21 seconds in duration, available IEGM demonstrates atrial tachycardia. AF River < 0.1%. 62 Ventricular high rate episodes [...] - 6.5 K/cumm Comment:Testing performed by : [address] [address] Imm gran abs 0.0 0.0 - 0.1 K/cumm [facility] Comment:Testing performed by : [address] [address] Lymphocyte abs 0.7(L) 0.8 - 3.3 K/cumm [facility]IS Comment:Testing performed by : [address] [address] Monocyte abs 0.3 0.2 - 0.8 K/cumm ARGENIS Comment:Testing performed by : [address] [address] Eosinophil abs 0.1 0.0 - 0.5 K/cumm ARGENIS Comment:Testing performed by : [address] [address] Basophil abs 0.0 0.0 - 0.1 K/cumm AR[facility]IS Comment:Testing performed by : [address] [address] Neutrophil pct 75.2 % [facility] Comment: Interpretive Data Percent cell count reference ranges are not reported, since discordance with absolute values may lead to misinterpretation of CBC data. Current Interpretive Data was last revised on 2017. Testing performed by: [address] [address] Imm gran pct 0.2 % [facility] Comment: Interpretive Data Percent cell count reference ranges are not reported, since discordance with absolute values may lead to misinterpretation of CBC data. Current Interpretive Data was last revised on 2017. Testing performed by: [address] [address] Lymphocyte pct 14.9 % [facility] Comment: Interpretive Data Percent cell count reference ranges are not reported, since discordance with absolute values may lead to misinterpretation of CBC data. Current Interpretive Data was last revised on 2017. Testing performed by: [address] [address] Monocyte pct 7.2 % [facility] Comment: Interpretive Data Percent cell count reference ranges are not reported, since discordance with absolute values may lead to misinterpretation of CBC data. Current Interpretive Data was last revised on 2017. Testing performed by: [address] [address] Eosinophil pct 2.3 % [facility] Comment: Interpretive Data Percent cell count reference ranges are not reported, since discordance with absolute values may lead to misinterpretation of CBC data. Current Interpretive Data was last revised on 2017. Testing performed by: [address] [address] Basophil pct 0.2 % [facility] Comment: Interpretive Data Percent cell count reference ranges are not reported, since discordance with absolute values may lead to misinterpretation of CBC data. Current Interpretive Data was last revised on 2017. Testing performed by: [address] [address] Blood 09/22/2024 8:27 AM CDT 09/22/2024 8:33 AM CDT us Milan Reed MD LAB BLOOD ORDERABLES Final R esult [facility] [address] [facility] [place] [address] * (ABNORMAL) CBC with auto differential (09/22/2024 8:27 AM CDT) WBC 4.7 3.8 - 9.9 K/cumm Comment:Testing performed by : [address] [address] Hgb 12.0(L) 13.0 - 17.5 g/dL [facility]IS Comment:Testing performed by : [address] [address] Hct 37.3(L) 38.9 - 50.3 % [facility] Comment:Testing performed by : [address] [address] Plt 134(L) 150 - 400 K/cumm [facility]IS Comment:Testing performed by : [address] [address] MPV 8.8(L) 9.1 - 12.3 fL [facility]IS Comment:Testing performed by : [address], [address] RBC 4.41 4.30 - 5.80 M/cumm [facility]IS Comment:Testing performed by : [address], [address] MCV 84.6 81.3 - 96.4 fL [facility] Comment:Testing performed by : [address] [address] MCH 27.2 27.1 - 33.3 pg [facility]IS Comment:Testing performed by : [address] [address] MCHC 32.2(L) 32.3 - 35.7 g/dL [facility]IS Comment:Testing performed by : [address] [address] RDW CV 15.6(H) 11.1 - 14.9 % [facility] Comment:Testing performed by : [address], [address] RDW SD 47.4 35.7 - 48.1 fL [facility] Comment:Testing performed by : [address], [address] NRBC abs 0.00 0.00 - 0.01 K/cumm [facility]IS Comment:Testing performed by : [address] [address] Blood 09/22/2024 8:27 AM CDT 09/22/2024 8:33 AM CDT us Milan Reed MD LAB BLOOD ORDERABLES Final R esult [facility] [address] [facility] [place] [address] * Differential, auto (08/19/2024 7:49 AM 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) Neutrophil abs 2.8 1.5 - 6.5 K/cumm Comment:Testing performed by : [address] [address] Imm gran abs 0.0 0.0 - 0.1 K/cumm [facility]IS Comment:Testing performed by : [address] [address] Lymphocyte abs 0.8 0.8 - 3.3 K/cumm [facility] Comment:Testing performed by : [address] [address] Monocyte abs 0.3 0.2 - 0.8 K/cumm [facility] Comment:Testing performed by : [address] [address] Eosinophil abs 0.1 0.0 - 0.5 K/cumm [facility]IS Comment:Testing performed by : [address] [address] Basophil abs 0.0 0.0 - 0.1 K/cumm [facility]IS Comment:Testing performed by : [address] [address] Neutrophil pct 70.1 % [facility] Comment: Interpretive Data Percent cell count reference ranges are not reported, since discordance with absolute values may lead to misinterpretation of CBC data. Current Interpretive Data was last revised on 2017. Testing performed by: [address] [address] Imm gran pct 0.3 % [facility] Comment: Interpretive Data Percent cell count reference ranges are not reported, since discordance with absolute values may lead to misinterpretation of CBC data. Current Interpretive Data was last revised on 2017. Testing performed by: [address] [place]., [address] Lymphocyte pct 19.0 % [facility] Comment: Interpretive Data Percent cell count reference ranges are not reported, since discordance with absolute values may lead to misinterpretation of CBC data. Current Interpretive Data was last revised on 2017. Testing performed by: [address] [address] Monocyte pct 7.3 % [facility] Comment: Interpretive Data Percent cell count reference ranges are not reported, since discordance with absolute values may lead to misinterpretation of CBC data. Current Interpretive Data was last revised on 2017. Testing performed by: [address] [address] Eosinophil pct 3.0 % [facility] Comment: Interpretive Data Percent cell count reference ranges are not reported, since discordance with absolute values may lead to misinterpretation of CBC data. Current Interpretive Data was last revised on 2017. Testing performed by: [address] [address] Basophil pct 0.3 % [facility] Comment: Interpretive Data Percent cell count reference ranges are not reported, since discordance with absolute values may lead to misinterpretation of CBC data. Current Interpretive Data was last revised on 2017. 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 us Milan Reed MD LAB BLOOD ORDERABLES Final R esult [facility] [address] [facility] [place] [address] * (ABNORMAL) CBC with auto differential (08/19/2024 7:49 AM 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) WBC 4.0 3.8 - 9.9 K/cumm Comment:Testing performed by : [address] [address] Hgb 12.0(L) 13.0 - 17.5 g/dL [facility]IS Comment:Testing performed by : [address], [address] Hct 37.0(L) 38.9 - 50.3 % [facility]IS Comment:Testing performed by : [address] [address] Plt 137(L) 150 - 400 K/cumm [facility]IS Comment:Testing performed by : [address] [address] MPV 9.2 9.1 - 12.3 fL [facility] Comment:Testing performed by : [address], [address] RBC 4.43 4.30 - 5.80 M/cumm [facility] Comment:Testing performed by : [address], [address] MCV 83.5 81.3 - 96.4 fL [facility] Comment:Testing performed by : [address] [address] MCH 27.1 27.1 - 33.3 pg [facility] Comment:Testing performed by : [address] [address] MCHC 32.4 32.3 - 35.7 g/dL [facility] Comment:Testing performed by : [address] [address] RDW CV 16.4(H) 11.1 - 14.9 % [facility] Comment:Testing performed by : [address], [address] RDW SD 49.7(H) 35.7 - 48.1 fL [facility] Comment:Testing performed by : [address], [address] NRBC abs 0.00 0.00 - 0.01 K/cumm [facility]IS Comment:Testing performed by : [address], [address] Blood 08/19/2024 7:49 AM 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 08/19/2024 7:51 AM 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 us Milan Javed Reed MD LAB BLOOD ORDERABLES Final R esult [facility] [address] [facility] [place] [address] * Differential, auto (07/22/2024 8:05 AM 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) Neutrophil abs 3.6 1.5 - 6.5 K/cumm Comment:Testing performed by : [address] [address] Imm gran abs 0.0 0.0 - 0.1 K/cumm [facility] Comment:Testing performed by : [address] [address] Lymphocyte abs 0.8 0.8 - 3.3 K/cumm [facility] Comment:Testing performed by : [address] [address] Monocyte abs 0.3 0.2 - 0.8 K/cumm [facility] Comment:Testing performed by : [address] [address] Eosinophil abs 0.1 0.0 - 0.5 K/cumm [facility] Comment:Testing performed by : [address] [address] Basophil abs 0.0 0.0 - 0.1 K/cumm [facility] Comment:Testing performed by : [address] [address] Neutrophil pct 74.0 % [facility] Comment: Interpretive Data Percent cell count reference ranges are not reported, since discordance with absolute values may lead to misinterpretation of CBC data. Current Interpretive Data was last revised on 2017. Testing performed by: [address] [address] Imm gran pct 0.2 % [facility] Comment: Interpretive Data Percent cell count reference ranges are not reported, since discordance with absolute values may lead to misinterpretation of CBC data. Current Interpretive Data was last revised on 2017. Testing performed by: [address] [address] Lymphocyte pct 16.0 % [facility] Comment: Interpretive Data Percent cell count reference ranges are not reported, since discordance with absolute values may lead to misinterpretation of CBC data. Current Interpretive Data was last revised on 2017. Testing performed by: [address] [address] Monocyte pct 6.7 % [facility] Comment: Interpretive Data Percent cell count reference ranges are not reported, since discordance with absolute values may lead to misinterpretation of CBC data. Current Interpretive Data was last revised on 2017. Testing performed by: [address] [address] Eosinophil pct 2.7 % [facility] Comment: Interpretive Data Percent cell count reference ranges are not reported, since discordance with absolute values may lead to misinterpretation of CBC data. Current Interpretive Data was last revised on 2017. Testing performed by: [address] [address] Basophil pct 0.4 % [facility] Comment: Interpretive Data Percent cell count reference ranges are not reported, since discordance with absolute values may lead to misinterpretation of CBC data. Current Interpretive Data was last revised on 2017. Testing performed by: [address] [address] Blood 07/22/2024 8:05 AM 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 07/22/2024 8:08 AM 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 us Milan Reed MD LAB BLOOD ORDERABLES Final R esult [facility] [address] [facility] [place] [address] * (ABNORMAL) CBC with auto differential (07/22/2024 8:05 AM 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) WBC 4.8 3.8 - 9.9 K/cumm Comment:Testing performed by : [address] [address] Hgb 12.1(L) 13.0 - 17.5 g/dL [facility] Comment:Testing performed by : [address] [place]., [address] Hct 37.1(L) 38.9 - 50.3 % [facility] Comment:Testing performed by : [address] [address] Plt 155 150 - 400 K/cumm [facility] Comment:Testing performed by : [address] [address] MPV 8.9(L) 9.1 - 12.3 fL [facility] Comment:Testing performed by : [address], [address] RBC 4.53 4.30 - 5.80 M/cumm [facility] Comment:Testing performed by : [address], [address] MCV 81.9 81.3 - 96.4 fL [facility] Comment:Testing performed by : [address] [address] MCH 26.7(L) 27.1 - 33.3 pg [facility] Comment:Testing performed by : [address] [address] MCHC 32.6 32.3 - 35.7 g/dL [facility] Comment:Testing performed by : [address], [address] RDW CV 17.0(H) 11.1 - 14.9 % [facility] Comment:Testing performed by : [address], [address] RDW SD 49.8(H) 35.7 - 48.1 fL [facility] Comment:Testing performed by : [address] [address] NRBC abs 0.00 0.00 - 0.01 K/cumm [facility] Comment:Testing performed by : [address], [address] Blood 07/22/2024 8:05 AM 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 07/22/2024 8:08 AM 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 us Milan Reed MD LAB BLOOD ORDERABLES Final R esult [facility] [address] [facility] [place] [address] from Last 3 Months Insurance MEDICARE [employer] [place] [employer] [place] MEDICARE MEDICARE [facility] Advance Directives For more information, please contact: [phone] * Full Code (Latest Code Status on File) Date Activated Date Inactivated Comments 07/29/2018 1:43 PM 07/30/2018 8:05 PM Care Teams Sales Office Coordinator Relationship Specialty Start Date End Date Zachariah Sheriff MD PCP - General Family Practice 11/03/18 Cullen Venegas MD [address] [place] [address] Consulting Physician Urology 05/09/21 Milan Reed MD [address] [place] [address] Consulting Physician Internal Medicine 03/20/23 Amrik Painter DO [address] [facility] [address] [place] [address] Referring Physician Cardiology 06/12/23
--- OUTSIDE RECORDS SUMMARY | 2024-10-11 17:27 | XMS_ITS | Encounter Summary ---
Author Organization [facility] Address [address] [facility] [place] [address] Care Team Providers Care Floor Grinder Name Role Phone Pramod Gomez MD Primary Care Provider [phone] Encounter Details Date Type Department Care Team (Late st Contact Info) Description 01/21/2019 Lab Requisition [facility] Care DermPath Lab [address] [facility], [place] [phone] Chito Gore MD [address] [place] [address] Social History Tobacco Use Types [...] AM CDT) Case Report Dermatopathology Report Case: [id number] Authorizing Provider: Chito Gore MD Collected: 01/20/2019 [...] specimen consists of a shave removal measuring [id number]. The margin is inked green. Jar 0. [...] characteristic determined by the Dermatopathology Laboratory at [facility], directed by Dr. Diego Davison. These tests need not be, and therefore are not, approved by the [place] Food and Drug Administration. The tests are used for clinical purposes. Billing Codes Specimen Charges Stain Charges 49510 1 07/19/201 9 3:46 PM CDT DERMATOPATHOLOGY LABORATORY Embedded Images 9 3:46 PM CDT DERMATOPATHOLOGY LABORATORY Pathology/Cytolog y TISSUE SPECIMEN FROM SKIN / Unknown 01/20/2019 01/21/2019 11:39 AM CDT Chito Gore MD LAB - PATHOLOGY/CYTO LOGY ORDERABLES DERMATOPATHOLOGY LABORATORY [facility] - Department of Dermatology [address] [place] [address] 5th Floor Lab [address] [phone] documented in this encounter Visit Diagnoses Not on filedocumented in this encounter Care Teams Floor Grinder Relationship Specialty Start Date End Date Pramod Gomez MD [address] [place] [phone] PCP - General 10/16/10 documented as of this encounter
--- OUTSIDE RECORDS SUMMARY | 2024-10-11 17:27 | XMS_ITS | Encounter Summary ---
Author Organization [facility] Address [address] [facility] [place] [address] Care Team Providers Care Epoxy Fabrication Supervisor Name Role Phone Pramod Gomez MD Primary Care Provider [phone] Encounter Details Date Type Department Care Team (Late st Contact Info) Description 12/18/2023 Lab Requisition [facility] - DermPath Lab [address] [facility], [place] [id number] Chito Gore MD [address] [place] [address] Social History Tobacco Use Types [...] AM CDT) Case Report Dermatopathology Report Case: [id number] Authorizing Provider: Chito Gore MD Collected: 12/16/2023 12:00 AM Ordering Location: [facility] - Received: 12/18/2023 08:19 [...] characteristic determined by the Dermatopathology Laboratory at [facility], directed by Dr. Diego Davison. These tests need not be, and therefore are not, approved by the [place] Food and Drug Administration. The tests are used for clinical purposes. Billing Codes Specimen Charges Stain Charges 01502 1 12:09 PM CDT DERMATOPATHOLOGY LABORATORY Embedded Images 12:09 PM CDT DERMATOPATHOLOGY LABORATORY Pathology/Cytolog y TISSUE SPECIMEN FROM SKIN / Unknown 12/16/2023 12/18/2023 8:19 AM CDT Chito Gore MD LAB - PATHOLOGY/CYTO LOGY ORDERABLES DERMATOPATHOLOGY LABORATORY [facility] - Department of Dermatology [facility] Specialized Medicine [address] [place] [address], [address] Floor [address] [phone] documented in this encounter Visit Diagnoses Not on filedocumented in this encounter Care Teams Epoxy Fabrication Supervisor Relationship Specialty Start Date End Date Pramod Gomez MD [address] [place] [address] PCP - General 10/16/10 documented as of this encounter
--- OUTSIDE RECORDS SUMMARY | 2024-10-11 17:27 | XMS_ITS | Referral Summary ---
Author Organization [facility], formerly [facility] Address [address] [place] [address] Care Team Providers Care Chucking And Sawing Machine Operator Name Role Phone Zachariah Sheriff MD Primary Care Provider Cullen Venegas MD Unavailable [phone] Milan Reed MD Unavailable Amrik Painter DO Unavailable Encounters Date Type Department Care Team Description 09/22/2024 8:45 AM CDT Ancillary Procedure [facility] Cardiology [address] [address] Cardiac pacemaker in situ (Primary Dx); Right bundle branch block; CHB (complete heart block) (HCC) 09/22/2024 8:15 AM CDT Clinical Support [address] [id number] Chronic lymphocytic leukemia (HCC); Hypogammaglobulinemia 09/22/2024 9:[address] [facility] at [address] [place] [address] Chronic lymphoid leukemia, without mention of having achieved remission(204.10) (HCC) (Primary Dx); Chronic lymphocytic leukemia (HCC); Hypogammaglobulinemia; Common variable agammaglobulinemia 08/19/2024 7:30 AM VEGETABLE COOK Clinical Support [facility] at [address] [address] Chronic lymphocytic leukemia (HCC); Hypogammaglobulinemia 08/19/2024 8:45 AM VEGETABLE COOK Infusion [facility] at [address] [address] Chronic lymphoid leukemia, without mention of having achieved remission(204.10) (HCC) (Primary Dx); Chronic lymphocytic leukemia (HCC); Hypogammaglobulinemia; Common variable agammaglobulinemia 07/22/2024 8:15 AM VEGETABLE COOK Clinical Support [facility] at [address] [address] Chronic lymphocytic leukemia (HCC); Hypogammaglobulinemia 07/22/2024 8:45 AM VEGETABLE COOK Infusion [facility] at [address] [phone] Chronic lymphoid leukemia, without mention of having [...] on file Legal Sex Male 7:53 PM VEGETABLE COOK Gender Identity Not on file Sexual Orientation [...] on file Medical Devices Implanted Type Area Middle Card Tender Device Identifier Shelf Expiration Date Model / [...] DIFFERENTIAL AUTO Routine 08/19/2024 7:4 9 AM VEGETABLE COOK Chronic lymphocytic leukemia (HCC) Hypogammaglobulinem ia CBC WITH AUTO DIFFERENTIAL Routine 08/19/2024 7:49 AM VEGETABLE COOK Chronic lymphocytic leukemia (HCC) Hypogammaglobulinem ia DIFFERENTIAL AUTO Routine 07/22/2024 8:0 5 AM VEGETABLE COOK Chronic lymphocytic leukemia (HCC) Hypogammaglobulinem ia CBC WITH AUTO DIFFERENTIAL Routine 07/22/2024 8:05 AM VEGETABLE COOK Chronic lymphocytic leukemia (HCC) Hypogammaglobulinem ia from Last 3 Months Results * DEVICE CHECK - REMOTE (09/22/2024 1:07 PM CDT) Anatomical Region Laterality Modality Other Narrative 09/28/2024 11:12 AM CDT Medtronic [place] dual pacemaker. Dx: CHB DOI 04/07/2024 - Luis Enrique Routine AAI <> DDD Pacemaker Remote. Transmission attached. Battery status: 3.20 V, 13.8 years remaining battery life to DARIUSZ. Stable lead impedances, pacing and sensing thresholds. 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 AF [place] < 0.1%. 62 Ventricular high rate episodes detected, IEGM demonstrates SVT. The longest episode was 5 minutes and 18 seconds Medications: Toprol-XL 25 mg, Entresto 24-26 mg See scanned report. Office pacemaker follow up: 9 months [employer] remote f/u 12/29/24. Chtio Ruiz, RN Carmelo Dudley MD CV CARDIAC SERVICES PROC EDURES Final Result * (ABNORMAL) Differential, auto (09/22/2024 8:27 AM CDT) Neutrophil abs 3.5 1.5 - 6.5 K/cumm Comment:Testing performed by : [address] [address] Imm gran abs 0.0 0.0 - 0.1 K/cumm AR[facility]IS Comment:Testing performed by : [address] [address] Lymphocyte abs 0.7(L) 0.8 - 3.3 K/cumm AR[facility]IS Comment:Testing performed by : [address] [address] Monocyte abs 0.3 0.2 - 0.8 K/cumm [facility]IS Comment:Testing performed by : [address] [address] Eosinophil abs 0.1 0.0 - 0.5 K/cumm [facility]IS Comment:Testing performed by : [address] [address] Basophil abs 0.0 0.0 - 0.1 K/cumm AR[facility]IS Comment:Testing performed by : [address] [address] Neutrophil pct 75.2 % [facility] Comment: Interpretive Data Percent cell count reference ranges are not reported, since discordance with absolute values may lead to misinterpretation of CBC data. Current Interpretive Data was last revised on 2017. Testing performed by: [address] [address] Imm gran pct 0.2 % [facility] Comment: Interpretive Data Percent cell count reference ranges are not reported, since discordance with absolute values may lead to misinterpretation of CBC data. Current Interpretive Data was last revised on 2017. Testing performed by: [address] [address] Lymphocyte pct 14.9 % [facility] Comment: Interpretive Data Percent cell count reference ranges are not reported, since discordance with absolute values may lead to misinterpretation of CBC data. Current Interpretive Data was last revised on 2017. Testing performed by: [address] [address] Monocyte pct 7.2 % [facility] Comment: Interpretive Data Percent cell count reference ranges are not reported, since discordance with absolute values may lead to misinterpretation of CBC data. Current Interpretive Data was last revised on 2017. Testing performed by: [address] [address] Eosinophil pct 2.3 % [facility] Comment: Interpretive Data Percent cell count reference ranges are not reported, since discordance with absolute values may lead to misinterpretation of CBC data. Current Interpretive Data was last revised on 2017. Testing performed by: [address] [address] Basophil pct 0.2 % [facility] Comment: Interpretive Data Percent cell count reference ranges are not reported, since discordance with absolute values may lead to misinterpretation of CBC data. Current Interpretive Data was last revised on 2017. Testing performed by: [address] [address] Blood 09/22/2024 8:27 AM CDT 09/22/2024 8:33 AM CDT us Milan Reed MD LAB BLOOD ORDERABLES Final R esult [facility] [address] [facility] Department [place] [address] * (ABNORMAL) CBC with auto differential (09/22/2024 8:27 AM CDT) WBC 4.7 3.8 - 9.9 K/cumm Comment:Testing performed by : [address] [address] Hgb 12.0(L) 13.0 - 17.5 g/dL [facility] Comment:Testing performed by : [address] [address] Hct 37.3(L) 38.9 - 50.3 % [facility]IS Comment:Testing performed by : [address] [address] Plt 134(L) 150 - 400 K/cumm [facility]IS Comment:Testing performed by : [address] [address] MPV 8.8(L) 9.1 - 12.3 fL [facility] Comment:Testing performed by : [address] [address] RBC 4.41 4.30 - 5.80 M/cumm [facility]IS Comment:Testing performed by : [address] [address] MCV 84.6 81.3 - 96.4 fL [facility] Comment:Testing performed by : [address] [address] MCH 27.2 27.1 - 33.3 pg AR[facility]IS SADLER Comment:Testing performed by : [address] [address] MCHC 32.2(L) 32.3 - 35.7 g/dL [facility]IS SADLER Comment:Testing performed by : [address] [address] RDW CV 15.6(H) 11.1 - 14.9 % [facility] SADLER Comment:Testing performed by : [address] [address] RDW SD 47.4 35.7 - 48.1 fL [facility] SADLER Comment:Testing performed by : [address] [address] NRBC abs 0.00 0.00 - 0.01 K/cumm [facility] SADLER Comment:Testing performed by : [address] [address] Blood 09/22/2024 8:27 AM CDT 09/22/2024 8:33 AM CDT us Milan Reed MD LAB BLOOD ORDERABLES Final R esult [facility] [address] [facility] Department [place] [address] * Differential, auto (08/19/2024 7:49 AM VEGETABLE COOK) Pathologist [facility] Neutrophil abs 2.8 1.5 - 6.5 K/cumm Comment:Testing performed by : [address] [address] Imm gran abs 0.0 0.0 - 0.1 K/cumm [facility]IS Comment:Testing performed by : [address] [address] Lymphocyte abs 0.8 0.8 - 3.3 K/cumm [facility]IS SADLER Comment:Testing performed by : [address] [address] Monocyte abs 0.3 0.2 - 0.8 K/cumm [facility] SADLER Comment:Testing performed by : [address] [place]., [address] Eosinophil abs 0.1 0.0 - 0.5 K/cumm [facility] Comment:Testing performed by : [address] [address] Basophil abs 0.0 0.0 - 0.1 K/cumm [facility] Comment:Testing performed by : [address] [address] Neutrophil pct 70.1 % [facility] Comment: Interpretive Data Percent cell count reference ranges are not reported, since discordance with absolute values may lead to misinterpretation of CBC data. Current Interpretive Data was last revised on 2017. Testing performed by: [address] [address] Imm gran pct 0.3 % [facility] Comment: Interpretive Data Percent cell count reference ranges are not reported, since discordance with absolute values may lead to misinterpretation of CBC data. Current Interpretive Data was last revised on 2017. Testing performed by: [address] [address] Lymphocyte pct 19.0 % [facility] Comment: Interpretive Data Percent cell count reference ranges are not reported, since discordance with absolute values may lead to misinterpretation of CBC data. Current Interpretive Data was last revised on 2017. Testing performed by: [address] [address] Monocyte pct 7.3 % [facility] Comment: Interpretive Data Percent cell count reference ranges are not reported, since discordance with absolute values may lead to misinterpretation of CBC data. Current Interpretive Data was last revised on 2017. Testing performed by: [address] [address] Eosinophil pct 3.0 % [facility] Comment: Interpretive Data Percent cell count reference ranges are not reported, since discordance with absolute values may lead to misinterpretation of CBC data. Current Interpretive Data was last revised on 2017. Testing performed by: [address] [address] Basophil pct 0.3 % [facility] Comment: Interpretive Data Percent cell count reference ranges are not reported, since discordance with absolute values may lead to misinterpretation of CBC data. Current Interpretive Data was last revised on 2017. Testing performed by: [address] [address] Blood 08/19/2024 7:49 AM VEGETABLE COOK 08/19/2024 7:51 AM VEGETABLE COOK us Milan Reed MD LAB BLOOD ORDERABLES Final R esult [facility] [address] [facility] Department [place] [address] * (ABNORMAL) CBC with auto differential (08/19/2024 7:49 AM VEGETABLE COOK) WBC 4.0 3.8 - 9.9 K/cumm Comment:Testing performed by : [address] [address] Hgb 12.0(L) 13.0 - 17.5 g/dL [facility] Comment:Testing performed by : [address] [address] Hct 37.0(L) 38.9 - 50.3 % [facility] Comment:Testing performed by : [address] [address] Plt 137(L) 150 - 400 K/cumm [facility] Comment:Testing performed by : [address] [address] MPV 9.2 9.1 - 12.3 fL [facility] Comment:Testing performed by : [address] [address] RBC 4.43 4.30 - 5.80 M/cumm [facility] Comment:Testing performed by : [address] [address] MCV 83.5 81.3 - 96.4 fL [facility] Comment:Testing performed by : [address] [address] MCH 27.1 27.1 - 33.3 pg [facility] Comment:Testing performed by : [address] [address] MCHC 32.4 32.3 - 35.7 g/dL [facility] Comment:Testing performed by : [address] [address] RDW CV 16.4(H) 11.1 - 14.9 % [facility] SADLER Comment:Testing performed by : [address] [address] RDW SD 49.7(H) 35.7 - 48.1 fL [facility] Comment:Testing performed by : [address] [address] NRBC abs 0.00 0.00 - 0.01 K/cumm [facility] Comment:Testing performed by : [address] [address] Blood 08/19/2024 7:49 AM VEGETABLE COOK 08/19/2024 7:51 AM VEGETABLE COOK us Milan Reed MD LAB BLOOD ORDERABLES Final R esult [facility] [address] [facility] Department of Laboratories [place], [place] [id number] * Differential, auto (07/22/2024 8:05 AM VEGETABLE COOK) Pathologist [facility] Neutrophil abs 3.6 1.5 - 6.5 K/cumm Comment:Testing performed by : [address] [address] Imm gran abs 0.0 0.0 - 0.1 K/cumm [facility] Comment:Testing performed by : [address] [address] Lymphocyte abs 0.8 0.8 - 3.3 K/cumm [facility] Comment:Testing performed by : [address] [address] Monocyte abs 0.3 0.2 - 0.8 K/cumm [facility] Comment:Testing performed by : [address] [address] Eosinophil abs 0.1 0.0 - 0.5 K/cumm [facility] Comment:Testing performed by : [address] [address] Basophil abs 0.0 0.0 - 0.1 K/cumm [facility] Comment:Testing performed by : [address] [address] Neutrophil pct 74.0 % [facility] Comment: Interpretive Data Percent cell count reference ranges are not reported, since discordance with absolute values may lead to misinterpretation of CBC data. Current Interpretive Data was last revised on 2017. Testing performed by: [address] [address] Imm gran pct 0.2 % [facility] Comment: Interpretive Data Percent cell count reference ranges are not reported, since discordance with absolute values may lead to misinterpretation of CBC data. Current Interpretive Data was last revised on 2017. Testing performed by: [address] [address] Lymphocyte pct 16.0 % [facility] Comment: Interpretive Data Percent cell count reference ranges are not reported, since discordance with absolute values may lead to misinterpretation of CBC data. Current Interpretive Data was last revised on 2017. Testing performed by: [address] [address] Monocyte pct 6.7 % [facility] Comment: Interpretive Data Percent cell count reference ranges are not reported, since discordance with absolute values may lead to misinterpretation of CBC data. Current Interpretive Data was last revised on 2017. Testing performed by: [address] [address] Eosinophil pct 2.7 % [facility] Comment: Interpretive Data Percent cell count reference ranges are not reported, since discordance with absolute values may lead to misinterpretation of CBC data. Current Interpretive Data was last revised on 2017. Testing performed by: [address] [address] Basophil pct 0.4 % [facility] Comment: Interpretive Data Percent cell count reference ranges are not reported, since discordance with absolute values may lead to misinterpretation of CBC data. Current Interpretive Data was last revised on 2017. Testing performed by: [address] [address] Blood 07/22/2024 8:05 AM VEGETABLE COOK 07/22/2024 8:08 AM VEGETABLE COOK us Milan Reed MD LAB BLOOD ORDERABLES Final R esult [facility] [address] [facility] Department [place] [address] * (ABNORMAL) CBC with auto differential (07/22/2024 8:05 AM VEGETABLE COOK) WBC 4.8 3.8 - 9.9 K/cumm Comment:Testing performed by : [address] [address] Hgb 12.1(L) 13.0 - 17.5 g/dL [facility] Comment:Testing performed by : [address] [address] Hct 37.1(L) 38.9 - 50.3 % [facility] Comment:Testing performed by : [address] [address] Plt 155 150 - 400 K/cumm [facility] Comment:Testing performed by : [address] [address] MPV 8.9(L) 9.1 - 12.3 fL [facility] Comment:Testing performed by : [address] [address] RBC 4.53 4.30 - 5.80 M/cumm [facility] Comment:Testing performed by : [address] [address] MCV 81.9 81.3 - 96.4 fL [facility] Comment:Testing performed by : [address] [address] MCH 26.7(L) 27.1 - 33.3 pg [facility] SADLER Comment:Testing performed by : [address] [address] MCHC 32.6 32.3 - 35.7 g/dL [facility] SADLER Comment:Testing performed by : [address] [address] RDW CV 17.0(H) 11.1 - 14.9 % [facility] SADLER Comment:Testing performed by : [address] [address] RDW SD 49.8(H) 35.7 - 48.1 fL [facility] SADLER Comment:Testing performed by : [facility], [address] [place] [address]., [address] NRBC abs 0.00 0.00 - 0.01 K/cumm [facility] SADLER Comment:Testing performed by : [address] [address] Blood 07/22/2024 8:05 AM VEGETABLE COOK 07/22/2024 8:08 AM VEGETABLE COOK Milan Reed MD LAB BLOOD ORDERABLES Final R esult [facility] [address] [facility] Department [place] [address] from Last 3 Months Insurance MEDICARE [facility] MEDICARE MEDICARE [facility] Advance Directives For more information, please contact: [phone] * Full Code (Latest Code Status on File) Date Activated Date Inactivated Comments 07/29/2018 1:43 PM 07/30/2018 8:05 PM Care Teams Chucking And Sawing Machine Operator Relationship Specialty Start Date End Date Zachariah Sheriff MD PCP - General Family Practice 11/03/18 Cullen Venegas MD [address] [place] [address] Consulting Physician Urology 05/09/21 Milan Reed MD [address] [place] [address] Consulting Physician Internal Medicine 03/20/23 Amrik Painter DO [address] [place], [place] [id number] Referring Physician Cardiology 06/12/23
--- OUTSIDE RECORDS SUMMARY | 2024-10-11 17:27 | XMS_ITS ---
Author Organization [facility] Address [address] [place] [address] Care Team Providers Care Still Runner Name Role Phone Zachariah Sheriff MD Primary Care Provider Cullen Venegas MD Unavailable [phone] Milan Reed MD Unavailable [phone] Amrik Painter DO Unavailable [phone] Active Problems Problem Noted Date Diagnosed Date Need for immunization against influenza 05/20/20 24 Cardiac pacemaker in situ 04/07/2024 Overview (04/14/2024): Medtronic Marielos Dual Pacemaker. Dx: CHB DOI 04/07/2024 - Luis Enrique. [facility]. Card-Dr Painter. CHB (complete heart block) 04/07/2024 [...]
--- OUTSIDE RECORDS SUMMARY | 2024-10-11 17:27 | XMS_ITS | Encounter Summary ---
Author Organization [facility] Address [address] [place] [address] Care Team Providers Care Neuro Ophthalmologist Name Role Phone Pramod Gomez MD Primary Care Provider [phone] Encounter Details Date Type Department Care Team (Late st Contact Info) Description 10/23/2022 Lab Requisition [facility] Derm[facility] Lab [address] [facility] [place] [address] Chito Gore MD [address] [place] [address] Social History Tobacco Use Types [...] AM CDT) Case Report Dermatopathology Report Case: [id number] Authorizing Provider: Chito Gore MD Collected: 10/22/2022 12:00 AM Ordering Location: [facility] Received: 10/23/2022 02:07 PM [...] specimen consists of a shave biopsy measuring [id number] mm. Jar 0. 3 6:29 PM CDT [...] characteristic determined by the Dermatopathology Laboratory at [facility], directed by Dr. Diego Davison. These tests need not be, and therefore are not, approved by the [place] Food and Drug Administration. The tests are used for clinical purposes. Billing Codes Specimen Charges Stain Charges 21472 1 3 6:29 PM CDT DERMATOPATHOLOGY LABORATORY Embedded Images 3 6:29 PM CDT DERMATOPATHOLOGY LABORATORY Pathology/Cytolog y TISSUE SPECIMEN FROM SKIN / Unknown 10/22/2022 10/23/2022 2:07 PM CDT Chito Gore MD LAB - PATHOLOGY/CYTO LOGY ORDERABLES DERMATOPATHOLOGY LABORATORY [facility] - Department of Dermatology [address], [address] Floor [address] [phone] documented in this encounter Visit Diagnoses Not on filedocumented in this encounter Care Teams Neuro Ophthalmologist Relationship Specialty Start Date End Date Pramod Gomez MD [address] [place] [address] PCP - General 10/16/10 documented as of this encounter
--- OUTSIDE RECORDS SUMMARY | 2024-10-11 17:27 | XMS_ITS | Encounter Summary ---
Author Organization [facility] Address [address] [place] [address] Care Team Providers Care Customer Experience Intern Name Role Phone Pramod Gomez MD Primary Care Provider [phone] Encounter Details Date Type Department Care Team (Late st Contact Info) Description 10/11/2021 Lab Requisition [facility] DermPath Lab [address] [facility] [place] [address] Chito Gore MD [address] [place] [address] Social History Tobacco Use Types [...] AM CDT) Case Report Dermatopathology Report Case: [id number] Authorizing Provider: Chito Gore MD Collected: 10/10/2021 12:00 AM Ordering Location: [facility]erm[facility] Lab Received: 10/11/2021 01:43 [...] specimen consists of a shave biopsy measuring [id number]. Jar 0. 1:14 PM CDT DERMATOPATHOLOGY LABORATORY [...] characteristic determined by the Dermatopathology Laboratory at [facility], directed by Dr. Diego Davison. These tests need not be, and therefore are not, approved by the [place] Food and Drug Administration. The tests are used for clinical purposes. Billing Codes Specimen Charges Stain Charges 10210 1 1:14 PM CDT DERMATOPATHOLOGY LABORATORY Embedded Images 1:14 PM CDT DERMATOPATHOLOGY LABORATORY Pathology/Cytolog y TISSUE SPECIMEN FROM SKIN / Unknown 10/10/2021 10/11/2021 1:43 PM CDT Chito Gore MD LAB - PATHOLOGY/CYTO LOGY ORDERABLES DERMATOPATHOLOGY LABORATORY [facility] - Department of Dermatology [facility] Specialized Medicine [address] [facility], 3rd Floor [address] [phone] documented in this encounter Visit Diagnoses Not on filedocumented in this encounter Care Teams Customer Experience Intern Relationship Specialty Start Date End Date Pramod Gomez MD [address] [place] [address] PCP - General 10/16/10 documented as of this encounter
--- OUTSIDE RECORDS SUMMARY | 2024-10-11 17:27 | XMS_ITS | Clinical Summary ---
Author Organization [facility] Address [address] [facility] [place] [address] Care Team Providers Care Contact Center Consultant Name Role Phone Pramod Gomez MD Primary Care Provider [phone] Source Comments [facility],non-owned Affiliates and Associated Physician Practices is amultiple site organization consisting of ambulatory clinics and hospital sitesin [place], [place], [place] and [place]. This disclosure is being madepursuant to the Care Everywhere program and may not contain all information available regarding this patient. Last updated 18.[facility] [employer] Active Problems Problem Noted Date Diagnosed Date [...] age to complete this topic Care Teams Contact Center Consultant Relationship Specialty Start Date End Date Pramod Gomez MD [address] [place] [address] PCP - General 10/16/10
--- OUTSIDE RECORDS SUMMARY | 2024-10-11 17:27 | XMS_ITS | Encounter Summary ---
Author Organization [facility] Address [address] [facility] [place] [address] Care Team Providers Care Custodial Supervisor Name Role Phone Pramod Gomez MD Primary Care Provider [phone] Encounter Details Date Type Department Care Team (Late st Contact Info) Description 10/22/[address] [facility] - DermPath Lab [address] [facility], [place] [phone] Chito Gore MD [address] [place] [address] Social History Tobacco Use Types [...] AM CDT) Case Report Dermatopathology Report Case: [id number] Authorizing Provider: Chito Gore MD Collected: 10/21/2023 12:00 AM Ordering Location: [facility] - Received: 10/23/2023 06:47 AM DermPath Lab Pathologist: Justa Whatley MD Specimens: A) - Skin, dorsal left radial hand B) - Skin, dorsal left hand proximal to thumb 1:[address] [facility] DERMATOPATHOLOGY LABORATORY Final Diagnosis Specimen A. [...] specimen consists of a shave biopsy measuring [id number] mm. Jar 0. Specimen B: Received is one formalin filled container labeled with the patient's name and designated dorsal left hand proximal to thumb. The specimen consists of a shave biopsy measuring 9x8x1 mm. Jar 0. 1:[address] [facility] DERMATOPATHOLOGY LABORATORY Microscopic Description Specimen A. [...] of keratinocytes with nuclear pleomorphism. 1:[address] [facility] DERMATOPATHOLOGY LABORATORY Disclaimer An external and internal positive and negative controls are appropriate for the histochemical, immunohistochemical and immunofluorescence stain(s) in this case (if any), except where stated explicitly. The performance characteristics of the stain(s) cited in this report were developed and its performance characteristic determined by the Dermatopathology Laboratory at [facility], directed by Dr. Diego Davison. These tests need not be, and therefore are not, approved by the [place] Food and Drug Administration. The tests are used for clinical purposes. Billing Codes Specimen Charges Stain Charges 96646 77803 1 1 4 1:41 PM CDT DERMATOPATHOLOGY LABORATORY Embedded Images 4 1:41 PM CDT DERMATOPATHOLOGY LABORATORY Pathology/Cytology TISSUE SPECIMEN FROM SKIN / Unknown 10/21/2023 10/23/2023 6:47 AM CDT Miscellaneous samples (specimen) TISSUE SPECIMEN FROM SKIN / Unknown 10/21/2023 10/23/2023 6:47 AM CDT Chito Gore MD LAB - PATHOLOGY/CYTO LOGY ORDERABLES DERMATOPATHOLOGY LABORATORY [facility] - Department of Dermatology [facility] Medicine [address] [place] [address], [address] [phone] documented in this encounter Visit Diagnoses Not on filedocumented in this encounter Care Teams Custodial Supervisor Relationship Specialty Start Date End Date Pramod Gomez MD [address] [place] [address] PCP - General 10/16/10 documented as of this encounter
== END 2024-10-11 16:39 | disposition home or self-care (01) ==
PROVIDERS: Emergency Provider Emergency Medicine; PCP Family Medicine
DX: J02.9 Acute pharyngitis, unspecified (principal); C91.11 Chronic lymphocytic leukemia of B-cell type in remission; I50.9 Heart failure, unspecified; I11.0 Hypertensive heart disease with heart failure; E55.9 Vitamin D deficiency, unspecified; E78.5 Hyperlipidemia, unspecified; G47.33 Obstructive sleep apnea (adult) (pediatric); K21.9 Gastro-esophageal reflux disease without esophagitis; Z85.46 Personal history of malignant neoplasm of prostate; Z85.828 Personal history of other malignant neoplasm of skin
CPT/HCPCS: 70360; 99283

== ENCOUNTER 2024-11-25 10:55 | Outpatient (CLI) | payer MEDICARE, OTHER, SELFPAY ==
--- NOTE | ~2024-11-25 | XR_ITS ---
Clinical Indication: Shortness of breath PA and lateral views of the chest: Comparison: 04/08/2024 Findings: Left-sided Mediport in place. The lungs are clear, without evidence of focal consolidation or pleural effusion. Possible COPD. Cardiomediastinal silhouette is stable, with pacemaker. Bones and soft tissues are unremarkable. Impression: Clear lungs. Possible COPD. Pacemaker device and Mediport, unchanged. Reviewed, dictated and finalized at location M. Impression: Clear lungs. Possible COPD. Pacemaker device and Mediport, unchanged.
== END 2024-11-25 10:56 | disposition home or self-care (01) ==
PROVIDERS: PCP Family Medicine; Visit Provider Internal Medicine Critical Care Medicine
DX: R06.00 Dyspnea, unspecified (principal); Z95.0 Presence of cardiac pacemaker
CPT/HCPCS: 71046

== ENCOUNTER 2025-03-29 16:18 | Emergency (ER) | payer MEDICARE, OTHER, SELFPAY ==
--- OUTSIDE RECORDS SUMMARY | 2005-09-30 03:00 | XMS_ITS | Continuity of Care Document ---
Author Organization [facility] Address [address] [place] [address] Phone Care Team Providers Care Hospitality Workers Name Role Phone Dung Paulino MD Unavailable Unavailable Advance Directives Directive Yes / No Effective Date File Name No Information Encounters Encounter Description Practice Location Reason(s) For Visit Diagnoses Date Provider Providers Copied on Encounter [facility], [address], [place], [place], [id number], [place] tel:[phone] [facility] No Information Sep-2 7-200 6 Lora Razo. [address] [facility] [address], [place], [place], [id number], [place]. tel:[phone] Family History Family Member Type Diagnosis Age At Onset No Information Payers Payer name Insurance type Covered libertarian ID Authoriza tion(s) No Information Social History Type Description Quantity Date Captured Comments Sex Male Smoking Status No Information Chief Complaint And Reason For Visit No Information Reason For Referral Reason For Referral No Information History Of Present Illness Encounter Date Complaint History Of Prese nt Illness No Information Functional Status Date Functional Assessmen t No Information Instructions Date Instruction Additional Infor mation No Information Assessments Type Assessment Date No Information Patient Care Teams Name Effective Dates (start - stop) Status Members No Information
--- OUTSIDE RECORDS SUMMARY | 2005-09-30 03:00 | XMS_ITS | Continuity of Care Document ---
Author Organization [facility] Address [address] [place] [address] Phone Care Team Providers Care Spinning Operator Name Role Phone Dung Paulino MD Unavailable Unavailable Advance Directives Directive Yes / No Effective Date File Name No Information Encounters Encounter Description Practice Location Reason(s) For Visit Diagnoses Date Provider Providers Copied on Encounter [facility], [address], [place], [place], [id number], [place] tel:[phone] [facility] ([facility]) No Information Sep-2 7-200 6 Lora Razo. [address] [facility] [address], [place], [place], [id number], [place]. tel:[phone] Family History Family Member Type Diagnosis Age At Onset No Information Payers Payer name Insurance type Covered alliance party ID Authoriza tion(s) No Information Social History [...]
[2025-03-29] VITALS (12 sets, daily range): BP systolic 117–176; BP diastolic 66–104; PULSE 83–94; RESP 9–18; TEMP 36.4; O2SAT 95–99
--- NOTE | ~2025-03-29 | CT_ITS ---
EXAMINATION: CT brain wo con, 03/29/2025 17:45 CDT HISTORY: confusion COMPARISON: Comparison 07/28/2018. Technique: Axial images obtained of the brain without contrast. One or more of the following dose reduction techniques were used: automated exposure control, adjustment of the mA and/or kV according to patient size, use of iterative reconstruction technique. Findings: Within the left parieto-occipital lobe there is a large area of vasogenic edema with underlying mass suspected with mass effect upon the adjacent occipital horn and temporal horn although there is no midline shift. No acute infarct is identified. There are no extra-axial fluid collections. Mastoid air cells unremarkable. Sinuses and orbits unremarkable. No acute fracture. No significant facial or scalp soft tissue swelling evident. No radiopaque foreign body is seen. 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 Contrast- enhanced MRI is recommended Reviewed, dictated and finalized at location A. 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 Contrast-en hanced MRI is recommended
--- OUTSIDE RECORDS SUMMARY | 2025-03-29 16:20 | XMS_ITS | Encounter Summary ---
Author Organization [facility] Address [address] [facility] [place] [address] Care Team Providers Care Customer Solutions Representative Name Role Phone Pramod Gomez MD Primary Care Provider [phone] Encounter Details Date Type Department Care Team (Late st Contact Info) Description 10/22/2023 Lab Requisition [facility] - DermPath Lab [address] [facility], [place] [phone] Chito Gore MD [address] [place] [address] Social History Tobacco Use Types Packs/Day Years Used Date Smoking Tobacco: Never Smokeless Tobacco: Never Alcohol Use Standard Drinks/Week Comments Yes 0.8 (1 standard drink = 0.6 oz p ure alcohol) Sex and Gender Information Value Date Recorded Sex Assigned at Not on file 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 - Received: 10/23/2023 06:47 AM DermPath Lab Pathologist: Justa Whatley MD Specimens: A) - Skin, dorsal left radial hand B) - Skin, dorsal left hand proximal to thumb 1:41 PM CDT DERMATOPATHOLOGY LABORATORY Final Diagnosis Specimen A. 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 SKIN, dorsal left hand proximal to thumb: SOLAR LENTIGO (L81.4) ACTINIC KERATOSIS, FOCAL (L57.0) 1:41 PM CDT DERMATOPATHOLOGY LABORATORY at 1341 CDT Clinical History A: R/O SCC B: R/O SCC 1:41 PM CDT DERMATOPATHOLOGY LABORATORY Gross Description Specimen A: Received is one formalin filled container labeled with the patient's name and designated dorsal left radial hand. The specimen consists of a shave biopsy measuring 63i06s4 mm. Jar 0. Specimen B: Received is one formalin filled container labeled with the patient's name and designated dorsal left hand proximal to thumb. The specimen consists of a shave biopsy measuring 9x8x1 mm. Jar 0. 1:41 PM CDT DERMATOPATHOLOGY LABORATORY Microscopic Description Specimen [...] of keratinocytes with nuclear pleomorphism. 1:41 PM CDT DERMATOPATHOLOGY LABORATORY Disclaimer An external and internal positive and negative controls are appropriate for the histochemical, immunohistochemical and immunofluorescence stain(s) in this case (if any), except where stated explicitly. The performance characteristics of the stain(s) cited in this report were developed and its performance characteristic determined by the Dermatopathology Laboratory at [facility], directed by Dr. Diego Davison. These tests need not be, and therefore are not, approved by the [place] Food and Drug Administration. The tests are used for clinical purposes. Billing Codes Specimen Charges Stain Charges 74285 34577 1 1 4 1:41 PM CDT DERMATOPATHOLOGY LABORATORY Embedded Images 4 1:41 PM CDT DERMATOPATHOLOGY LABORATORY Pathology/Cytology TISSUE SPECIMEN FROM SKIN / Unknown 10/21/2023 10/23/2023 6:47 AM CDT Miscellaneous samples (specimen) TISSUE SPECIMEN FROM SKIN / Unknown 10/21/2023 10/23/2023 6:47 AM CDT Chito Gore MD LAB - PATHOLOGY/CYTOLOGY ORD ERABLES Final Result DERMATOPATHOLOGY LABORATORY [facility] Department of Dermatology [facility] Medicine [address] [place] [address], [address] [phone] documented in this encounter Visit Diagnoses Not on filedocumented in this encounter Care Teams Customer Solutions Representative Relationship Specialty Start Date End Date Pramod Gomez MD [address] [place] [phone] PCP - General 10/16/10 documented as of this encounter
--- OUTSIDE RECORDS SUMMARY | 2025-03-29 16:20 | XMS_ITS ---
Author Organization [facility] Address [address] [place] [address] Care Team Providers Care Airport Maintenance Laborer Name Role Phone Zachariah Sheriff MD Primary Care Provider Cullen Venegas MD Unavailable [phone] Milan Reed MD Unavailable [phone] Amrik Painter DO Unavailable [phone] Active Problems Problem Noted Date Diagnosed Date Need for immunization against influenza 05/20/20 24 Cardiac pacemaker in situ 04/07/2024 Overview (04/14/2024): Medtronic Marielos Dual Pacemaker. Dx: CHB DOI 04/07/2024 - [facility]. Card-Dr Painter. 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 Other Current Plans 2023 Influenza Vaccine ([facility])* Plan Start Date: 05/20/2024 Plan Provider:Milan Reed MD Linked Problems Need for immunization agains t influenza Treatment Medications No medications scheduled. IMMUNE GLOBULIN (GAMUNEX-C/GAMMAKED)( 3 CYCLES BEFORE EPIC)* Plan Start Date: 01/08/2018 Plan Provider:Milan Reed MD Linked Problems Common variable agammaglobul inemia Treatment Medications immune globulin (GAMUNEX-C,G AMMAKED) 10 % Past Treatment and Therapy Plans Line Care Plan Name Start Date Discontinue Date Treatment Medications Discontinue Reason Plan Provider IV Maintenance Therapy Plan 11/18/2024 02/17/2025 No medications scheduled. Therapy Complete Milan Reed MD Lifetime Dose Tracking * Chemical Lifetime Dose Automatic Entry Manual Entr y DLP 1,593 mGycm 1,593 mGycm 0 mGycm
--- OUTSIDE RECORDS SUMMARY | 2025-03-29 16:20 | XMS_ITS | Clinical Summary ---
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 Gender Identity Not on file Sexual Orientation Not on file Plan of Treatment Health Maintenance Due Date Last Done Comments DTaP, Tdap and Td Vaccines ( 1 - Tdap) 1957 Zoster Vaccines (1 of 2) 1988 Annual Medicare Wellness Visit 10/08/2003 RSV Immunization or 60+ Years (1 - 1-dose 75+ series) 2013 Pneumococcal Vaccine: 50+ Ye ars (2 of 2 - PPSV23) 05/05/2020 05/05/2019 COVID-19 Vaccine (2 - 2024-2 6 season) 2025 08/17/2020 Meningococcal B Vaccine Aged Out No l onger eligible based on patient's age to complete this topic Meningococcal Vaccine Aged Out No silvestre alexandra eligible based on patient's age to complete this topic RSV Immunizations Under 20 Months Aged Out No longer eligible based on patient's age to complete this topic Insurance [facility]ICARE [facility] Care Teams Civil Cad Tech Relationship Specialty Start Date End Date Zachariah Sheriff MD [address] [place] [address] PCP - General FAMILY PRACTICE 09/15/20
--- OUTSIDE RECORDS SUMMARY | 2025-03-29 16:20 | XMS_ITS | Clinical Summary ---
Author Organization [facility] Address [address] [facility] [place] [address] Care Team Providers Care Room Inspector Name Role Phone Pramod Gomez MD Primary Care Provider [phone] Source Comments [facility],non-owned Affiliates and Associated Physician Practices is amultiple site organization consisting of ambulatory clinics and hospital sitesin [place], [place], [place] and [place]. This disclosure is being madepursuant to the Care Everywhere program and may not contain all information available regarding this patient. 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 Gender Identity Not on file Sexual Orientation Not on file Plan of Treatment Health Maintenance Due Date Last Done Comments MEDICARE AWV 12 MONTHS 1938 DTAP/TDAP/TD VACCINES (1 - Tdap) 1957 PNEUMOCOCCAL VACCINE 50+ (1 of 1 - PCV) 1988 ZOSTER VACCINE (1 of 2) 1988 Respiratory Syncytial Virus (RSV) Vaccine Pt: or over 60 yrs (1 - 1-dose 75+ series) 2013 DEPRESSION SCREENING 07/07/2024 COVID-19 VACCINE (2023-2 5 season) 2025 INFLUENZA VACCINE (#1) 2025 HEPATITIS B VACCINE Aged Out No [...] age to complete this topic Insurance MEDICARE [facility] MEDICARE [employer] [facility] SELF PAY NO INSURANCE Member Subscriber Plan / Payer (Ef fective for All Dates) Name:Marquise Jorge Member ID:Not on file Relation to Subscriber:Not on file Name:MARQUISE JORGE Subscriber ID:Not on file (Home) Address: [place] [address] Payer ID:Not on file Group ID:Not on file Type:Self Pay Address: [place], [place] MEDICARE [facility] SPECIALTY RISK Care Teams Room Inspector Relationship Specialty Start Date End Date Pramod Gomez MD [address] [place] [address] PCP - General 10/16/10
--- OUTSIDE RECORDS SUMMARY | 2025-03-29 16:20 | XMS_ITS | Encounter Summary ---
Author Organization [facility] Address [address] [facility] [place] [address] Care Team Providers Care Flexographic Press Set Up Operator Name Role Phone Pramod Gomez MD Primary Care Provider [phone] Encounter Details Date Type Department Care Team (Late st Contact Info) Description 12/18/2023 Lab Requisition [facility] - DermPath Lab [address] 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 Gender Identity Not on file Sexual Orientation Not on file documented as of this encounter Plan of Treatment Not on file documented as of this encounter Procedures Procedure Name Priority Date/Time Associated Diagnosis Comments DERMATOPATHOLOGY Routine 12/16/2023 12:0 0 AM CDT documented in this encounter Results * DERMATOPATHOLOGY (12/16/2023 12:00 AM CDT) Case Report Dermatopathology Report Case: [id number] Authorizing Provider: Chito Gore MD Collected: 12/16/2023 12:00 AM Ordering Location: [facility] - Received: 12/18/2023 08:19 AM DermPath Lab Pathologist: Justa Whatley MD Specimen: Skin, left side of neck below earlobe 12:09 PM CDT DERMATOPATHOLOGY LABORATORY Final Diagnosis Specimen A. SKIN, left side of neck below earlobe: SQUAMOUS CELL CARCINOMA, ACANTHOLYTIC TYPE (C44.42) 12:09 PM CDT DERMATOPATHOLOGY LABORATORY at 1209 CDT Clinical History R/O SC 12:09 PM CDT [...] characteristic determined by the Dermatopathology Laboratory at [facility], directed by Dr. Diego Davison. These tests need not be, and therefore are not, approved by the [place] Food and Drug Administration. The tests are used for clinical purposes. Billing Codes Specimen Charges Stain Charges 80373 1 12:09 PM CDT DERMATOPATHOLOGY LABORATORY Embedded Images 12:09 PM CDT DERMATOPATHOLOGY LABORATORY Pathology/Cytolog y TISSUE SPECIMEN FROM SKIN / Unknown 12/16/2023 12/18/2023 8:19 AM CDT Chito Gore MD LAB - PATHOLOGY/CYTOLOGY ORD ERABLES Final Result DERMATOPATHOLOGY LABORATORY [facility] - Department of Dermatology [facility] Medicine [address] [place] [address], [address] [phone] documented in this encounter Visit Diagnoses Not on filedocumented in this encounter Care Teams Flexographic Press Set Up Operator Relationship Specialty Start Date End Date Pramod Gomez MD [address] [place] [address] PCP - General 10/16/10 documented as of this encounter
--- OUTSIDE RECORDS SUMMARY | 2025-03-29 16:20 | XMS_ITS | Encounter Summary ---
Author Organization [facility] Address [address] [place] [address] Care Team Providers Care Lining Cutter Name Role Phone Pramod Gomez MD Primary Care Provider [phone] Encounter Details Date Type Department Care Team (Late st Contact Info) Description 10/23/2022 Lab Requisition [facility] Care DermPath Lab [address] [facility] [place] [phone] Chito Gore MD [address] [place] [address] Social History Tobacco Use Types Packs/Day Years Used Date Smoking Tobacco: Never Smokeless Tobacco: Never Alcohol Use Standard Drinks/Week Comments Yes 0.8 (1 standard drink = 0.6 oz p ure alcohol) Sex and Gender Information Value Date Recorded Sex Assigned at Not on file 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 Gender Identity Not on file Sexual Orientation Not on file documented as of this encounter Plan of Treatment Not on file documented as of this encounter Procedures Procedure Name Priority Date/Time Associated Diagnosis Comments DERMATOPATHOLOGY Routine 10/22/2022 12:0 0 AM CDT documented in this encounter Results * DERMATOPATHOLOGY (10/22/2022 12:00 AM CDT) Case Report Dermatopathology Report Case: [id number] Authorizing Provider: Chito Gore MD Collected: 10/22/2022 12:00 AM Ordering Location: [facility] DermPath Lab Received: 10/23/2022 02:07 PM Pathologist: John Davison MD Specimen: Skin, right lower lateral back 3 6:29 PM CDT DERMATOPATHOLOGY LABORATORY Final Diagnosis Specimen A. SKIN, right lower lateral back: SEBORRHEIC KERATOSIS, IRRITATED (L82.0) 3 6:29 PM CDT DERMATOPATHOLOGY LABORATORY at 1829 CDT Clinical History R/O SK, ISK, Other 3 6:29 PM CDT DERMATOPATHOLOGY LABORATORY Gross Description Specimen A: Received is one formalin filled container labeled with the patient's name and designated right lower lateral back. The specimen consists of a shave biopsy measuring 44g05h6 mm. Jar 0. 3 6:29 PM CDT [...] determined by the Dermatopathology Laboratory at [facility], directed by Dr. Diego Davison. These tests need not be, and therefore are not, approved by the [place] Food and Drug Administration. The tests are used for clinical purposes. Billing Codes Specimen Charges Stain Charges 55368 1 3 6:29 PM CDT DERMATOPATHOLOGY LABORATORY Embedded Images 3 6:29 PM CDT DERMATOPATHOLOGY LABORATORY Pathology/Cytolog y TISSUE SPECIMEN FROM SKIN / Unknown 10/22/2022 10/23/2022 2:07 PM CDT us Chito Gore MD LAB - PATHOLOGY/CYTOLOGY ORD ERABLES Final Result DERMATOPATHOLOGY LABORATORY [facility] - Department of Dermatology [facility] [address] [facility], [place] [address] [phone] documented in this encounter Visit Diagnoses Not on filedocumented in this encounter Care Teams Lining Cutter Relationship Specialty Start Date End Date Pramod Gomez MD [address] [place] [address] PCP - General 10/16/10 documented as of this encounter
--- OUTSIDE RECORDS SUMMARY | 2025-03-29 16:20 | XMS_ITS | Clinical Summary ---
Author Organization [facility] Address [address] [place] [address] Care Team Providers Care Ship Engineer Name Role Phone Zachariah Sheriff MD Primary Care Provider Cullen Venegas MD Unavailable [phone] Milan Reed MD Unavailable [phone] Amrik Painter DO Unavailable [phone] Allergies No known active allergies Medications fexofenadine [...] pacemaker in situ 04/07/2024 Overview (04/14/2024): Medtronic Summer Set Dual Pacemaker. Dx: CHB DOI 04/07/2024 - Luis Enrique. [facility]. Card-Dr Painter. 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 Rash 06/17/2016 Other diseases of nasal cavity and sinuses 06/11 Postnasal drip 06/11/2016 Headache 01/29/2016 Unspecified malignant neopla sm of skin of other parts of face 04/20/2015 Weight loss 06/06/2014 Encounters Date Type Department Care Team Description 03/24/2025 10:00 AM CDT Clinical Support [facility] at [address] [address] Chronic lymphocytic leukemia (HCC) 03/24/2025 9:30 AM CDT Infusion [address] [address] Chronic lymphoid leukemia, without mention of having achieved remission(204.10) (HCC) (Primary Dx); Chronic lymphocytic leukemia (HCC); Hypogammaglobulinemia; Common variable agammaglobulinemia 03/24/2025 Orders Only [facility] [address] [place] [phone] Jessica Kirkpatrick RN Chronic lymphocytic leukemia (HCC) (Primary Dx) 03/23/2025 Telephone [facility] [address] [place] [phone] Jessica Kirkpatrick RN 02/17/2025 10:00 AM CDT Infusion [address] [place] [address] Hypogammaglobulinemia (Primary Dx); Chronic lymphocytic leukemia (HCC); Chronic lymphoid leukemia, without mention of having achieved remission(204.10) (HCC); Common variable agammaglobulinemia 01/20/2025 10:15 AM CDT Infusion [facility] at [address] [place] [address] Chronic lymphoid leukemia, without mention of having achieved remission(204.10) (HCC) (Primary Dx); Chronic lymphocytic leukemia (HCC); Hypogammaglobulinemia; Common variable agammaglobulinemia from Last 3 Months Immunizations Immunization Administration [...] often do you have a drink containing alcohol? Never 11/18/2024 Q2: How many drinks containi ng alcohol do you have on a typical day when you are drinking? 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 Gender Identity Not on file Sexual Orientation Not on file Obstetrics History Last Filed Vital Signs Vital Sign Reading Time Taken Comments Blood Pressure 139/81 03/24/2025 12:09 PM CDT Pulse 78 03/24/2025 12:09 PM CDT Temperature 36.4 C (97.5 F) 03/24/2025 12:09 PM CDT Respiratory Rate 18 03/24/2025 12:0 9 PM CDT Oxygen Saturation 97% 03/24/2025 12: 09 PM CDT Inhaled Oxygen Concentration - - Weight 101.7 kg (224 lb 3.3 oz) 03/24/2025 9:21 AM CDT w/ shoes Height 179.2 cm (5' 10.55) 09/22/2024 8:38 AM C DT Body Mass Index 31.67 09/22/2024 8:38 AM CDT Plan of Treatment Health Maintenance Due Date Last Done Comments Depression Screening 1938 Fall Risk Assessment 1940 DTaP/Tdap/Td Vaccine (1 - Tdap) 1949 Hepatitis B Screening 1956 Zoster Vaccine (1 of 2) 1957 Well Visit 65+ 10/08/2003 Covid-19 Vaccine (4 - 2024-2 6 season) 2025 05/02/2021, 09/25/2020, 08/17/2020 Influenza Vaccine (#1) 2025 4, 04/17/2022, 04/18/2021, Additional history exists Pneumococcal vaccine 65+ Completed 020, 05/05/2019, 04/29/2016 Medical Devices Implanted Type Area Electronic Controls Repairer Supervisor Device Identifier Shelf Expiration Date Model / Serial / Lot Pac Chest Procedures Procedure Name Priority Date/Time Associated Diagnosis Comments EGFR Routine 03/24/2025 10:26 AM CDT Chronic lymphocytic leukemia (HCC) DIFFERENTIAL AUTO Routine 03/24/2025 10: 26 AM CDT Chronic lymphocytic leukemia (HCC) LACTATE DEHYDROGENASE Routine 03/24/2025 10:26 AM CDT Chronic lymphocytic leukemia (HCC) COMPREHENSIVE METABOLIC PANEL Routine 03/24/2025 10:26 AM CDT Chronic lymphocytic leukemia (HCC) CBC WITH AUTO DIFFERENTIAL Routine 03/24/2025 10:26 AM CDT Chronic lymphocytic leukemia (HCC) from Last 3 Months Results * (ABNORMAL) eGFR (03/24/2025 10:26 AM CDT) eGFR 59(L) >=60 mL/min/1. 73 m2 Comment: Interpretive Data Reference Interval Normal >/= 90 mL/min/1.73m2 Mildly decreased* 60 - 89 mL/min/1.73m2 Mildly to moderately decreased 45 - 59 mL/min/1.73m2 Moderately to severely decreased 30 - 44 mL/min/1.73m2 Severely decreased 15 - 29 mL/min/1.73m2 Kidney Failure < 15 mL/min/1.73m2 *Relative to young adult level Estimated glomerular filtration rate is determined by the 2020 CKD-EPI equation recommended by the National Kidney Foundation (A Unifying Approach to GFR Estimation: Recommendations of the NKF-ASK Task Force on Reassessing the Inclusion of Race in Diagnosing Kidney Disease, JASN 2020). The CKD-EPI equation should not be used for patients with unstable renal function and has not been validated in children and those over 70. Current interpretive data was last reviewed 2021. Testing performed by: [facility], [address] [place] [address], [place]., [address] Blood 03/24/2025 10:2 6 AM CDT 03/24/2025 10:27 AM CDT us Milan Reed MD LAB BLOOD ORDERABLES Final R esult TEJINDERIUS [address] [facility] [address] 92 * (ABNORMAL) Differential, auto (03/24/2025 10:26 AM CDT) Neutrophil abs 2.91 1.50 - 6.50 K/cumm Comment:Testing performed by : [address] [address] Imm gran abs 0.01 0.00 - 0.10 K/cumm ARGENIS Comment:Testing performed by : [address] [address] Lymphocyte abs 0.47(L) 0.80 - 3.30 K/cumm ARGENIS Comment:Testing performed by : [address] [address] Monocyte abs 0.26 0.20 - 0.80 K/cumm [facility] Comment:Testing performed by : [address] [address] Eosinophil abs 0.01 0.00 - 0.50 K/cumm ARGENIS Comment:Testing performed by : [address] [address] Basophil abs 0.01 0.00 - 0.10 K/cumm [facility] Comment:Testing performed by : [address] [address] Neutrophil pct 79.2 % [facility] Comment: Interpretive Data Percent cell count reference ranges are not reported, since discordance with absolute values may lead to misinterpretation of CBC data. Current Interpretive Data was last revised on 2017. Testing performed by: [address] [address] Imm gran pct 0.3 % [facility] Comment: Interpretive Data Percent cell count reference ranges are not reported, since discordance with absolute values may lead to misinterpretation of CBC data. Current Interpretive Data was last revised on 2017. Testing performed by: [address] [address] Lymphocyte pct 12.8 % [facility] Comment: Interpretive Data Percent cell count reference ranges are not reported, since discordance with absolute values may lead to misinterpretation of CBC data. Current Interpretive Data was last revised on 2017. Testing performed by: [address] [address] Monocyte pct 7.1 % ARGENIS Comment: Interpretive Data Percent cell count reference ranges are not reported, since discordance with absolute values may lead to misinterpretation of CBC data. Current Interpretive Data was last revised on 2017. Testing performed by: [address] [address] Eosinophil pct 0.3 % ARGENIS Comment: Interpretive Data Percent cell count reference ranges are not reported, since discordance with absolute values may lead to misinterpretation of CBC data. Current Interpretive Data was last revised on 2017. Testing performed by: [address] [address] Basophil pct 0.3 % [facility]IS Comment: Interpretive Data Percent cell count reference ranges are not reported, since discordance with absolute values may lead to misinterpretation of CBC data. Current Interpretive Data was last revised on 2017. Testing performed by: [address] [address] Blood 03/24/2025 10:2 6 AM CDT 03/24/2025 10:27 AM CDT us Milan Reed MD LAB BLOOD ORDERABLES Final R esult [facility] [address] [facility] Department [place] [address] * (ABNORMAL) CBC with auto differential (03/24/2025 10:26 AM CDT) WBC 3.67(L) 3.80 - 9.90 K/cumm Comment:Testing performed by : [address] [address] Hgb 11.7(L) 13.0 - 17.5 g/dL ARGENIS SADLER Comment:Testing performed by : [address] [address] Hct 35.3(L) 38.9 - 50.3 % ARGENIS Comment:Testing performed by : [address] [address] Plt 121(L) 150 - 400 K/cumm ARGENIS Comment:Testing performed by : [address] [address] MPV 9.6 9.1 - 12.3 fL ARGENIS Comment:Testing performed by : [address] [address] RBC 4.21(L) 4.30 - 5.80 M/cumm ARGENIS Comment:Testing performed by : [address] [address] MCV 83.8 81.3 - 96.4 fL ARGENIS Comment:Testing performed by : [address] [address] MCH 27.8 27.1 - 33.3 pg ARGENIS Comment:Testing performed by : [address] [address] MCHC 33.1 32.3 - 35.7 g/dL ARGENIS Comment:Testing performed by : [address] [address] RDW CV 15.1(H) 11.1 - 14.9 % ARGENIS Comment:Testing performed by : [address] [address] RDW SD 45.9 35.7 - 48.1 fL [facility]GENIS Comment:Testing performed by : [address] [address] NRBC abs 0.00 0.00 - 0.01 K/cumm ARGENIS Comment:Testing performed by : [address] [address] ANC Prelim 2.91 1.50 - 6.50 K/cumm ARGENIS Comment: Interpretive Data The rapid ANC is a preliminary automated count and may vary from the final ANC (Neut Abs) reported in the WBC differential that follows. Current interpretive data was last revised 2024. Testing performed by: [address], [address] Blood 03/24/2025 10:2 6 AM CDT 03/24/2025 10:27 AM CDT Milan Reed MD LAB BLOOD ORDERABLES Final R esult Performing Organization Address City/[facility] [address]/[facility] Co de Phone Number [id number] [address] * Lactate dehydrogenase (LD) (03/24/2025 10:26 AM CDT) Pathologist [facility] Lactate dehydrogenase (LDH) 167 100 - 250 Units/L Comment:Testing performed by : [address] [address] Blood 03/24/2025 10:2 6 AM CDT 03/24/2025 10:27 AM CDT Milan Reed MD LAB BLOOD ORDERABLES Final R esult Performing Organization Address City/[facility] [address]/[facility] Co de Phone Number [email or web address] [address] * (ABNORMAL) Comprehensive metabolic panel (03/24/2025 10:26 AM CDT) [facility] Sodium 139 135 - 145 mmol/L Comment:Testing performed by : [address] [address] Potassium, pl 4.2 3.3 - 4.9 mmol/L ARGENIS Comment:Testing performed by : [address] [address] Chloride 105 97 - 110 mmol/L ARGENIS Comment:Testing performed by : [address] [address] CO2 23 22 - 32 mmol/L ARGENIS Comment:Testing performed by : [address] [address] Anion gap 11 2 - 15 mmol/L ARGENIS Comment:Testing performed by : [address] [address] BUN 27(H) 6 - 25 mg/dL ARGENIS Comment:Testing performed by : [address] [address] Creatinine 1.20 0.80 - 1.30 mg/dL ARGENIS Comment:Testing performed by : [address] [address] Glucose 116 70 - 199 mg/dL ARGENIS Comment: Interpretive Data Fasting glucose >/= 126 mg/dl is diagnostic for diabetes. Fasting is defined as no caloric intake for at least 8 hours. Fasting glucose between 100 mg/dl to 125 mg/dl is diagnostic of prediabetes. In a patient with classic symptoms of hyperglycemia or hyperglycemic crisis, a random glucose >/= 200 mg/dl is diagnostic for diabetes. In the absence of unequivocal hyperglycemia, results should be confirmed by repeat testing. The classification and Diagnosis of Diabetes Diabetes Care 2021; 46: S19-S40. Current interpretive data was last revised 2022. Testing performed by: [address] [address] Calcium 8.6 8.5 - 10.3 mg/dL ARGENIS Comment:Testing performed by : [address] [address] Bilirubin, total 0.4 0.1 - 1.2 mg/dL ARGENIS Comment:Testing performed by : [address] [address] Protein, pl 6.6 6.5 - 8.5 g/dL ARGENIS Comment:Testing performed by : [address] [address] Albumin 3.9 3.5 - 5.0 g/dL ARGENIS Comment:Testing performed by : [address] [address] Alk phos 64 40 - 130 Units/L ARGENIS Comment:Testing performed by : [address] [address] ALT 10 7 - 55 Units/L ARGENIS Comment:Testing performed by : [address], [address] AST 13 10 - 50 Units/L ARGENIS Comment:Testing performed by : [address] [place] [address] Blood 03/24/2025 10:2 6 AM CDT 03/24/2025 10:27 AM CDT us Milan Reed MD LAB BLOOD ORDERABLES Final R esult [facility] [address] [facility] Department [place] [address] from Last 3 Months Insurance MEDICARE [facility] MEDICARE MEDICARE [facility] [place] Advance Directives For more information, please contact: [phone] * Full Code (Latest Code Status on File) Date Activated Date Inactivated Comments 07/29/2018 1:43 PM 07/30/2018 8:05 PM Care Teams Ship Engineer Relationship Specialty Start Date End Date Zachariah Sheriff MD PCP - General Family Practice 11/03/18 Cullen Venegas MD [address] [place] [address] Consulting Physician Urology 05/09/21 Milan Reed MD [address] [facility] [address] [place] [address] Consulting Physician Internal Medicine 03/20/23 Amrik Painter DO [address] [place] [address] Referring Physician Cardiology 06/12/23
--- OUTSIDE RECORDS SUMMARY | 2025-03-29 16:20 | XMS_ITS | Encounter Summary ---
Author Organization [facility] Address [address] [facility] [place] [address] Care Team Providers Care Locum Tenens Hospitalist Name Role Phone Pramod Gomez MD Primary Care Provider [phone] Encounter Details Date Type Department Care Team (Late st Contact Info) Description 10/11/2021 Lab Requisition [facility] Care DermPath Lab [address] [facility] [place] [phone] Chito Gore MD [address] [place] [address] Social History Tobacco Use Types Packs/Day Years Used Date Smoking Tobacco: Never Smokeless Tobacco: Never Alcohol Use Standard Drinks/Week Comments Yes 0.8 (1 standard drink = 0.6 oz p ure alcohol) Sex and Gender Information Value Date Recorded Sex Assigned at Not on file 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 Gender Identity Not on file Sexual Orientation Not on file documented as of this encounter Plan of Treatment Not on file documented as of this encounter Procedures Procedure Name Priority Date/Time Associated Diagnosis Comments DERMATOPATHOLOGY Routine 10/10/2021 12:0 0 AM CDT documented in this encounter Results * DERMATOPATHOLOGY (10/10/2021 12:00 AM CDT) Case Report Dermatopathology Report Case: [id number] Authorizing Provider: Chito Gore MD Collected: 10/10/2021 12:00 AM Ordering Location: [facility] DermPath Lab Received: 10/11/2021 01:43 PM Pathologist: India Whatley MD Specimen: Skin, left ear lobe 1:14 PM CDT DERMATOPATHOLOGY LABORATORY Final Diagnosis Specimen A. 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 The specimen consists of a shave biopsy measuring [id number]. Jar 0. 1:14 PM CDT DERMATOPATHOLOGY LABORATORY [...] characteristic determined by the Dermatopathology Laboratory at [facility], directed by Dr. Diego Davisno. These tests need not be, and therefore are not, approved by the [place] Food and Drug Administration. The tests are used for clinical purposes. Billing Codes Specimen Charges Stain Charges 62503 1 1:14 PM CDT DERMATOPATHOLOGY LABORATORY Embedded Images 1:14 PM CDT DERMATOPATHOLOGY LABORATORY Pathology/Cytolog y TISSUE SPECIMEN FROM SKIN / Unknown 10/10/2021 10/11/2021 1:43 PM CDT Chito Gore MD LAB - PATHOLOGY/CYTOLOGY ORD ERABLES Final Result DERMATOPATHOLOGY LABORATORY [facility] - Department of Dermatology [facility] Medicine [address] [place] [address], [address] [phone] documented in this encounter Visit Diagnoses Not on filedocumented in this encounter Care Teams Locum Tenens Hospitalist Relationship Specialty Start Date End Date Pramod Gomez MD [address] [place] [address] PCP - General 10/16/10 documented as of this encounter
--- OUTSIDE RECORDS SUMMARY | 2025-03-29 16:20 | XMS_ITS | Encounter Summary ---
Author Organization [facility] Address [address] [facility] [place] [address] Care Team Providers Care Drapery Counselor Name Role Phone Pramod Gomez MD Primary Care Provider [phone] Encounter Details Date Type Department Care Team (Late st Contact Info) Description 01/21/2019 Lab Requisition [facility] Care DermPath Lab [address] [facility], [place] [phone] Chito Gore MD [address] [place] [address] Social History Tobacco Use Types Packs/Day Years Used Date Smoking Tobacco: Never Smokeless Tobacco: Never Alcohol Use Standard Drinks/Week Comments Yes 0.8 (1 standard drink = 0.6 oz p ure alcohol) Sex and Gender Information Value Date Recorded Sex Assigned at Not on file 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 Gender Identity Not on file Sexual Orientation Not on file documented as of this encounter Plan of Treatment Not on file documented as of this encounter Procedures Procedure Name Priority Date/Time Associated Diagnosis Comments DERMATOPATHOLOGY Routine 01/20/2019 12:0 0 AM CDT documented in this encounter Results * DERMATOPATHOLOGY (01/20/2019 12:00 AM CDT) Case Report Dermatopathology Report Case: [id number] Authorizing Provider: Chito Gore MD Collected: 01/20/2019 12:00 AM Pathologist: John Davison MD Received: 01/21/2019 11:39 AM Specimen: Skin, left forearm 3:46 PM T DERMATOPATHOLOGY LABORATORY Final Diagnosis Specimen A. SKIN, left forearm: HYPERPLASTIC (HYPERTROPHIC) ACTINIC KERATOSIS; NOT PRESENT AT MARGIN (L57.0) BENIGN VERRUCOUS KERATOSIS, INFLAMED; NOT PRESENT AT MARGIN (L82.1) DERMAL FIBROSIS (L90.5) 3:46 PM T DERMATOPATHOLOGY LABORATORY at 1546 CDT Clinical History R/O SCC, HAK, ISK. Check margins. 3:46 PM [facility] DERMATOPATHOLOGY LABORATORY Gross Description Specimen A: Received is one formalin filled container labeled with the patients name and designated left forearm. The specimen consists of a shave removal measuring [id number]. The margin is inked green. Jar 0. [...] determined by the Dermatopathology Laboratory at [facility], directed by Dr. Diego Davison. These tests need not be, and therefore are not, approved by the [place] Food and Drug Administration. The tests are used for clinical purposes. Billing Codes Specimen Charges Stain Charges 20123 1 9 3:46 PM CDT DERMATOPATHOLOGY LABORATORY Embedded Images 9 3:46 PM CDT DERMATOPATHOLOGY LABORATORY Pathology/Cytolog y TISSUE SPECIMEN FROM SKIN / Unknown 01/20/2019 01/21/2019 11:39 AM CDT Chito Gore MD LAB - PATHOLOGY/CYTOLOGY ORD ERABLES Final Result DERMATOPATHOLOGY LABORATORY [facility] - Department of Dermatology [address] [place] [address], 5th Floor Lab [address] [phone] documented in this encounter Visit Diagnoses Not on filedocumented in this encounter Care Teams Drapery Counselor Relationship Specialty Start Date End Date Pramod Gomez MD [address] [place] [phone] PCP - General 10/16/10 documented as of this encounter
--- OUTSIDE RECORDS SUMMARY | 2025-03-29 16:20 | XMS_ITS | Encounter Summary ---
Author Organization [facility] Address [address] [facility] [place] [address] Care Team Providers Care Vacuum Closing Machine Operator Name Role Phone Pramod Gomez MD Primary Care Provider [phone] Encounter Details Date Type Department Care Team (Late st Contact Info) Description 02/18/2020 Lab Requisition [facility] Care DermPath Lab [address] [facility] [place] [phone] Chito Gore MD [address] [place] [address] Social History Tobacco Use Types Packs/Day Years Used Date Smoking Tobacco: Never Smokeless Tobacco: Never Alcohol Use Standard Drinks/Week Comments Yes 0.8 (1 standard drink = 0.6 oz p ure alcohol) Sex and Gender Information Value Date Recorded Sex Assigned at Not on file 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 Gender Identity Not on file Sexual Orientation Not on file documented as of this encounter Plan of Treatment Not on file documented as of this encounter Procedures Procedure Name Priority Date/Time Associated Diagnosis Comments DERMATOPATHOLOGY Routine 02/16/2020 12:0 0 AM CDT documented in this encounter Results * DERMATOPATHOLOGY (02/16/2020 12:00 AM CDT) Case Report Dermatopathology Report Case: [id number] Authorizing Provider: Chito Gore MD Collected: 02/16/2020 12:00 AM Ordering Location: [facility] DermPath Lab Received: 02/18/2020 02:29 PM Pathologist: Wanda Landeros MD Specimens: A) - Skin, left ala B) - Skin, left post neck 0 3:42 PM CDT DERMATOPATHOLOGY LABORATORY Final Diagnosis Specimen A. SKIN, left ala: BASAL CELL CARCINOMA, INFILTRATIVE PATTERN (C44.311) Specimen B. SKIN, left post neck: ACTINIC KERATOSIS, ACANTHOLYTIC TYPE (L57.0) 0 3:42 PM CDT DERMATOPATHOLOGY LABORATORY at 1542 CDT Clinical History A-B: R/O BCC 0 3:42 [...] purposes. Billing Codes Specimen Charges Stain Charges 87712 [address] 1 1 0 3:42 PM CDT DERMATOPATHOLOGY LABORATORY Embedded Images 0 3:42 PM CDT DERMATOPATHOLOGY LABORATORY Pathology/Cytology TISSUE SPECIMEN FROM SKIN / Unknown 02/16/2020 02/18/2020 2:29 PM CDT Miscellaneous samples (specimen) TISSUE SPECIMEN FROM SKIN / Unknown 02/16/2020 02/18/2020 2:29 PM CDT Chito Gore MD LAB - PATHOLOGY/CYTOLOGY ORD ERABLES Final Result DERMATOPATHOLOGY LABORATORY [facility] - Department of Dermatology [employer] [facility]/[address] [phone] documented in this encounter Visit Diagnoses Not on filedocumented in this encounter Care Teams Vacuum Closing Machine Operator Relationship Specialty Start Date End Date Pramod Gomez MD [address] [place] [address] PCP - General 10/16/10 documented as of this encounter
--- NOTE | 2025-03-29 16:50 | ED.GENADULT ---
HPI - General Adult General Chief complaint: Altered Mental Status <Patricia Lorenzo, MEDIA CENTER ASSISTANT - Last Filed: 03/30/25 19:49> Stated complaint: ams <Patricia Lorenzo MEDIA CENTER ASSISTANT - Last Filed: 03/30/25 19:49> Time Seen by Provider: 03/29/25 16:50 <Patricia Lorenzo MEDIA CENTER ASSISTANT - Last Filed: 03/30/25 19:49> Focused HPI: Marquise Reyes is an 84 y/o male who presents with family, Patient reports of having constant headaches/ dizziness /changes to his gait and difficulty finding words that has been getting worse over the past two weeks . Denies any falls or trauma confusion has been gradual over months but worse over the past two weeks. GENERAL: Well-appearing, well-nourished, and in no acute distress. HEAD: Normocephalic, atraumatic. CHEST: Clear to auscultation. ?No respiratory distress. HEART: Regular rate and rhythm.? NEURO: ?Alert and oriented to self, place and states the date unable to state year. Patient screened in triage and initial orders placed.? ?Additional care and disposition to be based upon?diagnostic testing and treatment. <Patricia Stark November, MEDIA CENTER ASSISTANT - Last Filed: 03/30/25 19:49> History of Present Illness HPI narrative: Agree with the HPI above but also like to add that patient has a history of malignant neoplasm of the prostate and CLL currently in remission. He has a history of a pacemaker implanted that is MR conditional. Patient denies any symptoms right now besides the headache and he appears very confused and alert oriented x1. Not any acute distress. No strength her sensory deficits on exam. <Vivek Oliveira MD - Last Filed: 03/30/25 06:54> Related Data Home medications: Home Medications ?Medication ?Instructions ?Recorded ?Confirmed ?Last Taken ?Type fexofenadine 180 mg tablet 180 mg PO DAILY 05/27/19 12/01/24 Unknown History (Corrina Allergy) alendronate 70 mg tablet 70 mg PO WEEKLY 05/22/23 12/01/24 03/31/24 History furosemide 40 mg tablet 20 mg PO DAILY 03/29/25 Unknown History latanoprost 0.005 % eye drops 1 drp RIGHT EYE QPM 03/29/25 Unknown History metoprolol succinate 25 mg 12.5 mg PO BID 03/29/25 Unknown History tablet,extended release 24 hr omeprazole 40 mg capsule,delayed 40 mg PO DAILY 03/29/25 Unknown History release <Patricia Stark November, - Last Filed: 03/30/25 19:49> Allergies/adverse reactions: Allergies Allergy/AdvReac Type Severity Reaction Status Date / Time No Known Allergies Allergy Verified 03/29/25 14:58 <Patricia Stark November, - Last Filed: 03/30/25 19:49> Review of Systems Review of Systems: As reviewed above in HPI <Vivek Oliveira MD - Last Filed: 03/30/25 06:54> [facility] Past Medical History Medical History: Medical History Osteopenia Leg weakness, bilateral Bulbous urethral stricture Squamous cell skin cancer Heart failure with reduced ejection fraction EF 40 to 45% in May 2023. Chronic lymphocytic leukemia In remission. Central stenosis of spinal canal Insomnia Cognitive impairment Vitamin D deficiency Prostate cancer Obstructive sleep apnea Essential (primary) hypertension Chronic low back pain Lumbar spondylosis Dyslipidemia Environmental allergies GERD without esophagitis History of subdural hematoma (2018) <Patricia Stark November, - Last Filed: 03/30/25 19:49> Surgical History Surgical History: Surgical History History of benign breast biopsy left History of lumbosacral spine surgery 1960s History of basal cell carcinoma excision (2019) left nose History of neck surgery (2000) Tumor Right side of neck - removed 2008 <Patricia Stark November, - Last Filed: 03/30/25 19:49> Family History Family History: Family History Mother Patient's mother is , Onset Age: 92 Family history of lung cancer Father Family history of type 2 diabetes mellitus Diabetes mellitus, Onset Age: 79 Family history of lung cancer Other Family history of lymphoma <Patricia Stark November,N - Last Filed: 03/30/25 19:49> Social History Social History: Social History Social History: Surrogate medical decision maker: Ted Reyes, spouse. Code status: Full code. Smoking status: Never smoker Second hand tobacco smoke exposure: No Alcohol intake: never Substance use: never Substance use type: does not use Do You Feel Safe in your Home?: Yes Lack of Transportation: No Lack of Food: Never True Current Housing: I Have Housing Concerned About Future Housing: No Difficulty Paying Gas/Electric Bills: No Difficulty Paying for Meds: No Currently Unemployed: No Education: High School Diploma/GED Difficulty w/ Childcare or Family Care: No Living arrangements: with family Additional living arrangements comments: Lives with spouse in [place]. Spiritual care concerns: No (pt is religious) <Patricia Lorenzo APRN - Last Filed: 03/30/25 19:49> Exam Narrative: GENERAL: [Well-appearing, well-nourished, and in no acute distress.] HEAD: [Normocephalic, atraumatic.] EYES: [PERRLA and EOMI.] ENT: Nares clear, no rhinorrhea or epistaxis. Mucous membranes moist. NECK: Supple. CHEST: [Clear to auscultation. No respiratory distress.] HEART: [Regular rate and rhythm]. No murmur heard. [Normal peripheral pulses.] ABDOMEN: [Soft, nondistended], [nontender], [No rigidity or guarding] EXTREMITIES: Normal range of motion. [No edema.] SKIN: Warm, dry, no rash. NEURO: [No focal deficits]. Alert and oriented x1, not oriented to time or surroundings. Gait assessment deferred at this time. PSYCH: [Normal mood and affect.] <Vivek Oliveira MD - Last Filed: 03/30/25 06:54> Course Vital Signs Vital signs: Vital Signs Temperature 36.4 C 03/29/25 16:29 Pulse Rate 94 03/29/25 16:29 Respiratory Rate 16 03/29/25 16:29 Blood Pressure 117/66 03/29/25 16:29 Pulse Oximetry 98 03/29/25 16:29 Temperature 36.7 C 03/30/25 09:54 Pulse Rate 80 03/30/25 15:01 Respiratory Rate 12 03/30/25 15:01 Blood Pressure 137/78 03/30/25 15:01 Pulse Oximetry 97 03/30/25 15:01 Oxygen Delivery Room Air 03/29/25 21:29 <Patricia Lorenzo APRN - Last Filed: 03/30/25 19:49> Vital Signs Temperature 36.4 C 03/29/25 16:29 Pulse Rate 94 03/29/25 16:29 Respiratory Rate 16 03/29/25 16:29 Blood Pressure 117/66 03/29/25 16:29 Pulse Oximetry 98 03/29/25 16:29 Temperature 36.7 C 03/30/25 09:54 Pulse Rate 80 03/30/25 15:01 Respiratory Rate 12 03/30/25 15:01 Blood Pressure 137/78 03/30/25 15:01 Pulse Oximetry 97 03/30/25 15:01 Oxygen Delivery Room Air 03/29/25 21:29 <Vivek Oliveira MD - Last Filed: 03/30/25 06:54> Medical Decision Making MDM Narrative Medical decision making narrative: 84 y/o male who presents with family, Patient reports of having constant headaches/ dizziness /changes to his gait and difficulty finding words that has been getting worse over the past two weeks . Denies any falls or trauma confusion has been gradual over months but worse over the past two weeks. Patient has a history of prostate cancer and CLL both reportedly in remission. Has had previous cancer care at [facility]. He has unremarkable vital signs without any significant hypertension, tachycardia, fever or hypoxemia. He is alert oriented x1 which is not his baseline mentation but no other overt neurological deficits such as strength asymmetry sensory symmetry. No facial droop. Symptoms going on for 2 weeks. Given his cancer history suspicion is potentially for malignancy, recurrence, metastatic disease, intracranial hemorrhage, stroke, electrolyte imbalances, urinary tract infection or dehydration. Broad workup was ordered including a CT head, laboratory studies and urinalysis. CT head shows new extra-axial mass with vasogenic edema consistent with neoplasm. Discussed this with the patient and family members at bedside who were seemingly understanding but patient again is still very confused. He has an MR conditional pacemaker and we do not have MR compatible MRI tip abilities at this facility for further workup as the radiologist recommended MRI with contrast for further evaluation. I discussed this with the family and they would like him transferred to the [facility] for further evaluation and treatment. Spoke to [facility] transfer system and awaiting discussion with accepting facility and hospitalist/consultants. Spoke to the oncologist at [facility] Dr. Leiva who recommended transfer to higher level of care including [facility]. Also recommended talking to the ER physician at [place] for ER to ER transfer if possible. I did speak to the ER physician who declined emergent transfer at this time given patient is hemodynamically stable and requires inpatient capabilities with pacemaker compatible MRI imaging and also recommended loading the patient with 8 mg of dexamethasone IV after talking to the Oncology attending. Hospitalist at [facility] was consulted by the transfer center and accepted the patient for direct admission pending room availability. Dr. Milan Reed is the accepting provider. Awaiting bed assignment for transfer via ALS. Patient remains hemodynamically stable and mostly symptom free besides his confusion during repeat evaluations. I updated the family members at bedside and they were comfortable with the plan of care for awaiting transfer while here in the ER. Patient care endorsed to morning physician pending transfer. <Vivek Oliveira MD - Last Filed: 03/30/25 06:54> Medical Records Medical records reviewed: Yes I reviewed the external patient's medical records. <Vivek Oliveira MD - Last Filed: 03/30/25 06:54> Vital Signs Vital Signs: Vital Signs Temperature 36.4 C 03/29/25 16:29 Pulse Rate 94 03/29/25 16:29 Respiratory Rate 16 03/29/25 16:29 Blood Pressure 117/66 03/29/25 16:29 Pulse Oximetry 98 03/29/25 16:29 Temperature 36.7 C 03/30/25 09:54 Pulse Rate 80 03/30/25 15:01 Respiratory Rate 12 03/30/25 15:01 Blood Pressure 137/78 03/30/25 15:01 Pulse Oximetry 97 03/30/25 15:01 Oxygen Delivery Room Air 03/29/25 21:29 <Patricia Lorenzo APRN - Last Filed: 03/30/25 19:49> Vital Signs Temperature 36.4 C 03/29/25 16:29 Pulse Rate 94 03/29/25 16:29 Respiratory Rate 16 03/29/25 16:29 Blood Pressure 117/66 03/29/25 16:29 Pulse Oximetry 98 03/29/25 16:29 Temperature 36.7 C 03/30/25 09:54 Pulse Rate 80 03/30/25 15:01 Respiratory Rate 12 03/30/25 15:01 Blood Pressure 137/78 03/30/25 15:01 Pulse Oximetry 97 03/30/25 15:01 Oxygen Delivery Room Air 03/29/25 21:29 <Vivek Oliveira MD - Last Filed: 03/30/25 06:54> Lab Data Lab results reviewed: Yes I reviewed the patient's lab results. <Vivek Oliveira MD - Last Filed: 03/30/25 06:54> Result diagrams: 03/29/25 17:03 03/29/25 17:03 <Patricia Lorenzo APRN - Last Filed: 03/30/25 19:49> Labs: Lab Results 03/29/25 03/29/25 Range/Units 17:03 23:51 WBC 5.2 (4.5-10.0) K/mm3 RBC 4.65 (4.6-6.20) M/mm3 Hgb 12.9 L (14.0-18.0) g/dL Hct 40.1 L (42.0-52.0) % MCV 86.2 (80-100) fl MCH 27.7 (26-34) pg MCHC 32.2 (32-36) g/dl RDW 15.9 H (11.5-14.5) % Plt Count 139 L (150-375) k/mm3 MPV 9.4 (7.4-10.4) fl Immature Gran % (Auto) 0.2 (0-0.5) % Neut % (Auto) 80.6 H (45.5-73.1) % Lymph % (Auto) 12.3 L (18.3-44.2) % Pine % (Auto) 6.5 (2.6-8.5) % Eos % (Auto) 0.2 (0-4.4) % Baso % (Auto) 0.2 (0.2-1.2) % Lymph # (Auto) 0.64 L (0.9-3.2) K/mm3 Pine # (Auto) 0.3 (0.1-0.6) K/mm3 Eos # (Auto) 0.0 (0-0.3) K/mm3 Baso # (Auto) 0.0 (0.0-0.1) K/mm3 Abs Immat Gran (auto) 0.01 (0.00-0.031) K/mm3 Absolute Neuts (auto) 4.2 (1.3-6.7) K/mm3 Absolute Nucleated RBC 0.000 (0.0-0.012) K/mm3 Nucleated RBC % 0.0 (0.0-0.2) % % Immature Plt Fraction 1.8 (0.9-11.2) % Sodium 138 (137-145) mmol/L Potassium 4.3 (3.4-5.0) mmol/L Chloride 107 (98-107) mmol/L Carbon Dioxide 22 (22-30) mmol/L Anion Gap 9 (4-12) mmol/L BUN 25 H (9-20) mg/dL Creatinine 1.15 (0.7-1.3) mg/dL Estim Creat Clear Calc 51 ml/min Estimated GFR 60 (59 - ) Glucose 113 H (65-110) mg/dL Calcium 8.4 (8.4-10.2) mg/dL Total Bilirubin 0.7 (0.2-1.3) mg/dL AST 22 (17-59) U/L ALT 15 (6-50) U/L Alkaline Phosphatase 69 (38-126) U/L Troponin I < 0.012 (0.000-0.034) ng/mL Total Protein 8.0 (6.3-8.2) g/dL Albumin 4.3 (3.5-5.1) g/dL TSH 1.760 (0.465-4.680) uIU/mL Urine Color Yellow (Yellow) Urine Appearance Turbid H (Clear) Urine pH 5.0 (5.0-9.0) Ur Specific Metcalfe 1.021 (1.001-1.035) Urine Protein 1+ H (Negative) mg/dL Urine Glucose (UA) Negative (Negative) mg/dL Urine Ketones Trace H (Negative) mg/dL Ur Blood (Man) Trace (Negative) Urine Nitrate Positive H (Negative) Urine Bilirubin Negative (Negative) Urine Urobilinogen 1.0 (<2.0) mg/dL Add Ur Microanalysis Reviewed Leukocyte Esterase Rfl 3+ H (Negative) RADHA/UL Urine RBC 0-2 (0-2) /hpf Urine WBC >100 H (0-3) /hpf Ur Squamous Epith Cells None seen (Few) /hpf Urine Bacteria 4+ H /hpf Urine Casts 0-2 Urine Yeast (Budding) Present H (None) /hpf Acetaminophen < 10 L (10-30) ug/mL <Patricia Lorenzo, MEDIA CENTER ASSISTANT - Last Filed: 03/30/25 19:49> Lab Results 03/29/25 03/29/25 Range/Units 17:03 23:51 WBC 5.2 (4.5-10.0) K/mm3 RBC 4.65 (4.6-6.20) M/mm3 Hgb 12.9 L (14.0-18.0) g/dL Hct 40.1 L (42.0-52.0) % MCV 86.2 (80-100) fl MCH 27.7 (26-34) pg MCHC 32.2 (32-36) g/dl RDW 15.9 H (11.5-14.5) % Plt Count 139 L (150-375) k/mm3 MPV 9.4 (7.4-10.4) fl Immature Gran % (Auto) 0.2 (0-0.5) % Neut % (Auto) 80.6 H (45.5-73.1) % Lymph % (Auto) 12.3 L (18.3-44.2) % Pine % (Auto) 6.5 (2.6-8.5) % Eos % (Auto) 0.2 (0-4.4) % Baso % (Auto) 0.2 (0.2-1.2) % Lymph # (Auto) 0.64 L (0.9-3.2) K/mm3 Pine # (Auto) 0.3 (0.1-0.6) K/mm3 Eos # (Auto) 0.0 (0-0.3) K/mm3 Baso # (Auto) 0.0 (0.0-0.1) K/mm3 Abs Immat Gran (auto) 0.01 (0.00-0.031) K/mm3 Absolute Neuts (auto) 4.2 (1.3-6.7) K/mm3 Absolute Nucleated RBC 0.000 (0.0-0.012) K/mm3 Nucleated RBC % 0.0 (0.0-0.2) % % Immature Plt Fraction 1.8 (0.9-11.2) % Sodium 138 (137-145) mmol/L Potassium 4.3 (3.4-5.0) mmol/L Chloride 107 (98-107) mmol/L Carbon Dioxide 22 (22-30) mmol/L Anion Gap 9 (4-12) mmol/L BUN 25 H (9-20) mg/dL Creatinine 1.15 (0.7-1.3) mg/dL Estim Creat Clear Calc 51 ml/min Estimated GFR 60 (59 - ) Glucose 113 H (65-110) mg/dL Calcium 8.4 (8.4-10.2) mg/dL Total Bilirubin 0.7 (0.2-1.3) mg/dL AST 22 (17-59) U/L ALT 15 (6-50) U/L Alkaline Phosphatase 69 (38-126) U/L Troponin I < 0.012 (0.000-0.034) ng/mL Total Protein 8.0 (6.3-8.2) g/dL Albumin 4.3 (3.5-5.1) g/dL TSH 1.760 (0.465-4.680) uIU/mL Urine Color Yellow (Yellow) Urine Appearance Turbid H (Clear) Urine pH 5.0 (5.0-9.0) Ur Specific Metcalfe 1.021 (1.001-1.035) Urine Protein 1+ H (Negative) mg/dL Urine Glucose (UA) Negative (Negative) mg/dL Urine Ketones Trace H (Negative) mg/dL Ur Blood (Man) Trace (Negative) Urine Nitrate Positive H (Negative) Urine Bilirubin Negative (Negative) Urine Urobilinogen 1.0 (<2.0) mg/dL Add Ur Microanalysis Reviewed Leukocyte Esterase Rfl 3+ H (Negative) RADHA/UL Urine RBC 0-2 (0-2) /hpf Urine WBC >100 H (0-3) /hpf Ur Squamous Epith Cells None seen (Few) /hpf Urine Bacteria 4+ H /hpf Urine Casts 0-2 Urine Yeast (Budding) Present H (None) /hpf Acetaminophen < 10 L (10-30) ug/mL <Vivek Oliveira MD - Last Filed: 03/30/25 06:54> Imaging Data Attestation: I personally reviewed and interpreted this imaging study as follows: <Vivek Oliveira MD - Last Filed: 03/30/25 06:54> My impression: Impressions Head CT 03/29/25 18:03 Impression: Left-sided intra-axial mass detailed above concerning for neoplasm. Contrast-enhanced MRI is recommended <Vivek Oliveira MD - Last Filed: 03/30/25 06:54> Critical Care Time Critical Care Time Critical Care Time: Yes <Vivek Oliveira MD - Last Filed: 03/30/25 06:54> Total Critical Care Time: 75 <Vivek Oliveira MD - Last Filed: 03/30/25 06:54> Discharge Plan Discharge Clinical Impression: AMS (altered mental status), Brain mass, Vasogenic brain edema, Acute confusion <Patricia Lorenzo APRN - Last Filed: 03/30/25 19:49> Patient Disposition: Acute Care Hospital <Patricia Lorenzo MEDIA CENTER ASSISTANT - Last Filed: 03/30/25 19:49> Condition: Stable <Patricia Lorenzo MEDIA CENTER ASSISTANT - Last Filed: 03/30/25 19:49> Patient Language: Liberian <Patricia Lorenzo MEDIA CENTER ASSISTANT - Last Filed: 03/30/25 19:49> Prescriptions: No Action furosemide 40 mg tablet 20 mg PO DAILY metoprolol succinate 25 mg tablet extended release 24 hr 12.5 mg PO BID latanoprost 0.005 % drops 1 drp RIGHT EYE QPM omeprazole 40 mg capsule,delayed release(DR/EC) 40 mg PO DAILY fexofenadine [Corrina Allergy] 180 mg tablet 180 mg PO DAILY alendronate 70 mg tablet 70 mg PO WEEKLY Rx Instructions: friday azelastine 137 mcg (0.1 %) aerosol,spray 1 spray intranasal Q12H Qty: 90 0RF Rx Instructions: administer into each nostril ramelteon 8 mg tablet 8 mg PO QHS PRN (Reason: sleep) Qty: 90 0RF tamsulosin 0.4 mg capsule 0.4 mg PO QHS Qty: 90 1RF fluticasone propionate 50 mcg/actuation spray,suspension See Rx Instructions .ROUTE .COMPLEX Qty: 48 1RF Dose Instruction: SPRAY 2 SPRAYS INTO EACH NOSTRIL EVERY DAY Rx Instructions: SPRAY 2 SPRAYS INTO EACH NOSTRIL EVERY DAY dicyclomine 20 mg tablet 20 mg PO BID Qty: 180 1RF <Patricia Lorenzo, ZOIE - Last Filed: 03/30/25 19:49> Follow-up/Referrals: Edda Sheriff MD [Primary Care Provider, Family Practice] <Patricia Lorenzo, MEDIA CENTER ASSISTANT - Last Filed: 03/30/25 19:49>
--- NOTE | 2025-03-29 16:54 | ECG_ITS ---
Test Date: 2025-03-29 17:05:17 Measurements Intervals [place] Rate: 89 P: 13 WY: 196 QRS: -79 QRSD: 149 T: 17 QT: 399 QTc: 487 Interpretive Statements SINUS RHYTHM RIGHT BUNDLE BRANCH BLOCK [120+ ms QRS DURATION, UPRIGHT V1, 40+ ms S IN I/aVL/V4/V5/V6] LEFT ANTERIOR FASCICULAR BLOCK [QRS AXIS <= -45, QR IN I, RS IN II] poor R wave progression Electronically Signed On 03-29-2025 17:14:18 CDT by Olivia Orellana M.D.
[2025-03-29 17:13] LABS: Hematocrit 40.1 % (42.0-52.0); Hemoglobin 12.9 g/dL (14.0-18.0); Immature Granulocyte Percent A 0.2 % (0-0.5); Immature Platelet Fraction Pct 1.8 % (0.9-11.2); Lymphocytes Absolute Auto 0.64 K/mm3 (0.9-3.2); Mean Corpuscular HGB Conc 32.2 g/dl (32-36); Mean Corpuscular Hemoglobin 27.7 pg (26-34); Mean Corpuscular Volume 86.2 fl (80-100); Nucleated Red Blood Cells Absolute Auto 0.000 K/mm3 (0.0-0.012); Nucleated Red Blood Cells Perc 0.0 % (0.0-0.2); Platelet Count Result 139 k/mm3 (150-375); Red Blood Count 4.65 M/mm3 (4.6-6.20); White Blood Count 5.2 K/mm3 (4.5-10.0)
[2025-03-29 17:24] LABS: Acetaminophen < 10 ug/mL (10-30); Alanine Aminotransferase 15 U/L (6-50); Albumin Level 4.3 g/dL (3.5-5.1); Alkaline Phosphatase 69 U/L (38-126); Anion Gap 9 mmol/L (4-12); Aspartate Amino Transferase 22 U/L (17-59); Bilirubin,Total 0.7 mg/dL (0.2-1.3); Blood Urea Nitrogen 25 mg/dL (9-20); Calcium 8.4 mg/dL (8.4-10.2); Carbon Dioxide 22 mmol/L (22-30); Chloride 107 mmol/L (98-107); Estimated CRCL calculation 51 ml/min; Estimated Glomerular Filt Rate 60; Glucose 113 mg/dL (65-110); Potassium 4.3 mmol/L (3.4-5.0); Sodium 138 mmol/L (137-145); Total Protein 8.0 g/dL (6.3-8.2)
[2025-03-29 17:36] LABS: Troponin I < 0.012 ng/mL (0.000-0.034)
[2025-03-29 17:55] LABS: Thyroid Stimulating Hormone 1.760 uIU/mL (0.465-4.680)
--- OUTSIDE RECORDS SUMMARY | 2025-03-29 21:44 | XMS_ITS | Encounter Summary ---
Author Organization [facility] Address [address] [place] [address] Care Team Providers Care Product Development Ecologist Name Role Phone Pramod Gomez MD Primary Care Provider [phone] Encounter Details Date Type Department Care Team (Late st Contact Info) Description 02/18/2020 Lab Requisition [facility] Care DermPath Lab [address] [place] [id number] Chito Gore MD [address] [place] [address] Social History Tobacco Use Types Packs/Day Years Used Date Smoking Tobacco: Never Smokeless Tobacco: Never Alcohol Use Standard Drinks/Week Comments Yes 0.8 (1 standard drink = 0.6 oz p ure alcohol) Sex and Gender Information Value Date Recorded Sex Assigned at Not on file 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 Gender Identity Not on file Sexual Orientation Not on file documented as of this encounter Plan of Treatment Not on file documented as of this encounter Procedures Procedure Name Priority Date/Time Associated Diagnosis Comments DERMATOPATHOLOGY Routine 02/16/2020 12:0 0 AM CDT documented in this encounter Results * DERMATOPATHOLOGY (02/16/2020 12:00 AM CDT) Case Report Dermatopathology Report Case: [id number] Authorizing Provider: Chito Gore MD Collected: 02/16/2020 12:00 AM Ordering Location: [facility] DermPath Lab Received: 02/18/2020 02:29 PM [...] characteristic determined by the Dermatopathology Laboratory at [facility], directed by Dr. Diego Davison. These tests need not be, and therefore are not, approved by the [place] Food and Drug Administration. The tests are used for clinical purposes. Billing Codes Specimen Charges Stain Charges 71775 06352 1 1 0 3:42 PM CDT DERMATOPATHOLOGY LABORATORY Embedded Images 0 3:42 PM CDT DERMATOPATHOLOGY LABORATORY Pathology/Cytology TISSUE SPECIMEN FROM SKIN / Unknown 02/16/2020 02/18/2020 2:29 PM CDT Miscellaneous samples (specimen) TISSUE SPECIMEN FROM SKIN / Unknown 02/16/2020 02/18/2020 2:29 PM CDT Chito Gore MD LAB - PATHOLOGY/CYTOLOGY ORD ERABLES Final Result DERMATOPATHOLOGY LABORATORY [facility] - Department of Dermatology [facility]/[address] [phone] documented in this encounter Visit Diagnoses Not on filedocumented in this encounter Care Teams Product Development Ecologist Relationship Specialty Start Date End Date Pramod Gomez MD [address] [place] [address] PCP - General 10/16/10 documented as of this encounter
--- OUTSIDE RECORDS SUMMARY | 2025-03-29 21:44 | XMS_ITS ---
Author Organization [facility] Address [address] [place] [address] Care Team Providers Care Planner Scheduler Name Role Phone Zachariah Sheriff MD Primary Care Provider Cullen Venegas MD Unavailable [phone] Milan Reed MD Unavailable [phone] Amrik Painter DO Unavailable [phone] Active Problems Problem Noted Date Diagnosed Date Need for immunization against influenza 05/20/20 24 Cardiac pacemaker in situ 04/07/2024 Overview (04/14/2024): Medtronic Marielos Dual Pacemaker. Dx: CHB DOI 04/07/2024 - Luis En[facility]. [facility]. Card-Dr Painter. CHB (complete heart [...] Current Plans 2023 Influenza Vaccine ([facility])* Plan Start Date: 05/20/2024 Plan Provider:Milan [...]
--- OUTSIDE RECORDS SUMMARY | 2025-03-29 21:44 | XMS_ITS | Encounter Summary ---
Author Organization [facility] Address [address] [place] [address] Care Team Providers Care Nursing Center Tutor Name Role Phone Pramod Gomez MD Primary Care Provider [phone] Encounter Details Date Type Department Care Team (Late st Contact Info) Description 10/11/2021 Lab Requisition [facility] Care DermPath Lab [address] [facility] [address] [place] [phone] Chito Gore MD [address] [place] [address] Social History Tobacco Use Types Packs/Day Years Used Date Smoking Tobacco: Never Smokeless Tobacco: Never Alcohol Use Standard Drinks/Week Comments Yes 0.8 (1 standard drink = 0.6 oz p ure alcohol) Sex and Gender Information Value Date Recorded Sex Assigned at Not on file 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 Gender Identity Not on file Sexual Orientation Not on file documented as of this encounter Plan of Treatment Not on file documented as of this encounter Procedures Procedure Name Priority Date/Time Associated Diagnosis Comments DERMATOPATHOLOGY Routine 10/10/2021 12:0 0 AM CDT documented in this encounter Results * DERMATOPATHOLOGY (10/10/2021 12:00 AM CDT) Case Report Dermatopathology Report Case: [id number] Authorizing Provider: Chito Gore MD Collected: 10/10/2021 12:00 AM Ordering Location: [facility] DermPath Lab Received: 10/11/2021 01:43 PM [...] specimen consists of a shave biopsy measuring [id number]. Jar 0. 1:14 PM CDT DERMATOPATHOLOGY LABORATORY [...] characteristic determined by the Dermatopathology Laboratory at [facility], directed by Dr. Diego Davison. These tests need not be, and therefore are not, approved by the [place] Food and Drug Administration. The tests are used for clinical purposes. Billing Codes Specimen Charges Stain Charges 28583 1 1:14 PM CDT DERMATOPATHOLOGY LABORATORY Embedded Images 1:14 PM CDT DERMATOPATHOLOGY LABORATORY Pathology/Cytolog y TISSUE SPECIMEN FROM SKIN / Unknown 10/10/2021 10/11/2021 1:43 PM CDT Chito Gore MD LAB - PATHOLOGY/CYTOLOGY ORD ERABLES Final Result DERMATOPATHOLOGY LABORATORY [facility] - Department of Dermatology [facility] Medicine [address] [place] [address], [address] [phone] documented in this encounter Visit Diagnoses Not on filedocumented in this encounter Care Teams Nursing Center Tutor Relationship Specialty Start Date End Date Pramod Gomez MD [address] [place] [address] PCP - General 10/16/10 documented as of this encounter
--- OUTSIDE RECORDS SUMMARY | 2025-03-29 21:44 | XMS_ITS | Encounter Summary ---
Author Organization [facility] Address [address] [facility] [place] [address] Care Team Providers Care Hospital Laboratory Technician Name Role Phone Pramod Gomez MD Primary Care Provider [phone] Encounter Details Date Type Department Care Team (Late st Contact Info) Description 12/18/2023 Lab Requisition [facility] - DermPath Lab [address] [facility], [place] [id number] Chito Gore MD [address] [place] [address] Social History Tobacco Use Types Packs/Day Years Used Date Smoking Tobacco: Never Smokeless Tobacco: Never Alcohol Use Standard Drinks/Week Comments Yes 0.8 (1 standard drink = 0.6 oz p ure alcohol) Sex and Gender Information Value Date Recorded Sex Assigned at Not on file 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 Gender Identity Not on file Sexual Orientation Not on file documented as of this encounter Plan of Treatment Not on file documented as of this encounter Procedures Procedure Name Priority Date/Time Associated Diagnosis Comments DERMATOPATHOLOGY Routine 12/16/2023 12:0 0 AM CDT documented in this encounter Results * DERMATOPATHOLOGY (12/16/2023 12:00 AM CDT) Case Report Dermatopathology Report Case: [id number] Authorizing Provider: Chito Gore MD Collected: 12/16/2023 12:00 AM Ordering Location: [facility] - Received: 12/18/2023 08:19 [...] characteristic determined by the Dermatopathology Laboratory at [facility], directed by Dr. Diego Davison. These tests need not be, and therefore are not, approved by the [place] Food and Drug Administration. The tests are used for clinical purposes. Billing Codes Specimen Charges Stain Charges 18058 1 12:09 PM CDT DERMATOPATHOLOGY LABORATORY Embedded Images 12:09 PM CDT DERMATOPATHOLOGY LABORATORY Pathology/Cytolog y TISSUE SPECIMEN FROM SKIN / Unknown 12/16/2023 12/18/2023 8:19 AM CDT Chito Gore MD LAB - PATHOLOGY/CYTOLOGY ORD ERABLES Final Result DERMATOPATHOLOGY LABORATORY [facility] - Department of Dermatology [facility] Medicine [address] [place] [address], [address]rd Floor [address] [phone] documented in this encounter Visit Diagnoses Not on filedocumented in this encounter Care Teams Hospital Laboratory Technician Relationship Specialty Start Date End Date Pramod Gomez MD [address] [place] [address] PCP - General 10/16/10 documented as of this encounter
--- OUTSIDE RECORDS SUMMARY | 2025-03-29 21:44 | XMS_ITS | Encounter Summary ---
Author Organization [facility] Address [address] [facility] [place] [address] Care Team Providers Care Mobile Lounge Driver Name Role Phone Pramod Gomez MD Primary Care Provider [phone] Encounter Details Date Type Department Care Team (Late st Contact Info) Description 10/22/2023 Lab Requisition [facility] - DermPath Lab [address] [facility] [place] [phone] Chito Gore MD [address] [place] [address] Social History Tobacco Use Types Packs/Day Years Used Date Smoking Tobacco: Never Smokeless Tobacco: Never Alcohol Use Standard Drinks/Week Comments Yes 0.8 (1 standard drink = 0.6 oz p ure alcohol) Sex and Gender Information Value Date Recorded Sex Assigned at Not on file 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 Gender Identity Not on file Sexual Orientation Not on file documented as of this encounter Plan of Treatment Not on file documented as of this encounter Procedures Procedure Name Priority Date/Time Associated Diagnosis Comments DERMATOPATHOLOGY Routine 10/21/2023 12:0 0 AM CDT documented in this encounter Results * DERMATOPATHOLOGY (10/21/2023 12:00 AM CDT) Case Report Dermatopathology Report Case: [id number] Authorizing Provider: Chito Gore MD Collected: 10/21/2023 12:00 AM Ordering Location: [facility] - Received: 10/23/2023 06:47 AM DermPath Lab [...] specimen consists of a shave biopsy measuring [id number] mm. Jar 0. Specimen B: Received is [...] characteristic determined by the Dermatopathology Laboratory at [facility], directed by Dr. Diego Davison. These tests need not be, and therefore are not, approved by the [place] Food and Drug Administration. The tests are used for clinical purposes. Billing Codes Specimen Charges Stain Charges 49250 28311 1 1 4 1:41 PM CDT DERMATOPATHOLOGY LABORATORY Embedded Images 4 1:41 PM CDT DERMATOPATHOLOGY LABORATORY Pathology/Cytology TISSUE SPECIMEN FROM SKIN / Unknown 10/21/2023 10/23/2023 6:47 AM CDT Miscellaneous samples (specimen) TISSUE SPECIMEN FROM SKIN / Unknown 10/21/2023 10/23/2023 6:47 AM CDT Chito Gore MD LAB - PATHOLOGY/CYTOLOGY ORD ERABLES Final Result DERMATOPATHOLOGY LABORATORY [facility] Department of Dermatology [facility] [address] [place] [address], [address] [phone] documented in this encounter Visit Diagnoses Not on filedocumented in this encounter Care Teams Mobile Lounge Driver Relationship Specialty Start Date End Date Pramod Gomez MD [address] [place] [phone] PCP - General 10/16/10 documented as of this encounter
--- OUTSIDE RECORDS SUMMARY | 2025-03-29 21:44 | XMS_ITS | Encounter Summary ---
Author Organization [facility] Address [address] [facility] [place] [address] Care Team Providers Care Miniature Set Constructor Name Role Phone Pramod Gomez MD Primary Care Provider [phone] Encounter Details Date Type Department Care Team (Late st Contact Info) Description 01/21/[address] 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 Check margins. 3:46 PM [facility] DERMATOPATHOLOGY LABORATORY Gross Description Specimen A: Received is one formalin filled container labeled with the patients name and designated left forearm. The specimen consists of a shave removal measuring [id number]. The margin is inked green. Jar 0. [...] characteristic determined by the Dermatopathology Laboratory at [facility], directed by Dr. Diego Davison. These tests need not be, and therefore are not, approved by the [place] Food and Drug Administration. The tests are used for clinical purposes. Billing Codes Specimen Charges Stain Charges 31698 1 9 3:46 PM CDT DERMATOPATHOLOGY LABORATORY Embedded Images 9 3:46 PM CDT DERMATOPATHOLOGY LABORATORY Pathology/Cytolog y TISSUE SPECIMEN FROM SKIN / Unknown 01/20/2019 01/21/2019 11:39 AM CDT Chito Gore MD LAB - PATHOLOGY/CYTOLOGY ORD ERABLES Final Result DERMATOPATHOLOGY LABORATORY [facility] - Department of Dermatology [address] [place] [address], 5th Floor Lab [address] [phone] documented in this encounter Visit Diagnoses Not on filedocumented in this encounter Care Teams Miniature Set Constructor Relationship Specialty Start Date End Date Pramod Gomez MD [address] [place] [address] PCP - General 10/16/10 documented as of this encounter
--- OUTSIDE RECORDS SUMMARY | 2025-03-29 21:44 | XMS_ITS | Clinical Summary ---
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
--- OUTSIDE RECORDS SUMMARY | 2025-03-29 21:44 | XMS_ITS | Clinical Summary ---
Author Organization [facility] Address [address] [facility] [address] Care Team Providers Care General Practitioner Name Role Phone Pramod Gomez MD Primary Care Provider Source Comments [facility],non-owned Affiliates and Associated Physician Practices is amultiple site organization consisting of ambulatory clinics and hospital sitesin [place], [place], [place] and [place]. This disclosure is being madepursuant to the Care Everywhere program and may not contain all information available regarding this patient. 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 Gender Identity Not on file Sexual Orientation [...] age to complete this topic Insurance MEDICARE [facility] MEDICARE [employer] [facility] SELF PAY NO INSURANCE Member Subscriber Plan / Payer (Ef fective for All Dates) Name:Marquise Jorge Member ID:Not on file Relation to Subscriber:Not on file Name:MARQUISE JORGE Subscriber ID:Not on file (Home) Address: [place] [address] Payer ID:Not on file Group ID:Not on file Type:Self Pay Address: [place], [place] MEDICARE [facility] R[facility]K Care Teams General Practitioner Relationship Specialty Start Date End Date Pramod Gomez MD [address] [place] [address] PCP - General 10/16/10
--- NOTE | 2025-03-29 22:40 | PC.NURSE ---
This RN attempted to get urine from pt at this time Pt attempted and was unsuccessful. Urinal at bedside.
[2025-03-30] VITALS (33 sets, daily range): BP systolic 115–160; BP diastolic 56–89; PULSE 76–84; RESP 10–22; TEMP 36.7; O2SAT 88–100
[2025-03-30 00:09] LABS: Add Urine Microscopic? YES; Appearance Urine Turbid (Clear); Budding Yeast Urine Present /hpf; Glucose Urine UA Negative (Negative); Leukocyte Esterase Ur 3+ LEU/UL (Negative); Need Manual Microscopic Reviewed; Nitrate Urine Positive (Negative); Non Pathogenic Casts 0-2; Specific Grav Ur 1.021 (1.001-1.035)
[2025-03-30] MEDS: cefTRIAXone 1 GM in SODIUM CHLORIDE 0.9% IV 50 ML 100 ML IVPB (00:39)
[2025-03-30] MEDS: dexAMETHasone SOD PHOS INJ 10 MG/ML 1 ML VIAL 8 MG IV PUSH (00:43)
--- NOTE | 2025-03-30 01:35 | PC.NURSE ---
RN spoke with Brianna from [facility] transfer center and gave triage report for placement. Waiting for bed placement at this time.
--- NOTE | 2025-03-30 09:53 | PC.NURSE ---
Shara from [facility] transfer center called for update on pt status and to check if placement is still needed. They will continue to seek bed placement and call with any updates.
== END 2025-03-30 16:17 | disposition short-term general hospital (02) ==
PROVIDERS: Nurse Practitioner Family; Emergency Provider Student in an Organized Health Care Education/Training Program; PCP Family Medicine
DX: G93.9 Disorder of brain, unspecified (principal); G93.6 Cerebral edema; R41.0 Disorientation, unspecified; I50.9 Heart failure, unspecified; I11.0 Hypertensive heart disease with heart failure; C91.11 Chronic lymphocytic leukemia of B-cell type in remission; E78.5 Hyperlipidemia, unspecified; E55.9 Vitamin D deficiency, unspecified; G47.33 Obstructive sleep apnea (adult) (pediatric); K21.9 Gastro-esophageal reflux disease without esophagitis; M85.80 Other specified disorders of bone density and structure, unspecified site; Z85.46 Personal history of malignant neoplasm of prostate; Z85.828 Personal history of other malignant neoplasm of skin; Z79.899 Other long term (current) drug therapy
CPT/HCPCS: 36415; 70450; 80053; 80143; 81001; 84443; 84484; 85025; 85055; 87077; 87086; 87186; 93005; 96365; 96375; 99285; J0696; J1100